=== PATIENT | male | born 1940 | race Caucasian/White ===

== ENCOUNTER 2017-01-11 05:33 | Inpatient (IN) | payer MEDICARE, MEDICAID ==
[2016-12-31 13:31] LABS: HEMATOCRIT 41.1 % (37.9-51.0); HEMOGLOBIN 13.7 g/dL (13.5-17.0); MEAN CORPUSCULAR HEMOGLOBIN 28.1 pg (27.0-33.4); MEAN CORPUSCULAR HGB CONC 33.2 g/dL (32.0-36.0); MEAN CORPUSCULAR VOLUME 85 fl (80-97); RED BLOOD COUNT 4.86 10^6/uL (4.35-5.55); RED CELL DISTRIBUTION WIDTH 15.5 % (11.5-14.0)
[2016-12-31 13:39] LABS: APPEARANCE,URINE SLIGHTLY-CLOUDY; BILIRUBIN,URINE NEGATIVE (NEGATIVE); GLUCOSE, URINE NEGATIVE (NEGATIVE); KETONES,URINE NEGATIVE (NEGATIVE); LEUKOCYTE ESTERASE,URINE MODERATE (NEGATIVE); NITRITE,URINE NEGATIVE (NEGATIVE); PROTEIN,URINE NEGATIVE (NEGATIVE); URINE SPECIFIC GRAVITY 1.016; UROBILINOGEN,URINE NEGATIVE mg/dL (<2.0)
[2016-12-31 13:49] LABS: ANION GAP 13 (5-19); BLOOD UREA NITROGEN 24 mg/dL (7-20); CALCIUM 8.2 mg/dL (8.4-10.2); CARBON DIOXIDE 30 mmol/L (22-30); CHLORIDE 102 mmol/L (98-107); CREATININE RESULT 1.12 mg/dL (0.52-1.25); GLUCOSE 73 mg/dL (75-110); POTASSIUM 4.1 mmol/L (3.6-5.0); SODIUM 144.5 mmol/L (137-145)
--- NOTE | 2016-12-31 15:44 | EKG REPORT ---
SEVERITY:- ABNORMAL ECG - SINUS BRADYCARDIA RIGHT BUNDLE BRANCH BLOCK PROBABLE INFERIOR INFARCT, AGE INDETERMINATE : Confirmed by: Breanna Landrum MD 31-Dec-2016 15:43:06
[~2017-01-11 05:33] MED LIST: IBUPROFEN 800 MG/NS 250 ML IV PRN; LANSOPRAZOLE 15 MG TAB.RAP.DR PO PRN; NORMAL SALINE 1000 ML (RENAL PATIENTS) IV PRN; OXYCODONE HCL SR 10 MG TABLET PO PRN; SCOPOLAMINE HYDROBROMIDE 1.5 MG PATCH.TD72 TOP PRN; VANCOMYCIN HCL 1,000 MG in DEXTROSE 5%-WATER 250 ML IV PRN
[2017-01-11] MEDS ORDERED: FENTANYL CITRATE INJ/PF 100 MCG/2 ML AMPUL ONE (06:43)
[2017-01-11] MEDS ORDERED: MIDAZOLAM 2 MG/2 ML INJ ONE (06:43)
[2017-01-11] MEDS ORDERED: PROPOFOL INJ 200 MG/20 ML VIAL IV ONE (06:44)
[2017-01-11] MEDS ORDERED: ONDANSETRON HCL INJ/PF 4 MG/2 ML SDV ONE (06:44)
[2017-01-11] MEDS ORDERED: THROMBIN (BOVINE) 5000 UNIT EPITAXIS KIT ONE (06:55)
[2017-01-11] MEDS ORDERED: THROMBIN (BOVINE) TOPICAL 20000 UNIT VIAL ONE (06:55)
[2017-01-11] MEDS ORDERED: BUPIVACAINE INJ/PF LIPOSOME/PF 266 MG/20 ML SDV ONE (06:55)
[2017-01-11] MEDS ORDERED: CEFAZOLIN INJ 1 GM VIAL ONE (07:09)
[2017-01-11 07:26] LABS: PROTHROMBIN TIME 12.9 SEC (11.4-15.4)
[2017-01-11 07:27] LABS: PARTIAL THROMBOPLASTIN TIME 28.5 SEC (23.5-35.8)
[2017-01-11] MEDS ORDERED: EPINEPHRINE INJ/PF 1 MG/1 ML AMPULE ONE (08:05)
[2017-01-11] MEDS ORDERED: EPHEDRINE SULFATE INJ 50 MG/1 ML AMPULE ONE (08:07)
[2017-01-11] MEDS ORDERED: FENTANYL CITRATE INJ/PF 100 MCG/2 ML AMPUL IV PRN ×2 (08:15)
[2017-01-11] MEDS ORDERED: MEPERIDINE HCL/PF INJ 25 MG/1 ML DISP.SYRIN IV PRN (08:15)
[2017-01-11] MEDS ORDERED: DIPHENHYDRAMINE HCL 50 MG/ML VIAL IV PRN ×2 (08:15→09:07)
[2017-01-11] MEDS ORDERED: PROMETHAZINE HCL INJ 25 MG/1 ML VIAL IV PRN (08:15)
[2017-01-11] MEDS ORDERED: LORAZEPAM 1 MG TABLET PO PRN (09:05)
[2017-01-11] MEDS ORDERED: ACETAMINOPHEN 325 MG TABLET PO PRN ×2 (09:05→09:07)
--- NOTE | 2017-01-11 09:05 | Operative Report ---
Operative Report DATE OF SURGERY: 01/11/17 PREOPERATIVE DIAGNOSIS: Left knee arthritis OPERATION: Left knee arthroplasty SURGEON: BAKARI DURAN ANESTHESIA: Spinal TISSUE REMOVED OR ALTERED: Bone to pathology ESTIMATED BLOOD LOSS: 100 PROCEDURE: Implants used: Femur: Layiker cierralon #6 CR femur Tibia:, 5 tibia Tibial liner:, 9 mm CS insert Patella: 35 mm oval patella Procedure with the patient supine on the operating table the, left the limb is prepped and draped in a sterile fashion. The limb was elevated for exsanguination and the tourniquet inflated to 280 torr. A standard midline median parapatellar approach the knee is taken. There had been both previous medial and lateral incisions for ligamentous reconstructions in the distant past. The medial incision was a hockey type incision that ended just inferior in the midline to the tibial tubercle. I would be unable to make an anterior incision and be 7 cm from either the 2 previous incisions. Therefore I made in the midline incision that distally ended up coinciding with the previous incision and leaving a T type situation between minute incision and the previous medial incision. The patient and family were both aware of this decision preoperatively and my concern for potential skin healing problems Access is gained to the femoral canal through the intercondylar notch. Intramedullary alignment instrumentation used to resect 10 mm of distal femur in 5 of valgus. Sizing guide indicated a size 6 femur. Appropriate cutting jig is then used to fashion anterior posterior and chamfer cuts. In the process of making the anterior and posterior chamfer cuts. An old staple was encountered and was removed. A trial reduction femurs performed and this is judged to be adequate. Attention was next turned to the tibia. Using an extra medullary alignment system 9 millimeters was resected off the lateral tibial plateau. This is sized to a size 5 tibia. A trial reduction was now performed with a 6 femur and a. 5 tibia using a 9 millimeters spacer. It is full extension and central patellofemoral tracking. The articular surface the patella was next resected using an oscillating saw. All trial implants were removed. Polymethylmethacrylate is mixed and used to cement the above implants in place. On adequate curing the cement excess cement was removed the tourniquet was deflated hemostasis obtained the wound is then closed in layers using interrupted Vicryl followed by ashley. A sterile compressive dressing was applied and the patient returned to recovery room in satisfactory condition.
[2017-01-11] MEDS ORDERED: MAG HYDROX/AL HYDROX/SIMETH SUSP 30 ML UDCUP PO PRN (09:07)
[2017-01-11] MEDS ORDERED: ONDANSETRON HCL INJ/PF 4 MG/2 ML SDV IV PRN (09:07)
[2017-01-11] MEDS ORDERED: MORPHINE SULFATE 10 MG/ML INJ IV PRN ×2 (09:07)
[2017-01-11] MEDS ORDERED: ONDANSETRON 4 MG TAB.RAPDIS PO PRN (09:07)
[2017-01-11] MEDS ORDERED: MORPHINE SULFATE 10 MG/ML INJ IM PRN (09:07)
[2017-01-11] MEDS ORDERED: ZOLPIDEM TARTRATE 5 MG TABLET PO PRN (09:07)
[2017-01-11] MEDS ORDERED: OXYCODONE HCL IR 5 MG TABLET PO PRN (09:07)
[2017-01-11] MEDS ORDERED: RINGERS SOLUTION,LACTATED 1,000 ML IV PRN (09:07)
[2017-01-11] MEDS ORDERED: POLYVINYL ALCOHOL 1.4% OPH SOLN 15 ML OP SCH (09:15)
[2017-01-11] MEDS ORDERED: (PENDING PHARMACY ID) (Psyllium Husk [Metamucil] 0.52 GM) PO SCH (10:00)
[2017-01-11] MEDS ORDERED: EYELID CLEANSER COMBINATION TP SCH (10:00)
[2017-01-11] MEDS ORDERED: GLYCOPYRROLATE INJ 0.4 MG/2 ML VIAL ONE (11:51)
[2017-01-11] MEDS ORDERED: PHENYLEPHRINE HCL INJ/PF 10 MG/1 ML SDV ONE (11:51)
[2017-01-11] MEDS ORDERED: NORMAL SALINE 1000 ML 1,000 ML IV PRN ×2 (14:00→14:30)
[2017-01-11] MEDS ORDERED: NORMAL SALINE 1000 ML 500 ML IV ONE (14:15)
[2017-01-11] MEDS ORDERED: DOPAMINE HCL 800 MG/D5W 250 ML IV PRN (15:30)
[2017-01-11] MEDS: PRENATAL VITAMIN W-O CA NO5/FE FUMARATE/FA CAPSULE PO SCH (15:58)
[2017-01-11] MEDS: MORPHINE SULFATE 10 MG/ML INJ IV PRN (16:56)
[2017-01-11] MEDS: SENNOSIDES/DOCUSATE 8.6-50 MG 1 EACH TABLET PO SCH (17:14)
[2017-01-11] MEDS: PSYLLIUM SEED-SF 5.85 GM PACKET PO SCH ×2 (17:14)
[2017-01-11] MEDS ORDERED: SACUBITRIL/VALSARTAN 24 MG/26 MG TABLET PO SCH (18:00)
[2017-01-11 19:21] LABS: HEMATOCRIT 37.9 % (37.9-51.0); HEMOGLOBIN 12.4 g/dL (13.5-17.0); HGB HCT DIFFERENCE -0.7; MEAN CORPUSCULAR HEMOGLOBIN 28.2 pg (27.0-33.4); MEAN CORPUSCULAR HGB CONC 32.8 g/dL (32.0-36.0); MEAN CORPUSCULAR VOLUME 86 fl (80-97); RED BLOOD COUNT 4.42 10^6/uL (4.35-5.55); RED CELL DISTRIBUTION WIDTH 15.8 % (11.5-14.0); WHITE BLOOD COUNT 9.7 10^3/uL (4.0-10.5)
[2017-01-11] MEDS: TAMSULOSIN HCL 0.4 MG CAP.SR.24H PO SCH (19:34)
[2017-01-11] MEDS: OXYCODONE HCL SR 10 MG TABLET PO SCH (19:34)
[2017-01-11 19:38] LABS: ALANINE AMINOTRANSFERASE 24 U/L (21-72); ALBUMIN 3.4 g/dL (3.5-5.0); ALKALINE PHOSPHATASE 74 U/L (38-126); ANION GAP 15 (5-19); ASPARTATE AMINO TRANSFERASE 25 U/L (17-59); BILIRUBIN,DIRECT 0.2 mg/dL (0.0-0.4); BILIRUBIN,TOTAL 1.1 mg/dL (0.2-1.3); BLOOD UREA NITROGEN 35 mg/dL (7-20); CALCIUM 8.2 mg/dL (8.4-10.2); CARBON DIOXIDE 23 mmol/L (22-30); CHLORIDE 103 mmol/L (98-107); CREATINE KINASE 163 U/L (55-170); CREATININE RESULT 2.55 mg/dL (0.52-1.25); GLUCOSE 144 mg/dL (75-110); POTASSIUM 5.1 mmol/L (3.6-5.0); SODIUM 140.7 mmol/L (137-145); TOTAL PROTEIN 5.8 g/dL (6.3-8.2)
[2017-01-11 19:49] LABS: CREATINE KINASE MB 2.83 ng/mL (<4.55); TROPONIN I 0.026 ng/mL
[2017-01-11] MEDS: DEXTROSE 5%-WATER 250 ML with NOREPINEPHRINE BITARTRATE 4 MG IV PRN ×2 (19:50)
[2017-01-11] MEDS: NORMAL SALINE 1000 ML 1,000 ML IV PRN ×2 (19:52→23:49)
[2017-01-11 19:56] LABS: BAND NEUTROPHILS % (MANUAL) 4 % (3-5); BASOPHILS % (MANUAL) 0 % (0-2); EOSINOPHILS % (MANUAL) 0 % (0-6); LYMPHOCYTES % (MANUAL) 9 % (13-45); TOTAL CELLS COUNTED 100
[2017-01-11 20:00] LABS: OVALOCYTES 1+; POIKILOCYTOSIS SLIGHT; TOXIC VACUOLATION PRESENT
[2017-01-11 20:01] LABS: ANISOCYTOSIS SLIGHT; BURR CELLS SLIGHT
--- NOTE | 2017-01-11 20:06 | PDOC CONSULTATION ---
Consultation Consult Date: 01/11/17 Attending physician:: BAKARI DURAN Consult reason:: Hypotension History of Present Illness Admission Date/PCP: 01/11/17 05:33 CRISTINE AGUAYO MD History of Present Illness: ERIKA GERMAIN is a 76 year old male, he is well-known to me, he has a well compensated chronic systolic heart failure, diabetes mellitus, CVA with no residual deficits, he was admitted electively for left knee arthroplasty. This was done today consultation was requested from medicine because of low blood pressure and the fact that he has multiple comorbid conditions. Based on the revised cardiac risk index, he has cardiomyopathy, coronary artery disease, CVA , no history of insulin requiring diabetes mellitus, no history of chronic kidney disease with serum creatinine of more than 2. On admission the serum creatinine was normal. The blood blood pressure is low it seems that he has sustained acute kidney injury probably due to ATN. Past Medical History Cardiac Medical History: Reports: Atrial Fibrillation - Paroxysmal, Coronary Artery Disease, DVT, Myocardial Infarction - x4 last 1993, Hyperlipidema, Hypertension, Other - Chronic systolic heart failure, ascending aortic aneurysm Pulmonary Medical History: Reports: Asthma, Bronchitis, Chronic Obstructive Pulmonary Disease (COPD), Intubation, Pneumonia, Respiratory Failure - Acute, Sleep Apnea Denies: Tuberculosis Neurological Medical History: Reports: Seizures - sept hit head and had seizure Endocrine Medical History: Reports: Diabetes Mellitus Type 2, Obesity Renal/ Medical History: Reports: Other - Atrophic left kidney Malignancy Medical History: Reports: Skin Cancer - Malignant melanoma GI Medical History: Reports: Gastroesophageal Reflux Disease Musculoskeltal Medical History: Reports: Arthritis, Gout Denies: Fibromyalgia Psychiatric Medical History: Reports: Depression Hematology: Reports: Anemia - Thrombocytopenia Past Surgical History Past Surgical History: Reports: Coronary Stent Social History Smoking Status: Never Smoker Frequency of Alcohol Use: None Hx Recreational Drug Use: No Hx Prescription Drug Abuse: No - Advance Directive Resuscitation Status: Full Code Family History Family History: Reviewed & Not Pertinent Parental Family History Reviewed: Yes Children Family History Reviewed: Yes Sibling(s) Family History Reviewed.: Yes Medication/Allergy Home Medications: Aspirin 81 mg PO QAM 04/15/15 Atorvastatin Calcium [Lipitor 80 mg Tablet] 80 mg PO QHS 04/15/15 Clopidogrel Bisulfate [Plavix 75 mg Tablet] 75 mg PO QAM 04/15/15 Cyanocobalamin (Vitamin B-12) [B-12] 500 mcg PO QAM 04/15/15 Dexlansoprazole [Dexilant 60 mg Capsule] 60 mg PO QAM 04/15/15 Febuxostat [Uloric 40 mg Tablet] 40 mg PO QAM 04/15/15 Isosorbide Mononitrate [Isosorbide Mononitrate ER] 30 mg PO QAM 04/15/15 Linagliptin [Tradjenta] 5 mg PO QAM 04/15/15 Oxycodone HCl/Acetaminophen [Oxycodone-Acetaminophen 10-325] 1 tab PO Q6HP PRN 04/15/15 Pregabalin [Lyrica 75 mg Capsule] 150 mg PO Q12 04/15/15 Tamsulosin HCl 0.4 mg PO QPM 04/15/15 Acetaminophen [Tylenol] 650 mg PO Q4 PRN 08/15/15 Lorazepam [Ativan 1 mg Tablet] 2 mg PO BID PRN 08/15/15 Furosemide [Lasix 40 mg Tablet] 40 mg PO QAM 07/31/16 Psyllium Husk [Metamucil] 0.52 gm PO BID 07/31/16 Citalopram Hydrobromide [Celexa 20 mg Tablet] 20 mg PO QAM 12/30/16 Eyelid Cleanser Combination #9 [Systane] 1 each TP BID 12/30/16 Lanolin/Min Oil/Petrolat,Wht [Akwa Tears Ointment] 3.5 gm OP QHS 12/30/16 Polyvinyl Alcohol [Liquitears] 15 ml OP ASDIR 12/30/16 Sacubitril/Valsartan [Entresto 24 mg-26 mg Tablet] 1 each PO BID 12/30/16 Allergies/Adverse Reactions: codeine [Codeine] Allergy (Verified 12/30/16 15:35) Hives tuberculin,PPD,multi-puncture Adverse Reaction (Verified 12/30/16 16:05) Review of Systems Constitutional: ABSENT: chills, fever(s), headache(s), weight gain, weight loss Eyes: ABSENT: visual disturbances Ears: ABSENT: hearing changes Cardiovascular: ABSENT: as per HPI, chest pain, dyspnea on exertion, edema, orthropnea, palpitations, other Respiratory: ABSENT: cough, hemoptysis Gastrointestinal: ABSENT: abdominal pain, constipation, diarrhea, hematemesis, hematochezia, nausea, vomiting Genitourinary: ABSENT: dysuria, hematuria Musculoskeletal: PRESENT: back pain Neurological: ABSENT: abnormal gait, abnormal speech, confusion, dizziness, focal weakness, syncope Psychiatric: ABSENT: anxiety, depression, homidical ideation, suicidal ideation Endocrine: ABSENT: cold intolerance, heat intolerance, menstrual abnormalities, polydipsia, polyuria Hematologic/Lymphatic: ABSENT: easy bleeding, easy bruising, lymphadenopathy Physical Exam Vital Signs: Temp Pulse Resp BP Pulse Ox 98.3 F 113 H 14 87/45 L 94 01/11/17 16:26 01/11/17 17:39 01/11/17 16:26 01/11/17 17:39 01/11/17 17:31 Intake & Output 01/10/17 01/11/17 01/12/17 06:59 06:59 06:59 Intake Total 0 3700 Output Total 2050 Balance 0 1650 Head exam: PRESENT: atraumatic, normocephalic Eye exam: PRESENT: conjunctiva pink, EOMI, PERRLA Ear exam: PRESENT: normal external ear exam Mouth exam: PRESENT: moist, tongue midline Neck exam: PRESENT: full ROM Respiratory exam: PRESENT: clear to auscultation abigail Cardiovascular exam: PRESENT: RRR, +S1, +S2 Pulses: PRESENT: normal dorsalis pedis pul, +2 pedal pulses bilateral Vascular exam: PRESENT: normal capillary refill GI/Abdominal exam: PRESENT: normal bowel sounds, soft Rectal exam: PRESENT: deferred Neurological exam: PRESENT: alert Psychiatric exam: PRESENT: appropriate affect Skin exam: PRESENT: dry, intact, warm Results Laboratory Results: 01/11/17 19:05 01/11/17 01/11/17 01/11/17 06:58 19:05 19:05 Seg Neutrophils % Not Reportable Lymphocytes % Not Reportable Monocytes % Not Reportable Eosinophils % Not Reportable Basophils % Not Reportable Absolute Neutrophils Not Reportable Absolute Lymphocytes Not Reportable Absolute Monocytes Not Reportable Absolute Eosinophils Not Reportable Absolute Basophils Not Reportable Sodium 140.7 Potassium 4.4 5.1 H Chloride 103 Carbon Dioxide 23 Anion Gap 15 BUN 35 H Creatinine 2.55 H Est GFR ( Amer) 30 L Est GFR (Non-Af Amer) 25 L Glucose 144 H Calcium 8.2 L Total Bilirubin 1.1 AST 25 ALT 24 Alkaline Phosphatase 74 Total Protein 5.8 L Albumin 3.4 L 01/11/17 01/11/17 19:05 19:05 Creatine Kinase 163 CK-MB (CK-2) 2.83 Troponin I 0.026 Impressions: Chest X-Ray 12/31/16 12:34 IMPRESSION: CHRONIC SCARRING. NO ACUTE RADIOGRAPHIC FINDING IN THE CHEST. Knee X-Ray 01/11/17 09:08 IMPRESSION: Expected postoperative appearance left knee. Assessment & Plan - Diagnosis (1) Hypotension Qualifiers: Hypotension type: unspecified hypotension type Qualified Code(s): I95.9 - Hypotension, unspecified Is this a current diagnosis for this admission?: YesPlan: He has hypertension this is probably due to multiple factors, including medications, dehydration. He takes entrance to wheeze a combination of neprilysin inhibitor and ARB there is strong association of hypotension in ACEI/ ARB usage postoperatively ,patient to be transferred to the ICU for hydration and to start intravenous norepinephrine (2) Acute kidney injury Is this a current diagnosis for this admission?: YesPlan: On admission serum creatinine was normal apparently he has sustained acute tubal necrosis with acute kidney injury due to low blood pressure
[2017-01-11] MEDS ORDERED: VANCOMYCIN HCL 1,000 MG in DEXTROSE 5%-WATER 250 ML IV ONE (21:00)
[2017-01-11] MEDS ORDERED: LANOLIN OP SCH (22:00)
[2017-01-11] MEDS ORDERED: WHITE PETROLATUM OP SCH (22:00)
[2017-01-11] MEDS ORDERED: MINERAL OIL OP SCH (22:00)
[2017-01-11] MEDS: PREGABALIN 75 MG CAPSULE PO SCH (22:03)
[2017-01-11] MEDS: ATORVASTATIN CALCIUM 80 MG TABLET PO SCH (22:03)
[2017-01-11] MEDS: RIVAROXABAN 10 MG TABLET PO SCH (22:03)
[2017-01-12 03:12] LABS: HEMATOCRIT 36.4 % (37.9-51.0); HEMOGLOBIN 11.7 g/dL (13.5-17.0); HGB HCT DIFFERENCE -1.3; MEAN CORPUSCULAR HEMOGLOBIN 27.7 pg (27.0-33.4); MEAN CORPUSCULAR HGB CONC 32.2 g/dL (32.0-36.0); MEAN CORPUSCULAR VOLUME 86 fl (80-97); RED BLOOD COUNT 4.24 10^6/uL (4.35-5.55); RED CELL DISTRIBUTION WIDTH 15.6 % (11.5-14.0); WHITE BLOOD COUNT 11.1 10^3/uL (4.0-10.5)
[2017-01-12 03:26] LABS: ALANINE AMINOTRANSFERASE 25 U/L (21-72); ALBUMIN 3.4 g/dL (3.5-5.0); ALKALINE PHOSPHATASE 72 U/L (38-126); ANION GAP 13 (5-19); ASPARTATE AMINO TRANSFERASE 26 U/L (17-59); BILIRUBIN,DIRECT 0.3 mg/dL (0.0-0.4); BILIRUBIN,TOTAL 1.2 mg/dL (0.2-1.3); BLOOD UREA NITROGEN 39 mg/dL (7-20); CARBON DIOXIDE 26 mmol/L (22-30); CHLORIDE 102 mmol/L (98-107); CREATINE KINASE 282 U/L (55-170); GLUCOSE 163 mg/dL (75-110); SODIUM 140.7 mmol/L (137-145)
[2017-01-12 03:43] LABS: CREATINE KINASE MB 6.12 ng/mL (<4.55); TROPONIN I 0.064 ng/mL
[2017-01-12] MEDS: DEXTROSE 5%-WATER 250 ML with NOREPINEPHRINE BITARTRATE 4 MG IV PRN ×2 (04:30)
[2017-01-12] MEDS: OXYCODONE HCL SR 10 MG TABLET PO SCH ×2 (05:36→18:10)
[2017-01-12] MEDS: LANSOPRAZOLE 30 MG TAB.RAP.DR PO SCH (05:37)
--- NOTE | 2017-01-12 06:54 | PDOC PROGRESS REPORT ---
Subjective Progress Note for:: 01/12/17 Subjective:: Patient complaining of stiffness. This morning Physical Exam Vital Signs: Temp Pulse Resp BP Pulse Ox 37.6 C 98 14 124/57 L 99 01/11/17 23:51 01/11/17 20:00 01/12/17 06:10 01/12/17 06:10 01/12/17 06:10 Intake & Output 01/10/17 01/11/17 01/12/17 06:59 06:59 06:59 Intake Total 0 4851 Output Total 2120 Balance 0 2731 Weight 120.5 kg General appearance: PRESENT: no acute distress Head exam: PRESENT: normocephalic Respiratory exam: PRESENT: unlabored Cardiovascular exam: PRESENT: RRR Pulses: PRESENT: +1 pedal pulses bilateral Vascular exam: PRESENT: normal capillary refill GI/Abdominal exam: PRESENT: soft Rectal exam: PRESENT: deferred Extremities exam: PRESENT: other - Lower extremity dressing clean dry and intact Neurological exam: PRESENT: alert, awake, oriented to person, oriented to place , oriented to time, oriented to situation. ABSENT: motor sensory deficit Psychiatric exam: PRESENT: appropriate affect, normal mood. ABSENT: homicidal ideation, suicidal ideation Skin exam: PRESENT: dry, intact, warm. ABSENT: cyanosis, rash Results Laboratory Results: 01/12/17 03:01 01/12/17 03:01 01/11/17 01/11/17 01/11/17 06:58 19:05 19:05 WBC 9.7 RBC 4.42 Hgb 12.4 L Hct 37.9 MCV 86 MCH 28.2 MCHC 32.8 RDW 15.8 H Plt Count 115 L Seg Neutrophils % Not Reportable Lymphocytes % Not Reportable Monocytes % Not Reportable Eosinophils % Not Reportable Basophils % Not Reportable Absolute Neutrophils Not Reportable Absolute Lymphocytes Not Reportable Absolute Monocytes Not Reportable Absolute Eosinophils Not Reportable Absolute Basophils Not Reportable Sodium 140.7 Potassium 4.4 5.1 H Chloride 103 Carbon Dioxide 23 Anion Gap 15 BUN 35 H Creatinine 2.55 H Est GFR ( Amer) 30 L Est GFR (Non-Af Amer) 25 L Glucose 144 H Calcium 8.2 L Total Bilirubin 1.1 AST 25 ALT 24 Alkaline Phosphatase 74 Total Protein 5.8 L Albumin 3.4 L 01/12/17 01/12/17 03:01 03:01 WBC 11.1 H RBC 4.24 L Hgb 11.7 L Hct 36.4 L MCV 86 MCH 27.7 MCHC 32.2 RDW 15.6 H Plt Count 110 L Seg Neutrophils % Lymphocytes % Monocytes % Eosinophils % Basophils % Absolute Neutrophils Absolute Lymphocytes Absolute Monocytes Absolute Eosinophils Absolute Basophils Sodium 140.7 Potassium 5.0 Chloride 102 Carbon Dioxide 26 Anion Gap 13 BUN 39 H Creatinine 2.90 H Est GFR ( Amer) 26 L Est GFR (Non-Af Amer) 21 L Glucose 163 H Calcium 8.0 L Total Bilirubin 1.2 AST 26 ALT 25 Alkaline Phosphatase 72 Total Protein 6.0 L Albumin 3.4 L 01/11/17 01/11/17 01/12/17 19:05 19:05 03:01 Creatine Kinase 163 CK-MB (CK-2) 2.83 6.12 H Troponin I 0.026 0.064 01/12/17 03:01 Creatine Kinase 282 H CK-MB (CK-2) Troponin I Impressions: Chest X-Ray 12/31/16 12:34 IMPRESSION: CHRONIC SCARRING. NO ACUTE RADIOGRAPHIC FINDING IN THE CHEST. Knee X-Ray 01/11/17 09:08 IMPRESSION: Expected postoperative appearance left knee. Status: Imported from PACS Assessment & Plan - Diagnosis (1) Arthritis of left knee Is this a current diagnosis for this admission?: YesPlan: 76-year-old white male postop day 1 from left knee arthroplasty. Postoperative course is been complicated by hypotension and acute tubular necrosis. Creatinine is increased 1.1-2.90. Hematocrit remains above 36%. Blood glucose is buried between 84 and 113. Patient currently on Levothroid and dopamine blood pressure support. Urine output has been scant - Time Time Spent with patient: 15-24 minutes Anticipated discharge: SNF Within: Other
[2017-01-12] MEDS: NORMAL SALINE 1000 ML 1,000 ML IV PRN ×3 (07:54→19:59)
[2017-01-12] MEDS ORDERED: (PENDING PHARMACY ID) (Linagliptin [Tradjenta] 5 MG) PO SCH (08:00)
[2017-01-12] MEDS: SENNOSIDES/DOCUSATE 8.6-50 MG 1 EACH TABLET PO SCH ×2 (09:13→18:11)
[2017-01-12] MEDS: PREGABALIN 75 MG CAPSULE PO SCH ×2 (09:13→21:19)
[2017-01-12] MEDS: PRENATAL VITAMIN W-O CA NO5/FE FUMARATE/FA CAPSULE PO SCH (09:13)
[2017-01-12] MEDS: CITALOPRAM HYDROBROMIDE 20 MG TABLET PO SCH (09:14)
[2017-01-12] MEDS: ISOSORBIDE MONONITRATE 30 MG TAB.ER.24H PO SCH (09:14)
[2017-01-12] MEDS: FEBUXOSTAT 40 MG TABLET PO SCH (09:14)
[2017-01-12] MEDS: SITAGLIPTIN PHOSPHATE 50 MG TABLET PO SCH (09:14)
[2017-01-12] MEDS: PSYLLIUM SEED-SF 5.85 GM PACKET PO SCH ×4 (09:23→18:11)
[2017-01-12] MEDS ORDERED: FUROSEMIDE 40 MG TABLET PO SCH (10:00)
[2017-01-12] MEDS: CYANOCOBALAMIN (VITAMIN B-12) 1,000 MCG TABLET PO SCH (11:26)
[2017-01-12] MEDS: MORPHINE SULFATE 10 MG/ML INJ IV PRN ×2 (12:01→19:58)
[2017-01-12 12:21] LABS: CREATINE KINASE MB 6.3 ng/mL (<4.55); TROPONIN I 0.077 ng/mL
[2017-01-12] MEDS: TAMSULOSIN HCL 0.4 MG CAP.SR.24H PO SCH (18:09)
--- NOTE | 2017-01-12 18:14 | XCELERA REPORT ---
[address] [address] Transthoracic Echocardiogram Report Name: ERIKA GERMAIN Age: 76 yrs Gender: Male : 1940 Patient Status: Inpatient Patient Location: ICU\S\611\S\A Study Date: 01/12/2017 08:16 AM Height: 68 in Weight: 252 lb BSA: 2.3 m2 Procedure: A complete two-dimensional transthoracic echocardiogram was performed (2D, M-mode, spectral and color flow Doppler). The study was technically difficult with many images being suboptimal in quality. Reason For Study: hypotension Ordering Physician: CRISTINE AGUAYO Performed By: Anna Banks Interpretation Summary Left ventricular systolic function is low normal. There is borderline concentric left ventricular hypertrophy. Doppler measurements suggest impaired left ventricular relaxation, which is associated with grade I/IV or mild diastolic dysfunction Wall motion cannot be accurately commented on, but no definite regional wall motion abnormalities noted. The left ventricle is grossly normal size. The right ventricle is mildly dilated. The left atrial size is normal. Borderline right atrial enlargement. There is no mitral valve stenosis. There is a trace amount of mitral regurgitation There is a mild amount of aortic regurgitation There is no aortic valve stenosis There is a trace or physiologic amount of tricuspid regurgitation Tricuspid regurgitation jet envelope not well defined to measure RV systolic pressure accurately. The aortic root is not well visualized. The inferior vena cava was not well visualized There is no pericardial effusion. MMode/2D Measurements \T\ Calculations RVDd: 3.6 cm LVIDd: 4.7 cm FS: 32.7 % Ao root diam: 3.5 cm IVSd: 0.88 cm LVIDs: 3.1 cm EDV(Teich): 100.7 ml LVPWd: 1.0 cm ESV(Teich): 39.2 ml Ao root area: 9.8 cm2 EF(Teich): 61.1 % LA dimension: 3.5 cm Doppler Measurements \T\ Calculations MV E max tiesha: MV P1/2t max tiesha: Ao V2 max: AI max tiesha: 78.4 cm/sec 79.6 cm/sec 162.9 cm/sec 396.7 cm/sec MV A max tiesha: MV P1/2t: 86.3 msec Ao max PG: AI max P.9 cm/sec 10.6 mmHg 62.9 mmHg MV E/A: 0.69 MVA(P1/2t): 2.6 cm2 AI dec slope: MV dec slope: 270.2 cm/sec2 254.6 cm/sec2 AI P1/2t: 456.4 msec LV V1 max PG: PA V2 max: 7.2 mmHg 140.5 cm/sec LV V1 max: PA max P.9 mmHg 134.2 cm/sec Left Ventricle The left ventricle is grossly normal size. There is borderline concentric left ventricular hypertrophy. Left ventricular systolic function is low normal. Doppler measurements suggest impaired left ventricular relaxation, which is associated with grade I/IV or mild diastolic dysfunction. Wall motion cannot be accurately commented on, but no definite regional wall motion abnormalities noted. Right Ventricle The right ventricle is mildly dilated. There is normal right ventricular wall thickness. The right ventricular systolic function is normal. Atria Borderline right atrial enlargement. The left atrial size is normal. Interarterial septum not well visualized and not well dopplered. Cannot comment on ASD/PFO presence. Mitral Valve The mitral valve is grossly normal. There is no mitral valve stenosis. There is a trace amount of mitral regurgitation. Aortic Valve The aortic valve is not well visualized secondary to technical limitations. There is no aortic valve stenosis. There is a mild amount of aortic regurgitation. Tricuspid Valve The tricuspid valve is not well visualized secondary to technical limitations. There is no tricuspid stenosis. There is a trace or physiologic amount of tricuspid regurgitation. Tricuspid regurgitation jet envelope not well defined to measure RV systolic pressure accurately. Pulmonic Valve The pulmonic valve is not well visualized. Great Vessels The aortic root is not well visualized. The inferior vena cava was not well visualized. Effusions There is no pericardial effusion. : CRISTINE AGUAYO > Ellis Chong
[2017-01-12] MEDS ORDERED: NALOXONE HCL INJ/PF 0.4 MG/1 ML SDV ONE (20:36)
[2017-01-12] MEDS ORDERED: OXYCODONE-ACETAMINOPHEN 5-325 MG TABLET PO PRN (20:49)
--- NOTE | 2017-01-12 21:01 | PDOC PROGRESS REPORT ---
Subjective Progress Note for:: 01/19/17 Subjective:: Patient has sustained acute kidney injury due to ATN associated with low blood pressure yesterday, the kidney of the kidney function is still declining but there is no immediate indication for renal replacement therapy, dialysis yet Physical Exam Vital Signs: Temp Pulse Resp BP Pulse Ox 100.2 F 88 17 110/78 94 01/12/17 20:00 01/12/17 20:00 01/12/17 18:00 01/12/17 18:00 01/12/17 18:00 Intake & Output 01/11/17 01/12/17 01/13/17 06:59 06:59 06:59 Intake Total 0 4851 1831 Output Total 2120 0 Balance 0 2731 1831 Weight 120.5 kg General appearance: PRESENT: no acute distress Eye exam: PRESENT: PERRLA Respiratory exam: PRESENT: clear to auscultation abigail Cardiovascular exam: PRESENT: +S1, +S2 GI/Abdominal exam: PRESENT: soft Results Laboratory Results: 01/12/17 03:01 01/12/17 03:01 01/12/17 01/12/17 03:01 03:01 WBC 11.1 H RBC 4.24 L Hgb 11.7 L Hct 36.4 L MCV 86 MCH 27.7 MCHC 32.2 RDW 15.6 H Plt Count 110 L Sodium 140.7 Potassium 5.0 Chloride 102 Carbon Dioxide 26 Anion Gap 13 BUN 39 H Creatinine 2.90 H Est GFR ( Amer) 26 L Est GFR (Non-Af Amer) 21 L Glucose 163 H Calcium 8.0 L Total Bilirubin 1.2 AST 26 ALT 25 Alkaline Phosphatase 72 Total Protein 6.0 L Albumin 3.4 L 01/11/17 01/11/17 01/12/17 19:05 19:05 03:01 Creatine Kinase 163 CK-MB (CK-2) 2.83 6.12 H Troponin I 0.026 0.064 01/12/17 01/12/17 01/12/17 03:01 11:15 11:15 Creatine Kinase 282 H 322 H CK-MB (CK-2) 6.30 H Troponin I 0.077 Impressions: Chest X-Ray 12/31/16 12:34 IMPRESSION: CHRONIC SCARRING. NO ACUTE RADIOGRAPHIC FINDING IN THE CHEST. Knee X-Ray 01/11/17 09:08 IMPRESSION: Expected postoperative appearance left knee. Assessment & Plan - Diagnosis (1) Hypotension Qualifiers: Hypotension type: unspecified hypotension type Qualified Code(s): I95.9 - Hypotension, unspecified Is this a current diagnosis for this admission?: Yes (2) Acute kidney injury Is this a current diagnosis for this admission?: YesPlan: Kidney function is declining still nonoliguric, he may need dialysis if kidney function continues to decline
[2017-01-12] MEDS: ATORVASTATIN CALCIUM 80 MG TABLET PO SCH (21:18)
[2017-01-12] MEDS: RIVAROXABAN 10 MG TABLET PO SCH (21:19)
[2017-01-13 00:03] LABS: ARTERIAL BLOOD O2 SATURATION 94.1 % (94-98)
[2017-01-13] MEDS ORDERED: SODIUM BICARBONATE 8.4% INJ 50 MEQ/50 ML DISP.SYRIN IV ONE (00:10)
[2017-01-13] MEDS ORDERED: SODIUM BICARBONATE 8.4% INJ 50 MEQ/50 ML DISP.SYRIN ONE (00:24)
[2017-01-13 00:29] LABS: ANION GAP 10 (5-19); BLOOD UREA NITROGEN 43 mg/dL (7-20); CALCIUM 7.7 mg/dL (8.4-10.2); CARBON DIOXIDE 24 mmol/L (22-30); CHLORIDE 104 mmol/L (98-107); GLUCOSE 107 mg/dL (75-110); MAGNESIUM 1.4 mg/dL (1.6-2.3); POTASSIUM 5.3 mmol/L (3.6-5.0); SODIUM 137.5 mmol/L (137-145)
[2017-01-13] MEDS ORDERED: MAGNESIUM SULFATE/D5W 1 GM/100 ML RTUPB IV ONE (01:00)
[2017-01-13 01:56] LABS: ARTERIAL BLOOD BASE EXCESS -1.8 mmol/L; ARTERIAL BLOOD O2 SATURATION 97.6 % (94-98)
[2017-01-13 04:03] LABS: HEMATOCRIT 28.7 % (37.9-51.0); HGB HCT DIFFERENCE -0.2; MEAN CORPUSCULAR HEMOGLOBIN 28.6 pg (27.0-33.4); MEAN CORPUSCULAR VOLUME 87 fl (80-97); RED BLOOD COUNT 3.31 10^6/uL (4.35-5.55); RED CELL DISTRIBUTION WIDTH 15.6 % (11.5-14.0); WHITE BLOOD COUNT 6.9 10^3/uL (4.0-10.5)
[2017-01-13 04:26] LABS: HEMOGLOBIN 9.5 g/dL (13.5-17.0)
[2017-01-13] MEDS: OXYCODONE HCL SR 10 MG TABLET PO SCH (05:19)
[2017-01-13] MEDS: LANSOPRAZOLE 30 MG TAB.RAP.DR PO SCH (05:19)
[2017-01-13 06:45] LABS: ALANINE AMINOTRANSFERASE 25 U/L (21-72); ALBUMIN 2.8 g/dL (3.5-5.0); ALKALINE PHOSPHATASE 56 U/L (38-126); ANION GAP 10 (5-19); ASPARTATE AMINO TRANSFERASE 33 U/L (17-59); BILIRUBIN,DIRECT 0.4 mg/dL (0.0-0.4); BILIRUBIN,TOTAL 1.5 mg/dL (0.2-1.3); BLOOD UREA NITROGEN 47 mg/dL (7-20); CALCIUM 7.7 mg/dL (8.4-10.2); CARBON DIOXIDE 26 mmol/L (22-30); CHLORIDE 103 mmol/L (98-107); CREATININE RESULT 3.33 mg/dL (0.52-1.25); GLUCOSE 101 mg/dL (75-110); POTASSIUM 5.4 mmol/L (3.6-5.0); TOTAL PROTEIN 5.2 g/dL (6.3-8.2)
--- NOTE | 2017-01-13 07:24 | PDOC PROGRESS REPORT ---
Subjective Progress Note for:: 01/13/17 Subjective:: Patient is now obtunded with myotonic twitching Physical Exam Vital Signs: Temp Pulse Resp BP Pulse Ox 37.5 C 88 24 H 164/139 H 98 01/13/17 04:34 01/12/17 20:00 01/13/17 05:03 01/13/17 02:56 01/13/17 05:03 Intake & Output 01/12/17 01/13/17 01/14/17 06:59 06:59 06:59 Intake Total 4851 2944 Output Total 2120 425 Balance 2731 2519 Weight 120.5 kg 123.3 kg General appearance: PRESENT: no acute distress Head exam: PRESENT: normocephalic Pulses: PRESENT: +1 pedal pulses bilateral - Left knee dressing clean dry and intact. Vascular exam: PRESENT: normal capillary refill GI/Abdominal exam: PRESENT: soft Rectal exam: PRESENT: deferred Results Laboratory Results: 01/13/17 03:42 01/13/17 06:03 01/12/17 01/12/17 01/12/17 23:55 23:58 23:58 WBC RBC Hgb Hct MCV MCH MCHC RDW Plt Count Carbonic Acid 2.11 H HCO3/H2CO3 Ratio 11:1 ABG pH 7.18 L* ABG pCO2 70.0 H* ABG pO2 89.0 ABG HCO3 25.2 ABG O2 Saturation 94.1 ABG Base Excess -4.0 FiO2 4 L Sodium Cancelled 137.5 Potassium Cancelled 5.3 H Chloride Cancelled 104 Carbon Dioxide Cancelled 24 Anion Gap Cancelled 10 BUN Cancelled 43 H Creatinine Cancelled 2.80 H Est GFR ( Amer) Cancelled 27 L Est GFR (Non-Af Amer) Cancelled 22 L Glucose Cancelled 107 Calcium Cancelled 7.7 L Magnesium 1.4 L Total Bilirubin AST ALT Alkaline Phosphatase Total Protein Albumin 01/13/17 01/13/17 01/13/17 01:50 03:42 06:03 WBC 6.9 RBC 3.31 L Hgb 9.5 L D Hct 28.7 L MCV 87 MCH 28.6 MCHC 33.0 RDW 15.6 H Plt Count 82 L Carbonic Acid 1.98 H HCO3/H2CO3 Ratio 13:1 ABG pH 7.22 L ABG pCO2 65.8 H ABG pO2 122.2 H ABG HCO3 26.6 H ABG O2 Saturation 97.6 ABG Base Excess -1.8 FiO2 40% Sodium 139.0 Potassium 5.4 H Chloride 103 Carbon Dioxide 26 Anion Gap 10 BUN 47 H Creatinine 3.33 H Est GFR ( Amer) 22 L Est GFR (Non-Af Amer) 18 L Glucose 101 Calcium 7.7 L Magnesium Total Bilirubin 1.5 H AST 33 ALT 25 Alkaline Phosphatase 56 Total Protein 5.2 L Albumin 2.8 L 01/11/17 01/11/17 01/12/17 19:05 19:05 03:01 Creatine Kinase 163 CK-MB (CK-2) 2.83 6.12 H Troponin I 0.026 0.064 01/12/17 01/12/17 01/12/17 03:01 11:15 11:15 Creatine Kinase 282 H 322 H CK-MB (CK-2) 6.30 H Troponin I 0.077 Impressions: Chest X-Ray 12/31/16 12:34 IMPRESSION: CHRONIC SCARRING. NO ACUTE RADIOGRAPHIC FINDING IN THE CHEST. Knee X-Ray 01/11/17 09:08 IMPRESSION: Expected postoperative appearance left knee. Status: Imported from PACS Assessment & Plan - Diagnosis (1) Arthritis of left knee Is this a current diagnosis for this admission?: YesPlan: 76-year-old white male now postop day 2 from left knee arthroplasty. This been a acute decline in the patient's mental status and a worsening of a metabolic acidosis. The patient is now off vasopressor therapy. He is largely amnuric. Nephrology has been consulted. - Time Time Spent with patient: 15-24 minutes Anticipated discharge: SNF Within: Other
[2017-01-13] MEDS ORDERED: NOREPINEPHRINE BITARTRATE INJ/PF 4 MG/4 ML SDV IV ONE (07:36)
[2017-01-13] MEDS ORDERED: KETAMINE HCL INJ 500 MG/10 ML VIAL ONE (08:25)
[2017-01-13] MEDS ORDERED: PROPOFOL 100 ML IV ONE (08:32)
[2017-01-13] MEDS ORDERED: PROPOFOL INJ 200 MG/20 ML VIAL IV ONE (08:55)
[2017-01-13 09:00] LABS: ARTERIAL BLOOD BASE EXCESS -3.2 mmol/L; ARTERIAL BLOOD O2 SATURATION 99.8 % (94-98)
[2017-01-13] MEDS ORDERED: NORMAL SALINE INJ/PF 0.9% 10 ML SDV IV PRN (10:17)
[2017-01-13 10:27] LABS: ARTERIAL BLOOD BASE EXCESS -0.9 mmol/L; ARTERIAL BLOOD O2 SATURATION 95.4 % (94-98)
[2017-01-13] MEDS: CITALOPRAM HYDROBROMIDE 20 MG TABLET PO SCH (10:35)
[2017-01-13] MEDS: CYANOCOBALAMIN (VITAMIN B-12) 1,000 MCG TABLET PO SCH (10:35)
[2017-01-13] MEDS: FEBUXOSTAT 40 MG TABLET PO SCH (10:35)
[2017-01-13] MEDS: SENNOSIDES/DOCUSATE 8.6-50 MG 1 EACH TABLET PO SCH ×2 (10:42→17:00)
[2017-01-13] MEDS: PSYLLIUM SEED-SF 5.85 GM PACKET PO SCH ×4 (10:42→17:00)
[2017-01-13] MEDS: ISOSORBIDE MONONITRATE 30 MG TAB.ER.24H PO SCH (10:42)
[2017-01-13] MEDS: SITAGLIPTIN PHOSPHATE 50 MG TABLET PO SCH (10:42)
[2017-01-13] MEDS: PRENATAL VITAMIN W-O CA NO5/FE FUMARATE/FA CAPSULE PO SCH (10:42)
[2017-01-13] MEDS: PREGABALIN 75 MG CAPSULE PO SCH ×2 (10:42→21:09)
[2017-01-13] MEDS: PROPOFOL 100 ML IV PRN ×5 (10:56→22:17)
[2017-01-13] MEDS ORDERED: SUCCINYLCHOLINE CHLORIDE INJ 200 MG/10 ML VIAL ONE (11:54)
--- NOTE | 2017-01-13 12:35 | Operative Report ---
Operative Report DATE OF SURGERY: 01/13/17 PREOPERATIVE DIAGNOSIS: Renal failure POSTOPERATIVE DIAGNOSIS: Renal failure OPERATION: #1 ultrasound evaluation of the right femoral vein. #2 real-time access in right femoral vein under ultrasound guidance. #3 insertion of temporary hemodialysis catheter via real-time access in the right femoral vein. SURGEON: JAS PLATA CAPTAIN OF GUARDS: none ANESTHESIA: Spinal TISSUE REMOVED OR ALTERED: Not applicable COMPLICATIONS: None ESTIMATED BLOOD LOSS: 2 mL. INTRAOPERATIVE FINDINGS: Satisfactory visualization of the right femoral vein. This was rather deeply placed in this gentleman with increased body mass index and edema. The sound was of great value and safe access. Good position and function easy egress of blood and ingress of heparinized solution through all 3 ports. PROCEDURE: After obtaining informed consent, the patient was positioned supine at bedside. The left groin and adjacent areas] were prepared with chlorhexidine and draped out with sterile linen. After the universal timeout the procedure commenced. A steriley sheathed ultrasound probe was used to evaluate the right femoral vein. Local anesthesia was infiltrated adjacent to the probe. Access into the right femoral was accomplished using a micropuncture needle followed, by micropuncture wire and then with a micropuncture catheter. This was followed by introduction of a 0.035 guidewire, the skin opening was enlarged slightly, serially larger dilators were now placed followed by introduction of a triaysis catheter. All of these transitions were smooth. Each lumen was aspirated of blood and irrigated with heparinized solution. The catheter was now sutured to the skin using 3-0 nylon. A Bio A patch was now applied, followed by sterile dressings. Caps were placed on the end of the each of the lumens. The procedure concluded. Copies dictated operative report to Dr. Jas Gilliam MD.
--- NOTE | 2017-01-13 13:27 | PDOC PROGRESS REPORT ---
Bedside Procedure - Central Line Right Internal jugular Time completed: 09:30 Consent obtained: Yes Central line pre-insertion: Sterile PPE donned, Betadine prep applied, Chloraprep applied Central line lumen type: Triple Anesthetic type: 1% Lidocaine Ultrasound guided: Yes Line secured with sutures: Yes Central line post-insertion: Blood return from lumens, Biopatch applied, Sutured , Sterile dressing applied, Position confirmed w/ CXR Complications: No
[2017-01-13 14:02] LABS: ARTERIAL BLOOD BASE EXCESS -0.9 mmol/L; ARTERIAL BLOOD O2 SATURATION 97.1 % (94-98)
[2017-01-13 14:15] LABS: ALANINE AMINOTRANSFERASE 32 U/L (21-72); ALBUMIN 2.3 g/dL (3.5-5.0); ALKALINE PHOSPHATASE 53 U/L (38-126); ANION GAP 10 (5-19); ASPARTATE AMINO TRANSFERASE 30 U/L (17-59); BILIRUBIN,DIRECT 0.2 mg/dL (0.0-0.4); BILIRUBIN,TOTAL 1.4 mg/dL (0.2-1.3); BLOOD UREA NITROGEN 46 mg/dL (7-20); CALCIUM 7.4 mg/dL (8.4-10.2); CARBON DIOXIDE 24 mmol/L (22-30); CHLORIDE 102 mmol/L (98-107); CREATININE RESULT 2.93 mg/dL (0.52-1.25); GLUCOSE 98 mg/dL (75-110); POTASSIUM 4.6 mmol/L (3.6-5.0); SODIUM 136.3 mmol/L (137-145); TOTAL PROTEIN 4.5 g/dL (6.3-8.2)
[2017-01-13 14:42] LABS: HEMATOCRIT 24.9 % (37.9-51.0); HEMOGLOBIN 8.3 g/dL (13.5-17.0); MEAN CORPUSCULAR HEMOGLOBIN 28.7 pg (27.0-33.4); MEAN CORPUSCULAR HGB CONC 33.5 g/dL (32.0-36.0); MEAN CORPUSCULAR VOLUME 86 fl (80-97); RED BLOOD COUNT 2.91 10^6/uL (4.35-5.55); RED CELL DISTRIBUTION WIDTH 15.1 % (11.5-14.0)
[2017-01-13 16:32] LABS: ARTERIAL BLOOD BASE EXCESS 1.9 mmol/L; ARTERIAL BLOOD O2 SATURATION 95.9 % (94-98)
[2017-01-13] MEDS: TAMSULOSIN HCL 0.4 MG CAP.SR.24H PO SCH (17:00)
--- NOTE | 2017-01-13 17:16 | PDOC PROGRESS REPORT ---
Subjective Progress Note for:: 01/13/17 Subjective:: Patient developed oliguric acute kidney injury today with volume overload requiring mechanical ventilation. He sustained ATN yesterday after episode of low blood pressure Physical Exam Vital Signs: Temp Pulse Resp BP Pulse Ox 99.5 F 76 22 H 132/60 H 98 01/13/17 04:34 01/13/17 10:00 01/13/17 13:46 01/13/17 13:45 01/13/17 13:44 Intake & Output 01/12/17 01/13/17 01/14/17 06:59 06:59 06:59 Intake Total 4851 2944 Output Total 2120 425 355 Balance 7981 9169 -355 Weight 120.5 kg 123.3 kg General appearance: PRESENT: other - Sedated on mechanical ventilation Respiratory exam: PRESENT: clear to auscultation abigail Cardiovascular exam: PRESENT: +S1, +S2 GI/Abdominal exam: PRESENT: soft Results Laboratory Results: 01/13/17 13:50 01/13/17 13:50 01/12/17 01/12/17 01/12/17 23:55 23:58 23:58 WBC RBC Hgb Hct MCV MCH MCHC RDW Plt Count Carbonic Acid 2.11 H HCO3/H2CO3 Ratio 11:1 ABG pH 7.18 L* ABG pCO2 70.0 H* ABG pO2 89.0 ABG HCO3 25.2 ABG O2 Saturation 94.1 ABG Base Excess -4.0 FiO2 4 L Sodium Cancelled 137.5 Potassium Cancelled 5.3 H Chloride Cancelled 104 Carbon Dioxide Cancelled 24 Anion Gap Cancelled 10 BUN Cancelled 43 H Creatinine Cancelled 2.80 H Est GFR ( Amer) Cancelled 27 L Est GFR (Non-Af Amer) Cancelled 22 L Glucose Cancelled 107 Calcium Cancelled 7.7 L Magnesium 1.4 L Total Bilirubin AST ALT Alkaline Phosphatase Total Protein Albumin Triglycerides 01/13/17 01/13/17 01/13/17 01:50 03:42 06:03 WBC 6.9 RBC 3.31 L Hgb 9.5 L D Hct 28.7 L MCV 87 MCH 28.6 MCHC 33.0 RDW 15.6 H Plt Count 82 L Carbonic Acid 1.98 H HCO3/H2CO3 Ratio 13:1 ABG pH 7.22 L ABG pCO2 65.8 H ABG pO2 122.2 H ABG HCO3 26.6 H ABG O2 Saturation 97.6 ABG Base Excess -1.8 FiO2 40% Sodium 139.0 Potassium 5.4 H Chloride 103 Carbon Dioxide 26 Anion Gap 10 BUN 47 H Creatinine 3.33 H Est GFR ( Amer) 22 L Est GFR (Non-Af Amer) 18 L Glucose 101 Calcium 7.7 L Magnesium Total Bilirubin 1.5 H AST 33 ALT 25 Alkaline Phosphatase 56 Total Protein 5.2 L Albumin 2.8 L Triglycerides 01/13/17 01/13/17 01/13/17 06:03 08:50 10:05 WBC RBC Hgb Hct MCV MCH MCHC RDW Plt Count Carbonic Acid 1.91 H 1.03 L HCO3/H2CO3 Ratio 13:1 22:1 ABG pH 7.22 L 7.44 ABG pCO2 63.6 H 34.2 L ABG pO2 481.6 H 73.2 L ABG HCO3 25.2 22.9 ABG O2 Saturation 99.8 H 95.4 ABG Base Excess -3.2 -0.9 FiO2 100% 40% Sodium Potassium Chloride Carbon Dioxide Anion Gap BUN Creatinine Est GFR ( Amer) Est GFR (Non-Af Amer) Glucose Calcium Magnesium Total Bilirubin AST ALT Alkaline Phosphatase Total Protein Albumin Triglycerides 62 01/13/17 01/13/17 01/13/17 13:50 13:50 13:50 WBC 4.0 RBC 2.91 L Hgb 8.3 L Hct 24.9 L MCV 86 MCH 28.7 MCHC 33.5 RDW 15.1 H Plt Count 70 L Carbonic Acid 0.87 L HCO3/H2CO3 Ratio 25:1 ABG pH 7.50 H ABG pCO2 28.9 L ABG pO2 83.6 ABG HCO3 21.8 ABG O2 Saturation 97.1 ABG Base Excess -0.9 FiO2 40% Sodium 136.3 L Potassium 4.6 Chloride 102 Carbon Dioxide 24 Anion Gap 10 BUN 46 H Creatinine 2.93 H Est GFR ( Amer) 25 L Est GFR (Non-Af Amer) 21 L Glucose 98 Calcium 7.4 L Magnesium Total Bilirubin 1.4 H AST 30 ALT 32 Alkaline Phosphatase 53 Total Protein 4.5 L Albumin 2.3 L Triglycerides 01/13/17 16:15 WBC RBC Hgb Hct MCV MCH MCHC RDW Plt Count Carbonic Acid 1.08 HCO3/H2CO3 Ratio 23:1 ABG pH 7.47 H ABG pCO2 35.9 ABG pO2 75.0 L ABG HCO3 25.5 ABG O2 Saturation 95.9 ABG Base Excess 1.9 FiO2 40% Sodium Potassium Chloride Carbon Dioxide Anion Gap BUN Creatinine Est GFR ( Amer) Est GFR (Non-Af Amer) Glucose Calcium Magnesium Total Bilirubin AST ALT Alkaline Phosphatase Total Protein Albumin Triglycerides 01/11/17 01/11/17 01/12/17 19:05 19:05 03:01 Creatine Kinase 163 CK-MB (CK-2) 2.83 6.12 H Troponin I 0.026 0.064 01/12/17 01/12/17 01/12/17 03:01 11:15 11:15 Creatine Kinase 282 H 322 H CK-MB (CK-2) 6.30 H Troponin I 0.077 Impressions: Knee X-Ray 01/11/17 09:08 IMPRESSION: Expected postoperative appearance left knee. Chest X-Ray 01/13/17 00:00 IMPRESSION: Endotracheal and nasogastric tubes in good positioning. Right jugular central line tip in the right atrium No acute infiltrates Assessment & Plan - Diagnosis (1) Hypotension Qualifiers: Hypotension type: unspecified hypotension type Qualified Code(s): I95.9 - Hypotension, unspecified Is this a current diagnosis for this admission?: Yes (2) Acute kidney injury Is this a current diagnosis for this admission?: YesPlan: Patient required hemodialysis today, consultation from nephrology obtained (3) Acute respiratory failure Qualifiers: Respiratory failure complication: unspecified whether with hypoxia or hypercapnia Qualified Code(s): J96.00 - Acute respiratory failure, unspecified whether with hypoxia or hypercapnia Is this a current diagnosis for this admission?: YesPlan: Patient is intubated on mechanical ventilation
[2017-01-13] MEDS ORDERED: CALCIUM GLUCONATE 1000 MG/10 ML INJ IV ONE ×2 (17:30→18:00)
[2017-01-13] MEDS ORDERED: FUROSEMIDE INJ/PF 40 MG/4 ML SDV ONE (18:00)
[2017-01-13] MEDS ORDERED: ATROPINE SULFATE INJ 1 MG/1 ML VIAL IV ONE (18:00)
[2017-01-13] MEDS ORDERED: ALBUMIN HUMAN 50 ML IV ONE (18:00)
--- NOTE | 2017-01-13 18:47 | PDOC CONSULTATION ---
Consultation Consult Date: 01/13/17 Attending physician:: CRISTINE AGUAYO Consult reason:: I was asked by Dr. Aguayo to see Mr. Pink because of acute renal failure with anuria. 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 This was done yesterday. Postoperatively the patient became hypotensive and patient was given IV fluid boluses. He was positive at least 5 L due to the thrombosis. Subsequently patient was transferred here in the ICU with persistent hypotension. He also was noted to have anuria for 24 hours prior to the nurse calling me this morning. After the Leavitt catheter was placed there were able to obtain 400 mL of urine yesterday but nothing since. When I came in this morning patient was already on 2 vasopressors with persistent hypotension requiring intubation and mechanical ventilation. In terms of the patient's kidney function remained he got admitted here to BUN of 35 creatinine of 2.55 with estimated GFR of 25. On December 31 he had a BUN of 24 creatinine of 1.12 estimated GFR greater than 60 which is normal. This morning he had a BUN of 47 creatinine of 3.33 with estimated GFR of 18. His potassium went up a little bit to 5.4. Given this I decided to stop try the patient on intermittent hemodialysis since CRRT is no longer available in our facility. Prior to starting hemodialysis this afternoon patient was able to be tapered off the Levoped. So about an hour ago we started hemodialysis in the newly placed trialysis catheter. However the patient started to be bradycardic with heart rate below 50s. Then he started throwing bigeminy his with long pauses. This arrhythmia became persistent. The blood pressure remains to be within acceptable limits though and Leavoped dose is being decreased. He tried giving the patient an amp of albumin, normal percussion gluconate, but he continues to have bigeminy. So I decided to stop dialysis after an hour. We were able to get ultrafiltration of around 400 mL approximately. I called Dr. Aguayo and he informed me that the patient has history of atrial fibrillation in the past. Dr. Aguayo suggested cardiology consult. We called Dr. Chong for cardiology consult. As soon as he stop dialysis the patient went back to normal sinus rhythm. He is now hemodynamically stable after start stopping dialysis. I then decided to give a trial of Lasix. Past Medical History Past Medical History: Obtained from records since the patient's currently intubated. Cardiac Medical History: Reports: Atrial Fibrillation - Paroxysmal, Coronary Artery Disease, DVT, Hyperlipidemia, Myocardial Infarction - x4 last 1993, Other - Chronic systolic heart failure, ascending aortic aneurysm Pulmonary Medical History: Reports: Asthma, Bronchitis, Chronic Obstructive Pulmonary Disease (COPD), Intubation, Pneumonia, Respiratory Failure - Acute, Sleep Apnea Neurological Medical History: Reports: Seizures - sept hit head and had seizure Endocrine Medical History: Reports: Diabetes Mellitus Type 2, Obesity Denies: Hyperthyroidism, Hypothyroidism Renal/ Medical History: Reports: Benign Prostatic Hyperplasia, Other - Atrophic left kidney Denies: End Stage Renal Disease Malignancy Medical History: Reports: Skin Cancer - Malignant melanoma GI Medical History: Reports: Gastroesophageal Reflux Disease, Hepatitis Musculoskeltal Medical History: Reports: Arthritis, Gout Past Surgical History Past Surgical History: Reports: Cholecystectomy, Coronary Stent Social History Smoking Status: Never Smoker Frequency of Alcohol Use: None Hx Recreational Drug Use: No Hx Prescription Drug Abuse: No - Advance Directive Resuscitation Status: Full Code Family History Family History: Unobtainable due to the patient being mechanically ventilated and sedated. Parental Family History Reviewed: No Children Family History Reviewed: No Sibling(s) Family History Reviewed.: No Medication/Allergy Home Medications: Aspirin 81 mg PO QAM 04/15/15 Atorvastatin Calcium [Lipitor 80 mg Tablet] 80 mg PO Q 04/15/15 Clopidogrel Bisulfate [Plavix 75 mg Tablet] 75 mg PO QAM 04/15/15 Cyanocobalamin (Vitamin B-12) [B-12] 500 mcg PO QAM 04/15/15 Dexlansoprazole [Dexilant 60 mg Capsule] 60 mg PO QAM 04/15/15 Febuxostat [Uloric 40 mg Tablet] 40 mg PO QAM 04/15/15 Isosorbide Mononitrate [Isosorbide Mononitrate ER] 30 mg PO QAM 04/15/15 Linagliptin [Tradjenta] 5 mg PO QAM 04/15/15 Oxycodone HCl/Acetaminophen [Oxycodone-Acetaminophen 10-325] 1 tab PO Q6HP PRN 04/15/15 Pregabalin [Lyrica 75 mg Capsule] 150 mg PO Q12 04/15/15 Tamsulosin HCl 0.4 mg PO QPM 04/15/15 Acetaminophen [Tylenol] 650 mg PO Q4 PRN 08/15/15 Lorazepam [Ativan 1 mg Tablet] 2 mg PO BID PRN 08/15/15 Furosemide [Lasix 40 mg Tablet] 40 mg PO QAM 07/31/16 Psyllium Husk [Metamucil] 0.52 gm PO BID 07/31/16 Citalopram Hydrobromide [Celexa 20 mg Tablet] 20 mg PO QAM 12/30/16 Eyelid Cleanser Combination #9 [Systane] 1 each TP BID 12/30/16 Lanolin/Min Oil/Petrolat,Wht [Akwa Tears Ointment] 3.5 gm OP QHS 12/30/16 Polyvinyl Alcohol [Liquitears] 15 ml OP ASDIR 12/30/16 Sacubitril/Valsartan [Entresto 24 mg-26 mg Tablet] 1 each PO BID 12/30/16 Allergies/Adverse Reactions: codeine [Codeine] Allergy (Verified 12/30/16 15:35) Hives tuberculin,PPD,multi-puncture Adverse Reaction (Verified 12/30/16 16:05) Review of Systems ROS unobtainable: Due to endotracheal tube Physical Exam Vital Signs: Temp Pulse Resp BP Pulse Ox 99.5 F 76 22 H 132/60 H 99 01/13/17 04:34 01/13/17 10:00 01/13/17 13:46 01/13/17 13:45 01/13/17 16:00 Intake & Output 01/12/17 01/13/17 01/14/17 06:59 06:59 06:59 Intake Total 6131 0053 774 Output Total 2375 212 557 Balance 4303 4340 -983 Weight 120.5 kg 123.3 kg Vital signs at the end of dialysis prior to stopping it include blood pressure of 177/64, initial blood pressure was 1 of over 56, pulse rate of 76, heart rate went down to as low as 49, oxygen saturation 98% with FiO2 of 40% on mechanical ventilation, respiratory rate of 16. Exam: General appearance: Patient is intubated and sedated Head exam: PRESENT: atraumatic, normocephalic Eye exam: PRESENT: Eyes closed Mouth exam: PRESENT: moist, neck supple, tongue midline Neck exam: PRESENT: full ROM. ABSENT: carotid bruit, JVD, lymphadenopathy, thyromegaly Respiratory exam: PRESENT: Diminished to auscultation bilaterally. ABSENT: rales, rhonchi, stridor, wheezes Cardiovascular exam: PRESENT: Irregular, +S1, +S2. ABSENT: systolic murmur Pulses: PRESENT: normal radial pulses, normal dorsalis pedis pulses GI/Abdominal exam: PRESENT: normal bowel sounds, soft. ABSENT: guarding, mass, tenderness Rectal exam: deferred Extremities exam: ABSENT: pedal edema Musculoskeletal: ABSENT: deformity Neurological exam: PRESENT: Sedated. Psychiatric exam: PRESENT: Sedated Skin exam: PRESENT: intact, dry, warm. ABSENT: rash Results Laboratory Results: 01/13/17 13:50 01/13/17 13:50 01/12/17 01/12/17 01/12/17 23:55 23:58 23:58 WBC RBC Hgb Hct MCV MCH MCHC RDW Plt Count Carbonic Acid 2.11 H HCO3/H2CO3 Ratio 11:1 ABG pH 7.18 L* ABG pCO2 70.0 H* ABG pO2 89.0 ABG HCO3 25.2 ABG O2 Saturation 94.1 ABG Base Excess -4.0 FiO2 4 L Sodium Cancelled 137.5 Potassium Cancelled 5.3 H Chloride Cancelled 104 Carbon Dioxide Cancelled 24 Anion Gap Cancelled 10 BUN Cancelled 43 H Creatinine Cancelled 2.80 H Est GFR ( Amer) Cancelled 27 L Est GFR (Non-Af Amer) Cancelled 22 L Glucose Cancelled 107 Calcium Cancelled 7.7 L Magnesium 1.4 L Total Bilirubin AST ALT Alkaline Phosphatase Total Protein Albumin Triglycerides 01/13/17 01/13/17 01/13/17 01:50 03:42 06:03 WBC 6.9 RBC 3.31 L Hgb 9.5 L D Hct 28.7 L MCV 87 MCH 28.6 MCHC 33.0 RDW 15.6 H Plt Count 82 L Carbonic Acid 1.98 H HCO3/H2CO3 Ratio 13:1 ABG pH 7.22 L ABG pCO2 65.8 H ABG pO2 122.2 H ABG HCO3 26.6 H ABG O2 Saturation 97.6 ABG Base Excess -1.8 FiO2 40% Sodium 139.0 Potassium 5.4 H Chloride 103 Carbon Dioxide 26 Anion Gap 10 BUN 47 H Creatinine 3.33 H Est GFR ( Amer) 22 L Est GFR (Non-Af Amer) 18 L Glucose 101 Calcium 7.7 L Magnesium Total Bilirubin 1.5 H AST 33 ALT 25 Alkaline Phosphatase 56 Total Protein 5.2 L Albumin 2.8 L Triglycerides 01/13/17 01/13/17 01/13/17 06:03 08:50 10:05 WBC RBC Hgb Hct MCV MCH MCHC RDW Plt Count Carbonic Acid 1.91 H 1.03 L HCO3/H2CO3 Ratio 13:1 22:1 ABG pH 7.22 L 7.44 ABG pCO2 63.6 H 34.2 L ABG pO2 481.6 H 73.2 L ABG HCO3 25.2 22.9 ABG O2 Saturation 99.8 H 95.4 ABG Base Excess -3.2 -0.9 FiO2 100% 40% Sodium Potassium Chloride Carbon Dioxide Anion Gap BUN Creatinine Est GFR ( Amer) Est GFR (Non-Af Amer) Glucose Calcium Magnesium Total Bilirubin AST ALT Alkaline Phosphatase Total Protein Albumin Triglycerides 62 01/13/17 01/13/17 01/13/17 13:50 13:50 13:50 WBC 4.0 RBC 2.91 L Hgb 8.3 L Hct 24.9 L MCV 86 MCH 28.7 MCHC 33.5 RDW 15.1 H Plt Count 70 L Carbonic Acid 0.87 L HCO3/H2CO3 Ratio 25:1 ABG pH 7.50 H ABG pCO2 28.9 L ABG pO2 83.6 ABG HCO3 21.8 ABG O2 Saturation 97.1 ABG Base Excess -0.9 FiO2 40% Sodium 136.3 L Potassium 4.6 Chloride 102 Carbon Dioxide 24 Anion Gap 10 BUN 46 H Creatinine 2.93 H Est GFR ( Amer) 25 L Est GFR (Non-Af Amer) 21 L Glucose 98 Calcium 7.4 L Magnesium Total Bilirubin 1.4 H AST 30 ALT 32 Alkaline Phosphatase 53 Total Protein 4.5 L Albumin 2.3 L Triglycerides 01/13/17 16:15 WBC RBC Hgb Hct MCV MCH MCHC RDW Plt Count Carbonic Acid 1.08 HCO3/H2CO3 Ratio 23:1 ABG pH 7.47 H ABG pCO2 35.9 ABG pO2 75.0 L ABG HCO3 25.5 ABG O2 Saturation 95.9 ABG Base Excess 1.9 FiO2 40% Sodium Potassium Chloride Carbon Dioxide Anion Gap BUN Creatinine Est GFR ( Amer) Est GFR (Non-Af Amer) Glucose Calcium Magnesium Total Bilirubin AST ALT Alkaline Phosphatase Total Protein Albumin Triglycerides 01/11/17 01/11/17 01/12/17 19:05 19:05 03:01 Creatine Kinase 163 CK-MB (CK-2) 2.83 6.12 H Troponin I 0.026 0.064 01/12/17 01/12/17 01/12/17 03:01 11:15 11:15 Creatine Kinase 282 H 322 H CK-MB (CK-2) 6.30 H Troponin I 0.077 Impressions: Knee X-Ray 01/11/17 09:08 IMPRESSION: Expected postoperative appearance left knee. Chest X-Ray 01/13/17 00:00 IMPRESSION: Endotracheal and nasogastric tubes in good positioning. Right jugular central line tip in the right atrium No acute infiltrates Assessment & Plan - Diagnosis (1) Acute kidney injury Is this a current diagnosis for this admission?: YesPlan: This is secondary to ATN due to hypotension since yesterday. Patient was initially anuricfor the past 24 hours. We did dialysis for an hour using a placed trialysis catheter placed by Dr. Gilliam. We Used 2 potassium bath, blood flow is low is 200 minimal per minute and dialysate flow 500 mL per minute and was able to get ultrafiltration of at least 400 mL during dialysis. As is stated above we aborted and stop dialysis and the patient started having bigeminy with long pauses. I called Dr. Aguayo again after we stop dialysis and recommended that we might need to transfer the patient to another facility who can possibly do CRRT since we don't do that here in the hospital anymore. Meanwhile I'm going to give the patient Lasix 80 mg IV 1 dose and see if we can stimulate urine production and hopefully help the patient. I will continue to monitor the patient's kidney function and electrolytes while here in the hospital and repeat a dose of diuretics if necessary. Avoid other nephrotoxic agents. (2) Acute tubular necrosis Is this a current diagnosis for this admission?: Yes (3) Arrhythmia Is this a current diagnosis for this admission?: YesPlan: Patient had bigeminy and bradycardia during dialysis which resolved after we stop dialysis. Cardiology consult was called by with Dr. Chong. I discussed the case with Dr. Chong. (4) Hypotension Qualifiers: Hypotension type: unspecified hypotension type Qualified Code(s): I95.9 - Hypotension, unspecified Is this a current diagnosis for this admission?: YesPlan: Etiology uncertain. Patient does not appear to be septic. It could be a combination of anesthesia, medications, and a poor cardiac status. (5) Acute respiratory failure with hypercapnia Is this a current diagnosis for this admission?: YesPlan: Pulmonary managing. - Notes Notes: Discussed case with Dr. Aguayo and Dr. Chong. Also discussed the case with the nurses taking care of the patient. Thank you very much for this consultation I'll follow the patient with you. Possible need for transfer. - Time Time Spent: Greater than 70 Minutes
--- NOTE | 2017-01-13 20:36 | PDOC CONSULTATION ---
Consultation Consult Date: 01/13/17 Attending physician:: CRISTINE AGUAYO Consult reason:: Hypotension, bradycardia and increased ventricular ectopy History of Present Illness Admission Date/PCP: 01/11/17 05:33 CRISTINE AGUAYO MD Patient complains of: Patient is intubated and sedated. Patient was noted to have hypotension, bradycardia and increased ventricular ectopy. History of Present Illness: ERIKA GERMAIN is a 76 year old male, with history of compensated chronic systolic heart failure, diabetes mellitus, CVA with no residual deficits, he was admitted electively for left knee arthroplasty. This was done yesterday. Postoperatively the patient became hypotensive and patient was given IV fluid boluses. Subsequently patient was transferred here in the ICU with persistent hypotension. He also was noted to have anuria and after the Leavitt catheter was placed they were able to obtain 400 mL of urine yesterday but nothing since. Since this morning patient was already on 2 vasopressors with persistent hypotension and was on intubation and mechanical ventilation. So about an hour ago patient was started hemodialysis in the newly placed trialysis catheter. However the patient started to be bradycardic with heart rate below 50s. Then he started throwing bigeminy his with long pauses. This arrhythmia became persistent. The blood pressure remains to be within acceptable limits though and Leavoped dose is being decreased. Patient was ordered to have an amp of albumin, normal percussion gluconate by the ship captain however patient continued with cardiac dysrhythmia and therefore the dialysis was stopped. Patient did get ultrafiltration of around 400 mL approximately. It seems as soon as the dialysis was stopped, Patient cardiac dysrhythmia improved. I was asked to evaluate patient because of above heart rhythm problem, hypo-tension, chronic systolic heart failure. Past Medical History Cardiac Medical History: Reports: Atrial Fibrillation - Paroxysmal, Congestive Heart Failure, Coronary Artery Disease, DVT, Myocardial Infarction - x4 last 1993, Hyperlipidema, Hypertension, Other - Chronic systolic heart failure, ascending aortic aneurysm Denies: Peripheral Vascular Disease, Pulmonary Embolism, Heart Murmur Pulmonary Medical History: Reports: Asthma, Bronchitis, Chronic Obstructive Pulmonary Disease (COPD), Intubation, Pneumonia, Respiratory Failure - Acute, Sleep Apnea Denies: Tuberculosis Neurological Medical History: Reports: Seizures - sept hit head and had seizure Endocrine Medical History: Reports: Diabetes Mellitus Type 2, Obesity Denies: Hyperthyroidism, Hypothyroidism Renal/ Medical History: Reports: Other - Atrophic left kidney Denies: End Stage Renal Disease Malignancy Medical History: Reports: Skin Cancer - Malignant melanoma Denies: Leukemia, Lung Cancer GI Medical History: Reports: Gastroesophageal Reflux Disease, Hepatitis Denies: Crohn's Disease, Hiatal Hernia Musculoskeltal Medical History: Reports: Arthritis, Gout Denies: Fibromyalgia Psychiatric Medical History: Reports: Depression Denies: Bipolar Disorder, Dementia, Post Traumatic Stress Disorder Hematology: Reports: Anemia - Thrombocytopenia Denies: Hemophilia, Sickle Cell Disease Past Surgical History Past Surgical History: Reports: Cholecystectomy, Coronary Stent Denies: Appendectomy, Colostomy, Coronary Artery Bypass Graft, Gastric Bypass Surgery, Herniorrhaphy, Pacemaker, Tonsillectomy Social History Information Source: [facility] Records Smoking Status: Never Smoker Frequency of Alcohol Use: None Hx Recreational Drug Use: No Hx Prescription Drug Abuse: No - Advance Directive Resuscitation Status: Full Code Family History Family History: Reviewed & Not Pertinent Parental Family History Reviewed: Yes Children Family History Reviewed: Yes Sibling(s) Family History Reviewed.: Yes Medication/Allergy Home Medications: Aspirin 81 mg PO QAM 04/15/15 Atorvastatin Calcium [Lipitor 80 mg Tablet] 80 mg PO QHS 04/15/15 Clopidogrel Bisulfate [Plavix 75 mg Tablet] 75 mg PO QAM 04/15/15 Cyanocobalamin (Vitamin B-12) [B-12] 500 mcg PO QAM 04/15/15 Dexlansoprazole [Dexilant 60 mg Capsule] 60 mg PO QAM 04/15/15 Febuxostat [Uloric 40 mg Tablet] 40 mg PO QAM 04/15/15 Isosorbide Mononitrate [Isosorbide Mononitrate ER] 30 mg PO QAM 04/15/15 Linagliptin [Tradjenta] 5 mg PO QAM 04/15/15 Oxycodone HCl/Acetaminophen [Oxycodone-Acetaminophen 10-325] 1 tab PO Q6HP PRN 04/15/15 Pregabalin [Lyrica 75 mg Capsule] 150 mg PO Q12 04/15/15 Tamsulosin HCl 0.4 mg PO QPM 04/15/15 Acetaminophen [Tylenol] 650 mg PO Q4 PRN 08/15/15 Lorazepam [Ativan 1 mg Tablet] 2 mg PO BID PRN 08/15/15 Furosemide [Lasix 40 mg Tablet] 40 mg PO QAM 07/31/16 Psyllium Husk [Metamucil] 0.52 gm PO BID 07/31/16 Citalopram Hydrobromide [Celexa 20 mg Tablet] 20 mg PO QAM 12/30/16 Eyelid Cleanser Combination #9 [Systane] 1 each TP BID 12/30/16 Lanolin/Min Oil/Petrolat,Wht [Akwa Tears Ointment] 3.5 gm OP QHS 12/30/16 Polyvinyl Alcohol [Liquitears] 15 ml OP ASDIR 12/30/16 Sacubitril/Valsartan [Entresto 24 mg-26 mg Tablet] 1 each PO BID 12/30/16 Allergies/Adverse Reactions: codeine [Codeine] Allergy (Verified 12/30/16 15:35) Hives tuberculin,PPD,multi-puncture Adverse Reaction (Verified 12/30/16 16:05) Review of Systems ROS unobtainable: Due to endotracheal tube Physical Exam Vital Signs: Temp Pulse Resp BP Pulse Ox 98.6 F 74 16 114/54 L 98 01/13/17 19:38 01/13/17 19:38 01/13/17 19:38 01/13/17 19:38 01/13/17 18:31 Intake & Output 01/12/17 01/13/17 01/14/17 06:59 06:59 06:59 Intake Total 4851 2944 328 Output Total 2120 425 1655 Balance 2731 2519 -1327 Weight 120.5 kg 123.3 kg Exam: GENERAL: well-nourished and in no acute distress. Patient is intubated and sedated. Orientation cannot be checked HEAD: Atraumatic, normocephalic. EYES: Pupils equal round and reactive to light, extraocular movements could not be checked, sclera anicteric, conjunctiva are normal. ENT: TMs normal, nares patent, oropharynx clear without exudates. Moist mucous membranes. No oral ulcerations or bleeding gums noted NECK: supple without lymphadenopathy or JVD. Trachea is central. No cervical or axillary lymphadenopathy noted. Carotids are 2+ LUNGS: Breath sounds mostly clear to auscultation patient is noted to have bibasal crackles at the extreme bases CHEST: Palpation of the chest wall shows no significant chest wall tenderness or abnormalities. HEART: [place] [employer], No PSH, 2/6 TRACI aortic area, 1/6 robin systolic murmur mitral area , no rubs or gallops. ABDOMEN: Soft, no significant tenderness appreciated, normoactive bowel sounds. No guarding, no rebound. No rigidity noted . No masses appreciated. EXTREMITIES: Pedal pulses are 1-2+, no calf tenderness noted, 1+ pedal edema noted. No clubbing or cyanosis. NEUROLOGICAL: The patient cannot participate in the neurological exam but no facial asymmetry noted. Extremities slightly hypotonic PSYCH: This cannot be evaluated. Patient cannot participate. SKIN: No significant ecchymosis, rash, or signs of pruritus noted. MUSCULOSKELETAL EXAM: No significant joint swelling noted. Patient cannot participate in musculoskeletal exam Results Laboratory Results: 01/13/17 13:50 01/13/17 13:50 01/12/17 01/12/17 01/12/17 23:55 23:58 23:58 WBC RBC Hgb Hct MCV MCH MCHC RDW Plt Count Carbonic Acid 2.11 H HCO3/H2CO3 Ratio 11:1 ABG pH 7.18 L* ABG pCO2 70.0 H* ABG pO2 89.0 ABG HCO3 25.2 ABG O2 Saturation 94.1 ABG Base Excess -4.0 FiO2 4 L Sodium Cancelled 137.5 Potassium Cancelled 5.3 H Chloride Cancelled 104 Carbon Dioxide Cancelled 24 Anion Gap Cancelled 10 BUN Cancelled 43 H Creatinine Cancelled 2.80 H Est GFR ( Amer) Cancelled 27 L Est GFR (Non-Af Amer) Cancelled 22 L Glucose Cancelled 107 Calcium Cancelled 7.7 L Magnesium 1.4 L Total Bilirubin AST ALT Alkaline Phosphatase Total Protein Albumin Triglycerides 01/13/17 01/13/17 01/13/17 01:50 03:42 06:03 WBC 6.9 RBC 3.31 L Hgb 9.5 L D Hct 28.7 L MCV 87 MCH 28.6 MCHC 33.0 RDW 15.6 H Plt Count 82 L Carbonic Acid 1.98 H HCO3/H2CO3 Ratio 13:1 ABG pH 7.22 L ABG pCO2 65.8 H ABG pO2 122.2 H ABG HCO3 26.6 H ABG O2 Saturation 97.6 ABG Base Excess -1.8 FiO2 40% Sodium 139.0 Potassium 5.4 H Chloride 103 Carbon Dioxide 26 Anion Gap 10 BUN 47 H Creatinine 3.33 H Est GFR ( Amer) 22 L Est GFR (Non-Af Amer) 18 L Glucose 101 Calcium 7.7 L Magnesium Total Bilirubin 1.5 H AST 33 ALT 25 Alkaline Phosphatase 56 Total Protein 5.2 L Albumin 2.8 L Triglycerides 01/13/17 01/13/17 01/13/17 06:03 08:50 10:05 WBC RBC Hgb Hct MCV MCH MCHC RDW Plt Count Carbonic Acid 1.91 H 1.03 L HCO3/H2CO3 Ratio 13:1 22:1 ABG pH 7.22 L 7.44 ABG pCO2 63.6 H 34.2 L ABG pO2 481.6 H 73.2 L ABG HCO3 25.2 22.9 ABG O2 Saturation 99.8 H 95.4 ABG Base Excess -3.2 -0.9 FiO2 100% 40% Sodium Potassium Chloride Carbon Dioxide Anion Gap BUN Creatinine Est GFR ( Amer) Est GFR (Non-Af Amer) Glucose Calcium Magnesium Total Bilirubin AST ALT Alkaline Phosphatase Total Protein Albumin Triglycerides 62 01/13/17 01/13/17 01/13/17 13:50 13:50 13:50 WBC 4.0 RBC 2.91 L Hgb 8.3 L Hct 24.9 L MCV 86 MCH 28.7 MCHC 33.5 RDW 15.1 H Plt Count 70 L Carbonic Acid 0.87 L HCO3/H2CO3 Ratio 25:1 ABG pH 7.50 H ABG pCO2 28.9 L ABG pO2 83.6 ABG HCO3 21.8 ABG O2 Saturation 97.1 ABG Base Excess -0.9 FiO2 40% Sodium 136.3 L Potassium 4.6 Chloride 102 Carbon Dioxide 24 Anion Gap 10 BUN 46 H Creatinine 2.93 H Est GFR ( Amer) 25 L Est GFR (Non-Af Amer) 21 L Glucose 98 Calcium 7.4 L Magnesium Total Bilirubin 1.4 H AST 30 ALT 32 Alkaline Phosphatase 53 Total Protein 4.5 L Albumin 2.3 L Triglycerides 01/13/17 01/13/17 13:50 16:15 WBC RBC Hgb Hct MCV MCH MCHC RDW Plt Count Carbonic Acid 1.08 HCO3/H2CO3 Ratio 23:1 ABG pH 7.47 H ABG pCO2 35.9 ABG pO2 75.0 L ABG HCO3 25.5 ABG O2 Saturation 95.9 ABG Base Excess 1.9 FiO2 40% Sodium Potassium Chloride Carbon Dioxide Anion Gap BUN Creatinine Est GFR ( Amer) Est GFR (Non-Af Amer) Glucose Calcium Magnesium 1.6 Total Bilirubin AST ALT Alkaline Phosphatase Total Protein Albumin Triglycerides 01/11/17 01/11/17 01/12/17 19:05 19:05 03:01 Creatine Kinase 163 CK-MB (CK-2) 2.83 6.12 H Troponin I 0.026 0.064 01/12/17 01/12/17 01/12/17 03:01 11:15 11:15 Creatine Kinase 282 H 322 H CK-MB (CK-2) 6.30 H Troponin I 0.077 Impressions: Knee X-Ray 01/11/17 09:08 IMPRESSION: Expected postoperative appearance left knee. Chest X-Ray 01/13/17 00:00 IMPRESSION: Endotracheal and nasogastric tubes in good positioning. Right jugular central line tip in the right atrium No acute infiltrates Assessment & Plan - Diagnosis (1) Acute respiratory failure Qualifiers: Qualified Code(s): J96.00 - Acute respiratory failure, unspecified whether with hypoxia or hypercapnia Is this a current diagnosis for this admission?: Yes (2) Acute tubular necrosis Is this a current diagnosis for this admission?: Yes (3) Arrhythmia Is this a current diagnosis for this admission?: Yes (4) Hypotension Qualifiers: Qualified Code(s): I95.9 - Hypotension, unspecified Is this a current diagnosis for this admission?: Yes (5) Acute combined systolic and diastolic CHF, NYHA class 2 Is this a current diagnosis for this admission?: Yes (6) Bradycardia Is this a current diagnosis for this admission?: Yes (7) Type 2 diabetes mellitus Is this a current diagnosis for this admission?: Yes - Notes Notes: Cardiac dysrhythmia: Patient noted to have frequent ventricular ectopy and also bradycardia. Possibly ischemia related. Ischemia could have been brought on by dialysis. At this point observed very closely. Recommend cycling cardiac enzymes, repeating EKGs. Hypotension: Patient currently on Levophed. Recommend reducing dose as needed to maintain blood pressure above 90-100 mmHg. CHF: This is combined systolic and diastolic. Currently intubated and seems fairly well compensated. There may be some volume overload. Bradycardia: Elevation currently maintaining good blood pressure. Avoid any AV branden or a synovial modifying agent for the time being. Type II diabetes mellitus: Currently stable and being expertly managed by storekeeper steward. If patient cannot tolerate dialysis, consider tertiary care transfer. Discussed with Dr. Peralta - Time Time Spent: 50 to 70 Minutes Medications reviewed and adjusted accordingly: Yes
--- NOTE | 2017-01-13 20:46 | PDOC TRANSFER SUMMARY ---
General Admission Date/PCP: 01/11/17 05:33 CRISTINE AGUAYO MD Transfer Date: 01/13/17 Accepting Facility: [facility] Resuscitation Status: Full Code - Transfer Diagnosis (1) Hypotension Is this a current diagnosis for this admission?: Yes (2) Acute kidney injury Is this a current diagnosis for this admission?: Yes (3) Acute respiratory failure Is this a current diagnosis for this admission?: Yes - Transfer Medications Home Medications: Aspirin 81 mg PO QAM 04/15/15 Atorvastatin Calcium [Lipitor 80 mg Tablet] 80 mg PO QHS 04/15/15 Clopidogrel Bisulfate [Plavix 75 mg Tablet] 75 mg PO QAM 04/15/15 Cyanocobalamin (Vitamin B-12) [B-12] 500 mcg PO QAM 04/15/15 Dexlansoprazole [Dexilant 60 mg Capsule] 60 mg PO QAM 04/15/15 Febuxostat [Uloric 40 mg Tablet] 40 mg PO QAM 04/15/15 Isosorbide Mononitrate [Isosorbide Mononitrate ER] 30 mg PO QAM 04/15/15 Linagliptin [Tradjenta] 5 mg PO QAM 04/15/15 Oxycodone HCl/Acetaminophen [Oxycodone-Acetaminophen 10-325] 1 tab PO Q6HP PRN 04/15/15 Pregabalin [Lyrica 75 mg Capsule] 150 mg PO Q12 04/15/15 Tamsulosin HCl 0.4 mg PO QPM 04/15/15 Acetaminophen [Tylenol] 650 mg PO Q4 PRN 08/15/15 Lorazepam [Ativan 1 mg Tablet] 2 mg PO BID PRN 08/15/15 Furosemide [Lasix 40 mg Tablet] 40 mg PO QAM 07/31/16 Psyllium Husk [Metamucil] 0.52 gm PO BID 07/31/16 Citalopram Hydrobromide [Celexa 20 mg Tablet] 20 mg PO QAM 12/30/16 Eyelid Cleanser Combination #9 [Systane] 1 each TP BID 12/30/16 Lanolin/Min Oil/Petrolat,Wht [Akwa Tears Ointment] 3.5 gm OP QHS 12/30/16 Polyvinyl Alcohol [Liquitears] 15 ml OP ASDIR 12/30/16 Sacubitril/Valsartan [Entresto 24 mg-26 mg Tablet] 1 each PO BID 12/30/16 Transfer Medications: Current Medications Acetaminophen (Tylenol 325 Mg Tablet) 650 mg PO Q4HP PRN PRN Reason: Temp greater than 101F Stop: 02/10/17 09:06 Al Hydrox/Mg Hydrox/Simethicone (Maalox Plus Susp 30 Udcup) 30 ml PO Q6HP PRN PRN Reason: constipation Stop: 02/10/17 09:06 Artificial Tears (Liquitears 1.4% Ophth Soln 15 Ml) drop OP ASDIR [facility] Stop: 02/10/17 09:14 Atorvastatin Calcium (Lipitor 80 Mg Tablet) 80 mg PO QHS [facility] Stop: 02/10/17 21:59 Last Admin: 01/12/17 21:18 Dose: 80 mg Citalopram Hydrobromide (Celexa 20 Mg Tablet) 20 mg PO DAILY [facility] Stop: 02/11/17 09:59 Last Admin: 01/13/17 10:35 Dose: Not Given Cyanocobalamin (Vitamin B-12 1000 Mcg Tablet) 500 mcg PO DAILY [facility] Stop: 02/11/17 09:59 Last Admin: 01/13/17 10:35 Dose: Not Given Diphenhydramine HCl (Benadryl Inj 50 Mg/1 Ml Vial) 25 mg IV Q6HP PRN PRN Reason: FOR ITCHING Stop: 02/10/17 09:06 Febuxostat (Uloric 40 Mg Tablet) 40 mg PO DAILY [facility] Stop: 02/11/17 09:59 Last Admin: 01/13/17 10:35 Dose: Not Given Heparin Sodium (Porcine) (Heparin Flush 10 Unit/Ml 5 Ml Disp.Syrg) 30 unit IV .AFTER EACH USE PRN PRN Reason: AFTER EACH INTERMITTENT USE Stop: 02/12/17 10:16 Heparin Sodium (Porcine) (Heparin Flush 10 Unit/Ml 5 Ml Disp.Syrg) 30 unit IV Q8 [facility] Stop: 02/12/17 13:59 Last Admin: 01/13/17 14:11 Dose: Not Given Norepinephrine Bitartrate 4 mg (/ Dextrose) 254 mls @ 0 mls/hr IV CONTINUOUS PRN; Protocol; Titrate PRN Reason: THIS MED IS NOT "PRN" Stop: 02/10/17 18:03 Last Admin: 01/12/17 04:30 Dose: 4 mg Sodium Chloride (Nacl 0.9% 1000 Ml Iv Soln) 1,000 mls @ 120 mls/hr IV CONTINUOUS PRN PRN Reason: THIS MED IS NOT "PRN" Stop: 02/10/17 14:29 Last Admin: 01/12/17 19:59 Dose: 1,000 ml Propofol (Diprivan Rtu 1000 Mg/100 Ml Inf.Bottle) 100 mls @ 0 mls/hr IV CONTINUOUS PRN; Protocol; Titrate PRN Reason: THIS MED IS NOT "PRN" Stop: 02/12/17 09:26 Last Admin: 01/13/17 19:58 Dose: 100 ml Isosorbide Mononitrate (Imdur 30 Mg Tablet.Er) 30 mg PO DAILY [facility] Stop: 02/11/17 09:59 Last Admin: 01/13/17 10:42 Dose: Not Given Lansoprazole (Prevacid 30 Mg Odt Tablet) 30 mg PO Q6AM [facility] Stop: 02/11/17 05:59 Last Admin: 01/13/17 05:19 Dose: Not Given Lorazepam (Ativan 1 Mg Tablet) 2 mg PO BIDP PRN PRN Reason: ANXIETY Stop: 01/18/17 09:04 Morphine Sulfate (Morphine 10 Mg/Ml Inj) 2 mg IV Q1HP PRN PRN Reason: FOR PAIN SCALE OF 2-3 Stop: 01/18/17 09:06 Last Admin: 01/12/17 19:58 Dose: 2 mg Morphine Sulfate (Morphine 10 Mg/Ml Inj) 4 mg IM Q1HP PRN PRN Reason: FOR PAIN SCALE OF 4-5 Stop: 01/18/17 09:06 Multivi/Iron Carb/Fe Sulf/FA/Prenat (-U Multiple Vitamin Capsule) 1 cap PO DAILY [facility] Stop: 02/10/17 09:59 Last Admin: 01/13/17 10:42 Dose: Not Given Ondansetron HCl (Zofran Odt 4 Mg Tablet) 4 mg PO Q6HP PRN PRN Reason: Nausea Stop: 02/10/17 09:06 Ondansetron HCl (Zofran Inj/Pf 4 Mg/2 Ml Sdv) 4 mg IV Q6HP PRN PRN Reason: nausea Stop: 02/10/17 09:06 Oxycodone HCl (Oxy-Ir 5 Mg Tablet) 5 mg PO Q6HP PRN PRN Reason: FOR PAIN SCALE OF 1 Stop: 01/18/17 09:06 Last Admin: 01/12/17 09:21 Dose: 5 mg Oxycodone/Acetaminophen (Percocet 5-325 Mg Tablet) 1 tab PO Q4HP PRN PRN Reason: PAIN Stop: 01/19/17 20:48 Patient Own Medication (Eyelid Cleanser Combination #9 [Systane]) 1 each TP BID [facility] Stop: 02/10/17 09:59 Patient Own Medication (Lanolin/Min Oil/Petrolat,Wht [Akwa Tears Ointment]) 3.5 gm OP QHS [facility] Stop: 02/10/17 21:59 Pregabalin (Lyrica 75 Mg Capsule) 150 mg PO Q12 [facility] Stop: 02/10/17 21:59 Last Admin: 01/13/17 10:42 Dose: Not Given Psyllium Hydrophilic Mucilloid (Metamucil-Sf Powder 5.85 Gm Packet) 1 packet PO BID [facility] Stop: 02/10/17 17:59 Last Admin: 01/13/17 17:00 Dose: Not Given Rivaroxaban (Xarelto 10 Mg Tablet) 10 mg PO QHS [facility] Stop: 02/10/17 21:59 Last Admin: 01/12/17 21:19 Dose: 10 mg Sacubitril/Valsartan (Entresto 24 Mg/26 Mg Tablet) 1 tab PO BID [facility] Stop: 02/10/17 17:59 Last Admin: 01/11/17 17:14 Dose: Not Given Senna/Docusate Sodium (Senna Plus Tablet) 1 each PO BID [facility] Stop: 02/10/17 17:59 Last Admin: 01/13/17 17:00 Dose: Not Given Sitagliptin Phosphate (Januvia 50 Mg Tablet) 100 mg PO DAILY [facility] Stop: 02/11/17 09:59 Last Admin: 01/13/17 10:42 Dose: Not Given Sodium Chloride (Saline Flush 2.5 Ml Monoject Prefil Syrin) 2.5 ml IV Q8 [facility] Stop: 02/10/17 13:59 Last Admin: 01/13/17 14:11 Dose: Not Given Sodium Chloride (Nacl 0.9% Inj/Pf 10 Ml Sdv) 10 ml IV .AFTER EACH USE PRN PRN Reason: AFTER EACH INTERMITTENT USE Stop: 02/12/17 10:16 Tamsulosin HCl (Flomax 0.4 Mg Cap.Sr) 0.4 mg PO QPM [facility] Stop: 02/10/17 17:59 Last Admin: 01/13/17 17:00 Dose: Not Given Zolpidem Tartrate (Ambien 5 Mg Tablet) 5 mg PO HSP PRN PRN Reason: sleep Stop: 02/10/17 09:06 - Allergies Allergies/Adverse Reactions: codeine [Codeine] Allergy (Verified 12/30/16 15:35) Hives tuberculin,PPD,multi-puncture Adverse Reaction (Verified 12/30/16 16:05) Hospital Course Hospital Course: Patient was admitted for elective left knee arthroplasty, this was complicated with hypotension and subsequently acute kidney injury most likely due to ATN. He has multiple medical problems, initially when he had hypotension he was fluid resuscitated on blood pressure improved initially with fluids and then subsequently became more hypotensive and last night he was started on Levophed. This morning it became oliguric/anuric on consultation was requested from nephrology for dialysis. Because of the fluctuation in blood pressure and the fact that he developed arrhythmias on hemodialysis the beauty parlor cleaner is overdue. That patient may benefit from CVVHD/CRRT unfortunately this procedure is not presently available in this hospital. The beauty parlor cleaner is suggesting a transferred to tertiary care. I called [facility] and they were kind enough to accept in transfer to [facility]. The etiology of the hypotension is thought to be due to medication, anesthesia and probably blood loss. A 2D echo was done this admission it showed low normal ejection fraction of the left ventricle. Patient was intubated today because of acute hypoxemia due to volume overload from combination of acute kidney injury, anuria Physical Exam Vital Signs: Temp Pulse Resp BP Pulse Ox 98.6 F 74 16 114/54 L 98 01/13/17 19:38 01/13/17 19:38 01/13/17 19:38 01/13/17 19:38 01/13/17 18:31 Intake & Output 01/12/17 01/13/17 01/14/17 06:59 06:59 06:59 Intake Total 6001 2944 328 Output Total 2120 425 1655 Balance 2731 2519 -1327 Weight 120.5 kg 123.3 kg General appearance: PRESENT: other Eye exam: PRESENT: PERRLA Respiratory exam: PRESENT: clear to auscultation abigail Cardiovascular exam: PRESENT: +S1, +S2 Neurological exam: PRESENT: other - sedated Results Laboratory Results: 01/13/17 13:50 01/13/17 13:50 01/12/17 01/12/17 01/12/17 23:55 23:58 23:58 WBC RBC Hgb Hct MCV MCH MCHC RDW Plt Count Carbonic Acid 2.11 H HCO3/H2CO3 Ratio 11:1 ABG pH 7.18 L* ABG pCO2 70.0 H* ABG pO2 89.0 ABG HCO3 25.2 ABG O2 Saturation 94.1 ABG Base Excess -4.0 FiO2 4 L Sodium Cancelled 137.5 Potassium Cancelled 5.3 H Chloride Cancelled 104 Carbon Dioxide Cancelled 24 Anion Gap Cancelled 10 BUN Cancelled 43 H Creatinine Cancelled 2.80 H Est GFR ( Amer) Cancelled 27 L Est GFR (Non-Af Amer) Cancelled 22 L Glucose Cancelled 107 Calcium Cancelled 7.7 L Magnesium 1.4 L Total Bilirubin AST ALT Alkaline Phosphatase Total Protein Albumin Triglycerides 01/13/17 01/13/17 01/13/17 01:50 03:42 06:03 WBC 6.9 RBC 3.31 L Hgb 9.5 L D Hct 28.7 L MCV 87 MCH 28.6 MCHC 33.0 RDW 15.6 H Plt Count 82 L Carbonic Acid 1.98 H HCO3/H2CO3 Ratio 13:1 ABG pH 7.22 L ABG pCO2 65.8 H ABG pO2 122.2 H ABG HCO3 26.6 H ABG O2 Saturation 97.6 ABG Base Excess -1.8 FiO2 40% Sodium 139.0 Potassium 5.4 H Chloride 103 Carbon Dioxide 26 Anion Gap 10 BUN 47 H Creatinine 3.33 H Est GFR ( Amer) 22 L Est GFR (Non-Af Amer) 18 L Glucose 101 Calcium 7.7 L Magnesium Total Bilirubin 1.5 H AST 33 ALT 25 Alkaline Phosphatase 56 Total Protein 5.2 L Albumin 2.8 L Triglycerides 01/13/17 01/13/17 01/13/17 06:03 08:50 10:05 WBC RBC Hgb Hct MCV MCH MCHC RDW Plt Count Carbonic Acid 1.91 H 1.03 L HCO3/H2CO3 Ratio 13:1 22:1 ABG pH 7.22 L 7.44 ABG pCO2 63.6 H 34.2 L ABG pO2 481.6 H 73.2 L ABG HCO3 25.2 22.9 ABG O2 Saturation 99.8 H 95.4 ABG Base Excess -3.2 -0.9 FiO2 100% 40% Sodium Potassium Chloride Carbon Dioxide Anion Gap BUN Creatinine Est GFR ( Amer) Est GFR (Non-Af Amer) Glucose Calcium Magnesium Total Bilirubin AST ALT Alkaline Phosphatase Total Protein Albumin Triglycerides 62 01/13/17 01/13/17 01/13/17 13:50 13:50 13:50 WBC 4.0 RBC 2.91 L Hgb 8.3 L Hct 24.9 L MCV 86 MCH 28.7 MCHC 33.5 RDW 15.1 H Plt Count 70 L Carbonic Acid 0.87 L HCO3/H2CO3 Ratio 25:1 ABG pH 7.50 H ABG pCO2 28.9 L ABG pO2 83.6 ABG HCO3 21.8 ABG O2 Saturation 97.1 ABG Base Excess -0.9 FiO2 40% Sodium 136.3 L Potassium 4.6 Chloride 102 Carbon Dioxide 24 Anion Gap 10 BUN 46 H Creatinine 2.93 H Est GFR ( Amer) 25 L Est GFR (Non-Af Amer) 21 L Glucose 98 Calcium 7.4 L Magnesium Total Bilirubin 1.4 H AST 30 ALT 32 Alkaline Phosphatase 53 Total Protein 4.5 L Albumin 2.3 L Triglycerides 01/13/17 01/13/17 13:50 16:15 WBC RBC Hgb Hct MCV MCH MCHC RDW Plt Count Carbonic Acid 1.08 HCO3/H2CO3 Ratio 23:1 ABG pH 7.47 H ABG pCO2 35.9 ABG pO2 75.0 L ABG HCO3 25.5 ABG O2 Saturation 95.9 ABG Base Excess 1.9 FiO2 40% Sodium Potassium Chloride Carbon Dioxide Anion Gap BUN Creatinine Est GFR ( Amer) Est GFR (Non-Af Amer) Glucose Calcium Magnesium 1.6 Total Bilirubin AST ALT Alkaline Phosphatase Total Protein Albumin Triglycerides 01/11/17 01/11/17 01/12/17 19:05 19:05 03:01 Creatine Kinase 163 CK-MB (CK-2) 2.83 6.12 H Troponin I 0.026 0.064 01/12/17 01/12/17 01/12/17 03:01 11:15 11:15 Creatine Kinase 282 H 322 H CK-MB (CK-2) 6.30 H Troponin I 0.077 Impressions: Knee X-Ray 01/11/17 09:08 IMPRESSION: Expected postoperative appearance left knee. Chest X-Ray 01/13/17 00:00 IMPRESSION: Endotracheal and nasogastric tubes in good positioning. Right jugular central line tip in the right atrium No acute infiltrates
[2017-01-13] MEDS: ATORVASTATIN CALCIUM 80 MG TABLET PO SCH (21:09)
[2017-01-13] MEDS: RIVAROXABAN 10 MG TABLET PO SCH (21:09)
[2017-01-13 22:40] VITALS: BP 150/110
--- NOTE | 2017-01-14 11:12 | PDOC CONSULTATION ---
Consultation Consult Date: 01/13/17 Attending physician:: BAKARI DURAN Consult reason:: resp fail History of Present Illness Admission Date/PCP: 01/11/17 05:33 CRISTINE AGUAYO MD History of Present Illness: information from chart as patient intubated;ERIKA GERMAIN is a 76 year old male, with history of compensated chronic systolic heart failure, diabetes mellitus, CVA with no residual deficits, he was admitted electively for left knee arthroplasty. This was done yesterday. Postoperatively the patient became hypotensive and patient was given IV fluid boluses. Subsequently patient was transferred here in the ICU with persistent hypotension. He also was noted to have anuria and after the Leavitt catheter was placed they were able to obtain 400 mL of urine yesterday but nothing since. Since this morning patient was already on 2 vasopressors with persistent hypotension and was on intubation and mechanical ventilation. So about an hour ago patient was started hemodialysis in the newly placed trialysis catheter. However the patient started to be bradycardic with heart rate below 50s. Then he started throwing bigeminy his with long pauses. This arrhythmia became persistent. The blood pressure remains to be within acceptable limits though and Leavoped dose is being decreased. Patient was ordered to have an amp of albumin, normal percussion gluconate by the supervisor shearing however patient continued with cardiac dysrhythmia and therefore the dialysis was stopped. Patient did get ultrafiltration of around 400 mL approximately. It seems as soon as the dialysis was stopped, Patient cardiac dysrhythmia improved. I was asked to evaluate patient because of above heart rhythm problem, hypo-tension, chronic systolic heart failure. Past Medical History Cardiac Medical History: Reports: Atrial Fibrillation - Paroxysmal, Congestive Heart Failure, Coronary Artery Disease, DVT, Myocardial Infarction - x4 last 1993, Hyperlipidema, Hypertension Denies: Peripheral Vascular Disease, Pulmonary Embolism, Heart Murmur Pulmonary Medical History: Reports: Asthma, Bronchitis, Chronic Obstructive Pulmonary Disease (COPD), Intubation, Pneumonia, Respiratory Failure - Acute, Sleep Apnea Denies: Tuberculosis Neurological Medical History: Reports: Seizures - sept hit head and had seizure Endocrine Medical History: Reports: Diabetes Mellitus Type 2 Denies: Hyperthyroidism, Hypothyroidism Renal/ Medical History: Denies: End Stage Renal Disease Malignancy Medical History: Denies: Leukemia, Lung Cancer GI Medical History: Reports: Gastroesophageal Reflux Disease, Hepatitis Denies: Crohn's Disease, Hiatal Hernia Musculoskeltal Medical History: Reports: Arthritis, Gout Denies: Fibromyalgia Psychiatric Medical History: Reports: Depression Denies: Bipolar Disorder, Dementia, Post Traumatic Stress Disorder Hematology: Reports: Anemia - Thrombocytopenia Denies: Hemophilia, Sickle Cell Disease Past Surgical History Past Surgical History: Reports: Cholecystectomy, Coronary Stent Denies: Appendectomy, Colostomy, Coronary Artery Bypass Graft, Gastric Bypass Surgery, Herniorrhaphy, Pacemaker, Tonsillectomy Social History Information Source: [facility] Records Smoking Status: Never Smoker Frequency of Alcohol Use: None Hx Recreational Drug Use: No Hx Prescription Drug Abuse: No - Advance Directive Resuscitation Status: Full Code Family History Family History: Reviewed & Not Pertinent Parental Family History Reviewed: No Children Family History Reviewed: No Sibling(s) Family History Reviewed.: No Medication/Allergy Home Medications: Aspirin 81 mg PO QAM 04/15/15 Atorvastatin Calcium [Lipitor 80 mg Tablet] 80 mg PO QHS 04/15/15 Clopidogrel Bisulfate [Plavix 75 mg Tablet] 75 mg PO QAM 04/15/15 Cyanocobalamin (Vitamin B-12) [B-12] 500 mcg PO QAM 04/15/15 Dexlansoprazole [Dexilant 60 mg Capsule] 60 mg PO QAM 04/15/15 Febuxostat [Uloric 40 mg Tablet] 40 mg PO QAM 04/15/15 Isosorbide Mononitrate [Isosorbide Mononitrate ER] 30 mg PO QAM 04/15/15 Linagliptin [Tradjenta] 5 mg PO QAM 04/15/15 Oxycodone HCl/Acetaminophen [Oxycodone-Acetaminophen 10-325] 1 tab PO Q6HP PRN 04/15/15 Pregabalin [Lyrica 75 mg Capsule] 150 mg PO Q12 04/15/15 Tamsulosin HCl 0.4 mg PO QPM 04/15/15 Acetaminophen [Tylenol] 650 mg PO Q4 PRN 08/15/15 Lorazepam [Ativan 1 mg Tablet] 2 mg PO BID PRN 08/15/15 Furosemide [Lasix 40 mg Tablet] 40 mg PO QAM 07/31/16 Psyllium Husk [Metamucil] 0.52 gm PO BID 07/31/16 Citalopram Hydrobromide [Celexa 20 mg Tablet] 20 mg PO QAM 12/30/16 Eyelid Cleanser Combination #9 [Systane] 1 each TP BID 12/30/16 Lanolin/Min Oil/Petrolat,Wht [Akwa Tears Ointment] 3.5 gm OP QHS 12/30/16 Polyvinyl Alcohol [Liquitears] 15 ml OP ASDIR 12/30/16 Sacubitril/Valsartan [Entresto 24 mg-26 mg Tablet] 1 each PO BID 12/30/16 Allergies/Adverse Reactions: codeine [Codeine] Allergy (Verified 12/30/16 15:35) Hives tuberculin,PPD,multi-puncture Adverse Reaction (Verified 12/30/16 16:05) Review of Systems ROS unobtainable: Due to endotracheal tube Physical Exam Vital Signs: Temp Pulse Resp BP Pulse Ox 99.5 F 88 24 H 164/139 H 98 01/13/17 04:34 01/12/17 20:00 01/13/17 05:03 01/13/17 02:56 01/13/17 10:54 Intake & Output 01/12/17 01/13/17 01/14/17 06:59 06:59 06:59 Intake Total 4851 2944 Output Total 2120 425 Balance 2731 2519 Weight 120.5 kg 123.3 kg General appearance: PRESENT: no acute distress, disheveled, well-developed, well -nourished Head exam: PRESENT: atraumatic, normocephalic Eye exam: PRESENT: conjunctiva pale Mouth exam: PRESENT: dry mucosa, neck supple, other - ET tube Respiratory exam: PRESENT: decreased breath sounds, prolonged expiratory phas Cardiovascular exam: PRESENT: RRR, +S1, +S2 Pulses: PRESENT: normal radial pulses GI/Abdominal exam: PRESENT: ascites Rectal exam: PRESENT: deferred Gentrourinary exam: PRESENT: indwelling catheter Skin exam: PRESENT: dry, warm Results Laboratory Results: 01/13/17 03:42 01/13/17 06:03 01/12/17 01/12/17 01/12/17 23:55 23:58 23:58 WBC RBC Hgb Hct MCV MCH MCHC RDW Plt Count Carbonic Acid 2.11 H HCO3/H2CO3 Ratio 11:1 ABG pH 7.18 L* ABG pCO2 70.0 H* ABG pO2 89.0 ABG HCO3 25.2 ABG O2 Saturation 94.1 ABG Base Excess -4.0 FiO2 4 L Sodium Cancelled 137.5 Potassium Cancelled 5.3 H Chloride Cancelled 104 Carbon Dioxide Cancelled 24 Anion Gap Cancelled 10 BUN Cancelled 43 H Creatinine Cancelled 2.80 H Est GFR ( Amer) Cancelled 27 L Est GFR (Non-Af Amer) Cancelled 22 L Glucose Cancelled 107 Calcium Cancelled 7.7 L Magnesium 1.4 L Total Bilirubin AST ALT Alkaline Phosphatase Total Protein Albumin Triglycerides 01/13/17 01/13/17 01/13/17 01:50 03:42 06:03 WBC 6.9 RBC 3.31 L Hgb 9.5 L D Hct 28.7 L MCV 87 MCH 28.6 MCHC 33.0 RDW 15.6 H Plt Count 82 L Carbonic Acid 1.98 H HCO3/H2CO3 Ratio 13:1 ABG pH 7.22 L ABG pCO2 65.8 H ABG pO2 122.2 H ABG HCO3 26.6 H ABG O2 Saturation 97.6 ABG Base Excess -1.8 FiO2 40% Sodium 139.0 Potassium 5.4 H Chloride 103 Carbon Dioxide 26 Anion Gap 10 BUN 47 H Creatinine 3.33 H Est GFR ( Amer) 22 L Est GFR (Non-Af Amer) 18 L Glucose 101 Calcium 7.7 L Magnesium Total Bilirubin 1.5 H AST 33 ALT 25 Alkaline Phosphatase 56 Total Protein 5.2 L Albumin 2.8 L Triglycerides 01/13/17 01/13/17 01/13/17 06:03 08:50 10:05 WBC RBC Hgb Hct MCV MCH MCHC RDW Plt Count Carbonic Acid 1.91 H 1.03 L HCO3/H2CO3 Ratio 13:1 22:1 ABG pH 7.22 L 7.44 ABG pCO2 63.6 H 34.2 L ABG pO2 481.6 H 73.2 L ABG HCO3 25.2 22.9 ABG O2 Saturation 99.8 H 95.4 ABG Base Excess -3.2 -0.9 FiO2 100% 40% Sodium Potassium Chloride Carbon Dioxide Anion Gap BUN Creatinine Est GFR ( Amer) Est GFR (Non-Af Amer) Glucose Calcium Magnesium Total Bilirubin AST ALT Alkaline Phosphatase Total Protein Albumin Triglycerides 62 01/11/17 01/11/1701/12/17 19:05 19:05 03:01 Creatine Kinase 163 CK-MB (CK-2) 2.83 6.12 H Troponin I 0.026 0.064 01/12/17 01/12/17 01/12/17 03:01 11:15 11:15 Creatine Kinase 282 H 322 H CK-MB (CK-2) 6.30 H Troponin I 0.077 Impressions: Knee X-Ray 01/11/17 09:08 IMPRESSION: Expected postoperative appearance left knee. Chest X-Ray 01/13/17 00:00 IMPRESSION: Endotracheal and nasogastric tubes in good positioning. Right jugular central line tip in the right atrium No acute infiltrates Assessment & Plan - Diagnosis (1) Acute combined systolic and diastolic CHF, NYHA class 2 Is this a current diagnosis for this admission?: Yes (3) Acute tubular necrosis Is this a current diagnosis for this admission?: Yes (4) Altered mental status Qualifiers: Altered mental status type: unspecified Qualified Code(s): R41.82 - Altered mental status, unspecified (6) Congestive heart failure (CHF) Qualifiers: Congestive heart failure type: systolic Congestive heart failure chronicity: acute Qualified Code(s): I50.21 - Acute systolic (congestive) heart failure (7) Hypotension Qualifiers: Hypotension type: unspecified hypotension type Qualified Code(s): I95.9 - Hypotension, unspecified Is this a current diagnosis for this admission?: Yes - Time Critical Time spent with patient: 35 or more minutes - 120 min
== END 2017-01-13 22:30 | disposition short-term general hospital (02) | DRG 469 ==
LOC: INOR 05:33 → 4S 11:06 → 3W 16:35 → ICU 18:57
PROVIDERS: ADMIT Orthopaedic Surgery; ATTEND Orthopaedic Surgery
PROC: 0SRD0J9 Replacement of Left Knee Joint with Synthetic Substitute, Cemented, Open Approach (ICD-10-PCS; principal; 2017-01-11 07:30)
PROC: 5A09357 Assistance with Respiratory Ventilation, Less than 24 Consecutive Hours, Continuous Positive Airway Pressure (ICD-10-PCS; 2017-01-13)
PROC: 5A1935Z Respiratory Ventilation, Less than 24 Consecutive Hours (ICD-10-PCS; 2017-01-13)
PROC: 0BH17EZ Insertion of Endotracheal Airway into Trachea, Via Natural or Artificial Opening (ICD-10-PCS; 2017-01-13)
PROC: 06HM33Z Insertion of Infusion Device into Right Femoral Vein, Percutaneous Approach (ICD-10-PCS; 2017-01-13)
PROC: B51BZZA Fluoroscopy of Right Lower Extremity Veins, Guidance (ICD-10-PCS; 2017-01-13)
PROC: 5A1D00Z (ICD-10-PCS; 2017-01-13)
PROC: B54BZZA Ultrasonography of Right Lower Extremity Veins, Guidance (ICD-10-PCS; 2017-01-13)
DX: M17.12 Unilateral primary osteoarthritis, left knee (principal); J95.821 Acute postprocedural respiratory failure; N17.0 Acute kidney failure with tubular necrosis; I50.43 Acute on chronic combined systolic (congestive) and diastolic (congestive) heart failure; Z68.41 Body mass index [BMI] 40.0-44.9, adult; I97.89 Other postprocedural complications and disorders of the circulatory system, not elsewhere classified; Y83.4 Other reconstructive surgery as the cause of abnormal reaction of the patient, or of later complication, without mention of misadventure at the time of the procedure; T41.45XA Adverse effect of unspecified anesthetic, initial encounter; I48.0 Paroxysmal atrial fibrillation; I11.0 Hypertensive heart disease with heart failure; I25.10 Atherosclerotic heart disease of native coronary artery without angina pectoris; I25.2 Old myocardial infarction; E78.5 Hyperlipidemia, unspecified; J44.9 Chronic obstructive pulmonary disease, unspecified; G47.30 Sleep apnea, unspecified; E11.9 Type 2 diabetes mellitus without complications; K21.9 Gastro-esophageal reflux disease without esophagitis; M10.9 Gout, unspecified; F32.9 Major depressive disorder, single episode, unspecified; D69.6 Thrombocytopenia, unspecified; I95.81 Postprocedural hypotension; E66.9 Obesity, unspecified; N40.0 Benign prostatic hyperplasia without lower urinary tract symptoms; F41.9 Anxiety disorder, unspecified; Z88.6 Allergy status to analgesic agent; Z88.7 Allergy status to serum and vaccine; Z79.899 Other long term (current) drug therapy; Z86.718 Personal history of other venous thrombosis and embolism; Z90.49 Acquired absence of other specified parts of digestive tract; Z95.5 Presence of coronary angioplasty implant and graft; Z86.73 Personal history of transient ischemic attack (TIA), and cerebral infarction without residual deficits; Z85.828 Personal history of other malignant neoplasm of skin
CPT/HCPCS: 01402; 31500; 36415; 36556; 71010; 71020; 76937; 80048; 80053; 81001; 82310; 82550; 82553; 82803; 82962; 83735; 84132; 84478; 84484; 85025; 85027; 85610; 85730; 88305; 88311; 93005; 93010; 93306; 94002; 94660; 94799; C1751; C2625; C9290; G8978-GP; G8979-GP; J0171; J0330; J0610; J0690; J1265; J1741; J1940; J2250; J2270; J2310; J2370; J2405; J2704; J3010; J3370; J3475; J3490; J7030; J7050; J7060

== ENCOUNTER 2017-02-23 10:59 | Emergency (ER) | payer MEDICARE, MEDICAID ==
--- NOTE | 2017-02-23 11:36 | ER Document Report ---
ED Blood Pressure Problem - General Chief Complaint: Blood Pressure Problem Stated Complaint: BLOOD PRESSURE PROBLEMS Time Seen by Provider: 02/23/17 11:14 Mode of Arrival: Medic Information source: Patient Notes: Patient states that he was getting up to do his physical therapy today and had dizziness. Patient states that he became diaphoretic and he checked his blood pressure and it was 82/48. Patient was given an IV fluid bolus per EMS and now his blood pressure has improved. Patient denies any chest pain, shortness of breath, abdominal pain, or back pain TRAVEL OUTSIDE OF THE [place] IN LAST 30 DAYS: Yes - HPI Patient complains to provider of: Low blood pressure Onset: Just prior to arrival Onset/Duration: Sudden Quality of pain: No pain Pain Level: Denies Associated symptoms: Dizziness. denies: Chest pain, Vomiting, Weakness Similar symptoms previously: Yes Recently seen / treated by doctor: No - Related Data Allergies/Adverse Reactions: codeine [Codeine] Allergy (Verified 02/23/17 11:29) Hives tuberculin,PPD,multi-puncture Adverse Reaction (Verified 02/23/17 11:29) Past Medical History - General Information source: Patient - Social History Smoking Status: Unknown if Ever Smoked Frequency of alcohol use: None Drug Abuse: None Lives with: [facility] Family History: Reviewed & Not Pertinent - Past Medical History Cardiac Medical History: Reports: Hx Atrial Fibrillation - Paroxysmal, Hx Congestive Heart Failure, Hx Coronary Artery Disease, Hx DVT, Hx Heart Attack - x4 last 1993, Hx Hypercholesterolemia, Hx Hypertension Denies: Hx Peripheral Vascular Disease, Hx Pulmonary Embolism, Hx Heart Murmur Pulmonary Medical History: Reports: Hx Asthma, Hx Bronchitis, Hx COPD, Hx Pneumonia, Hx Intubation, Hx Respiratory Failure - Acute, Hx Sleep Apnea Denies: Hx Tuberculosis Neurological Medical History: Reports: Hx Cerebrovascular Accident - x2 may 2013 , Hx Seizures - may hit head and had seizure Endocrine Medical History: Reports: Hx Diabetes Mellitus Type 2. Denies: Hx Graves' Disease, Hx Hyperthyroidism, Hx Hypothyroidism Renal/ Medical History: Reports: Hx Benign Prostatic Hyperplasia. Denies: Hx End Stage Renal Disease, Hx Kidney Stones, Hx Peritoneal Dialysis Malignancy Medical History: Denies Hx Leukemia, Denies Hx Lung Cancer, Reports Hx Skin Cancer - Malignant melanoma GI Medical History: Reports: Hx Gastroesophageal Reflux Disease, Hx Hepatitis, Hx Ulcer. Denies: Hx Crohn's Disease, Hx Hiatal Hernia, Hx Irritable Bowel, Hx Liver Failure Musculoskeltal Medical History: Reports Hx Arthritis, Denies Hx Fibromyalgia, Reports Hx Gout, Denies Hx Multiple Sclerosis, Denies Hx Muscular Dystrophy Psychiatric Medical History: Reports: Hx Anxiety, Hx Depression Denies: Hx Bipolar Disorder, Hx Dementia, Hx Post Traumatic Stress Disorder, Hx Schizophrenia Traumatic Medical History: Denies: Hx Fractures Infectious Medical History: Reports: Hx Hepatitis Past Surgical History: Reports: Hx Cholecystectomy, Hx Coronary Stent, Hx Open Heart Surgery - angioplasy. Denies: Hx Appendectomy, Hx Bowel Surgery, Hx Colostomy, Hx Coronary Artery Bypass Graft, Hx Gastric Bypass Surgery, Hx Herniorrhaphy, Hx Pacemaker, Hx Tonsillectomy - Immunizations Immunizations up to date: Yes Hx Diphtheria, Pertussis, Tetanus Vaccination: No Hx Pneumococcal Vaccination: 09/27/10 Review of Systems - Review of Systems Constitutional: Diaphoresis. denies: Fever, Recent illness EENT: No symptoms reported Cardiovascular: Dizziness. denies: Chest pain Respiratory: No symptoms reported. denies: Cough, Short of breath Gastrointestinal: No symptoms reported. denies: Abdominal pain, Diarrhea, Nausea, Vomiting Genitourinary: No symptoms reported. denies: Dysuria Male Genitourinary: No symptoms reported Musculoskeletal: No symptoms reported. denies: Back pain Skin: No symptoms reported Hematologic/Lymphatic: No symptoms reported Neurological/Psychological: No symptoms reported. denies: Confusion, Lost consciousness, Headaches Physical Exam - Vital signs Vitals: Resp Pulse Ox 16 95 02/23/17 11:26 02/23/17 11:26 - General General appearance: Appears well, Alert In distress: None - HEENT Head: Normocephalic, Atraumatic Eyes: Normal Nasal: Normal Mouth/Lips: Normal Mucous membranes: Normal Neck: Normal, Supple - Respiratory Respiratory status: No respiratory distress Chest status: Nontender Breath sounds: Normal. No: Rales, Rhonchi, Stridor, Wheezing Chest palpation: Normal - Cardiovascular Rhythm: Regular, Bradycardia Heart sounds: S1 appreciated, S2 appreciated Murmur: No - Abdominal Inspection: Obese Distension: No distension Bowel sounds: Normal Tenderness: Nontender Organomegaly: No organomegaly - Back Back: Normal, Nontender. No: CVA tenderness - Extremities General upper extremity: Normal inspection, Normal ROM. No: Edema General lower extremity: Normal inspection, Normal ROM. No: Edema - Neurological Neuro grossly intact: Yes Cognition: Normal Roxie Coma Scale Eye Opening: Spontaneous Roxie Coma Scale Verbal: Oriented Roxie Coma Scale Motor: Obeys Commands Roxie Coma Scale Total: 15 - Psychological Associated symptoms: Normal affect, Normal mood - Skin Skin Temperature: Warm Skin Moisture: Dry Skin Color: Pale Course - Re-evaluation Re-evalutation: 02/23/17 13:00 pt denies any complaints at present, no cp, no sob, no abdominal or back pain. Pt BP 123/58, pt continues bradycardic. Consulted with dr Waddell who advises road testing pt and re-evaluating VS. Does not recommend any repeat or additional lab studies at this time. 02/23/17 14:47 pt sleeping, easily aroused to voice. Pt sat down to 88 when sleeping, pt states that he does occasionally wear oxygen when sleeping. After pt woke up, sat increased to mid 90's. 02/23/17 16:32 pt denies complaints, VSS. Consulted with dr Waddell who agrees with plan for discharge. - Vital Signs Vital signs: Temp Pulse Resp BP Pulse Ox 45 L 11 L 158/58 H 100 02/23/17 16:22 02/23/17 17:01 02/23/17 17:01 02/23/17 17:01 - Laboratory Result Diagrams: 02/23/17 11:45 02/23/17 11:45 Laboratory results interpreted by me: 02/23/17 02/23/17 02/23/17 11:45 11:45 15:25 RBC 4.28 L Hgb 12.1 L Hct 37.5 L RDW 16.1 H Plt Count 102 L Monocytes % 14.5 H BUN 27 H Creatinine 1.55 H Est GFR ( Amer) 53 L Est GFR (Non-Af Amer) 43 L Calcium 8.1 L Creatine Kinase 25 L Total Protein 5.8 L Albumin 3.0 L Urine Blood LARGE H Urine Nitrite POSITIVE H Ur Leukocyte Esterase MODERATE H Labs- Entire Visit 02/23/17 02/23/17 02/23/17 11:45 11:45 11:45 WBC 4.0 RBC 4.28 L Hgb 12.1 L Hct 37.5 L MCV 88 MCH 28.4 MCHC 32.3 RDW 16.1 H Plt Count 102 L Seg Neutrophils % 64.5 Lymphocytes % 19.7 Monocytes % 14.5 H Eosinophils % 0.6 Basophils % 0.7 Absolute Neutrophils 2.6 Absolute Lymphocytes 0.8 Absolute Monocytes 0.6 Absolute Eosinophils 0.0 Absolute Basophils 0.0 Sodium 142.5 Potassium 4.3 Chloride 105 Carbon Dioxide 28 Anion Gap 10 BUN 27 H Creatinine 1.55 H Est GFR ( Amer) 53 L Est GFR (Non-Af Amer) 43 L Glucose 104 Calcium 8.1 L Magnesium 1.6 Total Bilirubin 1.0 Direct Bilirubin 0.3 Indirect Bilirubin Not Reportable Neonat Total Bilirubin Not Reportable AST 20 ALT 30 Alkaline Phosphatase 67 Creatine Kinase 25 L CK-MB (CK-2) 0.34 Troponin I 0.015 Total Protein 5.8 L Albumin 3.0 L Urine Color Urine Appearance Urine pH Ur Specific [place] Urine Protein Urine Glucose (UA) Urine Ketones Urine Blood Urine Nitrite Urine Bilirubin Urine Urobilinogen Ur Leukocyte Esterase Urine WBC (Auto) Urine RBC (Auto) Urine Bacteria (Auto) Squamous Epi Cells Auto Urine Mucus (Auto) Urine Ascorbic Acid 02/23/17 15:25 WBC RBC Hgb Hct MCV MCH MCHC RDW Plt Count Seg Neutrophils % Lymphocytes % Monocytes % Eosinophils % Basophils % Absolute Neutrophils Absolute Lymphocytes Absolute Monocytes Absolute Eosinophils Absolute Basophils Sodium Potassium Chloride Carbon Dioxide Anion Gap BUN Creatinine Est GFR ( Amer) Est GFR (Non-Af Amer) Glucose Calcium Magnesium Total Bilirubin Direct Bilirubin Indirect Bilirubin Neonat Total Bilirubin AST ALT Alkaline Phosphatase Creatine Kinase CK-MB (CK-2) Troponin I Total Protein Albumin Urine Color YELLOW Urine Appearance SLIGHTLY-CLOUDY Urine pH 5.0 Ur Specific [place] 1.008 Urine Protein NEGATIVE Urine Glucose (UA) NEGATIVE Urine Ketones NEGATIVE Urine Blood LARGE H Urine Nitrite POSITIVE H Urine Bilirubin NEGATIVE Urine Urobilinogen NEGATIVE Ur Leukocyte Esterase MODERATE H Urine WBC (Auto) 88 Urine RBC (Auto) 9 Urine Bacteria (Auto) TRACE Squamous Epi Cells Auto <1 Urine Mucus (Auto) RARE Urine Ascorbic Acid NEGATIVE 02/23/17 19:01 - Diagnostic Test Radiology reviewed: Reports reviewed Discharge - Discharge Clinical Impression: Bradycardia, Hypotensive episode Urinary tract infection Qualifiers: Urinary tract infection type: site unspecified Hematuria presence: with hematuria Qualified Code(s): N39.0 - Urinary tract infection, site not specified Condition: Stable Disposition: SNF Instructions: Urinary Tract Infection ([facility]), Ciprofloxacin ([facility]), Rocephin ([facility] ), Hypotension ([facility]) Additional Instructions: return immediately for any new or worsening symptoms follow up with your primary care provider for a recheck, call tomorrow for an appointment check your blood pressure prior to taking your medications urine culture is pending, we will call if you need any different treatment Prescriptions: Ciprofloxacin HCl [Cipro 250 mg Tablet] 1 tab PO BID #14 tab Referrals: CRISTINE AGUAYO MD [Primary Care Provider] - Follow up tomorrow
[2017-02-23 12:06] LABS: ABSOLUTE LYMPHOCYTES (AUTO) 0.8 10^3/uL (0.5-4.7); ABSOLUTE MONOCYTES (AUTO) 0.6 10^3/uL (0.1-1.4); ABSOLUTE NEUT (AUTO) 2.6 10^3/uL (1.7-8.2); BASOPHILS % (AUTO) 0.7 % (0-2); EOSINOPHILS % (AUTO) 0.6 % (0-6); HEMATOCRIT 37.5 % (37.9-51.0); HEMOGLOBIN 12.1 g/dL (13.5-17.0); HGB HCT DIFFERENCE -1.2; LYMPHOCYTES % (AUTO) 19.7 % (13-45); MEAN CORPUSCULAR HEMOGLOBIN 28.4 pg (27.0-33.4); MEAN CORPUSCULAR HGB CONC 32.3 g/dL (32.0-36.0); MEAN CORPUSCULAR VOLUME 88 fl (80-97); MONOCYTES % (AUTO) 14.5 % (3-13); RED BLOOD COUNT 4.28 10^6/uL (4.35-5.55); RED CELL DISTRIBUTION WIDTH 16.1 % (11.5-14.0); SEGMENTED NEUTROPHILS % (AUTO) 64.5 % (42-78)
[2017-02-23 12:26] LABS: ALANINE AMINOTRANSFERASE 30 U/L (21-72); ALKALINE PHOSPHATASE 67 U/L (38-126); ANION GAP 10 (5-19); ASPARTATE AMINO TRANSFERASE 20 U/L (17-59); BILIRUBIN,DIRECT 0.3 mg/dL (0.0-0.4); BLOOD UREA NITROGEN 27 mg/dL (7-20); CALCIUM 8.1 mg/dL (8.4-10.2); CARBON DIOXIDE 28 mmol/L (22-30); CHLORIDE 105 mmol/L (98-107); CREATINE KINASE 25 U/L (55-170); CREATININE RESULT 1.55 mg/dL (0.52-1.25); GLUCOSE 104 mg/dL (75-110); MAGNESIUM 1.6 mg/dL (1.6-2.3); POTASSIUM 4.3 mmol/L (3.6-5.0); SODIUM 142.5 mmol/L (137-145); TOTAL PROTEIN 5.8 g/dL (6.3-8.2)
--- NOTE | 2017-02-23 12:30 | RADIOLOGY REPORT (SQ) ---
EXAM DESCRIPTION: CHEST SINGLE VIEW COMPLETED DATE/TIME: 02/23/2017 12:10 pm REASON FOR STUDY: hypotension COMPARISON: 01/13/2017 EXAM PARAMETERS: NUMBER OF VIEWS: One view. TECHNIQUE: Single frontal radiographic view of the chest acquired. RADIATION DOSE: NA LIMITATIONS: None. FINDINGS: LUNGS AND PLEURA: No opacities, masses or pneumothorax. No pleural effusion. MEDIASTINUM AND HILAR STRUCTURES: No masses. Contour normal. HEART AND VASCULAR STRUCTURES: Heart normal in size. Normal vasculature. BONES: No acute findings. HARDWARE: Endotracheal tube, NG tube, and internal jugular catheter present on the earlier study are no longer present. OTHER: No other significant finding. IMPRESSION: NO ACUTE RADIOGRAPHIC FINDING IN THE CHEST. TECHNICAL DOCUMENTATION: JOB ID: [id number]
[2017-02-23 12:38] LABS: CREATINE KINASE MB 0.34 ng/mL (<4.55); TROPONIN I 0.015 ng/mL
[2017-02-23 15:43] LABS: APPEARANCE,URINE SLIGHTLY-CLOUDY; BILIRUBIN,URINE NEGATIVE (NEGATIVE); GLUCOSE, URINE NEGATIVE (NEGATIVE); KETONES,URINE NEGATIVE (NEGATIVE); LEUKOCYTE ESTERASE,URINE MODERATE (NEGATIVE); NITRITE,URINE POSITIVE (NEGATIVE); PROTEIN,URINE NEGATIVE (NEGATIVE); URINE SPECIFIC GRAVITY 1.008; UROBILINOGEN,URINE NEGATIVE mg/dL (<2.0)
[2017-02-23] MEDS ORDERED: CEFTRIAXONE RTU 1 GM/D5W 50 ML IV ONE (16:34)
[2017-02-23] MEDS ORDERED: CIPROFLOXACIN HCL 500 MG TABLET PO ONE (16:35)
[2017-02-23] MEDS ORDERED: CARVEDILOL 3.125 MG TABLET PO ONE (19:47)
--- NOTE | 2017-02-24 00:29 | EKG REPORT ---
SEVERITY:- ABNORMAL ECG - SINUS BRADYCARDIA FIRST DEGREE AV BLOCK RIGHT BUNDLE BRANCH BLOCK : Confirmed by: Ellis Chong 24-Feb-2017 00:28:48
[2017-02-24 06:52] VITALS: BP 156/69
== END 2017-02-23 22:25 ==
LOC: ER 10:59
DX: R00.1 Bradycardia, unspecified (principal); I95.9 Hypotension, unspecified; N39.0 Urinary tract infection, site not specified; R42 Dizziness and giddiness; R61 Generalized hyperhidrosis; I48.91 Unspecified atrial fibrillation; I50.9 Heart failure, unspecified; I25.10 Atherosclerotic heart disease of native coronary artery without angina pectoris; E78.00 Pure hypercholesterolemia, unspecified; I11.0 Hypertensive heart disease with heart failure; J45.909 Unspecified asthma, uncomplicated; J44.9 Chronic obstructive pulmonary disease, unspecified; E11.9 Type 2 diabetes mellitus without complications; K21.9 Gastro-esophageal reflux disease without esophagitis; Z86.718 Personal history of other venous thrombosis and embolism; Z88.6 Allergy status to analgesic agent; Z86.73 Personal history of transient ischemic attack (TIA), and cerebral infarction without residual deficits; Z90.49 Acquired absence of other specified parts of digestive tract; I25.2 Old myocardial infarction
CPT/HCPCS: 93005; 99285; 96365; 36415; 87086; 82553; 82550; 83735; 85025; 87088; 80053; 81001; 84484; 87186; 71010; 93010; A9270 ×2; J0696

== ENCOUNTER → 2017-03-28 | Outpatient (CLI) | payer MEDICARE, MEDICAID ==
--- NOTE | 2017-03-31 10:58 | RADIOLOGY REPORT (SQ) ---
EXAM DESCRIPTION: PET CT WHOLE BODY COMPLETED DATE/TIME: 03/31/2017 7:39 am REASON FOR STUDY: MAL MARIALUISA OF SKIN, UNSPECIFIED C43.9 MALIGNANT MELANOMA OF SKIN, UNSPECIFIED COMPARISON: CT chest 05/12/2013, 07/31/2015 PET-CT 12/24/2013, 12/09/2014 RADIONUCLIDE AND DOSE: 11.2 mCi F18 FDG The route of agent administration: Intravenous FASTING BLOOD SUGAR: 90 mg/dl CONTRAST TYPE AND DOSE: No CT contrast given. TECHNIQUE: Blood glucose level was verified. Above dose of FDG was injected intravenously. 2-D seg mented attenuation correction images were obtained through the entire body. Noncontrast CT images we re obtained for attenuation correction and fusion with emission images. CT images were performed wit hout oral or intravenous contrast and are not sensitive for parenchymal lesions. A series of overlap ping emission PET images were obtained. Images reviewed and manipulated at independent work station by the radiologist. Images stored on PACS. LIMITATIONS: None. FINDINGS: HEAD AND NECK: There is a stable 4.8 x 3 cm right lower pole hypermetabolic thyroid mass, 15 SUV. This is similar compared to PET-CT 12/09/2014. CHEST: No areas of abnormal metabolic activity in the chest. Minimal bandlike scarring in the lingul a and right lower lobe above the hemidiaphragms. No adenopathy. ABDOMEN AND PELVIS: No areas of abnormal metabolic activity in the abdomen or pelvis. Expected physi ologic activity is present in the genitourinary system and bowel. LOWER EXTREMITIES: No areas of abnormal metabolic activity in the soft tissues of the lower extremiti es. BONES: No abnormal metabolic activity in the visualized skeleton. LOWER EXTREMITIES: There is mild diffuse increased uptake over the left knee periarticular soft tiss ues surrounding a total knee replacement which was placed 01/11/2017. This activity is nonspecific ADDITIONAL CT FINDINGS: 2 cm non metabolic right upper pole cyst, small hiatal hernia, coronary arter y calcifications, right axillary surgical clips, clips right upper quadrant post cholecystectomy, lef t pelvic kidney. OTHER: Blood pool SUV 2.4, liver SUV 2.8 IMPRESSION: Unchanged right lower pole hypermetabolic thyroid lesion. No hypermetabolic nodules on PET-CT findings worrisome for metastatic melanoma. TECHNICAL DOCUMENTATION: JOB ID: [id number] All Rights Reserved
== END ==
LOC: RAD 17:50
PROVIDERS: ATTEND Internal Medicine
DX: C43.9 Malignant melanoma of skin, unspecified (principal); E07.9 Disorder of thyroid, unspecified; K76.89 Other specified diseases of liver; K44.9 Diaphragmatic hernia without obstruction or gangrene; I25.10 Atherosclerotic heart disease of native coronary artery without angina pectoris
CPT/HCPCS: 78816; A9552

== ENCOUNTER 2017-06-08 21:57 | Inpatient (IN) | payer MEDICARE, MEDICAID ==
--- NOTE | 2017-06-08 22:30 | RADIOLOGY REPORT (SQ) ---
EXAM DESCRIPTION: CHEST SINGLE VIEW COMPLETED DATE/TIME: 06/08/2017 10:21 pm REASON FOR STUDY: fever COMPARISON: 02/23/2017 EXAM PARAMETERS: NUMBER OF VIEWS: One view. TECHNIQUE: Single frontal radiographic view of the chest acquired. RADIATION DOSE: NA LIMITATIONS: None. FINDINGS: LUNGS AND PLEURA: The left lateral basilar markings and right medial basilar markings are stable. This most likely represents confluence of shadows. There is no focal consolidation or effus ions. MEDIASTINUM AND HILAR STRUCTURES: No masses. Contour normal. HEART AND VASCULAR STRUCTURES: Stable in appearance. BONES: No acute findings. HARDWARE: Battery pack and leads have been placed since prior study. These overlie the expected loca tions. OTHER: No other significant finding. IMPRESSION: No acute findings in the chest. Battery pack and leads have been placed since prior margarito dy. TECHNICAL DOCUMENTATION: JOB ID: [id number]
--- NOTE | 2017-06-08 22:39 | EKG REPORT ---
SEVERITY:- ABNORMAL ECG - SINUS RHYTHM LVH WITH SECONDARY REPOLARIZATION ABNORMALITY LAD CONSIDER INF [facility] OLD : Confirmed by: Ellis Chong 08-Jun-2017 22:38:32
[2017-06-08 22:44] LABS: ABSOLUTE EOSINOPHILS # (AUTO) 0.1 10^3/uL (0.0-0.6); ABSOLUTE LYMPHOCYTES (AUTO) 0.5 10^3/uL (0.5-4.7); ABSOLUTE MONOCYTES (AUTO) 0.7 10^3/uL (0.1-1.4); ABSOLUTE NEUT (AUTO) 4.1 10^3/uL (1.7-8.2); BASOPHILS % (AUTO) 0.4 % (0-2); EOSINOPHILS % (AUTO) 0.9 % (0-6); HEMATOCRIT 39.5 % (37.9-51.0); HGB HCT DIFFERENCE -0.5; LYMPHOCYTES % (AUTO) 9.2 % (13-45); MEAN CORPUSCULAR HEMOGLOBIN 27.5 pg (27.0-33.4); MEAN CORPUSCULAR HGB CONC 32.9 g/dL (32.0-36.0); MEAN CORPUSCULAR VOLUME 84 fl (80-97); MONOCYTES % (AUTO) 13.7 % (3-13); RED BLOOD COUNT 4.72 10^6/uL (4.35-5.55); RED CELL DISTRIBUTION WIDTH 17.2 % (11.5-14.0); SEGMENTED NEUTROPHILS % (AUTO) 75.8 % (42-78); VENOUS BLOOD BASE EXCESS 7.5 mmol/L; VENOUS BLOOD HCO3 35.3 mmol/L (20-32); VENOUS BLOOD PH 7.35 (7.30-7.42); WHITE BLOOD COUNT 5.5 10^3/uL (4.0-10.5)
[2017-06-08 22:48] LABS: VENOUS BLOOD PCO2 65.3 mmHg (35-63)
[2017-06-08 22:54] LABS: PROTHROMBIN TIME 13.1 SEC (11.4-15.4)
[2017-06-08 23:00] LABS: ALANINE AMINOTRANSFERASE 16 U/L (21-72); ALBUMIN 3.2 g/dL (3.5-5.0); ALKALINE PHOSPHATASE 66 U/L (38-126); ANION GAP 9 (5-19); ASPARTATE AMINO TRANSFERASE 15 U/L (17-59); BILIRUBIN,DIRECT 0.3 mg/dL (0.0-0.4); BILIRUBIN,TOTAL 1.4 mg/dL (0.2-1.3); BLOOD UREA NITROGEN 33 mg/dL (7-20); CALCIUM 8.5 mg/dL (8.4-10.2); CARBON DIOXIDE 31 mmol/L (22-30); CHLORIDE 101 mmol/L (98-107); CREATININE RESULT 1.43 mg/dL (0.52-1.25); GLUCOSE 155 mg/dL (75-110); POTASSIUM 4.2 mmol/L (3.6-5.0); SODIUM 140.7 mmol/L (137-145); TOTAL PROTEIN 5.8 g/dL (6.3-8.2)
[2017-06-08] MEDS ORDERED: NORMAL SALINE 500 ML IV ONE (23:21)
[2017-06-08] MEDS ORDERED: VANCOMYCIN HCL INJ 1000 MG VIAL IV ONE (23:24)
[2017-06-08] MEDS ORDERED: PIPERACILLIN/TAZOBACTAM 3.375 GM VIAL IV ONE (23:24)
--- NOTE | 2017-06-08 23:25 | ER Document Report ---
ED General - General Chief Complaint: Fever Stated Complaint: FEVER Time Seen by Provider: 06/08/17 22:04 Notes: Patient is a 77-year-old male presents with complaint of fever. He is a [employer]. He said fever for last 24 hours. He says he has felt very weak and unwell. No runny nose cough or congestion. He denies any pain. Does have a previous history of pneumonia according to his medical records. He denies any recent sores or skin breakdown on his bottom. He has no other complaints at this time. He does have history of CHF as well as MA. He does have a pacemaker defibrillator. TRAVEL OUTSIDE OF THE [place] IN LAST 30 DAYS: Yes - Related Data Allergies/Adverse Reactions: codeine [Codeine] Allergy (Verified 02/23/17 11:29) Hives tuberculin,PPD,multi-puncture Adverse Reaction (Verified 02/23/17 11:29) Past Medical History - Social History Smoking Status: Unknown if Ever Smoked Chew tobacco use (# tins/day): No Frequency of alcohol use: None Drug Abuse: None Family History: Reviewed & Not Pertinent - Past Medical History Cardiac Medical History: Reports: Hx Atrial Fibrillation - Paroxysmal, Hx Congestive Heart Failure, Hx Coronary Artery Disease, Hx DVT, Hx Heart Attack - x4 last 1993, Hx Hypercholesterolemia, Hx Hypertension Denies: Hx Peripheral Vascular Disease, Hx Pulmonary Embolism, Hx Heart Murmur Pulmonary Medical History: Reports: Hx Asthma, Hx Bronchitis, Hx COPD, Hx Pneumonia, Hx Intubation, Hx Respiratory Failure - Acute, Hx Sleep Apnea Denies: Hx Tuberculosis Neurological Medical History: Reports: Hx Cerebrovascular Accident - x2 may 2013 , Hx Seizures - may hit head and had seizure Endocrine Medical History: Reports: Hx Diabetes Mellitus Type 2. Denies: Hx Graves' Disease, Hx Hyperthyroidism, Hx Hypothyroidism Renal/ Medical History: Reports: Hx Benign Prostatic Hyperplasia. Denies: Hx End Stage Renal Disease, Hx Kidney Stones, Hx Peritoneal Dialysis Malignancy Medical History: Denies Hx Leukemia, Denies Hx Lung Cancer, Reports Hx Skin Cancer - Malignant melanoma GI Medical History: Reports: Hx Gastroesophageal Reflux Disease, Hx Hepatitis, Hx Ulcer. Denies: Hx Crohn's Disease, Hx Hiatal Hernia, Hx Irritable Bowel, Hx Liver Failure Musculoskeltal Medical History: Reports Hx Arthritis, Denies Hx Fibromyalgia, Reports Hx Gout, Denies Hx Multiple Sclerosis, Denies Hx Muscular Dystrophy Psychiatric Medical History: Reports: Hx Anxiety, Hx Depression Denies: Hx Bipolar Disorder, Hx Dementia, Hx Post Traumatic Stress Disorder, Hx Schizophrenia Traumatic Medical History: Denies: Hx Fractures Infectious Medical History: Reports: Hx Hepatitis Past Surgical History: Reports: Hx Cholecystectomy, Hx Coronary Stent, Hx Open Heart Surgery - angioplasy. Denies: Hx Appendectomy, Hx Bowel Surgery, Hx Colostomy, Hx Coronary Artery Bypass Graft, Hx Gastric Bypass Surgery, Hx Herniorrhaphy, Hx Pacemaker, Hx Tonsillectomy - Immunizations Immunizations up to date: Yes Hx Diphtheria, Pertussis, Tetanus Vaccination: No Hx Pneumococcal Vaccination: 09/27/10 Review of Systems - Review of Systems Notes: My Normal Review Basic REVIEW OF SYSTEMS: CONSTITUTIONAL : Fever EENT: Denies eye, ear, throat, or mouth pain or symptoms. Denies nasal or sinus congestion. CARDIOVASCULAR: Denies chest pain. RESPIRATORY: Denies cough, cold, or chest congestion. Denies shortness of breath, difficulty breathing, or wheezing. GASTROINTESTINAL: Denies abdominal pain. Denies nausea, vomiting, or diarrhea. Denies constipation. Last BM: GENITOURINARY: Denies difficulty urinating, painful urination, burning, frequency, or blood in urine. MUSCULOSKELETAL: Denies neck or back pain or joint pain or swelling. SKIN: Denies rash or skin lesions. NEUROLOGICAL: Denies altered mental status or loss of consciousness. Denies headache. Denies weakness or paralysis or loss of use of either side. Denies problems with gait or speech. Denies sensory or motor loss. ALL OTHER SYSTEMS REVIEWED AND NEGATIVE. Physical Exam - Vital signs Vitals: Resp 22 H 06/08/17 22:08 - Notes Notes: General Appearance: Well nourished, alert, cooperative, no acute distress, no obvious discomfort. Vitals: reviewed, See vital signs table. Head: no swelling or tenderness to the head Eyes: PERRL, EOMI, Conjuctiva clear Mouth: No decreasd moisture Throat: No tonsillar inflammation, No airway obstruction, No lymphadenopathy Neck: Supple, no neck tenderness, No thyromegaly Lungs: No wheezing, No rales, No rhonci, No accessory muscle use, good air exchange bilaterally. Heart: Normal rate, Regular rythm, No murmur, no rub Abdomen: Normal BS, soft, No rigidity, No abdominal tenderness, No guarding, no rebound, no abdominal masses, no organomegaly Extremities: strength 5/5 in all extremities, good pulses in all extremities, no swelling or tenderness in the extremities, 1+ bilateral lower extremity edema. Skin: warm, dry, appropriate color, no rash Neuro: speech clear, oriented x 3, normal affect, responds appropriately to questions. Cranial nerves II through XII are intact. Patient moves all extremities without difficulty. Course - Re-evaluation Re-evalutation: 06/08/17 23:23 Patient's blood pressure started to drop. I will give him normal saline bolus. We will do 500ml boluses for now being that he has a history of significant CHF. I will also start him on broad-spectrum antibiotics until we find the source. 06/08/17 23:24 06/09/17 00:49 Patient's urinalysis shows evidence of infection. This was a cath specimen. He has what appears to be urosepsis. He has had almost entire 500 mL bag was ordered before. He still has blood pressures from the mid 80s to low 90s systolically. I will give him another 500 mL bolus. He continues to be hypotensive despite boluses we may have to place central line and start pressors. Currently patient is sleeping. He is in no current significant distress. 06/09/17 01:52 Patient's pressure is now 104/72. Is responding well to fluid bolus now. Patient's will be admitted for urosepsis. I have spoken with Dr. Aguayo and he agrees to admit the patient. He has only small amount of blood in his urine. He only had 13 red blood cells. He does have white blood cell clumps with positive nitrites and large leukocyte esterase. I do not suspect kidney stone in that the patient says that he has absolutely no pain whatsoever. 06/09/17 01:53 Dictation of this chart was performed using voice recognition software; therefore, there may be some unintended grammatical errors. - Vital Signs Vital signs: Temp Pulse Resp BP Pulse Ox 99.3 F 67 18 88/51 L 97 06/08/17 22:15 06/08/17 23:01 06/09/17 01:01 06/09/17 01:01 06/09/17 01:01 - Laboratory Result Diagrams: 06/08/17 22:25 06/08/17 22:25 Laboratory results interpreted by me: 06/08/17 06/08/17 06/08/17 22:25 22:25 22:25 Hgb 13.0 L RDW 17.2 H Plt Count 101 L Lymphocytes % 9.2 L Monocytes % 13.7 H VBG pCO2 65.3 H* VBG HCO3 35.3 H Carbon Dioxide 31 H BUN 33 H Creatinine 1.43 H Est GFR ( Amer) 58 L Est GFR (Non-Af Amer) 48 L Glucose 155 H Total Bilirubin 1.4 H AST 15 L ALT 16 L Total Protein 5.8 L Albumin 3.2 L Urine Protein Urine Blood Urine Nitrite Ur Leukocyte Esterase 06/08/17 23:40 Hgb RDW Plt Count Lymphocytes % Monocytes % VBG pCO2 VBG HCO3 Carbon Dioxide BUN Creatinine Est GFR ( Amer) Est GFR (Non-Af Amer) Glucose Total Bilirubin AST ALT Total Protein Albumin Urine Protein 100 H Urine Blood MODERATE H Urine Nitrite POSITIVE H Ur Leukocyte Esterase LARGE H - EKG Interpretation by Me Additional EKG results interpreted by me: 06/08/17 23:25 EKG is reviewed and interpreted by me. EKG shows sinus rhythm with rate of [address] segment changes. Mild T-wave inversions in the lateral anterior precordial leads. NM interval, QRS duration, QTc intervals are within normal range. Old EKG for comparison is from February 23, 2017. Critical Care Note - Critical Care Note Total time excluding time spent on procedures (mins): 45 Comments: Total critical care time spent is patient not including time spent on procedures approximately 45 minutes due to frequent re-evaluations and treatment of hypotension relation to urosepsis. Discharge - Discharge Clinical Impression: UTI (urinary tract infection) Qualifiers: Urinary tract infection type: site unspecified Hematuria presence: with hematuria Qualified Code(s): N39.0 - Urinary tract infection, site not specified ; R31.9 - Hematuria, unspecified Sepsis Qualifiers: Sepsis type: sepsis due to unspecified organism Qualified Code(s): A41.9 - Sepsis, unspecified organism Condition: Stable Disposition: ADMITTED INPATIENT Admitting Provider: [facility] Admitted: [facility] Referrals: CRISTINE AGUAYO MD [Primary Care Provider] - Follow up as needed
[2017-06-09 00:13] LABS: AMORPHOUS SEDIMENT,URINE 1+ /HPF; APPEARANCE,URINE TURBID; BILIRUBIN,URINE NEGATIVE (NEGATIVE); GLUCOSE, URINE NEGATIVE (NEGATIVE); KETONES,URINE NEGATIVE (NEGATIVE); LEUKOCYTE ESTERASE,URINE LARGE (NEGATIVE); NITRITE,URINE POSITIVE (NEGATIVE); PROTEIN,URINE 100 mg/dL (NEGATIVE); URINE SPECIFIC GRAVITY 1.009; UROBILINOGEN,URINE NEGATIVE mg/dL (<2.0)
[2017-06-09] MEDS ORDERED: NORMAL SALINE 500 ML IV ONE ×2 (00:48→01:11)
[2017-06-09 06:35] LABS: HEMATOCRIT 42.2 % (37.9-51.0); HEMOGLOBIN 13.5 g/dL (13.5-17.0); HGB HCT DIFFERENCE -1.7; MEAN CORPUSCULAR HEMOGLOBIN 27.2 pg (27.0-33.4); MEAN CORPUSCULAR VOLUME 85 fl (80-97); RED BLOOD COUNT 4.97 10^6/uL (4.35-5.55); RED CELL DISTRIBUTION WIDTH 17.3 % (11.5-14.0); WHITE BLOOD COUNT 7.2 10^3/uL (4.0-10.5)
[2017-06-09 06:50] LABS: ANION GAP 13 (5-19); BLOOD UREA NITROGEN 34 mg/dL (7-20); CALCIUM 8.3 mg/dL (8.4-10.2); CARBON DIOXIDE 30 mmol/L (22-30); CHLORIDE 100 mmol/L (98-107); CREATININE RESULT 1.67 mg/dL (0.52-1.25); GLUCOSE 120 mg/dL (75-110); POTASSIUM 4.2 mmol/L (3.6-5.0); SODIUM 143.4 mmol/L (137-145)
[2017-06-09 08:02] LABS: LIPASE 94.1 U/L (23-300)
[2017-06-09 08:04] LABS: AMYLASE < 30 U/L (30-110)
[2017-06-09 08:34] LABS: THYROID STIMULATING HORMONE 1.57 uIU/mL (0.47-4.68)
[2017-06-09] MEDS: ENOXAPARIN SODIUM INJ 30 MG/0.3 ML DISP.SYRIN SUBCUT SCH (09:48)
[2017-06-09] MEDS: CEFTRIAXONE 1 GM/D5W RTU 1 GM/50 ML RTUPB IV SCH (09:48)
[2017-06-09] MEDS ORDERED: (PENDING PHARMACY ID) (Linagliptin [Tradjenta] 5 MG) PO SCH (14:15)
[2017-06-09] MEDS ORDERED: (PENDING PHARMACY ID) (Cyanocobalamin (Vitamin B-12) [Vitamin B-12] 500 MCG) PO SCH (14:15)
[2017-06-09] MEDS ORDERED: (PENDING PHARMACY ID) (Oxycodone Hcl/Acetaminophen [Percocet 10-325 Mg Tablet] 1 EACH) PO PRN (14:15)
[2017-06-09] MEDS ORDERED: LORAZEPAM 1 MG TABLET PO PRN (14:15)
[2017-06-09] MEDS ORDERED: LIDOCAINE TP PRN (14:15)
[2017-06-09] MEDS ORDERED: CLOPIDOGREL BISULFATE 75 MG TABLET PO SCH (14:15)
[2017-06-09] MEDS ORDERED: ACETAMINOPHEN 325 MG TABLET PO PRN (14:15)
--- NOTE | 2017-06-09 15:37 | PDOC H&P ---
History of Present Illness Admission Date/PCP: 06/09/17 03:44 CRISTINE AGUAYO MD History of Present Illness: ERIKA GERMAIN is a 77 year old male, he has a history of chronic systolic heart failure, he was transferred from the detention because of fever with a temperature of 103 associated with altered mental status. He was evaluated in the emergency room, he was found to have urinary tract infection, the hemogram was normal. The chest x-ray did not show any abnormality to suggest pneumonia Past Medical History Cardiac Medical History: Reports: Atrial Fibrillation - Paroxysmal, Congestive Heart Failure, Coronary Artery Disease, DVT, Myocardial Infarction - x4 last 1993, Hyperlipidema, Hypertension Pulmonary Medical History: Reports: Asthma, Bronchitis, Chronic Obstructive Pulmonary Disease (COPD), Intubation, Pneumonia, Respiratory Failure - Acute, Sleep Apnea Neurological Medical History: Reports: Seizures - sept hit head and had seizure Endocrine Medical History: Reports: Diabetes Mellitus Type 2, Hypothyroidism Renal/ Medical History: Reports: Chronic Kidney Disease, Other - Chronic kidney disease stage III Malignancy Medical History: Reports: Skin Cancer - Malignant melanoma GI Medical History: Reports: Gastroesophageal Reflux Disease, Hepatitis Musculoskeltal Medical History: Reports: Arthritis, Gout Psychiatric Medical History: Reports: Depression Hematology: Reports: Anemia - Thrombocytopenia Past Surgical History Past Surgical History: Reports: Cholecystectomy, Coronary Stent Social History Smoking Status: Never Smoker Frequency of Alcohol Use: None Hx Recreational Drug Use: No Hx Prescription Drug Abuse: No - Advance Directive Resuscitation Status: Full Code Family History Family History: Reviewed & Not Pertinent Parental Family History Reviewed: Yes Children Family History Reviewed: Yes Sibling(s) Family History Reviewed.: Yes Medication/Allergy Home Medications: Acetaminophen [Tylenol] 650 mg PO Q6HP PRN 06/09/17 Aspirin [Aspirin 81 mg Chewable Tablet] 81 mg PO DAILY 06/09/17 Atorvastatin Calcium [Lipitor 80 mg Tablet] 80 mg PO QHS 06/09/17 Cetirizine HCl [Zyrtec 10 mg Tablet] 1 tab PO DAILY 06/09/17 Citalopram Hydrobromide [Celexa 20 mg Tablet] 20 mg PO DAILY 06/09/17 Clopidogrel Bisulfate [Plavix 75 mg Tablet] 75 mg PO DAILY 06/09/17 Cyanocobalamin (Vitamin B-12) [Vitamin B-12] 500 mcg PO DAILY 06/09/17 Dexlansoprazole [Dexilant 60 mg Capsule] 60 mg PO DAILY 06/09/17 Febuxostat [Uloric 40 mg Tablet] 40 mg PO DAILY 06/09/17 Furosemide [Lasix 40 mg Tablet] 40 mg PO QAM 06/09/17 Isosorbide Mononitrate [Isosorbide Mononitrate ER] 15 mg PO DAILY 06/09/17 Lanolin/Min Oil/Petrolat,Wht [Akwa Tears Ointment] 3.5 gm OP QHS 06/09/17 Lidocaine [Aspercreme] 1 each TP DAILYP PRN 06/09/17 Linagliptin [Tradjenta] 5 mg PO DAILY 06/09/17 Lorazepam [Ativan 1 mg Tablet] 1 mg PO Q12HP PRN 06/09/17 Oxycodone HCl/Acetaminophen [Percocet 10-325 Mg Tablet] 1 each PO Q12HP PRN Polyvinyl Alcohol [Liquitears] 1 drop OU Q6H 06/09/17 Pregabalin [Lyrica 75 mg Capsule] 150 mg PO Q12 06/09/17 Psyllium Husk/Aspartame [Metamucil Fiber Singles Packet] 3.4 gm PO BID 06/09/17 Sacubitril/Valsartan [Entresto 24 mg-26 mg Tablet] 1 tab PO BID 06/09/17 Tamsulosin HCl [Flomax 0.4 mg Cap.sr] 0.4 mg PO DAILY 06/09/17 Allergies/Adverse Reactions: codeine [Codeine] Allergy (Verified 02/23/17 11:29) Hives tuberculin,PPD,multi-puncture Adverse Reaction (Verified 02/23/17 11:29) Review of Systems Constitutional: PRESENT: fever(s) Eyes: ABSENT: visual disturbances Ears: ABSENT: hearing changes Cardiovascular: ABSENT: chest pain, dyspnea on exertion, edema, orthropnea, palpitations Respiratory: ABSENT: cough, hemoptysis Gastrointestinal: ABSENT: abdominal pain, constipation, diarrhea, hematemesis, hematochezia, nausea, vomiting Genitourinary: ABSENT: dysuria, hematuria Musculoskeletal: ABSENT: joint swelling Integumentary: ABSENT: rash, wounds Neurological: PRESENT: other - Altered mental status Psychiatric: ABSENT: anxiety, depression, homidical ideation, suicidal ideation Endocrine: ABSENT: cold intolerance, heat intolerance, menstrual abnormalities, polydipsia, polyuria Hematologic/Lymphatic: ABSENT: easy bleeding, easy bruising, lymphadenopathy Physical Exam Vital Signs: Temp Pulse Resp BP Pulse Ox 99.9 F 78 17 116/78 100 06/09/17 11:33 06/09/17 11:33 06/09/17 14:00 06/09/17 13:35 06/09/17 14:00 Intake & Output 06/08/17 06/09/17 06/10/17 06:59 06:59 06:59 Intake Total 20 239 Balance 20 239 Weight 113.8 kg General appearance: PRESENT: no acute distress, well-developed, well-nourished Head exam: PRESENT: atraumatic, normocephalic Eye exam: PRESENT: conjunctiva pink, EOMI, PERRLA Ear exam: PRESENT: normal external ear exam Mouth exam: PRESENT: moist, tongue midline Neck exam: PRESENT: full ROM Cardiovascular exam: PRESENT: RRR, +S1, +S2 Vascular exam: PRESENT: normal capillary refill GI/Abdominal exam: PRESENT: normal bowel sounds, soft Rectal exam: PRESENT: deferred Neurological exam: PRESENT: alert Skin exam: PRESENT: dry, intact, warm Results Laboratory Results: 06/09/17 06:30 06/09/17 06:30 06/09/17 06/09/17 06/09/17 06:30 06:30 06:30 WBC 7.2 RBC 4.97 Hgb 13.5 Hct 42.2 MCV 85 MCH 27.2 MCHC 32.0 RDW 17.3 H Plt Count 133 L Sodium 143.4 Potassium 4.2 Chloride 100 Carbon Dioxide 30 Anion Gap 13 BUN 34 H Creatinine 1.67 H Est GFR ( Amer) 48 L Est GFR (Non-Af Amer) 40 L Glucose 120 H Calcium 8.3 L Amylase Lipase TSH 1.57 Free T4 1.00 06/09/17 06:30 WBC RBC Hgb Hct MCV MCH MCHC RDW Plt Count Sodium Potassium Chloride Carbon Dioxide Anion Gap BUN Creatinine Est GFR ( Amer) Est GFR (Non-Af Amer) Glucose Calcium Amylase < 30 L Lipase 94.1 TSH Free T4 Impressions: Chest X-Ray 06/08/17 21:59 IMPRESSION: No acute findings in the chest. Battery pack and leads have been placed since prior study. Assessment & Plan - Diagnosis (1) Urinary tract infection Qualifiers: Urinary tract infection type: site unspecified Hematuria presence: without hematuria Qualified Code(s): N39.0 - Urinary tract infection, site not specified Is this a current diagnosis for this admission?: Yes Plan: Patient is admitted for observation, he be treated with IV antibiotic empirically (2) Metabolic encephalopathy Is this a current diagnosis for this admission?: Yes
[2017-06-09] MEDS ORDERED: OXYCODONE-ACETAMINOPHEN 5-325 MG TABLET PO PRN (15:58)
[2017-06-09] MEDS ORDERED: OXYCODONE HCL IR 5 MG TABLET PO PRN (15:59)
[2017-06-09] MEDS: ISOSORBIDE MONONITRATE 30 MG TAB.ER.24H PO SCH (17:38)
[2017-06-09] MEDS: POLYVINYL ALCOHOL 1.4% OPH SOLN 15 ML OU SCH ×2 (17:38→21:37)
[2017-06-09] MEDS: TAMSULOSIN HCL 0.4 MG CAP.SR.24H PO SCH (17:38)
[2017-06-09] MEDS: ASPIRIN 81 MG TABLET, CHEWABLE PO SCH (17:38)
[2017-06-09] MEDS: PSYLLIUM SEED-SF 5.85 GM PACKET PO SCH ×2 (17:38)
[2017-06-09] MEDS: SACUBITRIL/VALSARTAN 24 MG/26 MG TABLET PO SCH (17:39)
[2017-06-09] MEDS ORDERED: ASPARTAME PO SCH (18:00)
[2017-06-09] MEDS ORDERED: PSYLLIUM HUSK PO SCH (18:00)
[2017-06-09] MEDS: FEBUXOSTAT 40 MG TABLET PO SCH (18:07)
[2017-06-09] MEDS: PREGABALIN 75 MG CAPSULE PO SCH (21:34)
[2017-06-09] MEDS: ATORVASTATIN CALCIUM 80 MG TABLET PO SCH (21:34)
[2017-06-09] MEDS: CETIRIZINE 10 MG TABLET PO SCH (21:35)
[2017-06-09] MEDS ORDERED: LANOLIN OP SCH (22:00)
[2017-06-09] MEDS ORDERED: MINERAL OIL OP SCH (22:00)
[2017-06-09] MEDS ORDERED: WHITE PETROLATUM OP SCH (22:00)
[2017-06-10 05:28] LABS: ALANINE AMINOTRANSFERASE 12 U/L (21-72); ALKALINE PHOSPHATASE 62 U/L (38-126); ANION GAP 11 (5-19); ASPARTATE AMINO TRANSFERASE 32 U/L (17-59); BILIRUBIN,DIRECT 0.6 mg/dL (0.0-0.4); BILIRUBIN,TOTAL 2.2 mg/dL (0.2-1.3); BLOOD UREA NITROGEN 37 mg/dL (7-20); CALCIUM 8.2 mg/dL (8.4-10.2); CARBON DIOXIDE 29 mmol/L (22-30); CHLORIDE 105 mmol/L (98-107); CHOLESTEROL 84.04 mg/dL (0-200); CREATININE RESULT 1.43 mg/dL (0.52-1.25); Direct HDL 28 mg/dL (>40); GLUCOSE 101 mg/dL (75-110); POTASSIUM 4.1 mmol/L (3.6-5.0); SODIUM 145.4 mmol/L (137-145); TOTAL PROTEIN 5.7 g/dL (6.3-8.2); TRIGLYCERIDES 57 mg/dL (<150)
[2017-06-10 05:33] LABS: ABSOLUTE MONOCYTES (AUTO) 0.9 10^3/uL (0.1-1.4); ABSOLUTE NEUT (AUTO) 4.8 10^3/uL (1.7-8.2); BASOPHILS % (AUTO) 0.5 % (0-2); EOSINOPHILS % (AUTO) 0.5 % (0-6); HEMATOCRIT 38.7 % (37.9-51.0); HGB HCT DIFFERENCE 0.3; LYMPHOCYTES % (AUTO) 14.8 % (13-45); MEAN CORPUSCULAR HEMOGLOBIN 27.4 pg (27.0-33.4); MEAN CORPUSCULAR HGB CONC 33.5 g/dL (32.0-36.0); MEAN CORPUSCULAR VOLUME 82 fl (80-97); MONOCYTES % (AUTO) 13.8 % (3-13); RED BLOOD COUNT 4.73 10^6/uL (4.35-5.55); RED CELL DISTRIBUTION WIDTH 16.7 % (11.5-14.0); SEGMENTED NEUTROPHILS % (AUTO) 70.4 % (42-78); WHITE BLOOD COUNT 6.8 10^3/uL (4.0-10.5)
[2017-06-10 05:39] LABS: DIRECT LDL 31 mg/dL (<100)
[2017-06-10] MEDS: FUROSEMIDE 40 MG TABLET PO SCH (07:34)
[2017-06-10] MEDS: LANSOPRAZOLE 30 MG TAB.RAP.DR PO SCH (07:34)
[2017-06-10] MEDS: ENOXAPARIN SODIUM INJ 30 MG/0.3 ML DISP.SYRIN SUBCUT SCH (09:48)
[2017-06-10] MEDS: PSYLLIUM SEED-SF 5.85 GM PACKET PO SCH ×4 (09:53→17:13)
[2017-06-10] MEDS: CEFTRIAXONE 1 GM/D5W RTU 1 GM/50 ML RTUPB IV SCH (09:53)
[2017-06-10] MEDS: POLYVINYL ALCOHOL 1.4% OPH SOLN 15 ML OU SCH ×4 (09:54→22:09)
[2017-06-10] MEDS: SITAGLIPTIN PHOSPHATE 50 MG TABLET PO SCH (09:55)
[2017-06-10] MEDS: CLOPIDOGREL BISULFATE 75 MG TABLET PO SCH (09:55)
[2017-06-10] MEDS: SACUBITRIL/VALSARTAN 24 MG/26 MG TABLET PO SCH ×2 (09:55→17:14)
[2017-06-10] MEDS: CITALOPRAM HYDROBROMIDE 20 MG TABLET PO SCH (09:55)
[2017-06-10] MEDS: PREGABALIN 75 MG CAPSULE PO SCH ×2 (09:56→22:07)
[2017-06-10] MEDS: CYANOCOBALAMIN (VITAMIN B-12) 1,000 MCG TABLET PO SCH (09:56)
[2017-06-10] MEDS: ASPIRIN 81 MG TABLET, CHEWABLE PO SCH (17:14)
[2017-06-10] MEDS: ISOSORBIDE MONONITRATE 30 MG TAB.ER.24H PO SCH (17:14)
[2017-06-10] MEDS: FEBUXOSTAT 40 MG TABLET PO SCH (17:14)
[2017-06-10] MEDS: TAMSULOSIN HCL 0.4 MG CAP.SR.24H PO SCH (17:14)
--- NOTE | 2017-06-10 20:23 | PDOC PROGRESS REPORT ---
Subjective Progress Note for:: 06/10/17 Subjective:: Patient is very somnolent, very sleepy but easily arousable the pH is normal on the ABG Physical Exam Vital Signs: Temp Pulse Resp BP Pulse Ox 98.7 F 70 21 H 125/85 99 06/10/17 15:09 06/10/17 15:09 06/10/17 15:09 06/10/17 15:09 06/10/17 15:09 Intake & Output 06/09/17 06/10/17 06/11/17 06:59 06:59 06:59 Intake Total 20 749 359 Output Total 400 800 Balance 20 349 -441 Weight 113.8 kg 112.8 kg 112.8 kg General appearance: PRESENT: no acute distress, well-developed, well-nourished Head exam: PRESENT: atraumatic, normocephalic Eye exam: PRESENT: conjunctiva pink, EOMI, PERRLA Neck exam: PRESENT: full ROM Respiratory exam: PRESENT: clear to auscultation abigail Cardiovascular exam: PRESENT: RRR, +S1, +S2 Vascular exam: PRESENT: normal capillary refill GI/Abdominal exam: PRESENT: normal bowel sounds, soft Rectal exam: PRESENT: deferred Neurological exam: PRESENT: alert, awake, oriented to person, oriented to place , oriented to time, oriented to situation, CN II-XII grossly intact Psychiatric exam: PRESENT: appropriate affect, normal mood Skin exam: PRESENT: dry, intact, warm Results Laboratory Results: 06/10/17 04:45 06/10/17 04:45 06/10/17 06/10/17 04:45 04:45 WBC 6.8 RBC 4.73 Hgb 13.0 L Hct 38.7 MCV 82 MCH 27.4 MCHC 33.5 RDW 16.7 H Plt Count 89 L Seg Neutrophils % 70.4 Lymphocytes % 14.8 Monocytes % 13.8 H Eosinophils % 0.5 Basophils % 0.5 Absolute Neutrophils 4.8 Absolute Lymphocytes 1.0 Absolute Monocytes 0.9 Absolute Eosinophils 0.0 Absolute Basophils 0.0 Sodium 145.4 H Potassium 4.1 Chloride 105 Carbon Dioxide 29 Anion Gap 11 BUN 37 H Creatinine 1.43 H Est GFR ( Amer) 58 L Est GFR (Non-Af Amer) 48 L Glucose 101 Calcium 8.2 L Total Bilirubin 2.2 H AST 32 ALT 12 L Alkaline Phosphatase 62 Total Protein 5.7 L Albumin 3.0 L Triglycerides 57 Cholesterol 84.04 LDL Cholesterol Direct 31 VLDL Cholesterol 11.0 HDL Cholesterol 28 L Impressions: Chest X-Ray 06/08/17 21:59 IMPRESSION: No acute findings in the chest. Battery pack and leads have been placed since prior study. Assessment & Plan - Diagnosis (1) Urinary tract infection Qualifiers: Urinary tract infection type: site unspecified Hematuria presence: without hematuria Qualified Code(s): N39.0 - Urinary tract infection, site not specified Is this a current diagnosis for this admission?: Yes (2) Metabolic encephalopathy Is this a current diagnosis for this admission?: Yes - Plan Summary Plan Summary: Continue treatment
[2017-06-10] MEDS: CETIRIZINE 10 MG TABLET PO SCH (22:07)
[2017-06-10] MEDS: ATORVASTATIN CALCIUM 80 MG TABLET PO SCH (22:07)
[2017-06-10 23:36] LABS: ARTERIAL BLOOD BASE EXCESS 3.9 mmol/L; ARTERIAL BLOOD O2 SATURATION 96.7 % (94-98)
[2017-06-11 05:38] LABS: ABSOLUTE EOSINOPHILS # (AUTO) 0.1 10^3/uL (0.0-0.6); ABSOLUTE LYMPHOCYTES (AUTO) 0.7 10^3/uL (0.5-4.7); ABSOLUTE MONOCYTES (AUTO) 0.6 10^3/uL (0.1-1.4); ABSOLUTE NEUT (AUTO) 3.1 10^3/uL (1.7-8.2); BASOPHILS % (AUTO) 0.7 % (0-2); HEMATOCRIT 34.4 % (37.9-51.0); HEMOGLOBIN 11.4 g/dL (13.5-17.0); HGB HCT DIFFERENCE -0.2; LYMPHOCYTES % (AUTO) 14.8 % (13-45); MEAN CORPUSCULAR HEMOGLOBIN 27.1 pg (27.0-33.4); MEAN CORPUSCULAR HGB CONC 33.2 g/dL (32.0-36.0); MEAN CORPUSCULAR VOLUME 82 fl (80-97); MONOCYTES % (AUTO) 14.2 % (3-13); RED BLOOD COUNT 4.23 10^6/uL (4.35-5.55); RED CELL DISTRIBUTION WIDTH 17.4 % (11.5-14.0); SEGMENTED NEUTROPHILS % (AUTO) 68.3 % (42-78); WHITE BLOOD COUNT 4.5 10^3/uL (4.0-10.5)
[2017-06-11] MEDS: FUROSEMIDE 40 MG TABLET PO SCH (08:02)
[2017-06-11] MEDS: LANSOPRAZOLE 30 MG TAB.RAP.DR PO SCH (08:03)
[2017-06-11] MEDS: CYANOCOBALAMIN (VITAMIN B-12) 1,000 MCG TABLET PO SCH (10:02)
[2017-06-11] MEDS: SITAGLIPTIN PHOSPHATE 50 MG TABLET PO SCH (10:06)
[2017-06-11] MEDS: PREGABALIN 75 MG CAPSULE PO SCH ×2 (10:07→21:12)
[2017-06-11] MEDS: CITALOPRAM HYDROBROMIDE 20 MG TABLET PO SCH (10:08)
[2017-06-11] MEDS: CEFTRIAXONE 1 GM/D5W RTU 1 GM/50 ML RTUPB IV SCH (10:09)
[2017-06-11] MEDS: POLYVINYL ALCOHOL 1.4% OPH SOLN 15 ML OU SCH ×4 (10:09→21:12)
[2017-06-11] MEDS: SACUBITRIL/VALSARTAN 24 MG/26 MG TABLET PO SCH ×2 (10:10→17:16)
[2017-06-11] MEDS: PSYLLIUM SEED-SF 5.85 GM PACKET PO SCH ×4 (10:11→17:18)
[2017-06-11] MEDS: CLOPIDOGREL BISULFATE 75 MG TABLET PO SCH (10:28)
[2017-06-11] MEDS: ASPIRIN 81 MG TABLET, CHEWABLE PO SCH (17:14)
[2017-06-11] MEDS: ISOSORBIDE MONONITRATE 30 MG TAB.ER.24H PO SCH (17:14)
[2017-06-11] MEDS: TAMSULOSIN HCL 0.4 MG CAP.SR.24H PO SCH (17:15)
[2017-06-11] MEDS: FEBUXOSTAT 40 MG TABLET PO SCH (17:17)
[2017-06-11] MEDS: ATORVASTATIN CALCIUM 80 MG TABLET PO SCH (21:11)
[2017-06-11] MEDS: CETIRIZINE 10 MG TABLET PO SCH (21:12)
[2017-06-12 05:17] LABS: ABSOLUTE EOSINOPHILS # (AUTO) 0.1 10^3/uL (0.0-0.6); ABSOLUTE LYMPHOCYTES (AUTO) 0.7 10^3/uL (0.5-4.7); ABSOLUTE MONOCYTES (AUTO) 0.6 10^3/uL (0.1-1.4); ABSOLUTE NEUT (AUTO) 2.1 10^3/uL (1.7-8.2); BASOPHILS % (AUTO) 0.4 % (0-2); EOSINOPHILS % (AUTO) 3.2 % (0-6); HEMATOCRIT 34.8 % (37.9-51.0); HEMOGLOBIN 11.6 g/dL (13.5-17.0); LYMPHOCYTES % (AUTO) 20.2 % (13-45); MEAN CORPUSCULAR HEMOGLOBIN 27.2 pg (27.0-33.4); MEAN CORPUSCULAR HGB CONC 33.4 g/dL (32.0-36.0); MEAN CORPUSCULAR VOLUME 82 fl (80-97); MONOCYTES % (AUTO) 16.6 % (3-13); RED BLOOD COUNT 4.28 10^6/uL (4.35-5.55); RED CELL DISTRIBUTION WIDTH 16.5 % (11.5-14.0); SEGMENTED NEUTROPHILS % (AUTO) 59.6 % (42-78); WHITE BLOOD COUNT 3.6 10^3/uL (4.0-10.5)
[2017-06-12] MEDS: FUROSEMIDE 40 MG TABLET PO SCH (08:53)
[2017-06-12] MEDS: LANSOPRAZOLE 30 MG TAB.RAP.DR PO SCH (08:54)
[2017-06-12] MEDS: PREGABALIN 75 MG CAPSULE PO SCH ×2 (09:36→21:29)
[2017-06-12] MEDS: SACUBITRIL/VALSARTAN 24 MG/26 MG TABLET PO SCH ×2 (09:36→17:13)
[2017-06-12] MEDS: CYANOCOBALAMIN (VITAMIN B-12) 1,000 MCG TABLET PO SCH (09:36)
[2017-06-12] MEDS: CITALOPRAM HYDROBROMIDE 20 MG TABLET PO SCH (09:36)
[2017-06-12] MEDS: SITAGLIPTIN PHOSPHATE 50 MG TABLET PO SCH (09:36)
[2017-06-12] MEDS: PSYLLIUM SEED-SF 5.85 GM PACKET PO SCH ×4 (09:37→17:14)
[2017-06-12] MEDS: CEFTRIAXONE 1 GM/D5W RTU 1 GM/50 ML RTUPB IV SCH (09:37)
[2017-06-12] MEDS: POLYVINYL ALCOHOL 1.4% OPH SOLN 15 ML OU SCH ×4 (09:37→21:29)
--- NOTE | 2017-06-12 12:58 | PDOC PROGRESS REPORT ---
Subjective Progress Note for:: 06/12/17 Subjective:: Patient is more lucid and appropriate in responses. Aware of surrounding and oriented to place and person. Denied chest pain, SOB, or palpitation. No reported fever or chills. Tolerating oral feeding. Physical Exam Vital Signs: Temp Pulse Resp BP Pulse Ox 99.0 F 65 20 154/59 H 98 06/12/17 11:10 06/12/17 11:10 06/12/17 11:10 06/12/17 11:10 06/12/17 11:10 Intake & Output 06/11/17 06/12/17 06/13/17 06:59 06:59 06:59 Intake Total 605 915 591 Output Total 800 1175 400 Balance -195 -260 191 Weight 114.6 kg 114.6 kg General appearance: PRESENT: no acute distress, morbidly obese Head exam: PRESENT: atraumatic, normocephalic Eye exam: PRESENT: conjunctiva pink. ABSENT: conjunctiva pale, scleral icterus Mouth exam: PRESENT: moist Respiratory exam: PRESENT: clear to auscultation abigail Cardiovascular exam: PRESENT: RRR. ABSENT: diastolic murmur, rubs, systolic murmur GI/Abdominal exam: PRESENT: normal bowel sounds, soft. ABSENT: distended, guarding, mass, organolmegaly, rebound, tenderness Extremities exam: ABSENT: pedal edema Musculoskeletal exam: PRESENT: deformity - related to arthritis joint involvement Neurological exam: PRESENT: alert, awake, oriented to person, oriented to place , CN II-XII grossly intact, motor sensory deficit Psychiatric exam: PRESENT: appropriate affect, normal mood. ABSENT: homicidal ideation, suicidal ideation Skin exam: PRESENT: dry, intact, warm. ABSENT: cyanosis, rash Results Laboratory Results: 06/12/17 04:50 06/10/17 04:45 06/12/17 04:50 WBC 3.6 L RBC 4.28 L Hgb 11.6 L Hct 34.8 L MCV 82 MCH 27.2 MCHC 33.4 RDW 16.5 H Plt Count 95 L Seg Neutrophils % 59.6 Lymphocytes % 20.2 Monocytes % 16.6 H Eosinophils % 3.2 Basophils % 0.4 Absolute Neutrophils 2.1 Absolute Lymphocytes 0.7 Absolute Monocytes 0.6 Absolute Eosinophils 0.1 Absolute Basophils 0.0 Impressions: Chest X-Ray 06/08/17 21:59 IMPRESSION: No acute findings in the chest. Battery pack and leads have been placed since prior study. Assessment & Plan - Diagnosis (1) Toxic metabolic encephalopathy Is this a current diagnosis for this admission?: Yes Plan: Improving status on current medication and supportive management. (2) UTI (urinary tract infection) Qualifiers: Urinary tract infection type: acute cystitis Hematuria presence: with hematuria Qualified Code(s): N30.01 - Acute cystitis with hematuria Is this a current diagnosis for this admission?: Yes Plan: Continue IV Rocephin coverage. Follow up on his CBC indices. (3) Diabetes mellitus type 2 in obese Is this a current diagnosis for this admission?: Yes Plan: Continue current medication management. - Time Time Spent with patient: 25-34 minutes Medications reviewed and adjusted accordingly: Yes Anticipated discharge: SNF Within: Other - Inpatient Certification Based on my medical assessment, after consideration of the patient's comorbidities, presenting symptoms, or acuity I expect that the services needed warrant INPATIENT care.: Yes I certify that my determination is in accordance with my understanding of Medicare's requirements for reasonable and necessary INPATIENT services [42 CFR 412.3e].: Yes Medical Necessity: Need Close Monitoring Due to Risk of Patient Decompensation, Need For IV Fluids, Need For Continuous Telemetry Monitoring, Need for IV Antibiotics, Risk of Complication if Not Cared For in Hospital Post Hospital Care: D/C or Transfer Summary - Plan Summary Plan Summary: See covering attending physician orders.
[2017-06-12] MEDS: ASPIRIN 81 MG TABLET, CHEWABLE PO SCH (17:13)
[2017-06-12] MEDS: TAMSULOSIN HCL 0.4 MG CAP.SR.24H PO SCH (17:13)
[2017-06-12] MEDS: ISOSORBIDE MONONITRATE 30 MG TAB.ER.24H PO SCH (17:13)
[2017-06-12] MEDS: FEBUXOSTAT 40 MG TABLET PO SCH (17:13)
[2017-06-12] MEDS: ATORVASTATIN CALCIUM 80 MG TABLET PO SCH (21:28)
[2017-06-12] MEDS: CETIRIZINE 10 MG TABLET PO SCH (21:29)
[2017-06-13] MEDS: FUROSEMIDE 40 MG TABLET PO SCH (11:11)
[2017-06-13] MEDS: LANSOPRAZOLE 30 MG TAB.RAP.DR PO SCH (11:11)
[2017-06-13] MEDS: CYANOCOBALAMIN (VITAMIN B-12) 1,000 MCG TABLET PO SCH (11:12)
[2017-06-13] MEDS: CITALOPRAM HYDROBROMIDE 20 MG TABLET PO SCH (11:12)
[2017-06-13] MEDS: SITAGLIPTIN PHOSPHATE 50 MG TABLET PO SCH (11:12)
[2017-06-13] MEDS: PREGABALIN 75 MG CAPSULE PO SCH ×2 (11:13→21:18)
[2017-06-13] MEDS: SACUBITRIL/VALSARTAN 24 MG/26 MG TABLET PO SCH ×2 (11:13→17:18)
[2017-06-13] MEDS: POLYVINYL ALCOHOL 1.4% OPH SOLN 15 ML OU SCH ×4 (11:13→21:19)
[2017-06-13] MEDS: PSYLLIUM SEED-SF 5.85 GM PACKET PO SCH ×4 (11:14→17:22)
[2017-06-13] MEDS: CEFTRIAXONE 1 GM/D5W RTU 1 GM/50 ML RTUPB IV SCH (11:14)
--- NOTE | 2017-06-13 11:43 | PDOC PROGRESS REPORT ---
Subjective Progress Note for:: 06/13/17 Subjective:: No chest pain or difficulty with breathing. No reported fever or chills. Tolerating oral feeding. There is persistent bilateral conjunctiva erythema with clear discharge. He denied any pain or worsening visual function. Physical Exam Vital Signs: Temp Pulse Resp BP Pulse Ox 98.4 F 68 20 164/63 H 100 06/13/17 11:22 06/13/17 11:22 06/13/17 11:22 06/13/17 11:22 06/13/17 11:22 Intake & Output 06/12/17 06/13/17 06/14/17 06:59 06:59 06:59 Intake Total 915 1151 Output Total 1175 1505 Balance -260 -354 Weight 114.6 kg 113.7 kg Physical Exam: General appearance: PRESENT: no acute distress, morbidly obese Head exam: PRESENT: atraumatic, normocephalic Eye exam: PRESENT: conjunctiva pink. conjunctiva injection ABSENT: conjunctiva pale, scleral icterus Mouth exam: PRESENT: moist Respiratory exam: PRESENT: clear to auscultation abigail Cardiovascular exam: PRESENT: RRR. ABSENT: diastolic murmur, rubs, systolic murmur GI/Abdominal exam: PRESENT: normal bowel sounds, soft. ABSENT: distended, guarding, mass, organomegaly, rebound, tenderness Extremities exam: ABSENT: pedal edema Musculoskeletal exam: PRESENT: deformity - related to arthritis joint involvement Neurological exam: PRESENT: alert, awake, oriented to person, oriented to place , CN II-XII grossly intact, motor sensory deficit Psychiatric exam: PRESENT: appropriate affect, normal mood. ABSENT: homicidal ideation, suicidal ideation Skin exam: PRESENT: dry, intact, warm. ABSENT: cyanosis, rash Results Laboratory Results: 06/12/17 04:50 06/10/17 04:45 Impressions: Chest X-Ray 06/08/17 21:59 IMPRESSION: No acute findings in the chest. Battery pack and leads have been placed since prior study. Assessment & Plan - Diagnosis (1) Toxic metabolic encephalopathy Is this a current diagnosis for this admission?: Yes (2) UTI (urinary tract infection) Qualifiers: Urinary tract infection type: acute cystitis Hematuria presence: with hematuria Qualified Code(s): N30.01 - Acute cystitis with hematuria Is this a current diagnosis for this admission?: Yes (3) Diabetes mellitus type 2 in obese Is this a current diagnosis for this admission?: Yes (4) Bacterial conjunctivitis of both eyes Is this a current diagnosis for this admission?: No Plan: Start on Garamycin 0.3% solution 2gtt in each eye q4hrs. I discuss eye toileting issue with patient during this bedside consultation. - Time Time Spent with patient: 25-34 minutes Medications reviewed and adjusted accordingly: Yes Anticipated discharge: SNF Within: Other - Inpatient Certification Based on my medical assessment, after consideration of the patient's comorbidities, presenting symptoms, or acuity I expect that the services needed warrant INPATIENT care.: Yes I certify that my determination is in accordance with my understanding of Medicare's requirements for reasonable and necessary INPATIENT services [42 CFR 412.3e].: Yes Medical Necessity: Need Close Monitoring Due to Risk of Patient Decompensation, Need For IV Fluids, Need for IV Antibiotics, Risk of Complication if Not Cared For in Hospital Post Hospital Care: D/C or Transfer Summary - Plan Summary Plan Summary: See covering attending physician orders.
[2017-06-13] MEDS: GENTAMICIN SULFATE 0.3% OPH SOLN 5 ML OS SCH ×3 (14:02→21:19)
[2017-06-13] MEDS: ASPIRIN 81 MG TABLET, CHEWABLE PO SCH (17:18)
[2017-06-13] MEDS: ISOSORBIDE MONONITRATE 30 MG TAB.ER.24H PO SCH (17:18)
[2017-06-13] MEDS: FEBUXOSTAT 40 MG TABLET PO SCH (17:18)
[2017-06-13] MEDS: TAMSULOSIN HCL 0.4 MG CAP.SR.24H PO SCH (17:21)
[2017-06-13] MEDS: ATORVASTATIN CALCIUM 80 MG TABLET PO SCH (21:17)
[2017-06-13] MEDS: CETIRIZINE 10 MG TABLET PO SCH (21:18)
[2017-06-14] MEDS: GENTAMICIN SULFATE 0.3% OPH SOLN 5 ML OS SCH ×6 (02:03→22:35)
[2017-06-14] MEDS: CITALOPRAM HYDROBROMIDE 20 MG TABLET PO SCH (11:35)
[2017-06-14] MEDS: PREGABALIN 75 MG CAPSULE PO SCH ×2 (11:35→22:34)
[2017-06-14] MEDS: SACUBITRIL/VALSARTAN 24 MG/26 MG TABLET PO SCH ×2 (11:36→17:30)
[2017-06-14] MEDS: CYANOCOBALAMIN (VITAMIN B-12) 1,000 MCG TABLET PO SCH (11:36)
[2017-06-14] MEDS: SITAGLIPTIN PHOSPHATE 50 MG TABLET PO SCH (11:36)
[2017-06-14] MEDS: POLYVINYL ALCOHOL 1.4% OPH SOLN 15 ML OU SCH ×4 (11:37→22:35)
[2017-06-14] MEDS: LANSOPRAZOLE 30 MG TAB.RAP.DR PO SCH (11:40)
[2017-06-14] MEDS: CEFTRIAXONE 1 GM/D5W RTU 1 GM/50 ML RTUPB IV SCH (11:41)
[2017-06-14] MEDS: FUROSEMIDE 40 MG TABLET PO SCH (11:41)
[2017-06-14] MEDS: CLOPIDOGREL BISULFATE 75 MG TABLET PO SCH (11:56)
[2017-06-14] MEDS: PSYLLIUM SEED-SF 5.85 GM PACKET PO SCH ×4 (11:56→17:38)
[2017-06-14] MEDS: ISOSORBIDE MONONITRATE 30 MG TAB.ER.24H PO SCH (17:29)
[2017-06-14] MEDS: TAMSULOSIN HCL 0.4 MG CAP.SR.24H PO SCH (17:30)
[2017-06-14] MEDS: FEBUXOSTAT 40 MG TABLET PO SCH (17:30)
[2017-06-14] MEDS: ASPIRIN 81 MG TABLET, CHEWABLE PO SCH (17:30)
--- NOTE | 2017-06-14 21:18 | PDOC TRANSFER SUMMARY ---
General - Admit/Disc Date/PCP Admission Date/Primary Care Provider: 06/09/17 03:44 CRISTINE AGUAYO MD Discharge Date: 06/14/17 - Discharge Diagnosis (1) Urinary tract infection Is this a current diagnosis for this admission?: Yes (2) Metabolic encephalopathy Is this a current diagnosis for this admission?: Yes (3) Escherichia coli urinary tract infection Is this a current diagnosis for this admission?: Yes (4) Chronic systolic heart failure Is this a current diagnosis for this admission?: Yes (5) Diabetes mellitus type 2 in obese Is this a current diagnosis for this admission?: Yes (6) Ascending aortic aneurysm Is this a current diagnosis for this admission?: Yes (7) Type 2 diabetes mellitus Is this a current diagnosis for this admission?: Yes - Additional Information Resuscitation Status: Full Code Home Medications: Acetaminophen [Tylenol] 650 mg PO Q6HP PRN 06/09/17 Aspirin [Aspirin 81 mg Chewable Tablet] 81 mg PO DAILY 06/09/17 Atorvastatin Calcium [Lipitor 80 mg Tablet] 80 mg PO QHS 06/09/17 Cetirizine HCl [Zyrtec 10 mg Tablet] 1 tab PO DAILY 06/09/17 Citalopram Hydrobromide [Celexa 20 mg Tablet] 20 mg PO DAILY 06/09/17 Clopidogrel Bisulfate [Plavix 75 mg Tablet] 75 mg PO DAILY 06/09/17 Cyanocobalamin (Vitamin B-12) [Vitamin B-12] 500 mcg PO DAILY 06/09/17 Dexlansoprazole [Dexilant 60 mg Capsule] 60 mg PO DAILY 06/09/17 Febuxostat [Uloric 40 mg Tablet] 40 mg PO DAILY 06/09/17 Furosemide [Lasix 40 mg Tablet] 40 mg PO QAM 06/09/17 Isosorbide Mononitrate [Isosorbide Mononitrate ER] 15 mg PO DAILY 06/09/17 Lanolin/Min Oil/Petrolat,Wht [Akwa Tears Ointment] 3.5 gm OP QHS 06/09/17 Lidocaine [Aspercreme] 1 each TP DAILYP PRN 06/09/17 Linagliptin [Tradjenta] 5 mg PO DAILY 06/09/17 Lorazepam [Ativan 1 mg Tablet] 1 mg PO Q12HP PRN 06/09/17 Oxycodone HCl/Acetaminophen [Percocet 10-325 mg Tablet] 1 each PO Q12HP PRN Polyvinyl Alcohol [Liquitears] 1 drop OU Q6H 06/09/17 Pregabalin [Lyrica 75 mg Capsule] 150 mg PO Q12 06/09/17 Psyllium Husk/Aspartame [Metamucil Fiber Singles Packet] 3.4 gm PO BID 06/09/17 Sacubitril/Valsartan [Entresto 24 mg-26 mg Tablet] 1 tab PO BID 06/09/17 Tamsulosin HCl [Flomax 0.4 mg Cap.sr] 0.4 mg PO DAILY 06/09/17 Ciprofloxacin HCl [Cipro 500 mg Tablet] 500 mg PO BID #14 tablet 06/14/17 History of Present Illness Admission Date/PCP: 06/09/17 03:44 CRISTINE AGUAYO MD History of Present Illness: ERIKA GERMAIN is a 77 year old male, he has a history of chronic systolic heart failure, [facility] was [facility] because of fever with a temperature of 103 associated with altered mental status. He was evaluated in the emergency room, he was found to have urinary tract infection, the hemogram was normal. The chest x-ray did not show any abnormality to suggest pneumonia Hospital Course Hospital Course: Patient was admitted for evaluation of high fever associated with altered mental status, it was presumed on admission that the source of the fever was the urine, he was empirically started on intravenous ceftriaxone. Urine culture grew E. coli sensitive to ceftriaxone, it is pansensitive to all antibiotic. He has a history of chronic systolic heart failure, type 2 diabetes mellitus. Physical Exam Vital Signs: Temp Pulse Resp BP Pulse Ox 99.4 F 62 19 133/64 H 97 06/14/17 19:22 06/14/17 19:22 06/14/17 19:22 06/14/17 19:22 06/14/17 19:22 Intake & Output 06/13/17 06/14/17 06/15/17 06:59 06:59 06:59 Intake Total 1151 916 922 Output Total 1502 5 Balance -354 -1109 922 Weight 113.7 kg 114 kg General appearance: PRESENT: no acute distress, well-developed, well-nourished Head exam: PRESENT: atraumatic, normocephalic Eye exam: PRESENT: conjunctiva pink, EOMI, PERRLA Ear exam: PRESENT: normal external ear exam Mouth exam: PRESENT: moist, tongue midline Respiratory exam: PRESENT: clear to auscultation abigail Cardiovascular exam: PRESENT: RRR, +S1, +S2 Pulses: PRESENT: normal dorsalis pedis pul Vascular exam: PRESENT: normal capillary refill GI/Abdominal exam: PRESENT: normal bowel sounds, soft Rectal exam: PRESENT: deferred Extremities exam: PRESENT: full ROM Neurological exam: PRESENT: alert, awake, oriented to person, oriented to place , oriented to time, oriented to situation, CN II-XII grossly intact Psychiatric exam: PRESENT: appropriate affect, normal mood Skin exam: PRESENT: dry, intact, warm Results Laboratory Results: 06/12/17 04:50 06/10/17 04:45 Impressions: Chest X-Ray 06/08/17 21:59 IMPRESSION: No acute findings in the chest. Battery pack and leads have been placed since prior study.
[2017-06-14] MEDS ORDERED: MINERAL OIL/PETROLATUM,WHITE OPH OINT 3.5 GM OU SCH (22:00)
[2017-06-14] MEDS: CETIRIZINE 10 MG TABLET PO SCH (22:34)
[2017-06-14] MEDS: ATORVASTATIN CALCIUM 80 MG TABLET PO SCH (22:34)
[2017-06-15] MEDS: GENTAMICIN SULFATE 0.3% OPH SOLN 5 ML OS SCH ×3 (02:13→10:09)
[2017-06-15] MEDS: LANSOPRAZOLE 30 MG TAB.RAP.DR PO SCH (08:26)
[2017-06-15] MEDS: FUROSEMIDE 40 MG TABLET PO SCH (08:26)
[2017-06-15] MEDS ORDERED: CIPROFLOXACIN HCL 500 MG TABLET PO ONE (09:15)
[2017-06-15] MEDS: CYANOCOBALAMIN (VITAMIN B-12) 1,000 MCG TABLET PO SCH (10:06)
[2017-06-15] MEDS: CITALOPRAM HYDROBROMIDE 20 MG TABLET PO SCH (10:06)
[2017-06-15] MEDS: CLOPIDOGREL BISULFATE 75 MG TABLET PO SCH (10:06)
[2017-06-15] MEDS: POLYVINYL ALCOHOL 1.4% OPH SOLN 15 ML OU SCH (10:10)
[2017-06-15] MEDS: SACUBITRIL/VALSARTAN 24 MG/26 MG TABLET PO SCH (10:10)
[2017-06-15] MEDS: PREGABALIN 75 MG CAPSULE PO SCH (10:11)
[2017-06-15] MEDS: SITAGLIPTIN PHOSPHATE 50 MG TABLET PO SCH (10:11)
[2017-06-15] MEDS: PSYLLIUM SEED-SF 5.85 GM PACKET PO SCH ×2 (10:15)
[2017-06-15 12:48] VITALS: BP 135/55
== END 2017-06-15 13:14 | DRG 689 ==
LOC: ER 21:57 → UNDOADMIN 06-09 02:09 → EH 06-09 02:09 → ICU 06-09 04:13 → EH 06-09 04:13 → 3S 06-09 16:56
PROVIDERS: ADMIT Internal Medicine; ATTEND Internal Medicine
DX: N30.01 Acute cystitis with hematuria (principal); G93.41 Metabolic encephalopathy; I50.22 Chronic systolic (congestive) heart failure; B96.20 Unspecified Escherichia coli [E. coli] as the cause of diseases classified elsewhere; I48.0 Paroxysmal atrial fibrillation; J44.9 Chronic obstructive pulmonary disease, unspecified; H10.89 Other conjunctivitis; I71.2 Thoracic aortic aneurysm, without rupture; E11.9 Type 2 diabetes mellitus without complications; E03.9 Hypothyroidism, unspecified; K21.9 Gastro-esophageal reflux disease without esophagitis; M19.90 Unspecified osteoarthritis, unspecified site; M10.9 Gout, unspecified; Z79.82 Long term (current) use of aspirin; Z79.899 Other long term (current) drug therapy; Z79.02 Long term (current) use of antithrombotics/antiplatelets; Z85.820 Personal history of malignant melanoma of skin; Z90.49 Acquired absence of other specified parts of digestive tract; Z95.5 Presence of coronary angioplasty implant and graft; Z88.5 Allergy status to narcotic agent
CPT/HCPCS: 36415; 36600; 71010; 80048; 80053; 80061; 81001; 82150; 82803; 82962; 83036; 83605; 83690; 84439; 84443; 85025; 85027; 85610; 87040; 87077; 87086; 87088; 87186; 93005; 93010; 96365; 96366; 99285; G0378; J0696; J1650; J2543; J3370; J3490

== ENCOUNTER 2017-09-20 12:57 | Observation (INO) | payer MEDICARE, MEDICAID ==
[2017-09-20 13:18] LABS: ABSOLUTE EOSINOPHILS # (AUTO) 0.2 10^3/uL (0.0-0.6); ABSOLUTE LYMPHOCYTES (AUTO) 1.4 10^3/uL (0.5-4.7); ABSOLUTE MONOCYTES (AUTO) 0.7 10^3/uL (0.1-1.4); ABSOLUTE NEUT (AUTO) 2.7 10^3/uL (1.7-8.2); BASOPHILS % (AUTO) 0.8 % (0-2); EOSINOPHILS % (AUTO) 3.9 % (0-6); HEMATOCRIT 38.5 % (37.9-51.0); HEMOGLOBIN 12.7 g/dL (13.5-17.0); LYMPHOCYTES % (AUTO) 27.3 % (13-45); MEAN CORPUSCULAR HEMOGLOBIN 27.9 pg (27.0-33.4); MEAN CORPUSCULAR VOLUME 85 fl (80-97); MONOCYTES % (AUTO) 14.5 % (3-13); PLATELET COUNT 123 10^3/uL (150-450); RED BLOOD COUNT 4.56 10^6/uL (4.35-5.55); RED CELL DISTRIBUTION WIDTH 16.2 % (11.5-14.0); SEGMENTED NEUTROPHILS % (AUTO) 53.5 % (42-78); TOTAL CELLS COUNTED % (AUTO) 100 %
[2017-09-20 13:32] LABS: ALANINE AMINOTRANSFERASE 25 U/L (21-72); ALBUMIN 3.2 g/dL (3.5-5.0); ALKALINE PHOSPHATASE 70 U/L (38-126); ANION GAP 9 (5-19); ASPARTATE AMINO TRANSFERASE 17 U/L (17-59); BILIRUBIN,DIRECT 0.1 mg/dL (0.0-0.4); BILIRUBIN,TOTAL 0.7 mg/dL (0.2-1.3); BLOOD UREA NITROGEN 30 mg/dL (7-20); CALCIUM 7.9 mg/dL (8.4-10.2); CARBON DIOXIDE 32 mmol/L (22-30); CHLORIDE 103 mmol/L (98-107); CREATINE KINASE 104 U/L (55-170); GLUCOSE 97 mg/dL (75-110); POTASSIUM 4.1 mmol/L (3.6-5.0); SODIUM 144.4 mmol/L (137-145); TOTAL PROTEIN 5.6 g/dL (6.3-8.2)
--- NOTE | 2017-09-20 13:36 | ER Document Report ---
ED Syncope and Near Syncope - General Chief Complaint: Syncope Stated Complaint: POSSIBLE SYNCOPE Time Seen by Provider: 09/20/17 13:36 Mode of Arrival: Medic Information source: Patient, Friend - Nicholas Saavedra [phone] Notes: 77 yo male (walker or WC) resident of [facility] was taken home to friends home yesterday and was OK until this morning. Ate breakfast, tooks his meds, then a little later he started to "go out" like he was going to pass out, while sitting at kitchen table heading to the floor, was taken to bedroom. EMS called and he was brought here. Nicholas said that he thinks he is on too many medication and could not remember nicholas name which is very unusual. Pacemaker placed 1 month ago. PCP: Dr. Maynard. PMH: DM, htn, renal insufficiency, pacemaker, hyperlipedemia, a fib, NC, CHF, right knee replacement , takes plavix 75mg, Not sleepy like this yesterday. TRAVEL OUTSIDE OF THE [place] IN LAST 30 DAYS: No - Related Data Allergies/Adverse Reactions: codeine [Codeine] Allergy (Verified 02/23/17 11:29) Hives tuberculin,PPD,multi-puncture Adverse Reaction (Verified 02/23/17 11:29) Past Medical History - General Information source: Patient, Friend - Nicholas - Social History Smoking Status: Former Smoker - chewing tobacco since yesterday Frequency of alcohol use: Rare Drug Abuse: None Lives with: [facility] Family History: Reviewed & Not Pertinent - Past Medical History Cardiac Medical History: Reports: Hx Atrial Fibrillation, Hx Congestive Heart Failure, Hx Coronary Artery Disease, Hx DVT, 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 Denies: Hx Graves' Disease, Hx Hyperthyroidism Renal/ Medical History: Reports: Hx Benign Prostatic Hyperplasia. Denies: Hx End Stage Renal Disease, Hx Kidney Stones, Hx Peritoneal Dialysis Malignancy Medical History: Denies Hx Leukemia, Denies Hx Lung Cancer, Reports Hx Skin Cancer - Malignant melanoma GI Medical History: Reports: Hx Gastroesophageal Reflux Disease, Hx Hepatitis, Hx Ulcer. Denies: Hx Crohn's Disease, Hx Hiatal Hernia, Hx Irritable Bowel, Hx Liver Failure, Hx Pancreatitis Musculoskeltal Medical History: Reports Hx Arthritis, Denies Hx Fibromyalgia, Reports Hx Gout, Denies Hx Multiple Sclerosis, Denies Hx Muscular Dystrophy Psychiatric Medical History: Reports: Hx Anxiety, Hx Depression Denies: Hx Bipolar Disorder, Hx Dementia, Hx Post Traumatic Stress Disorder, Hx Schizophrenia Traumatic Medical History: Denies: Hx Fractures Infectious Medical History: Reports: Hx Hepatitis. Denies: Hx HIV Past Surgical History: Reports: Hx Cholecystectomy, Hx Coronary Stent, Hx Open Heart Surgery - angioplasy. Denies: Hx Appendectomy, Hx Bowel Surgery, Hx Colostomy, Hx Coronary Artery Bypass Graft, Hx Gastric Bypass Surgery, Hx Herniorrhaphy, Hx Pacemaker, Hx Tonsillectomy - Immunizations Immunizations up to date: Yes Hx Diphtheria, Pertussis, Tetanus Vaccination: No Hx Pneumococcal Vaccination: 09/27/10 Physical Exam - Vital signs Vitals: Resp BP Pulse Ox 10 L 106/51 L 97 09/20/17 13:10 09/20/17 13:10 09/20/17 13:10 Interpretation: Normal Notes: somnolent, wakes up to voice, disoriented at first but then realizes who is in room with him, date etc. keeps falling asleep. - General General appearance: Lethargic, Other - chronically ill Notes: obese - HEENT Head: Normocephalic, Atraumatic Eyes: Normal Pupils: PERRL Mucous membranes: Dry Pharynx: Normal Neck: Supple. No: Lymphadenopathy - Respiratory Respiratory status: No respiratory distress Chest status: Nontender Breath sounds: Normal Chest palpation: Normal - Cardiovascular Rhythm: Regular Heart sounds: Normal auscultation Murmur: No - Abdominal Inspection: Normal Distension: Tympanitic, Other - protruberant Bowel sounds: Normal Tenderness: Nontender. No: Tender Organomegaly: No organomegaly - Back Back: Normal, Nontender. No: CVA tenderness - Extremities General upper extremity: Normal inspection, Nontender, Normal color, Normal ROM , Normal temperature General lower extremity: Normal inspection, Nontender, Normal color, Normal ROM , Normal temperature, Normal weight bearing. No: Naga's sign Notes: abigail PT with doppler - Neurological Neuro grossly intact: Yes Cognition: Confused - intermittently Orientation: AAOx4 [place] Coma Scale Eye Opening: To Voice [place] Coma Scale Verbal: Oriented [place] Coma Scale Motor: Obeys Commands Roxie Coma Scale Total: 14 Speech: Normal Motor strength normal: LUE, RUE, LLE, RLE Sensory: Normal - Psychological Associated symptoms: Confused - intermittent, Excessive sleeping - Skin Skin Temperature: Warm Skin Moisture: Dry Skin Color: Normal Skin irregularity: negative: Rash Course - Re-evaluation Re-evalutation: 09/20/17 14:51 Chest x-ray cardiomegaly without failure, CBC is normal, creatinine is 1.6 in the BUN is 30. 09/20/17 15:[address] Cheney, ct head chronic changes, bp lower than usual, torponin negative. 09/20/17 15:12 Dr. Maynard will admit to [facility]. - Vital Signs Vital signs: Temp Pulse Resp BP Pulse Ox 97.5 F 9 L 112/63 100 09/20/17 13:58 09/20/17 14:56 09/20/17 14:56 09/20/17 14:56 - Laboratory Result Diagrams: 09/20/17 13:06 09/20/17 13:06 Laboratory results interpreted by me: 09/20/17 09/20/17 13:06 13:06 Hgb 12.7 L RDW 16.2 H Plt Count 123 L Monocytes % 14.5 H Carbon Dioxide 32 H BUN 30 H Creatinine 1.86 H Est GFR ( Amer) 43 L Est GFR (Non-Af Amer) 35 L Calcium 7.9 L Total Protein 5.6 L Albumin 3.2 L - EKG Interpretation by Me Additional EKG results interpreted by me: 09/20/17 15:12 pace rhythm only Discharge - Discharge Clinical Impression: Somnolence Syncope Qualifiers: Syncope type: unspecified Qualified Code(s): R55 - Syncope and collapse Hypotension Qualifiers: Hypotension type: unspecified hypotension type Qualified Code(s): I95.9 - Hypotension, unspecified Altered mental status Qualifiers: Altered mental status type: somnolence Qualified Code(s): R40.0 - Somnolence Condition: Fair Disposition: ADMITTED INPATIENT Admitting Provider: Caesar Unit Admitted: [facility]
[2017-09-20] MEDS ORDERED: NORMAL SALINE 1000 ML 500 ML IV ONE (13:38)
[2017-09-20 13:44] LABS: CREATINE KINASE MB 1.23 ng/mL (<4.55); TROPONIN I 0.018 ng/mL
[2017-09-20] MEDS ORDERED: IPRATROPIUM/ALBUTEROL 0.5-2.5 MG/3 ML AMPUL NEB ONE ×2 (14:02→21:45)
--- NOTE | 2017-09-20 14:13 | RADIOLOGY REPORT (SQ) ---
EXAM DESCRIPTION: CHEST SINGLE VIEW COMPLETED DATE/TIME: 09/20/2017 1:59 pm REASON FOR STUDY: sycope COMPARISON: None. NUMBER OF VIEWS: One view. TECHNIQUE: Single frontal radiographic view of the chest acquired. LIMITATIONS: None. FINDINGS: LUNGS AND PLEURA: No opacities, masses or pneumothorax. No pleural effusion. MEDIASTINUM AND HILAR STRUCTURES: No masses. Contour normal. HEART AND VASCULAR STRUCTURES: Heart enlarged without failure. Normal vasculature. BONES: No acute findings. HARDWARE: Pacemaker. Surgical clips in the soft tissues. OTHER: No other significant finding. IMPRESSION: HEART ENLARGED WITHOUT FAILURE. NO OTHER SIGNIFICANT RADIOGRAPHIC FINDING IN THE CHEST. TECHNICAL DOCUMENTATION: JOB ID: [id number] [employer]- All Rights Reserved
--- NOTE | 2017-09-20 14:55 | RADIOLOGY REPORT (SQ) ---
EXAM DESCRIPTION: CT HEAD WITHOUT COMPLETED DATE/TIME: 09/20/2017 2:42 pm REASON FOR STUDY: memory loss today COMPARISON: 08/15/2015. TECHNIQUE: Axial images acquired through the brain without intravenous contrast. Images reviewed wi th bone, brain and subdural windows. Images stored on PACS. All CT scanners at this facility use dose modulation, iterative reconstruction, and/or weight based d osing when appropriate to reduce radiation dose to as low as reasonably achievable (ALARA). [facility]: Dose Right [facility]: CareDose [facility]: Dose Right [facility]: Teradose 4D [facility]: [place]ado RADIATION DOSE: CT Rad equipment meets quality standard of care and radiation dose reduction techniq ues were employed. CTDIvol: 64.6 - 67.0 mGy. DLP: 2479 mGy-cm. mGy. LIMITATIONS: None. FINDINGS: VENTRICLES: Prominent. CEREBRUM: No masses. No hemorrhage. No midline shift. Areas of low density in the white matter mos t likely due to chronic micro-vascular ischemic change. No evidence for acute infarction. CEREBELLUM: No masses. No hemorrhage. No alteration of density. No evidence for acute infarction. EXTRAAXIAL SPACES: Mild age-related involutional change. No fluid collections. No masses. ORBITS AND GLOBE: No intra- or extraconal masses. Normal contour of globe without masses. CALVARIUM: No fracture. PARANASAL SINUSES: No fluid or mucosal thickening. SOFT TISSUES: No mass or hematoma. OTHER: No other significant finding. IMPRESSION: MILD CHRONIC CHANGES OF ATROPHY AND MICROVASCULAR ISCHEMIA. NO ACUTE PROCESS. EVIDENCE OF ACUTE STROKE: NO. TECHNICAL DOCUMENTATION: JOB ID: [id number] Quality ID # [id number]: Final reports with documentation of one or more dose reduction techniques (e.g., Au tomated exposure control, adjustment of the mA and/or kV according to patient size, use of iterative reconstruction technique) 2010 [employer]- All Rights Reserved
[2017-09-20] MEDS ORDERED: NORMAL SALINE 1000 ML 1,000 ML IV ONE (14:56)
[2017-09-20 15:04] LABS: INTERNATIONAL RATION (INR) 0.99; PROTHROMBIN TIME 13.8 SEC (11.4-15.4)
[2017-09-20 15:05] LABS: PARTIAL THROMBOPLASTIN TIME 32.5 SEC (23.5-35.8)
[2017-09-20 15:37] LABS: APPEARANCE,URINE CLEAR; BILIRUBIN,URINE NEGATIVE (NEGATIVE); COLOR,URINE YELLOW; GLUCOSE, URINE NEGATIVE (NEGATIVE); KETONES,URINE NEGATIVE (NEGATIVE); LEUKOCYTE ESTERASE,URINE TRACE (NEGATIVE); NITRITE,URINE NEGATIVE (NEGATIVE); PROTEIN,URINE NEGATIVE (NEGATIVE); URINE SPECIFIC GRAVITY 1.011; UROBILINOGEN,URINE NEGATIVE mg/dL (<2.0)
[2017-09-20 15:49] LABS: URINE AMPHETAMINES SCREEN NEGATIVE; URINE BARBITURATES SCREEN NEGATIVE; URINE BENZODIAZEPINES SCREEN NEGATIVE; URINE COCAINE SCREEN NEGATIVE; URINE MARIJUANA (THC) SCREEN NEGATIVE; URINE METHADONE SCREEN NEGATIVE; URINE PHENCYCLIDINE SCREEN NEGATIVE
--- NOTE | 2017-09-20 15:56 | EKG REPORT ---
SEVERITY:- ABNORMAL ECG - A-V DUAL-PACED RHYTHM WITH SOME INHIBITION LEFT BUNDLE BRANCH BLOCK : Confirmed by: Ellis Chong 20-Sep-2017 15:55:54
[2017-09-20] MEDS ORDERED: LORAZEPAM 1 MG TABLET PO PRN (17:04)
[2017-09-20] MEDS ORDERED: OXYCODONE-ACETAMINOPHEN 5-325 MG TABLET PO PRN (17:04)
[2017-09-20] MEDS ORDERED: ACETAMINOPHEN 325 MG TABLET PO PRN (17:04)
[2017-09-20] MEDS ORDERED: DEXTROSE 50%-WATER 25 GM/50 ML DISP.SYRIN IV PRN ×2 (17:06)
[2017-09-20] MEDS ORDERED: INSULIN REG, HUMAN 100 UNIT/ML 3 ML VIAL (PYX) SUBCUT PRN (17:06)
[2017-09-20] MEDS ORDERED: GLUCAGON,HUMAN RECOMB 1 MG INJ IM PRN (17:06)
[2017-09-20] MEDS ORDERED: DEXTROSE 40% GEL 15 GM TUBE PO PRN ×2 (17:06)
[2017-09-20] MEDS ORDERED: CETIRIZINE 10 MG TABLET PO SCH (17:15)
[2017-09-20] MEDS ORDERED: CYANOCOBALAMIN (VITAMIN B-12) 1,000 MCG TABLET PO ONE ×2 (18:00→21:45)
[2017-09-20] MEDS ORDERED: SITAGLIPTIN PHOSPHATE 50 MG TABLET PO ONE ×2 (18:00→21:45)
[2017-09-20] MEDS ORDERED: CLOPIDOGREL BISULFATE 75 MG TABLET PO ONE ×2 (18:00→21:45)
[2017-09-20] MEDS ORDERED: WHITE PETROLATUM OU SCH (18:00)
[2017-09-20] MEDS ORDERED: LANSOPRAZOLE 30 MG TAB.RAP.DR PO ONE ×2 (18:00→21:45)
[2017-09-20] MEDS ORDERED: MINERAL OIL OU SCH (18:00)
[2017-09-20] MEDS ORDERED: ISOSORBIDE MONONITRATE 30 MG TAB.ER.24H PO ONE ×2 (18:00→21:45)
[2017-09-20] MEDS ORDERED: LANOLIN OU SCH (18:00)
[2017-09-20] MEDS ORDERED: SACUBITRIL/VALSARTAN 24 MG/26 MG TABLET PO SCH (18:00)
[2017-09-20] MEDS ORDERED: CITALOPRAM HYDROBROMIDE 20 MG TABLET PO ONE ×2 (18:00→22:00)
[2017-09-20] MEDS ORDERED: TAMSULOSIN HCL 0.4 MG CAP.SR.24H PO ONE ×2 (18:00→22:00)
[2017-09-20] MEDS ORDERED: ASPIRIN 81 MG TABLET, CHEWABLE PO ONE ×2 (18:00→21:45)
[2017-09-20] MEDS ORDERED: FEBUXOSTAT 40 MG TABLET PO ONE ×2 (18:00→21:45)
[2017-09-20 18:19] LABS: CREATINE KINASE MB 1.38 ng/mL (<4.55); TROPONIN I 0.016 ng/mL
[2017-09-20] MEDS ORDERED: INFLUENZA ADLT QUAD (36MOS+) 2017-18 VAC 0.5 ML SYR IM PRN (20:16)
[2017-09-20] MEDS ORDERED: OXYCODONE HCL IR 5 MG TABLET PO PRN (20:47)
[2017-09-20] MEDS ORDERED: METOPROLOL TARTRATE 25 MG TABLET PO SCH (22:00)
[2017-09-20] MEDS ORDERED: (PENDING PHARMACY ID) (Psyllium Husk (With Sugar) [Metamucil Packet] 3.4 GM) PO SCH (22:00)
[2017-09-20] MEDS ORDERED: ATORVASTATIN CALCIUM 80 MG TABLET PO SCH (22:00)
[2017-09-20] MEDS ORDERED: ASPIRIN 81 MG TABLET, CHEWABLE ONE (22:22)
[2017-09-20] MEDS: PREGABALIN 75 MG CAPSULE PO SCH (22:48)
[2017-09-21] MEDS: CIPROFLOXACIN HCL 0.3% OPH SOLN 2.5 ML OU SCH ×3 (00:50→14:24)
[2017-09-21] MEDS: POLYVINYL ALCOHOL 1.4% OPH SOLN 15 ML OU SCH ×3 (00:50→14:24)
[2017-09-21 02:03] LABS: CREATINE KINASE MB 1.4 ng/mL (<4.55); TROPONIN I 0.015 ng/mL
[2017-09-21] MEDS ORDERED: SITAGLIPTIN PHOSPHATE 50 MG TABLET PO SCH (08:00)
[2017-09-21] MEDS ORDERED: FEBUXOSTAT 40 MG TABLET PO SCH (08:00)
[2017-09-21] MEDS ORDERED: LANSOPRAZOLE 30 MG TAB.RAP.DR PO SCH (08:00)
[2017-09-21] MEDS ORDERED: CYANOCOBALAMIN (VITAMIN B-12) 1,000 MCG TABLET PO SCH (10:00)
[2017-09-21] MEDS ORDERED: SACUBITRIL/VALSARTAN 24 MG/26 MG TABLET PO SCH (10:00)
[2017-09-21] MEDS ORDERED: CITALOPRAM HYDROBROMIDE 20 MG TABLET PO SCH (10:00)
[2017-09-21] MEDS ORDERED: ISOSORBIDE MONONITRATE 30 MG TAB.ER.24H PO SCH (10:00)
[2017-09-21] MEDS ORDERED: TAMSULOSIN HCL 0.4 MG CAP.SR.24H PO SCH (10:00)
[2017-09-21] MEDS ORDERED: CLOPIDOGREL BISULFATE 75 MG TABLET PO SCH (10:00)
[2017-09-21] MEDS ORDERED: ASPIRIN 81 MG TABLET, CHEWABLE PO SCH (10:00)
[2017-09-21 10:57] LABS: CREATINE KINASE MB 1.29 ng/mL (<4.55); TROPONIN I 0.016 ng/mL
[2017-09-21] MEDS: PREGABALIN 75 MG CAPSULE PO SCH (11:18)
[2017-09-21 13:49] LABS: ALANINE AMINOTRANSFERASE 14 U/L (21-72); ALKALINE PHOSPHATASE 72 U/L (38-126); ANION GAP 10 (5-19); ASPARTATE AMINO TRANSFERASE 17 U/L (17-59); BILIRUBIN,DIRECT 0.3 mg/dL (0.0-0.4); BILIRUBIN,TOTAL 0.7 mg/dL (0.2-1.3); BLOOD UREA NITROGEN 32 mg/dL (7-20); CALCIUM 7.9 mg/dL (8.4-10.2); CARBON DIOXIDE 29 mmol/L (22-30); CHLORIDE 104 mmol/L (98-107); GLUCOSE 112 mg/dL (75-110); SODIUM 142.6 mmol/L (137-145); TOTAL PROTEIN 5.8 g/dL (6.3-8.2)
--- NOTE | 2017-09-21 15:06 | PDOC H&P ---
History of Present Illness Admission Date/PCP: 09/20/17 15:21 History of Present Illness: ERIKA GERMAIN is a 77 year old male, resident of the alf at [facility] he went home with friends the day before he came to the emergency room the history was that it was okay until the morning he came to the emergency room, he had his breakfast, took his medication and some few minutes afterwards he started to go out like he was going to pass out while he sat at the kitchen table he did not lose consciousness he was taken to the emergency room, he was evaluated, CT head was done it was negative he was admitted for observation. He has multiple comorbid conditions including chronic systolic heart failure, multiple strokes there is no antecedent chest pain, no shortness of breath. When I saw patient he has no specific symptom he said he does feel malaise Past Medical History Cardiac Medical History: Reports: Atrial Fibrillation, Congestive Heart Failure , Coronary Artery Disease, DVT, Myocardial Infarction - x4 last 1993, Hyperlipidema, Hypertension Pulmonary Medical History: Reports: Asthma, Bronchitis, Chronic Obstructive Pulmonary Disease (COPD), Intubation, Pneumonia, Respiratory Failure - Acute, Sleep Apnea Neurological Medical History: Reports: Seizures - sept hit head and had seizure Endocrine Medical History: Reports: Diabetes Mellitus Type 2, Hypothyroidism Renal/ Medical History: Reports: Chronic Kidney Disease, Other - Chronic kidney disease stage 3 Malignancy Medical History: Reports: Skin Cancer - Malignant melanoma GI Medical History: Reports: Gastroesophageal Reflux Disease, Hepatitis Musculoskeltal Medical History: Reports: Arthritis, Gout Psychiatric Medical History: Reports: Depression Hematology: Reports: Anemia - Thrombocytopenia Past Surgical History Past Surgical History: Reports: Cholecystectomy, Coronary Stent Social History Lives with: [facility] Smoking Status: Former Smoker Frequency of Alcohol Use: None Hx Recreational Drug Use: No Hx Prescription Drug Abuse: No - Advance Directive Resuscitation Status: Full Code Family History Family History: Reviewed & Not Pertinent Parental Family History Reviewed: Yes Children Family History Reviewed: Yes Sibling(s) Family History Reviewed.: Yes Medication/Allergy Home Medications: Acetaminophen [Tylenol 325 mg Tablet] 650 mg PO Q6HP PRN 09/20/17 Aspirin [Aspirin 81 mg Chewable Tablet] 81 mg PO DAILY 09/20/17 Cetirizine HCl [Zyrtec 10 mg Tablet] 10 mg PO DAILY 09/20/17 Ciprofloxacin HCl [Ciloxan 0.3% Oph Soln 2.5 ml] 1 drop OU QID 09/20/17 Citalopram Hydrobromide [Celexa 20 mg Tablet] 20 mg PO DAILY 09/20/17 Clopidogrel Bisulfate [Plavix 75 mg Tablet] 75 mg PO DAILY 09/20/17 Cyanocobalamin (Vitamin B-12) [Vitamin B-12] 500 mcg PO DAILY 09/20/17 Dexlansoprazole [Kapidex 60 mg Capsule] 60 mg PO QAM 09/20/17 Febuxostat [Uloric 40 mg Tablet] 40 mg PO QAM 09/20/17 Isosorbide Mononitrate [Imdur 30 mg Tablet.er] 15 mg PO DAILY 09/20/17 Lanolin/Min Oil/Petrolat,Wht [Akwa Tears Ointment] 1 applic OU QPM 09/20/17 Linagliptin [Tradjenta] 5 mg PO QAM 09/20/17 Lorazepam [Ativan 1 mg Tablet] 1 mg PO Q12HP PRN 09/20/17 Metoprolol Tartrate [Lopressor 25 mg Tablet] 12.5 mg PO QHS 09/20/17 Oxycodone HCl/Acetaminophen [Percocet 10-325 mg Tablet] 1 tab PO Q6HP PRN Polyvinyl Alcohol [Liquid Tears] 1 drop OU QID 09/20/17 Pregabalin [Lyrica] 150 mg PO BID 09/20/17 Psyllium Husk (with Sugar) [Metamucil Packet] 3.4 gm PO QHS 09/20/17 Tamsulosin HCl [Flomax 0.4 mg Cap.sr] 0.4 mg PO DAILY 09/20/17 Atorvastatin Calcium [Lipitor 80 mg Tablet] 40 mg PO QPM #0 09/21/17 Furosemide [Lasix 40 mg Tablet] 20 mg PO DAILY #0 09/21/17 Sacubitril/Valsartan [Entresto 97 mg-103 mg Tablet] 1 each PO BID #360 tablet Allergies/Adverse Reactions: codeine [Codeine] Allergy (Verified 02/23/17 11:29) Hives tuberculin,PPD,multi-puncture Adverse Reaction (Verified 02/23/17 11:29) Review of Systems Constitutional: PRESENT: weakness Eyes: ABSENT: visual disturbances Ears: ABSENT: hearing changes Cardiovascular: ABSENT: chest pain, dyspnea on exertion, edema, orthropnea, palpitations Respiratory: ABSENT: cough, hemoptysis Gastrointestinal: ABSENT: abdominal pain, constipation, diarrhea, hematemesis, hematochezia, nausea, vomiting Genitourinary: ABSENT: dysuria, hematuria Musculoskeletal: ABSENT: joint swelling Integumentary: ABSENT: rash, wounds Neurological: ABSENT: abnormal gait, abnormal speech, confusion, dizziness, focal weakness, syncope Psychiatric: ABSENT: anxiety, depression, homidical ideation, suicidal ideation Endocrine: ABSENT: cold intolerance, heat intolerance, menstrual abnormalities, polydipsia, polyuria Hematologic/Lymphatic: ABSENT: easy bleeding, easy bruising, lymphadenopathy Physical Exam Vital Signs: Temp Pulse Resp BP Pulse Ox 97.5 F 59 L 18 137/62 H 92 09/21/17 08:19 09/21/17 08:19 09/21/17 08:19 09/21/17 08:19 09/21/17 08:19 Intake & Output 09/20/17 09/21/17 09/22/17 06:59 06:59 06:59 Intake Total 100 Output Total 1 Balance 99 Weight 118.6 kg 114.1 kg General appearance: PRESENT: no acute distress, well-developed, well-nourished Head exam: PRESENT: atraumatic, normocephalic Eye exam: PRESENT: conjunctiva pink, EOMI, PERRLA Ear exam: PRESENT: normal external ear exam Mouth exam: PRESENT: moist, tongue midline Neck exam: PRESENT: full ROM Respiratory exam: PRESENT: clear to auscultation abigail Cardiovascular exam: PRESENT: RRR, +S1, +S2 Pulses: PRESENT: normal dorsalis pedis pul, +2 pedal pulses bilateral Vascular exam: PRESENT: normal capillary refill GI/Abdominal exam: PRESENT: normal bowel sounds, soft Rectal exam: PRESENT: deferred Neurological exam: PRESENT: alert, awake, oriented to person, oriented to place , oriented to time, oriented to situation, CN II-XII grossly intact Psychiatric exam: PRESENT: appropriate affect, normal mood Skin exam: PRESENT: dry, intact, warm Results Laboratory Results: 09/21/17 09:50 09/21/17 09:50 Sodium 142.6 Potassium 4.0 Chloride 104 Carbon Dioxide 29 Anion Gap 10 BUN 32 H Creatinine 2.02 H Est GFR ( Amer) 39 L Est GFR (Non-Af Amer) 32 L Glucose 112 H Calcium 7.9 L Total Bilirubin 0.7 AST 17 ALT 14 L Alkaline Phosphatase 72 Total Protein 5.8 L Albumin 3.0 L 09/20/17 09/20/17 09/21/17 17:30 17:30 01:25 Creatine Kinase 117 104 CK-MB (CK-2) 1.38 Troponin I 0.016 09/21/17 09/21/17 09/21/17 01:25 09:50 09:50 Creatine Kinase 98 CK-MB (CK-2) 1.40 1.29 Troponin I 0.015 0.016 Impressions: Chest X-Ray 09/20/17 13:37 IMPRESSION: HEART ENLARGED WITHOUT FAILURE. NO OTHER SIGNIFICANT RADIOGRAPHIC FINDING IN THE CHEST. Head CT 09/20/17 13:44 IMPRESSION: MILD CHRONIC CHANGES OF ATROPHY AND MICROVASCULAR ISCHEMIA. NO ACUTE PROCESS. EVIDENCE OF ACUTE STROKE: NO. Assessment & Plan - Diagnosis (1) Pre-syncope Is this a current diagnosis for this admission?: Yes (2) Ascending aortic aneurysm Is this a current diagnosis for this admission?: Yes (3) Type 2 diabetes mellitus Qualifiers: Diabetes mellitus complication status: with unspecified complications Diabetes mellitus termite inspector insulin use: without termite inspector use Qualified Code( s): E11.8 - Type 2 diabetes mellitus with unspecified complications Is this a current diagnosis for this admission?: Yes (4) Chronic systolic heart failure Is this a current diagnosis for this admission?: Yes
[2017-09-21 16:45] VITALS: BP 156/86
[2017-09-21] MEDS ORDERED: MINERAL OIL/PETROLATUM,WHITE OPH OINT 3.5 GM OU SCH (18:00)
[2017-09-21] MEDS ORDERED: PSYLLIUM SEED-SF 5.85 GM PACKET PO SCH (22:00)
== END 2017-09-21 17:53 ==
LOC: ER 12:57 → EH 15:21 → INTOOBSV 15:21 → 3S 16:35
PROVIDERS: ADMIT Internal Medicine; ATTEND Internal Medicine
DX: R55 Syncope and collapse (principal); I11.0 Hypertensive heart disease with heart failure; I50.22 Chronic systolic (congestive) heart failure; I71.2 Thoracic aortic aneurysm, without rupture; E11.8 Type 2 diabetes mellitus with unspecified complications; I48.91 Unspecified atrial fibrillation; R40.0 Somnolence; R41.0 Disorientation, unspecified; R53.83 Other fatigue; I95.9 Hypotension, unspecified; N40.0 Benign prostatic hyperplasia without lower urinary tract symptoms; Z72.0 Tobacco use; E78.5 Hyperlipidemia, unspecified; I25.2 Old myocardial infarction; Z79.899 Other long term (current) drug therapy; Z86.73 Personal history of transient ischemic attack (TIA), and cerebral infarction without residual deficits; Z86.718 Personal history of other venous thrombosis and embolism; Z95.5 Presence of coronary angioplasty implant and graft; Z90.49 Acquired absence of other specified parts of digestive tract; Z79.82 Long term (current) use of aspirin; Z79.02 Long term (current) use of antithrombotics/antiplatelets; Z79.84 Long term (current) use of oral hypoglycemic drugs; Z95.0 Presence of cardiac pacemaker
CPT/HCPCS: 93005; 94640; 99285; 96360; 36415 ×2; 87086; 82553 ×2; 82962 ×2; 82550 ×2; 85025; 85610; 85730; 80053 ×2; 81001; 84484 ×2; 80307; 71010; 70450; 93010; J3490 ×3; A9270 ×19; J7030

== ENCOUNTER 2017-10-11 10:11 | Inpatient (IN) | payer MEDICARE, MEDICAID ==
[2017-10-05 12:47] LABS: ABSOLUTE EOSINOPHILS # (AUTO) 0.2 10^3/uL (0.0-0.6); ABSOLUTE LYMPHOCYTES (AUTO) 1.5 10^3/uL (0.5-4.7); ABSOLUTE MONOCYTES (AUTO) 0.7 10^3/uL (0.1-1.4); ABSOLUTE NEUT (AUTO) 3.9 10^3/uL (1.7-8.2); BASOPHILS % (AUTO) 0.6 % (0-2); EOSINOPHILS % (AUTO) 3.4 % (0-6); HEMATOCRIT 43.2 % (37.9-51.0); HEMOGLOBIN 14.3 g/dL (13.5-17.0); MEAN CORPUSCULAR HEMOGLOBIN 27.5 pg (27.0-33.4); MEAN CORPUSCULAR VOLUME 83 fl (80-97); MONOCYTES % (AUTO) 10.6 % (3-13); PLATELET COUNT 147 10^3/uL (150-450); RED BLOOD COUNT 5.18 10^6/uL (4.35-5.55); RED CELL DISTRIBUTION WIDTH 15.6 % (11.5-14.0); SEGMENTED NEUTROPHILS % (AUTO) 61.4 % (42-78); TOTAL CELLS COUNTED % (AUTO) 100 %; WHITE BLOOD COUNT 6.4 10^3/uL (4.0-10.5)
[2017-10-05 13:00] LABS: APPEARANCE,URINE CLEAR; BILIRUBIN,URINE NEGATIVE (NEGATIVE); COLOR,URINE STRAW; GLUCOSE, URINE NEGATIVE (NEGATIVE); KETONES,URINE NEGATIVE (NEGATIVE); LEUKOCYTE ESTERASE,URINE SMALL (NEGATIVE); NITRITE,URINE NEGATIVE (NEGATIVE); PROTEIN,URINE NEGATIVE (NEGATIVE); URINE SPECIFIC GRAVITY 1.006; UROBILINOGEN,URINE NEGATIVE mg/dL (<2.0)
[2017-10-05 13:04] LABS: ANION GAP 10 (5-19); BLOOD UREA NITROGEN 21 mg/dL (7-20); CALCIUM 8.6 mg/dL (8.4-10.2); CARBON DIOXIDE 35 mmol/L (22-30); CHLORIDE 102 mmol/L (98-107); GLUCOSE 83 mg/dL (75-110); POTASSIUM 4.2 mmol/L (3.6-5.0); SODIUM 146.9 mmol/L (137-145)
--- NOTE | 2017-10-05 13:09 | RADIOLOGY REPORT (SQ) ---
EXAM DESCRIPTION: CHEST PA/LATERAL COMPLETED DATE/TIME: 10/05/2017 12:49 pm REASON FOR STUDY: PRE OP COMPARISON: Chest films 09/20/2017, 06/08/2017 PET-CT 03/28/2017 EXAM PARAMETERS: NUMBER OF VIEWS: two views TECHNIQUE: Digital Frontal and Lateral radiographic views of the chest acquired. RADIATION DOSE: NA LIMITATIONS: Large patient, motion artifact on the lateral view related to long exposure time FINDINGS: LUNGS AND PLEURA: Chronic elevation right hemidiaphragm unchanged. No focal infiltrates. No pleural effusion. No pneumothorax. MEDIASTINUM AND HILAR STRUCTURES: No masses or contour abnormalities. HEART AND VASCULAR STRUCTURES: Moderate cardiomegaly, stable BONES: No acute findings. HARDWARE: Left-sided dual lead pacemaker. Surgical clips right axilla OTHER: No other significant finding. IMPRESSION: No acute findings TECHNICAL DOCUMENTATION: JOB ID: [id number] [employer]- All Rights Reserved
--- NOTE | 2017-10-05 13:13 | EKG REPORT ---
SEVERITY:- ABNORMAL ECG - ATRIAL-VENTRICULAR DUAL-PACED COMPLEXES : Confirmed by: Cornelius Montano MD 05-Oct-2017 13:12:27
[~2017-10-11 10:11] MED LIST changes: +BUPIVACAINE INJ/PF LIPOSOME/PF 266 MG/20 ML SDV IJ PRN; +BUPIVACAINE INJ/PF LIPOSOME/PF 266 MG/20 ML SDV ONE; +CEFAZOLIN INJ 1 GM VIAL IV PRN; +LACTATED RINGERS 1000 ML IV PRN; +LIDOCAINE 0.5% INJ-PF (5 MG/ML) 50 ML SDV SUBCUT PRN; -NORMAL SALINE 1000 ML (RENAL PATIENTS) IV PRN; +RINGERS SOLUTION,LACTATED 500 ML IV PRN; -SCOPOLAMINE HYDROBROMIDE 1.5 MG PATCH.TD72 TOP PRN; +THROMBIN (BOVINE) 5000 UNIT EPITAXIS KIT ONE; +THROMBIN (BOVINE) TOPICAL 20000 UNIT VIAL ONE
[2017-10-11] MEDS ORDERED: ONDANSETRON HCL INJ/PF 4 MG/2 ML SDV ONE (10:34)
[2017-10-11] MEDS ORDERED: LIDOCAINE 2% INJ-PF (20 MG/ML) 2 ML AMPUL ONE (10:34)
[2017-10-11] MEDS ORDERED: PHENYLEPHRINE HCL INJ/PF 10 MG/1 ML SDV ONE (10:34)
[2017-10-11] MEDS ORDERED: THROMBIN (BOVINE) TOPICAL 20000 UNIT VIAL ONE (10:48)
[2017-10-11] MEDS ORDERED: MIDAZOLAM 2 MG/2 ML INJ ONE (12:24)
[2017-10-11] MEDS ORDERED: FENTANYL CITRATE INJ/PF 100 MCG/2 ML AMPUL ONE (12:24)
[2017-10-11] MEDS ORDERED: PROPOFOL INJ 200 MG/20 ML VIAL IV ONE (12:24)
[2017-10-11] MEDS ORDERED: ACETAMINOPHEN 100 ML IV ONE ×2 (12:25→20:00)
[2017-10-11] MEDS ORDERED: TRANEXAMIC ACID INJ/PF 1,000 MG/10 ML SDV IV ONE (12:25)
[2017-10-11 12:27] LABS: INTERNATIONAL RATION (INR) 0.94; PARTIAL THROMBOPLASTIN TIME 28.3 SEC (23.5-35.8); PROTHROMBIN TIME 13.2 SEC (11.4-15.4)
[2017-10-11] MEDS ORDERED: KETAMINE HCL INJ 500 MG/10 ML VIAL ONE (12:27)
[2017-10-11 12:45] LABS: POTASSIUM 4.5 mmol/L (3.6-5.0)
[2017-10-11] MEDS ORDERED: MORPHINE SULFATE 10 MG/ML INJ IV PRN ×4 (13:33→14:10)
[2017-10-11] MEDS ORDERED: MEPERIDINE HCL/PF INJ 25 MG/1 ML DISP.SYRIN IV PRN (13:33)
[2017-10-11] MEDS ORDERED: PROMETHAZINE HCL INJ 25 MG/1 ML VIAL IV PRN (13:33)
[2017-10-11] MEDS ORDERED: FENTANYL CITRATE INJ/PF 100 MCG/2 ML AMPUL IV PRN ×2 (13:33)
[2017-10-11] MEDS ORDERED: DIPHENHYDRAMINE HCL 50 MG/ML VIAL IV PRN ×2 (13:33→14:10)
--- NOTE | 2017-10-11 13:58 | Operative Report ---
Operative Report DATE OF SURGERY: 10/11/17 PREOPERATIVE DIAGNOSIS: Right knee arthritis OPERATION: Right knee arthroplasty SURGEON: BAKARI DURAN 1ST CADDYMASTER: ALBERTA BROOKS ANESTHESIA: Spinal TISSUE REMOVED OR ALTERED: Bone to pathology ESTIMATED BLOOD LOSS: 100 PROCEDURE: Implants used: Femur: [place] triathlon size 6 CR femur Tibia: 5 tibia Tibial liner: 9 mm CS insert Patella: 35 mm oval patella Procedure with the patient supine on the operating table the right the limb is prepped and draped in a sterile fashion. The limb was elevated for exsanguination and the tourniquet inflated to 280 torr. A standard midline median parapatellar approach the knee is taken. Access is gained to the femoral canal through the intercondylar notch. Intramedullary alignment instrumentation used to resect 10 mm of distal femur in 5 of valgus. Sizing guide indicated a size 6 femur. Appropriate cutting jig is then used to fashion anterior posterior and chamfer cuts. A trial reduction femurs performed and this is judged to be adequate. Attention was next turned to the tibia. Using an extra medullary alignment system 9 millimeters was resected off the lateral tibial plateau. This is sized to a size 5 tibia. A trial reduction was now performed with a 6 femur and a 5 tibia using a 9 millimeters spacer. It is full extension and central patellofemoral tracking. The articular surface the patella was next resected using an oscillating saw. All trial implants were removed. Polymethylmethacrylate is mixed and used to cement the above implants in place. On adequate curing the cement excess cement was removed the tourniquet was deflated hemostasis obtained the wound is then closed in layers using interrupted Vicryl followed by ashley. A sterile compressive dressing was applied and the patient returned to recovery room in satisfactory condition.
[2017-10-11] MEDS ORDERED: MAG HYDROX/AL HYDROX/SIMETH SUSP 30 ML UDCUP PO PRN (14:10)
[2017-10-11] MEDS ORDERED: OXYCODONE HCL IR 5 MG TABLET PO PRN (14:10)
[2017-10-11] MEDS ORDERED: MORPHINE SULFATE 10 MG/ML INJ IM PRN (14:10)
[2017-10-11] MEDS ORDERED: ONDANSETRON 4 MG TAB.RAPDIS PO PRN (14:10)
[2017-10-11] MEDS ORDERED: ONDANSETRON HCL INJ/PF 4 MG/2 ML SDV IV PRN (14:10)
[2017-10-11] MEDS ORDERED: ZOLPIDEM TARTRATE 5 MG TABLET PO PRN (14:10)
[2017-10-11] MEDS ORDERED: EPHEDRINE SULFATE INJ 50 MG/1 ML AMPULE ONE (14:44)
--- NOTE | 2017-10-11 15:27 | RADIOLOGY REPORT (SQ) ---
EXAM DESCRIPTION: KNEE RIGHT 2 VIEWS COMPLETED DATE/TIME: 10/11/2017 3:18 pm REASON FOR STUDY: Post OP -Long Cassette in PACU M17.11 UNILATERAL PRIMARY OSTEOARTHRITIS, RIGHT KN EE COMPARISON: 11/24/2009 NUMBER OF VIEWS: Two view(s). TECHNIQUE: Digital radiographic images of the right knee post-procedure. LIMITATIONS: None. FINDINGS: BONES: Question lucent lesions within the distal femur versus overlying the subcutaneous g as from surgery. DEVICE: Total knee arthroplasty SOFT TISSUES: No worrisome findings. Expected postoperative soft tissue changes. IMPRESSION: SATISFACTORY POSTOPERATIVE RIGHT KNEE. QUESTION LUCENT LESIONS WITHIN THE DISTAL FEMUR VERSUS OVERLYING SUBCUTANEOUS GAS FROM SURGERY. RECOMMEND FOLLOWUP RADIOGRAPHS IN 1 TO 2 WEEKS TO RE -EVALUATE GIVEN HISTORY OF MELANOMA. TECHNICAL DOCUMENTATION: JOB ID: [id number] [employer]- All Rights Reserved
[2017-10-11] MEDS ORDERED: TRANEXAMIC ACID INJ/PF 1,000 MG/10 ML SDV IV PRN (16:00)
[2017-10-11] MEDS ORDERED: PREGABALIN 75 MG CAPSULE PO SCH (18:00)
[2017-10-11] MEDS ORDERED: INFLUENZA ADLT QUAD (36MOS+) 2017-18 VAC 0.5 ML SYR IM PRN (19:31)
[2017-10-11] MEDS: IBUPROFEN 800 MG in NORMAL SALINE 250 ML IV SCH (21:18)
[2017-10-11] MEDS: OXYCODONE HCL SR 10 MG TABLET PO SCH (21:18)
[2017-10-11] MEDS ORDERED: IBUPROFEN INJ 800 MG/8 ML VIAL IV SCH (22:00)
[2017-10-12] MEDS ORDERED: ACETAMINOPHEN 325 MG TABLET PO PRN
[2017-10-12] MEDS ORDERED: VANCOMYCIN HCL 1,000 MG in DEXTROSE 5%-WATER 250 ML IV ONE (02:00)
[2017-10-12] MEDS: IBUPROFEN 800 MG in NORMAL SALINE 250 ML IV SCH (05:13)
[2017-10-12] MEDS ORDERED: LANSOPRAZOLE 30 MG TAB.RAP.DR PO SCH (06:00)
[2017-10-12 06:33] LABS: HEMATOCRIT 36.1 % (37.9-51.0); HEMOGLOBIN 11.8 g/dL (13.5-17.0); MEAN CORPUSCULAR HEMOGLOBIN 27.3 pg (27.0-33.4); MEAN CORPUSCULAR HGB CONC 32.6 g/dL (32.0-36.0); MEAN CORPUSCULAR VOLUME 84 fl (80-97); PLATELET COUNT 118 10^3/uL (150-450); RED BLOOD COUNT 4.31 10^6/uL (4.35-5.55); RED CELL DISTRIBUTION WIDTH 15.7 % (11.5-14.0); WHITE BLOOD COUNT 5.2 10^3/uL (4.0-10.5)
[2017-10-12 06:56] LABS: ANION GAP 9 (5-19); BLOOD UREA NITROGEN 33 mg/dL (7-20); CALCIUM 7.9 mg/dL (8.4-10.2); CARBON DIOXIDE 32 mmol/L (22-30); CHLORIDE 101 mmol/L (98-107); GLUCOSE 85 mg/dL (75-110); POTASSIUM 4.2 mmol/L (3.6-5.0)
--- NOTE | 2017-10-12 06:58 | PDOC PROGRESS REPORT ---
Subjective Progress Note for:: 10/12/17 Reason For Visit: M17.11 UNILATERAL PRIMARY OSTEOARTHRITIS, RIGHT KN 77-year-old white male postop day 1 from right knee arthroplasty. Postoperative course was notable for oliguria. Physical Exam Vital Signs: Temp Pulse Resp BP Pulse Ox 36.6 C 60 15 113/49 L 97 10/12/17 04:30 10/12/17 04:30 10/12/17 04:30 10/12/17 04:30 10/12/17 04:30 Intake & Output 10/10/17 10/11/17 10/12/17 06:59 06:59 06:59 Intake Total 4877 Output Total 2200 Balance 2677 General appearance: PRESENT: no acute distress Head exam: PRESENT: normocephalic Respiratory exam: PRESENT: unlabored Pulses: PRESENT: +1 pedal pulses bilateral Vascular exam: PRESENT: normal capillary refill GI/Abdominal exam: PRESENT: soft Rectal exam: PRESENT: deferred Extremities exam: PRESENT: other - Right lower extremity dressing clean dry and intact. Distal neurovascular examination is intact. Neurological exam: PRESENT: alert, awake, oriented to person, oriented to place , oriented to time, oriented to situation. ABSENT: motor sensory deficit Psychiatric exam: PRESENT: appropriate affect, normal mood. ABSENT: homicidal ideation, suicidal ideation Skin exam: PRESENT: dry, intact, warm. ABSENT: cyanosis, rash Results Laboratory Results: 10/12/17 06:05 10/11/17 10/11/17 10/12/17 11:30 12:07 06:05 WBC 5.2 RBC 4.31 L Hgb 11.8 L Hct 36.1 L MCV 84 MCH 27.3 MCHC 32.6 RDW 15.7 H Plt Count 118 L Potassium Cancelled 4.5 Glucose Cancelled 88 Impressions: Chest X-Ray 10/05/17 12:25 IMPRESSION: No acute findings Knee X-Ray 10/11/17 14:12 IMPRESSION: SATISFACTORY POSTOPERATIVE RIGHT KNEE. QUESTION LUCENT LESIONS WITHIN THE DISTAL FEMUR VERSUS OVERLYING SUBCUTANEOUS GAS FROM SURGERY. RECOMMEND FOLLOWUP RADIOGRAPHS IN 1 TO 2 WEEKS TO RE-EVALUATE GIVEN HISTORY OF MELANOMA. Status: Imported from PACS Assessment & Plan - Diagnosis (1) Arthritis of right knee Is this a current diagnosis for this admission?: Yes Plan: 69-year-old white male status post right knee arthroplasty with an uneventful postoperative course. Low urine output is noted. Patient is drinking freely. Ibuprofen 2 be discontinued. Continued observation urine output will be monitored. Labs do this morning and Lasix later this morning. - Time Time Spent with patient: 15-24 minutes Anticipated discharge: SNF Within: within 48 hours
[2017-10-12] MEDS ORDERED: (PENDING PHARMACY ID) (Oxycodone Hcl/Acetaminophen [Percocet 10-325 Mg Tablet] 1 EACH) PO PRN (08:03)
[2017-10-12] MEDS ORDERED: LORAZEPAM 1 MG TABLET PO PRN (08:03)
[2017-10-12] MEDS ORDERED: SUCCINYLCHOLINE CHLORIDE INJ 200 MG/10 ML VIAL ONE (08:16)
[2017-10-12] MEDS ORDERED: OXYCODONE-ACETAMINOPHEN 5-325 MG TABLET PO PRN (08:27)
[2017-10-12] MEDS ORDERED: OXYCODONE HCL IR 5 MG TABLET PO PRN (08:30)
[2017-10-12] MEDS ORDERED: PSYLLIUM HUSK PO SCH (10:00)
[2017-10-12] MEDS ORDERED: PREGABALIN 75 MG CAPSULE PO SCH (10:00)
[2017-10-12] MEDS ORDERED: (PENDING PHARMACY ID) (Linagliptin [Tradjenta] 5 MG) PO SCH (10:00)
[2017-10-12] MEDS ORDERED: [UNRECOGNIZED DRUG - OTHER] PO SCH (10:00)
[2017-10-12] MEDS ORDERED: CETIRIZINE 10 MG TABLET PO SCH (10:00)
[2017-10-12] MEDS ORDERED: CITALOPRAM HYDROBROMIDE 20 MG TABLET PO SCH (10:00)
[2017-10-12] MEDS ORDERED: ASPIRIN 81 MG TABLET, ENT COATED PO SCH (10:00)
[2017-10-12] MEDS ORDERED: FEBUXOSTAT 40 MG TABLET PO SCH (10:00)
[2017-10-12] MEDS ORDERED: DEXLANSOPRAZOLE 60 MG PO SCH (10:00)
[2017-10-12] MEDS ORDERED: CLOPIDOGREL BISULFATE 75 MG TABLET PO SCH (10:00)
[2017-10-12] MEDS ORDERED: (PENDING PHARMACY ID) (Cyanocobalamin (Vitamin B-12) [Vitamin B-12 500 Mcg Tablet] 500 MCG PO SCH (10:00)
[2017-10-12] MEDS: ISOSORBIDE MONONITRATE 30 MG TAB.ER.24H PO SCH (10:05)
[2017-10-12] MEDS: CYANOCOBALAMIN (VITAMIN B-12) 1,000 MCG TABLET PO SCH (10:07)
[2017-10-12] MEDS: OXYCODONE HCL SR 10 MG TABLET PO SCH (10:08)
[2017-10-12] MEDS: TAMSULOSIN HCL 0.4 MG CAP.SR.24H PO SCH (10:09)
[2017-10-12] MEDS: PSYLLIUM SEED-SF 5.85 GM PACKET PO SCH ×2 (10:10→17:31)
[2017-10-12] MEDS: SACUBITRIL/VALSARTAN 97 MG/103 MG TABLET PO SCH ×2 (10:11→22:42)
[2017-10-12] MEDS: POLYVINYL ALCOHOL 1.4% OPH SOLN 15 ML OU SCH ×4 (10:12→22:41)
[2017-10-12 14:58] LABS: ARTERIAL BLOOD BASE EXCESS -1.8 mmol/L; ARTERIAL BLOOD FIO2 2L; ARTERIAL BLOOD HCO3 28.3 mmol/L (20-26); ARTERIAL BLOOD O2 SATURATION 94.3 % (94-98); ARTERIAL BLOOD PO2 89.3 mmHg (80-100); ARTERIAL BLOOD TOTAL CO2 30.6 mmol/L (23-27)
[2017-10-12 15:02] LABS: ARTERIAL BLOOD PCO2 76.4 mmHg (35-45); ARTERIAL BLOOD PH 7.19 (7.35-7.45)
[2017-10-12] MEDS ORDERED: NALOXONE HCL INJ/PF 0.4 MG/1 ML SDV IV ONE (15:15)
--- NOTE | 2017-10-12 15:33 | Physician Advisory Note ---
Physician Advisor ProgressNote .: Pursuant to the plan for Celsa Worley, I have reviewed the medical record for this patient. Physician Advisor Statement: Please consider documenting, if you agree: 1. "Acute blood loss anemia, due to " 2. "Obesity with BMI 43.8" 3. "Acute Kidney Injury" 4. Medical necessity: see below. - Please avoid statements such as "uneventful post-op course" and "NAD" in pts who are not outpatient &/or ready for d/c, as reviewers consider such terminology to indicate the patient is not needing continued hospitalization. Better to say "no acute worsening of joint issues", or "no acute cardiopulmonary compromise has developed", for example. Status: Pts for TKA are now expected to be made OUTPT OBS status unless H&P makes it very clear the clinical reasons/concerns the attending expects pt to require more than 1 midnight of hospital care from the very beginning. - When brought in as Outpt Obs, the next day the patient should be d/c'd home or else documentation should clearly indicate why the patient is not safe for d/ c yet. In this case, since surgery, pt has developed RENE and may have acute blood loss anemia, either/both of which may need additional close monitoring / eval / tx in hospital through a 2nd MN. Therefore, THIS pt in THIS case is appropriate for Inpatient status with documentation of new dx.s & concerns, medical necessity. Thanks! CK
[2017-10-12 18:22] LABS: ARTERIAL BLOOD BASE EXCESS -3.9 mmol/L; ARTERIAL BLOOD H2CO3 1.99 mmol/L (1.05-1.35); ARTERIAL BLOOD HCO3 25.3 mmol/L (20-26); ARTERIAL BLOOD O2 SATURATION 87.8 % (94-98); ARTERIAL BLOOD PCO2 66.2 mmHg (35-45); ARTERIAL BLOOD PO2 65.9 mmHg (80-100); ARTERIAL BLOOD TOTAL CO2 27.3 mmol/L (23-27)
[2017-10-12 18:24] LABS: ARTERIAL BLOOD FIO2 30%
[2017-10-12 19:11] LABS: ABSOLUTE LYMPHOCYTES (AUTO) 0.6 10^3/uL (0.5-4.7); ABSOLUTE MONOCYTES (AUTO) 0.9 10^3/uL (0.1-1.4); ABSOLUTE NEUT (AUTO) 6.4 10^3/uL (1.7-8.2); BASOPHILS % (AUTO) 0.3 % (0-2); EOSINOPHILS % (AUTO) 0.2 % (0-6); HEMATOCRIT 38.4 % (37.9-51.0); HEMOGLOBIN 12.4 g/dL (13.5-17.0); MEAN CORPUSCULAR HEMOGLOBIN 27.4 pg (27.0-33.4); MEAN CORPUSCULAR HGB CONC 32.4 g/dL (32.0-36.0); MEAN CORPUSCULAR VOLUME 85 fl (80-97); MONOCYTES % (AUTO) 11.7 % (3-13); PLATELET COUNT 134 10^3/uL (150-450); RED BLOOD COUNT 4.55 10^6/uL (4.35-5.55); RED CELL DISTRIBUTION WIDTH 15.8 % (11.5-14.0); SEGMENTED NEUTROPHILS % (AUTO) 80.8 % (42-78); TOTAL CELLS COUNTED % (AUTO) 100 %; WHITE BLOOD COUNT 7.9 10^3/uL (4.0-10.5)
--- NOTE | 2017-10-12 19:19 | RADIOLOGY REPORT (SQ) ---
EXAM DESCRIPTION: CHEST SINGLE VIEW COMPLETED DATE/TIME: 10/12/2017 7:10 pm REASON FOR STUDY: hypoventilation COMPARISON: 10/05/2017 NUMBER OF VIEWS: One view. TECHNIQUE: Single frontal radiographic image of the chest acquired. LIMITATIONS: None. FINDINGS: LUNGS AND PLEURA: No evidence of pulmonary edema or pneumonia. MEDIASTINUM AND HEART: Stable heart size and mediastinal structures. SUPPORT DEVICES: Appropriate location without change. BONY STRUCTURES: No acute findings. HARDWARE: Right axillary clips. OTHER: No other significant finding. IMPRESSION: No acute findings in the chest.
[2017-10-12 19:38] LABS: CREATINE KINASE MB 8.56 ng/mL (<4.55); TROPONIN I 0.017 ng/mL
[2017-10-12] MEDS ORDERED: PHARMACY COMMUNICATION ORDER MC NR (19:45)
[2017-10-12 19:47] LABS: ABSOLUTE LYMPHOCYTES (AUTO) 0.7 10^3/uL (0.5-4.7); ABSOLUTE NEUT (AUTO) 7.3 10^3/uL (1.7-8.2); BASOPHILS % (AUTO) 0.5 % (0-2); EOSINOPHILS % (AUTO) 0.2 % (0-6); HEMATOCRIT 38.2 % (37.9-51.0); HEMOGLOBIN 12.3 g/dL (13.5-17.0); LYMPHOCYTES % (AUTO) 7.7 % (13-45); MEAN CORPUSCULAR HEMOGLOBIN 27.3 pg (27.0-33.4); MEAN CORPUSCULAR HGB CONC 32.1 g/dL (32.0-36.0); MEAN CORPUSCULAR VOLUME 85 fl (80-97); MONOCYTES % (AUTO) 11.2 % (3-13); PLATELET COUNT 135 10^3/uL (150-450); RED BLOOD COUNT 4.48 10^6/uL (4.35-5.55); SEGMENTED NEUTROPHILS % (AUTO) 80.4 % (42-78); TOTAL CELLS COUNTED % (AUTO) 100 %; WHITE BLOOD COUNT 9.1 10^3/uL (4.0-10.5)
[2017-10-12] MEDS ORDERED: PROPOFOL 100 ML IV ONE (19:47)
[2017-10-12] MEDS ORDERED: PROPOFOL INJ 200 MG/20 ML VIAL IV ONE (19:56)
[2017-10-12] MEDS ORDERED: ONDANSETRON 4 MG TAB.RAPDIS NG PRN (20:00)
[2017-10-12] MEDS ORDERED: ZOLPIDEM TARTRATE 5 MG TABLET NG PRN (20:00)
[2017-10-12] MEDS ORDERED: LORAZEPAM 1 MG TABLET NG PRN (20:00)
[2017-10-12] MEDS ORDERED: MAG HYDROX/AL HYDROX/SIMETH SUSP 30 ML UDCUP NG PRN (20:00)
[2017-10-12] MEDS ORDERED: NORMAL SALINE 1000 ML 1,000 ML IV PRN (20:05)
[2017-10-12 20:16] LABS: ALANINE AMINOTRANSFERASE 10 U/L (21-72); ALBUMIN 3.3 g/dL (3.5-5.0); ALKALINE PHOSPHATASE 71 U/L (38-126); ANION GAP 12 (5-19); ASPARTATE AMINO TRANSFERASE 20 U/L (17-59); BILIRUBIN,DIRECT 0.2 mg/dL (0.0-0.4); BLOOD UREA NITROGEN 41 mg/dL (7-20); CALCIUM 7.9 mg/dL (8.4-10.2); CARBON DIOXIDE 29 mmol/L (22-30); CHLORIDE 97 mmol/L (98-107); GLUCOSE 127 mg/dL (75-110); SODIUM 138.3 mmol/L (137-145); TOTAL PROTEIN 5.8 g/dL (6.3-8.2)
[2017-10-12] MEDS: PROPOFOL 100 ML IV PRN ×2 (20:16→23:33)
[2017-10-12] MEDS ORDERED: NOREPINEPHRINE BITARTRATE INJ/PF 4 MG/4 ML SDV IV ONE (20:29)
[2017-10-12] MEDS: DEXTROSE 5%-WATER 250 ML with NOREPINEPHRINE BITARTRATE 4 MG IV PRN ×2 (20:34)
--- NOTE | 2017-10-12 20:41 | PDOC CONSULTATION ---
History of Present Illness Admission Date/PCP: 10/11/17 10:11 CRISTINE AGUAYO MD History of Present Illness: Patient 77-year-old male with multiple comorbid conditions including chronic systolic and diastolic heart failure, type 2 diabetes mellitus, chronic kidney disease stage III, he was admitted electively for right knee arthroplasty , this was done yesterday. Medical consultation was requested because of patient was extremely stuporous not able to hold on any conversation, he slumped to unresponsiveness after minimal tactile response. Patient is well- known to me from outpatient, I requested for a stat ABG, ABG on FiO2 2 L showed pH 7.19, PCO2 76.4, PO2 89.3, this is consistent with acute respiratory acidosis , he was initially supported with a noninvasive positive pressure ventilation, BiPAP subsequent ABG did not show much improvement patient was subsequently transferred to ICU to be supported with mechanical ventilation. It was felt that the etiology of the acute respiratory acidosis is probably due to medication for pain, he was given narcan without much improvement.When I saw patient on the floor he was minimally responsive. Past Medical History Cardiac Medical History: Reports: Atrial Fibrillation, Congestive Heart Failure , Coronary Artery Disease, DVT, Myocardial Infarction - x4 last 1993, Hyperlipidema, Hypertension Pulmonary Medical History: Reports: Asthma, Bronchitis, Chronic Obstructive Pulmonary Disease (COPD), Intubation, Pneumonia, Respiratory Failure - Acute, Sleep Apnea Denies: Tuberculosis Neurological Medical History: Reports: Seizures - sept hit head and had seizure Endocrine Medical History: Reports: Diabetes Mellitus Type 2, Hypothyroidism Renal/ Medical History: Reports: Chronic Kidney Disease Malignancy Medical History: Reports: Skin Cancer - Malignant melanoma GI Medical History: Reports: Gastroesophageal Reflux Disease, Hepatitis Musculoskeltal Medical History: Reports: Arthritis, Gout Denies: Fibromyalgia Psychiatric Medical History: Reports: Depression Denies: Bipolar Disorder, Dementia, Post Traumatic Stress Disorder Hematology: Reports: Anemia - Thrombocytopenia Denies: Hemophilia, Sickle Cell Disease Infectious Medical History: Denies: HIV Past Surgical History Past Surgical History: Reports: Cholecystectomy, Coronary Stent Social History Smoking Status: Current Some Day Smoker Frequency of Alcohol Use: None Hx Recreational Drug Use: No Hx Prescription Drug Abuse: No - Advance Directive Resuscitation Status: Full Code Family History Family History: Reviewed & Not Pertinent Parental Family History Reviewed: Yes Children Family History Reviewed: Yes Sibling(s) Family History Reviewed.: Yes Medication/Allergy Home Medications: Acetaminophen [Tylenol 325 mg Tablet] 650 mg PO Q6HP PRN 10/11/17 Aspirin [Aspirin 81 mg Chewable Tablet] 81 mg PO DAILY 10/11/17 Atorvastatin Calcium [Lipitor 40 mg Tablet] 40 mg PO QHS 10/11/17 Cetirizine HCl [Zyrtec 10 mg Tablet] 10 mg PO DAILY 10/11/17 Citalopram Hydrobromide [Celexa 20 mg Tablet] 20 mg PO DAILY 10/11/17 Clopidogrel Bisulfate [Plavix 75 mg Tablet] 75 mg PO DAILY 10/11/17 Cyanocobalamin (Vitamin B-12) [Vitamin B-12 500 mcg Tablet] 500 mcg PO DAILY Dexlansoprazole [Kapidex 60 mg Capsule] 60 mg PO DAILY 10/11/17 Febuxostat [Uloric 40 mg Tablet] 40 mg PO DAILY 10/11/17 Furosemide [Lasix 20 mg Tablet] 20 mg PO QAM 10/11/17 Isosorbide Mononitrate [Imdur 30 mg Tablet.er] 15 mg PO DAILY 10/11/17 Lanolin/Min Oil/Petrolat,Wht [Akwa Tears Ointment] 1 applic OU QHS 10/11/17 Linagliptin [Tradjenta] 5 mg PO DAILY 10/11/17 Lorazepam [Ativan 1 mg Tablet] 1 mg PO Q12HP PRN 10/11/17 Metoprolol Succinate [Toprol Xl 25 mg Tab.sr] 12.5 mg PO QHS 10/11/17 Oxycodone HCl/Acetaminophen [Percocet 10-325 Mg Tablet] 1 each PO Q6HP PRN 10/11 Polyvinyl Alcohol [Liquitears 1.4% Ophth Soln 15 ml] 1 drop OU QID 10/11/17 Pregabalin [Lyrica] 150 mg PO Q12 10/11/17 Psyllium Husk (with Sugar) [Metamucil Packet] 1 packet PO QHS 10/11/17 Sacubitril/Valsartan [Entresto 97 mg-103 mg Tablet] 1 each PO Q12 10/11/17 Tamsulosin HCl [Flomax 0.4 mg Cap.sr] 0.4 mg PO DAILY 10/11/17 Allergies/Adverse Reactions: codeine [Codeine] Allergy (Verified 02/23/17 11:29) Hives tuberculin,PPD,multi-puncture Adverse Reaction (Verified 02/23/17 11:29) Review of Systems ROS unobtainable: Due to mental status Physical Exam Vital Signs: Temp Pulse Resp BP Pulse Ox 97.4 F 56 L 21 H 164/95 H 99 10/12/17 12:17 10/12/17 12:17 10/12/17 20:00 10/12/17 19:57 10/12/17 19:56 Intake & Output 10/11/17 10/12/17 10/13/17 06:59 06:59 06:59 Intake Total 4877 125 Output Total 2200 0 Balance 2677 125 Head exam: PRESENT: atraumatic, normocephalic Eye exam: PRESENT: PERRLA Neck exam: PRESENT: full ROM Respiratory exam: PRESENT: clear to auscultation abigail Cardiovascular exam: PRESENT: RRR, +S1, +S2 Vascular exam: PRESENT: normal capillary refill GI/Abdominal exam: PRESENT: normal bowel sounds, soft Rectal exam: PRESENT: deferred Neurological exam: PRESENT: altered. ABSENT: motor sensory deficit Skin exam: PRESENT: dry, intact, warm. ABSENT: cyanosis, rash Results Laboratory Results: 10/12/17 19:30 10/12/17 19:30 10/12/17 10/12/17 10/12/17 06:05 06:05 14:45 WBC 5.2 RBC 4.31 L Hgb 11.8 L Hct 36.1 L MCV 84 MCH 27.3 MCHC 32.6 RDW 15.7 H Plt Count 118 L Seg Neutrophils % Lymphocytes % Monocytes % Eosinophils % Basophils % Absolute Neutrophils Absolute Lymphocytes Absolute Monocytes Absolute Eosinophils Absolute Basophils Carbonic Acid 2.30 H HCO3/H2CO3 Ratio 12:1 ABG pH 7.19 L* ABG pCO2 76.4 H* ABG pO2 89.3 ABG HCO3 28.3 H ABG O2 Saturation 94.3 ABG Base Excess -1.8 FiO2 2L Sodium 142.0 Potassium 4.2 Chloride 101 Carbon Dioxide 32 H Anion Gap 9 BUN 33 H Creatinine 2.60 H Est GFR ( Amer) 29 L Est GFR (Non-Af Amer) 24 L Glucose 85 Calcium 7.9 L Total Bilirubin AST ALT Alkaline Phosphatase Total Protein Albumin 10/12/17 10/12/17 10/12/17 18:10 18:55 19:30 WBC 7.9 RBC 4.55 Hgb 12.4 L Hct 38.4 MCV 85 MCH 27.4 MCHC 32.4 RDW 15.8 H Plt Count 134 L Seg Neutrophils % 80.8 H Lymphocytes % 7.0 L Monocytes % 11.7 Eosinophils % 0.2 Basophils % 0.3 Absolute Neutrophils 6.4 Absolute Lymphocytes 0.6 Absolute Monocytes 0.9 Absolute Eosinophils 0.0 Absolute Basophils 0.0 Carbonic Acid 1.99 H HCO3/H2CO3 Ratio 12:1 ABG pH 7.20 L* ABG pCO2 66.2 H ABG pO2 65.9 L ABG HCO3 25.3 ABG O2 Saturation 87.8 L ABG Base Excess -3.9 FiO2 30% Sodium 138.3 Potassium 5.0 Chloride 97 L Carbon Dioxide 29 Anion Gap 12 BUN 41 H Creatinine 3.71 H Est GFR ( Amer) 19 L Est GFR (Non-Af Amer) 16 L Glucose 127 H Calcium 7.9 L Total Bilirubin 1.0 AST 20 ALT 10 L Alkaline Phosphatase 71 Total Protein 5.8 L Albumin 3.3 L 10/12/17 19:30 WBC 9.1 RBC 4.48 Hgb 12.3 L Hct 38.2 MCV 85 MCH 27.3 MCHC 32.1 RDW 16.0 H Plt Count 135 L Seg Neutrophils % 80.4 H Lymphocytes % 7.7 L Monocytes % 11.2 Eosinophils % 0.2 Basophils % 0.5 Absolute Neutrophils 7.3 Absolute Lymphocytes 0.7 Absolute Monocytes 1.0 Absolute Eosinophils 0.0 Absolute Basophils 0.0 Carbonic Acid HCO3/H2CO3 Ratio ABG pH ABG pCO2 ABG pO2 ABG HCO3 ABG O2 Saturation ABG Base Excess FiO2 Sodium Potassium Chloride Carbon Dioxide Anion Gap BUN Creatinine Est GFR ( Amer) Est GFR (Non-Af Amer) Glucose Calcium Total Bilirubin AST ALT Alkaline Phosphatase Total Protein Albumin 10/12/17 10/12/17 18:55 18:55 Creatine Kinase 356 H CK-MB (CK-2) 8.56 H Troponin I 0.017 Impressions: Knee X-Ray 10/11/17 14:12 IMPRESSION: SATISFACTORY POSTOPERATIVE RIGHT KNEE. QUESTION LUCENT LESIONS WITHIN THE DISTAL FEMUR VERSUS OVERLYING SUBCUTANEOUS GAS FROM SURGERY. RECOMMEND FOLLOWUP RADIOGRAPHS IN 1 TO 2 WEEKS TO RE-EVALUATE GIVEN HISTORY OF MELANOMA. Assessment & Plan - Diagnosis (1) Acute respiratory failure with hypoxia and hypercapnia Is this a current diagnosis for this admission?: Yes Plan: Patient on mechanical ventilation initial vent setting is ordered, the etiology most likely from SHANKER OUT depression from medication (2) Acute kidney injury Is this a current diagnosis for this admission?: Yes (3) Chronic combined systolic and diastolic CHF (congestive heart failure) Is this a current diagnosis for this admission?: Yes
--- NOTE | 2017-10-12 20:54 | RADIOLOGY REPORT (SQ) ---
EXAM DESCRIPTION: CHEST SINGLE VIEW COMPLETED DATE/TIME: 10/12/2017 8:08 pm REASON FOR STUDY: post intubation COMPARISON: Earlier the same day. NUMBER OF VIEWS: One view. TECHNIQUE: Single frontal radiographic image of the chest acquired. LIMITATIONS: None. FINDINGS: LUNGS AND PLEURA: No pneumothorax. MEDIASTINUM AND HEART: Stable heart size and mediastinal structures. SUPPORT DEVICES: Endotracheal tube tip between thoracic inlet and shannan. Nasogastric tube extends i n the left upper quadrant. Unchanged position of pacemaker. BONY STRUCTURES: No acute findings. HARDWARE: None. OTHER: No other significant finding. IMPRESSION: Satisfactory position of support apparatus. No pneumothorax.
--- NOTE | 2017-10-12 20:56 | RADIOLOGY REPORT (SQ) ---
EXAM DESCRIPTION: KUB/ABDOMEN (SINGLE VIEW) COMPLETED DATE/TIME: 10/12/2017 8:08 pm REASON FOR STUDY: Check Placement of NG Tube COMPARISON: None. NUMBER OF VIEWS: One view. TECHNIQUE: Supine radiographic image of the abdomen acquired. LIMITATIONS: None. FINDINGS: Nasogastric tube in the stomach. Bowel gas pattern is normal. IMPRESSION: Nasogastric tube in the stomach.
[2017-10-12] MEDS ORDERED: ACETAMINOPHEN 325 MG TABLET NG PRN (21:00)
[2017-10-12 21:11] LABS: ARTERIAL BLOOD BASE EXCESS -3.6 mmol/L; ARTERIAL BLOOD H2CO3 1.39 mmol/L (1.05-1.35); ARTERIAL BLOOD HCO3 22.8 mmol/L (20-26); ARTERIAL BLOOD O2 SATURATION 92.7 % (94-98); ARTERIAL BLOOD PCO2 46.3 mmHg (35-45); ARTERIAL BLOOD PH 7.31 (7.35-7.45); ARTERIAL BLOOD PO2 70.6 mmHg (80-100); ARTERIAL BLOOD TOTAL CO2 24.2 mmol/L (23-27)
[2017-10-12 21:12] LABS: ARTERIAL BLOOD FIO2 40%
[2017-10-12] MEDS ORDERED: ATORVASTATIN CALCIUM 40 MG TABLET PO SCH (22:00)
[2017-10-12] MEDS ORDERED: ATORVASTATIN CALCIUM 40 MG TABLET NG SCH (22:00)
[2017-10-12] MEDS ORDERED: LANOLIN OU SCH (22:00)
[2017-10-12] MEDS ORDERED: WHITE PETROLATUM OU SCH (22:00)
[2017-10-12] MEDS ORDERED: MINERAL OIL OU SCH (22:00)
[2017-10-12] MEDS ORDERED: ERTAPENEM SODIUM 1 GM in NORMAL SALINE 50 ML IV SCH (22:00)
[2017-10-12] MEDS: ERTAPENEM SODIUM 0.5 GM in NORMAL SALINE 50 ML IV SCH (22:39)
[2017-10-12] MEDS: MINERAL OIL/PETROLATUM,WHITE OPH OINT 3.5 GM OU SCH (22:40)
[2017-10-12] MEDS: PREGABALIN 75 MG CAPSULE NG SCH (22:45)
[2017-10-12] MEDS: METOPROLOL SUCCINATE 25 MG TAB.SR.24H PO SCH (22:46)
[2017-10-13] MEDS: PROPOFOL 100 ML IV PRN ×5 (03:35→22:24)
[2017-10-13 04:02] LABS: ABSOLUTE LYMPHOCYTES (AUTO) 1.2 10^3/uL (0.5-4.7); ABSOLUTE MONOCYTES (AUTO) 1.2 10^3/uL (0.1-1.4); ABSOLUTE NEUT (AUTO) 5.6 10^3/uL (1.7-8.2); BASOPHILS % (AUTO) 0.6 % (0-2); EOSINOPHILS % (AUTO) 0.4 % (0-6); HEMATOCRIT 36.4 % (37.9-51.0); HEMOGLOBIN 12.2 g/dL (13.5-17.0); LYMPHOCYTES % (AUTO) 14.8 % (13-45); MEAN CORPUSCULAR HEMOGLOBIN 27.4 pg (27.0-33.4); MEAN CORPUSCULAR HGB CONC 33.4 g/dL (32.0-36.0); MEAN CORPUSCULAR VOLUME 82 fl (80-97); MONOCYTES % (AUTO) 14.5 % (3-13); PLATELET COUNT 107 10^3/uL (150-450); RED BLOOD COUNT 4.43 10^6/uL (4.35-5.55); RED CELL DISTRIBUTION WIDTH 15.6 % (11.5-14.0); SEGMENTED NEUTROPHILS % (AUTO) 69.7 % (42-78); TOTAL CELLS COUNTED % (AUTO) 100 %
[2017-10-13 04:18] LABS: ALANINE AMINOTRANSFERASE 20 U/L (21-72); ALBUMIN 2.7 g/dL (3.5-5.0); ALKALINE PHOSPHATASE 64 U/L (38-126); ANION GAP 13 (5-19); ASPARTATE AMINO TRANSFERASE 22 U/L (17-59); BILIRUBIN,DIRECT 0.2 mg/dL (0.0-0.4); BLOOD UREA NITROGEN 44 mg/dL (7-20); CALCIUM 7.8 mg/dL (8.4-10.2); CARBON DIOXIDE 24 mmol/L (22-30); CHLORIDE 100 mmol/L (98-107); GLUCOSE 124 mg/dL (75-110); MAGNESIUM 1.3 mg/dL (1.6-2.3); POTASSIUM 4.1 mmol/L (3.6-5.0); SODIUM 136.5 mmol/L (137-145); TOTAL PROTEIN 5.2 g/dL (6.3-8.2); TRIGLYCERIDES 112 mg/dL (<150)
[2017-10-13] MEDS ORDERED: LANSOPRAZOLE 30 MG TAB.RAP.DR PO SCH (06:00)
[2017-10-13] MEDS: LANSOPRAZOLE 30 MG TAB.RAP.DR NG SCH (06:21)
[2017-10-13 06:30] LABS: ARTERIAL BLOOD BASE EXCESS 3.3 mmol/L; ARTERIAL BLOOD FIO2 40%; ARTERIAL BLOOD H2CO3 0.79 mmol/L (1.05-1.35); ARTERIAL BLOOD HCO3 24.2 mmol/L (20-26); ARTERIAL BLOOD O2 SATURATION 97.8 % (94-98); ARTERIAL BLOOD PCO2 26.3 mmHg (35-45); ARTERIAL BLOOD PH 7.58 (7.35-7.45); ARTERIAL BLOOD PO2 86.7 mmHg (80-100)
--- NOTE | 2017-10-13 07:54 | RADIOLOGY REPORT (SQ) ---
EXAM DESCRIPTION: CHEST SINGLE VIEW COMPLETED DATE/TIME: 10/13/2017 6:56 am REASON FOR STUDY: acute resp failure COMPARISON: CT chest 07/31/2015 PET-CT 03/28/2017 Chest films 06/08/2017, 10/12/2017 EXAM PARAMETERS: NUMBER OF VIEWS: One view. TECHNIQUE: Single frontal radiographic view of the chest acquired. RADIATION DOSE: NA LIMITATIONS: None. FINDINGS: LUNGS AND PLEURA: Right lung clear. Minimal lingular atelectasis. No pleural effusions o r pneumothorax. MEDIASTINUM AND HILAR STRUCTURES: No masses. Contour normal. HEART AND VASCULAR STRUCTURES: Heart normal in size. Normal vasculature. BONES: No acute findings. HARDWARE: Endotracheal tube tip 5 cm above the shannan. Nasogastric tube tip and side port in the sto mach. Left-sided dual lead pacemaker unchanged. Old surgical clips right axilla. Tiny shrapnel fra gment over the anterior left chest OTHER: No other significant finding. IMPRESSION: Tubes and lines in good positioning. Lingular scarring or atelectasis. Lungs otherwise grossly clear TECHNICAL DOCUMENTATION: JOB ID: [id number]- All Rights Reserved
[2017-10-13] MEDS ORDERED: SITAGLIPTIN PHOSPHATE 25 MG TABLET PO SCH (08:00)
[2017-10-13] MEDS ORDERED: FUROSEMIDE 20 MG TABLET NG SCH (08:00)
[2017-10-13] MEDS ORDERED: FUROSEMIDE 20 MG TABLET PO SCH (08:00)
--- NOTE | 2017-10-13 09:28 | PDOC CONSULTATION ---
Consultation Consult Date: 10/12/17 Attending physician:: CRISTINE AGUAYO Consult reason:: acute resp failure History of Present Illness Admission Date/PCP: 10/11/17 10:11 CRISTINE AGUAYO MD History of Present Illness: ERIKA GERMAIN is a 77 year old male[place] [facility] [place]Admitted for ortho proceedure found to be somulent with hypercania and acidosis to ICU intubated Past Medical History Cardiac Medical History: Reports: Atrial Fibrillation, Congestive Heart Failure , Coronary Artery Disease, DVT, Myocardial Infarction - x4 last 1993, Hyperlipidema, Hypertension Denies: Peripheral Vascular Disease, Pulmonary Embolism, Heart Murmur Pulmonary Medical History: Reports: Asthma, Bronchitis, Chronic Obstructive Pulmonary Disease (COPD), Intubation, Pneumonia, Respiratory Failure - Acute, Sleep Apnea Denies: Tuberculosis Neurological Medical History: Reports: Seizures - sept hit head and had seizure Endocrine Medical History: Reports: Diabetes Mellitus Type 2, Hypothyroidism Denies: Hyperthyroidism Renal/ Medical History: Denies: End Stage Renal Disease Malignancy Medical History: Reports: Skin Cancer - Malignant melanoma Denies: Leukemia, Lung Cancer GI Medical History: Reports: Gastroesophageal Reflux Disease, Hepatitis Denies: Crohn's Disease, Hiatal Hernia Musculoskeltal Medical History: Reports: Arthritis, Gout Denies: Fibromyalgia Psychiatric Medical History: Reports: Depression Denies: Bipolar Disorder, Dementia, Post Traumatic Stress Disorder Traumatic Medical History: Denies: Traumatic Brain Injury Hematology: Reports: Anemia - Thrombocytopenia Denies: Hemophilia, Sickle Cell Disease Infectious Medical History: Denies: HIV Past Surgical History Past Surgical History: Reports: Cholecystectomy, Coronary Stent Denies: Appendectomy, Colostomy, Coronary Artery Bypass Graft, Gastric Bypass Surgery, Herniorrhaphy, Pacemaker, Tonsillectomy Social History Information Source: [facility] Records Smoking Status: Current Some Day Smoker Frequency of Alcohol Use: None Hx Recreational Drug Use: No Hx Prescription Drug Abuse: No Have you been exposed to any sick contacts recently?: No Have you had any recent respiratory illnesses?: No Have you travelled outside of [place] in the past 12 months?: Yes - Advance Directive Resuscitation Status: Full Code Family History Family History: Reviewed & Not Pertinent Medication/Allergy Home Medications: Acetaminophen [Tylenol 325 mg Tablet] 650 mg PO Q6HP PRN 10/11/17 Aspirin [Aspirin 81 mg Chewable Tablet] 81 mg PO DAILY 10/11/17 Atorvastatin Calcium [Lipitor 40 mg Tablet] 40 mg PO QHS 10/11/17 Cetirizine HCl [Zyrtec 10 mg Tablet] 10 mg PO DAILY 10/11/17 Citalopram Hydrobromide [Celexa 20 mg Tablet] 20 mg PO DAILY 10/11/17 Clopidogrel Bisulfate [Plavix 75 mg Tablet] 75 mg PO DAILY 10/11/17 Cyanocobalamin (Vitamin B-12) [Vitamin B-12 500 mcg Tablet] 500 mcg PO DAILY Dexlansoprazole [Kapidex 60 mg Capsule] 60 mg PO DAILY 10/11/17 Febuxostat [Uloric 40 mg Tablet] 40 mg PO DAILY 10/11/17 Furosemide [Lasix 20 mg Tablet] 20 mg PO QAM 10/11/17 Isosorbide Mononitrate [Imdur 30 mg Tablet.er] 15 mg PO DAILY 10/11/17 Lanolin/Min Oil/Petrolat,Wht [Akwa Tears Ointment] 1 applic OU QHS 10/11/17 Linagliptin [Tradjenta] 5 mg PO DAILY 10/11/17 Lorazepam [Ativan 1 mg Tablet] 1 mg PO Q12HP PRN 10/11/17 Metoprolol Succinate [Toprol Xl 25 mg Tab.sr] 12.5 mg PO QHS 10/11/17 Oxycodone HCl/Acetaminophen [Percocet 10-325 Mg Tablet] 1 each PO Q6HP PRN 10/11 Polyvinyl Alcohol [Liquitears 1.4% Ophth Soln 15 ml] 1 drop OU QID 10/11/17 Pregabalin [Lyrica] 150 mg PO Q12 10/11/17 Psyllium Husk (with Sugar) [Metamucil Packet] 1 packet PO QHS 10/11/17 Sacubitril/Valsartan [Entresto 97 mg-103 mg Tablet] 1 each PO Q12 10/11/17 Tamsulosin HCl [Flomax 0.4 mg Cap.sr] 0.4 mg PO DAILY 10/11/17 Allergies/Adverse Reactions: codeine [Codeine] Allergy (Verified 02/23/17 11:29) Hives tuberculin,PPD,multi-puncture Adverse Reaction (Verified 02/23/17 11:29) Review of Systems ROS unobtainable: Due to endotracheal tube Physical Exam Vital Signs: Temp Pulse Resp BP Pulse Ox 97.4 F 56 L 10 L 82/47 L 83 L 10/12/17 12:17 10/12/17 12:17 10/12/17 15:40 10/12/17 18:47 10/12/17 12:17 Intake & Output 10/11/17 10/12/17 10/13/17 06:59 06:59 06:59 Intake Total 4877 125 Output Total 2200 0 Balance 2677 125 General appearance: PRESENT: no acute distress, disheveled, obese. ABSENT: cooperative, mild distress, morbidly obese, severe distress Head exam: PRESENT: atraumatic, normocephalic Eye exam: PRESENT: conjunctiva pale, periorbital swelling. ABSENT: conjunctival injection, conjunctiva pink, EOMI, nystagmus, scleral icterus Mouth exam: PRESENT: dry mucosa, neck supple, tongue midline, other - ET tube. ABSENT: laceration, moist Neck exam: ABSENT: carotid bruit, JVD, lymphadenopathy, thyromegaly, tracheal deviation, tracheostomy Respiratory exam: PRESENT: decreased breath sounds, prolonged expiratory phas, rales, rhonchi, symmetrical, unlabored, wheezes. ABSENT: accessory muscle use, chest wall tenderness, clear to auscultation abigail, crackles, retraction, stridor , tachypnea Cardiovascular exam: PRESENT: RRR, +S1, +S2 Pulses: PRESENT: normal radial pulses GI/Abdominal exam: PRESENT: diminished bowel sounds, soft Gentrourinary exam: PRESENT: indwelling catheter Extremities exam: ABSENT: clubbing, joint swelling Musculoskeletal exam: ABSENT: deformity, dislocation Neurological exam: ABSENT: alert, awake Skin exam: PRESENT: dry, warm Results Laboratory Results: 10/12/17 18:55 10/12/17 06:05 10/12/17 10/12/17 10/12/17 06:05 06:05 14:45 WBC 5.2 RBC 4.31 L Hgb 11.8 L Hct 36.1 L MCV 84 MCH 27.3 MCHC 32.6 RDW 15.7 H Plt Count 118 L Seg Neutrophils % Lymphocytes % Monocytes % Eosinophils % Basophils % Absolute Neutrophils Absolute Lymphocytes Absolute Monocytes Absolute Eosinophils Absolute Basophils Carbonic Acid 2.30 H HCO3/H2CO3 Ratio 12:1 ABG pH 7.19 L* ABG pCO2 76.4 H* ABG pO2 89.3 ABG HCO3 28.3 H ABG O2 Saturation 94.3 ABG Base Excess -1.8 FiO2 2L Sodium 142.0 Potassium 4.2 Chloride 101 Carbon Dioxide 32 H Anion Gap 9 BUN 33 H Creatinine 2.60 H Est GFR ( Amer) 29 L Est GFR (Non-Af Amer) 24 L Glucose 85 Calcium 7.9 L 10/12/17 10/12/17 18:10 18:55 WBC 7.9 RBC 4.55 Hgb 12.4 L Hct 38.4 MCV 85 MCH 27.4 MCHC 32.4 RDW 15.8 H Plt Count 134 L Seg Neutrophils % 80.8 H Lymphocytes % 7.0 L Monocytes % 11.7 Eosinophils % 0.2 Basophils % 0.3 Absolute Neutrophils 6.4 Absolute Lymphocytes 0.6 Absolute Monocytes 0.9 Absolute Eosinophils 0.0 Absolute Basophils 0.0 Carbonic Acid 1.99 H HCO3/H2CO3 Ratio 12:1 ABG pH 7.20 L* ABG pCO2 66.2 H ABG pO2 65.9 L ABG HCO3 25.3 ABG O2 Saturation 87.8 L ABG Base Excess -3.9 FiO2 30% Sodium Potassium Chloride Carbon Dioxide Anion Gap BUN Creatinine Est GFR ( Amer) Est GFR (Non-Af Amer) Glucose Calcium 10/12/17 18:55 Creatine Kinase 356 H Impressions: Knee X-Ray 10/11/17 14:12 IMPRESSION: SATISFACTORY POSTOPERATIVE RIGHT KNEE. QUESTION LUCENT LESIONS WITHIN THE DISTAL FEMUR VERSUS OVERLYING SUBCUTANEOUS GAS FROM SURGERY. RECOMMEND FOLLOWUP RADIOGRAPHS IN 1 TO 2 WEEKS TO RE-EVALUATE GIVEN HISTORY OF MELANOMA. Chest X-Ray 10/12/17 00:00 IMPRESSION: No acute findings in the chest. Assessment & Plan - Diagnosis (1) Acute respiratory failure with hypoxia and hypercapnia Is this a current diagnosis for this admission?: Yes Plan: ventilate/oxygenate as needed (2) Chronic combined systolic and diastolic CHF (congestive heart failure) Is this a current diagnosis for this admission?: Yes Plan: diuresis as necessary (3) Acute tubular necrosis Is this a current diagnosis for this admission?: Yes Plan: Labs- All tests 24 hr 10/05/17 10/12/17 10/12/17 12:10 06:05 19:30 BUN 21 H 33 H 41 H Creatinine 1.37 H 2.60 H 3.71 H 10/13/17 03:47 BUN 44 H Creatinine 3.13 H (4) Altered mental status Qualifiers: Altered mental status type: somnolence Qualified Code(s): R40.0 - Somnolence Is this a current diagnosis for this admission?: Yes (5) Morbid obesity Is this a current diagnosis for this admission?: Yes - Time Total Critical Time (Minutes): 55
[2017-10-13] MEDS ORDERED: CETIRIZINE 10 MG TABLET NG SCH (10:00)
[2017-10-13] MEDS ORDERED: FEBUXOSTAT 40 MG TABLET NG SCH (10:00)
[2017-10-13] MEDS: POLYVINYL ALCOHOL 1.4% OPH SOLN 15 ML OU SCH ×4 (10:26→21:58)
[2017-10-13] MEDS: ASPIRIN 81 MG TABLET, CHEWABLE NG SCH (10:27)
[2017-10-13] MEDS: MAGNESIUM SULFATE/D5W 1 GM/100 ML RTUPB IV SCH ×2 (10:27→13:23)
[2017-10-13] MEDS: CITALOPRAM HYDROBROMIDE 20 MG TABLET NG SCH (10:27)
[2017-10-13] MEDS: TAMSULOSIN HCL 0.4 MG CAP.SR.24H PO SCH (10:27)
[2017-10-13] MEDS: PSYLLIUM SEED-SF 5.85 GM PACKET PO SCH ×2 (10:27→18:06)
[2017-10-13] MEDS: PREGABALIN 75 MG CAPSULE NG SCH ×2 (10:28→21:58)
[2017-10-13] MEDS: CLOPIDOGREL BISULFATE 75 MG TABLET NG SCH (10:28)
[2017-10-13] MEDS: DEXTROSE 5%-WATER 250 ML with NOREPINEPHRINE BITARTRATE 4 MG IV PRN ×6 (10:28→22:24)
[2017-10-13] MEDS: SITAGLIPTIN PHOSPHATE 25 MG TABLET NG SCH (10:29)
[2017-10-13] MEDS: CYANOCOBALAMIN (VITAMIN B-12) 1,000 MCG TABLET PO SCH (10:29)
[2017-10-13] MEDS: ISOSORBIDE MONONITRATE 30 MG TAB.ER.24H PO SCH (10:29)
[2017-10-13 12:36] LABS: AMORPHOUS SEDIMENT,URINE TRACE /HPF; APPEARANCE,URINE CLOUDY; BILIRUBIN,URINE NEGATIVE (NEGATIVE); COLOR,URINE YELLOW; GLUCOSE, URINE NEGATIVE (NEGATIVE); KETONES,URINE NEGATIVE (NEGATIVE); LEUKOCYTE ESTERASE,URINE NEGATIVE (NEGATIVE); NITRITE,URINE NEGATIVE (NEGATIVE); PROTEIN,URINE 30 mg/dL (NEGATIVE); URINE SPECIFIC GRAVITY 1.024; UROBILINOGEN,URINE NEGATIVE mg/dL (<2.0)
--- NOTE | 2017-10-13 13:03 | PDOC CONSULTATION ---
Consultation Consult Date: 10/13/17 Consult reason:: Acute on chronic kidney disease History of Present Illness Admission Date/PCP: 10/11/17 10:11 CRISTINE AGUAYO MD History of Present Illness: ERIKA GERMAIN is a 77 year old male asked been asked to be seen for eval of oliguric RENE. He has a history of multiple co morbidities including Diabetes Mellitus, Hypertension, COPD, CAD, Chronic CHF, A.fibrillation was admitted for an elective right Knee arthroplasty on the . Pre Admission labs revealed his creatinine was 1.3 and it showed progressive rise from the 16 . He has had tenous BP post operatively. He has had his Ibuprofen stopped after seeing the rising renal nos. Yesterday he went into respiratory failure and transferred to ICU where he remains intubated and sedated. History was gleaned from chart review and discussing with the treating RN. Urine out put has improved after having a baez introduced. He has been begun on hydrating fluids besides the pressor agents. His BP is generally better now. Past Medical History Cardiac Medical History: Reports: Atrial Fibrillation, CHF-Systolic, Coronary Artery Disease, DVT, Hyperlipidemia, Hypertension-primary, Myocardial Infarction - x4 last 1993 Denies: Heart Murmur, Peripheral Vascular Disease, Pulmonary Embolism Pulmonary Medical History: Reports: Asthma, Bronchitis, Chronic Obstructive Pulmonary Disease (COPD), Intubation, Pneumonia, Respiratory Failure - Acute, Sleep Apnea Denies: Tuberculosis Neurological Medical History: Reports: Seizures - sept hit head and had seizure Endocrine Medical History: Reports: Diabetes Mellitus Type 2, Hypothyroidism Denies: Hyperthyroidism Renal/ Medical History: Reports: Benign Prostatic Hyperplasia Denies: End Stage Renal Disease Malignancy Medical History: Reports: Skin Cancer - Malignant melanoma Denies: Leukemia, Lung Cancer GI Medical History: Reports: Gastroesophageal Reflux Disease, Hepatitis Denies: Crohn's Disease, Hiatal Hernia Musculoskeltal Medical History: Reports: Arthritis, Gout Denies: Fibromyalgia, Rheumatoid Arthritis, Systemic Lupus Erythematosus Psychiatric Medical History: Reports: Depression Denies: Bipolar Disorder, Dementia, Post Traumatic Stress Disorder Traumatic Medical History: Denies: Traumatic Brain Injury Infectious Medical History: Denies: HIV Past Surgical History Past Surgical History: Reports: Cholecystectomy, Coronary Stent Denies: Appendectomy, Colostomy, Coronary Artery Bypass Graft, Gastric Bypass Surgery, Herniorrhaphy, Pacemaker, Tonsillectomy Social History Smoking Status: Current Some Day Smoker Frequency of Alcohol Use: None Hx Recreational Drug Use: No Hx Prescription Drug Abuse: No - Advance Directive Resuscitation Status: Full Code Family History Parental Family History Reviewed: No - patient intubated Children Family History Reviewed: No Sibling(s) Family History Reviewed.: No Medication/Allergy Home Medications: Acetaminophen [Tylenol 325 mg Tablet] 650 mg PO Q6HP PRN 10/11/17 Aspirin [Aspirin 81 mg Chewable Tablet] 81 mg PO DAILY 10/11/17 Atorvastatin Calcium [Lipitor 40 mg Tablet] 40 mg PO QHS 10/11/17 Cetirizine HCl [Zyrtec 10 mg Tablet] 10 mg PO DAILY 10/11/17 Citalopram Hydrobromide [Celexa 20 mg Tablet] 20 mg PO DAILY 10/11/17 Clopidogrel Bisulfate [Plavix 75 mg Tablet] 75 mg PO DAILY 10/11/17 Cyanocobalamin (Vitamin B-12) [Vitamin B-12 500 mcg Tablet] 500 mcg PO DAILY Dexlansoprazole [Kapidex 60 mg Capsule] 60 mg PO DAILY 10/11/17 Febuxostat [Uloric 40 mg Tablet] 40 mg PO DAILY 10/11/17 Furosemide [Lasix 20 mg Tablet] 20 mg PO QAM 10/11/17 Isosorbide Mononitrate [Imdur 30 mg Tablet.er] 15 mg PO DAILY 10/11/17 Lanolin/Min Oil/Petrolat,Wht [Akwa Tears Ointment] 1 applic OU QHS 10/11/17 Linagliptin [Tradjenta] 5 mg PO DAILY 10/11/17 Lorazepam [Ativan 1 mg Tablet] 1 mg PO Q12HP PRN 10/11/17 Metoprolol Succinate [Toprol Xl 25 mg Tab.sr] 12.5 mg PO QHS 10/11/17 Oxycodone HCl/Acetaminophen [Percocet 10-325 Mg Tablet] 1 each PO Q6HP PRN 10/11 Polyvinyl Alcohol [Liquitears 1.4% Ophth Soln 15 ml] 1 drop OU QID 10/11/17 Pregabalin [Lyrica] 150 mg PO Q12 10/11/17 Psyllium Husk (with Sugar) [Metamucil Packet] 1 packet PO QHS 10/11/17 Sacubitril/Valsartan [Entresto 97 mg-103 mg Tablet] 1 each PO Q12 10/11/17 Tamsulosin HCl [Flomax 0.4 mg Cap.sr] 0.4 mg PO DAILY 10/11/17 Allergies/Adverse Reactions: codeine [Codeine] Allergy (Verified 02/23/17 11:29) Hives tuberculin,PPD,multi-puncture Adverse Reaction (Verified 02/23/17 11:29) Review of Systems ROS unobtainable: Due to endotracheal tube - chart review done and discussed with treating UGO Fuller. Physical Exam Vital Signs: Temp Pulse Resp BP Pulse Ox 100.2 F 83 20 124/54 L 98 10/13/17 08:00 10/13/17 10:00 10/13/17 10:00 10/13/17 10:00 10/13/17 12:05 Intake & Output 10/12/17 10/13/17 10/14/17 06:59 06:59 06:59 Intake Total 4877 1333 Output Total 2200 905 185 Balance 2677 428 -185 Weight 114.8 kg Exam: Intubated and sedated. Eye exam: PRESENT: EOMI, PERRLA Ear exam: PRESENT: normal external ear exam Neck exam: ABSENT: meningismus, tenderness, thyromegaly, tracheal deviation Respiratory exam: PRESENT: clear to auscultation abgiail, crackles - few and scattered.. ABSENT: rhonchi Cardiovascular exam: PRESENT: +S1, +S2, systolic murmur GI/Abdominal exam: PRESENT: normal bowel sounds, soft. ABSENT: organomegaly, tenderness Extremities exam: ABSENT: pedal edema Skin exam: ABSENT: erythema, mottled Results Laboratory Results: 10/13/17 03:47 10/13/17 03:47 10/12/17 10/12/17 10/12/17 14:45 18:10 18:55 WBC 7.9 RBC 4.55 Hgb 12.4 L Hct 38.4 MCV 85 MCH 27.4 MCHC 32.4 RDW 15.8 H Plt Count 134 L Seg Neutrophils % 80.8 H Lymphocytes % 7.0 L Monocytes % 11.7 Eosinophils % 0.2 Basophils % 0.3 Absolute Neutrophils 6.4 Absolute Lymphocytes 0.6 Absolute Monocytes 0.9 Absolute Eosinophils 0.0 Absolute Basophils 0.0 Carbonic Acid 2.30 H 1.99 H HCO3/H2CO3 Ratio 12:1 12:1 ABG pH 7.19 L* 7.20 L* ABG pCO2 76.4 H* 66.2 H ABG pO2 89.3 65.9 L ABG HCO3 28.3 H 25.3 ABG O2 Saturation 94.3 87.8 L ABG Base Excess -1.8 -3.9 FiO2 2L 30% Sodium Potassium Chloride Carbon Dioxide Anion Gap BUN Creatinine Est GFR ( Amer) Est GFR (Non-Af Amer) Glucose Lactic Acid Calcium Magnesium Total Bilirubin AST ALT Alkaline Phosphatase Total Protein Albumin Triglycerides 10/12/17 10/12/17 10/12/17 19:30 19:30 20:25 WBC 9.1 RBC 4.48 Hgb 12.3 L Hct 38.2 MCV 85 MCH 27.3 MCHC 32.1 RDW 16.0 H Plt Count 135 L Seg Neutrophils % 80.4 H Lymphocytes % 7.7 L Monocytes % 11.2 Eosinophils % 0.2 Basophils % 0.5 Absolute Neutrophils 7.3 Absolute Lymphocytes 0.7 Absolute Monocytes 1.0 Absolute Eosinophils 0.0 Absolute Basophils 0.0 Carbonic Acid HCO3/H2CO3 Ratio ABG pH ABG pCO2 ABG pO2 ABG HCO3 ABG O2 Saturation ABG Base Excess FiO2 Sodium 138.3 Potassium 5.0 Chloride 97 L Carbon Dioxide 29 Anion Gap 12 BUN 41 H Creatinine 3.71 H Est GFR ( Amer) 19 L Est GFR (Non-Af Amer) 16 L Glucose 127 H Lactic Acid 3.4 H Calcium 7.9 L Magnesium Total Bilirubin 1.0 AST 20 ALT 10 L Alkaline Phosphatase 71 Total Protein 5.8 L Albumin 3.3 L Triglycerides 10/12/17 10/13/17 10/13/17 20:50 03:47 03:47 WBC 8.0 RBC 4.43 Hgb 12.2 L Hct 36.4 L MCV 82 MCH 27.4 MCHC 33.4 RDW 15.6 H Plt Count 107 L Seg Neutrophils % 69.7 Lymphocytes % 14.8 Monocytes % 14.5 H Eosinophils % 0.4 Basophils % 0.6 Absolute Neutrophils 5.6 Absolute Lymphocytes 1.2 Absolute Monocytes 1.2 Absolute Eosinophils 0.0 Absolute Basophils 0.0 Carbonic Acid 1.39 H HCO3/H2CO3 Ratio 16:1 ABG pH 7.31 L ABG pCO2 46.3 H ABG pO2 70.6 L ABG HCO3 22.8 ABG O2 Saturation 92.7 L ABG Base Excess -3.6 FiO2 40% Sodium 136.5 L Potassium 4.1 Chloride 100 Carbon Dioxide 24 Anion Gap 13 BUN 44 H Creatinine 3.13 H Est GFR ( Amer) 23 L Est GFR (Non-Af Amer) 19 L Glucose 124 H Lactic Acid Calcium 7.8 L Magnesium 1.3 L Total Bilirubin 1.0 AST 22 ALT 20 L Alkaline Phosphatase 64 Total Protein 5.2 L Albumin 2.7 L Triglycerides 112 10/13/17 10/13/17 06:15 10:30 WBC RBC Hgb Hct MCV MCH MCHC RDW Plt Count Seg Neutrophils % Lymphocytes % Monocytes % Eosinophils % Basophils % Absolute Neutrophils Absolute Lymphocytes Absolute Monocytes Absolute Eosinophils Absolute Basophils Carbonic Acid 0.79 L HCO3/H2CO3 Ratio 30:1 ABG pH 7.58 H ABG pCO2 26.3 L ABG pO2 86.7 ABG HCO3 24.2 ABG O2 Saturation 97.8 ABG Base Excess 3.3 FiO2 40% Sodium Potassium Chloride Carbon Dioxide Anion Gap BUN Creatinine Est GFR ( Amer) Est GFR (Non-Af Amer) Glucose Lactic Acid 3.4 H Calcium Magnesium Total Bilirubin AST ALT Alkaline Phosphatase Total Protein Albumin Triglycerides 10/12/17 10/12/17 18:55 18:55 Creatine Kinase 356 H CK-MB (CK-2) 8.56 H Troponin I 0.017 Impressions: Knee X-Ray 10/11/17 14:12 IMPRESSION: SATISFACTORY POSTOPERATIVE RIGHT KNEE. QUESTION LUCENT LESIONS WITHIN THE DISTAL FEMUR VERSUS OVERLYING SUBCUTANEOUS GAS FROM SURGERY. RECOMMEND FOLLOWUP RADIOGRAPHS IN 1 TO 2 WEEKS TO RE-EVALUATE GIVEN HISTORY OF MELANOMA. KUB X-Ray 10/12/17 19:45 IMPRESSION: Nasogastric tube in the stomach. Chest X-Ray 10/13/17 06:00 IMPRESSION: Tubes and lines in good positioning. Lingular scarring or atelectasis. Lungs otherwise grossly clear Assessment & Plan - Diagnosis (1) Acute kidney injury Is this a current diagnosis for this admission?: Yes Plan: Has acute on chronic Kidney injury.Was oligo - anuric and now non oliguric. He is hypotensive and has been begun on pressor agents which is helping . The baez cath helped indicating possible obstructive element which seems to have been taken care off. Hold off on the Entresto for now, adjust fluids and pressors and monitor. No indications for INSTRUMENTATION TECHNICIAN presently. Dose meds for a gfr of approx 25 cc/min.Likely causes include Sepsis and ATN,Obstructive element, Acute rhabdo, Drug effects. (2) Acute respiratory failure with hypoxia and hypercapnia Is this a current diagnosis for this admission?: Yes Plan: Intubated and sedated. (3) Chronic combined systolic and diastolic CHF (congestive heart failure) Is this a current diagnosis for this admission?: Yes Plan: Currently compensated.Monitor. (4) Hypotension Qualifiers: Hypotension type: unspecified hypotension type Qualified Code(s): I95.9 - Hypotension, unspecified Plan: Differentials include sepsis, volume related , Drug effects. Less likely Cardiac. Currently on pressors and fluids and seems to be holding. Kay cultures pending and on Ertapenem . (5) Morbid obesity Is this a current diagnosis for this admission?: Yes Plan: . (6) Type 2 diabetes mellitus Qualifiers: Diabetes mellitus complication status: with unspecified complications Diabetes mellitus intermodal dispatcher insulin use: without nursing home use Qualified Code( s): E11.8 - Type 2 diabetes mellitus with unspecified complications
[2017-10-13 13:39] LABS: ARTERIAL BLOOD BASE EXCESS -0.2 mmol/L; ARTERIAL BLOOD H2CO3 1.01 mmol/L (1.05-1.35); ARTERIAL BLOOD HCO3 23.1 mmol/L (20-26); ARTERIAL BLOOD PCO2 33.4 mmHg (35-45); ARTERIAL BLOOD PH 7.46 (7.35-7.45); ARTERIAL BLOOD PO2 101.8 mmHg (80-100); ARTERIAL BLOOD TOTAL CO2 24.1 mmol/L (23-27)
[2017-10-13 13:40] LABS: ARTERIAL BLOOD FIO2 40%
[2017-10-13] MEDS: LEVALBUTEROL HCL NEB 1.25 MG/3 ML AMPUL NEB SCH ×2 (13:48→20:42)
--- NOTE | 2017-10-13 17:04 | PDOC PROGRESS REPORT ---
Subjective Progress Note for:: 10/13/17 Subjective:: Patient on mechanical ventilation sedated Reason For Visit: M17.11 UNILATERAL PRIMARY OSTEOARTHRITIS, RIGHT KN Physical Exam Vital Signs: Temp Pulse Resp BP Pulse Ox 100.3 F 76 16 111/41 L 97 10/13/17 16:00 10/13/17 16:00 10/13/17 16:00 10/13/17 16:00 10/13/17 16:00 Intake & Output 10/12/17 10/13/17 10/14/17 06:59 06:59 06:59 Intake Total 4877 1333 Output Total 2200 905 670 Balance 5443 428 -670 Weight 114.8 kg General appearance: PRESENT: no acute distress Eye exam: PRESENT: PERRLA Respiratory exam: PRESENT: clear to auscultation abigail Cardiovascular exam: PRESENT: +S1, +S2 GI/Abdominal exam: PRESENT: soft Neurological exam: PRESENT: other - Sedated Results Laboratory Results: 10/13/17 03:47 10/13/17 03:47 10/12/17 10/12/17 10/12/17 18:10 18:55 19:30 WBC 7.9 RBC 4.55 Hgb 12.4 L Hct 38.4 MCV 85 MCH 27.4 MCHC 32.4 RDW 15.8 H Plt Count 134 L Seg Neutrophils % 80.8 H Lymphocytes % 7.0 L Monocytes % 11.7 Eosinophils % 0.2 Basophils % 0.3 Absolute Neutrophils 6.4 Absolute Lymphocytes 0.6 Absolute Monocytes 0.9 Absolute Eosinophils 0.0 Absolute Basophils 0.0 Carbonic Acid 1.99 H HCO3/H2CO3 Ratio 12:1 ABG pH 7.20 L* ABG pCO2 66.2 H ABG pO2 65.9 L ABG HCO3 25.3 ABG O2 Saturation 87.8 L ABG Base Excess -3.9 FiO2 30% Sodium 138.3 Potassium 5.0 Chloride 97 L Carbon Dioxide 29 Anion Gap 12 BUN 41 H Creatinine 3.71 H Est GFR ( Amer) 19 L Est GFR (Non-Af Amer) 16 L Glucose 127 H Lactic Acid Calcium 7.9 L Magnesium Total Bilirubin 1.0 AST 20 ALT 10 L Alkaline Phosphatase 71 Total Protein 5.8 L Albumin 3.3 L Triglycerides Urine Color Urine Appearance Urine pH Ur Specific [place] Urine Protein Urine Glucose (UA) Urine Ketones Urine Blood Urine Nitrite Ur Leukocyte Esterase Urine WBC (Auto) Urine RBC (Auto) 10/12/17 10/12/17 10/12/17 19:30 20:25 20:50 WBC 9.1 RBC 4.48 Hgb 12.3 L Hct 38.2 MCV 85 MCH 27.3 MCHC 32.1 RDW 16.0 H Plt Count 135 L Seg Neutrophils % 80.4 H Lymphocytes % 7.7 L Monocytes % 11.2 Eosinophils % 0.2 Basophils % 0.5 Absolute Neutrophils 7.3 Absolute Lymphocytes 0.7 Absolute Monocytes 1.0 Absolute Eosinophils 0.0 Absolute Basophils 0.0 Carbonic Acid 1.39 H HCO3/H2CO3 Ratio 16:1 ABG pH 7.31 L ABG pCO2 46.3 H ABG pO2 70.6 L ABG HCO3 22.8 ABG O2 Saturation 92.7 L ABG Base Excess -3.6 FiO2 40% Sodium Potassium Chloride Carbon Dioxide Anion Gap BUN Creatinine Est GFR ( Amer) Est GFR (Non-Af Amer) Glucose Lactic Acid 3.4 H Calcium Magnesium Total Bilirubin AST ALT Alkaline Phosphatase Total Protein Albumin Triglycerides Urine Color Urine Appearance Urine pH Ur Specific [place] Urine Protein Urine Glucose (UA) Urine Ketones Urine Blood Urine Nitrite Ur Leukocyte Esterase Urine WBC (Auto) Urine RBC (Auto) 10/12/17 10/13/17 10/13/17 22:55 03:47 03:47 WBC 8.0 RBC 4.43 Hgb 12.2 L Hct 36.4 L MCV 82 MCH 27.4 MCHC 33.4 RDW 15.6 H Plt Count 107 L Seg Neutrophils % 69.7 Lymphocytes % 14.8 Monocytes % 14.5 H Eosinophils % 0.4 Basophils % 0.6 Absolute Neutrophils 5.6 Absolute Lymphocytes 1.2 Absolute Monocytes 1.2 Absolute Eosinophils 0.0 Absolute Basophils 0.0 Carbonic Acid HCO3/H2CO3 Ratio ABG pH ABG pCO2 ABG pO2 ABG HCO3 ABG O2 Saturation ABG Base Excess FiO2 Sodium 136.5 L Potassium 4.1 Chloride 100 Carbon Dioxide 24 Anion Gap 13 BUN 44 H Creatinine 3.13 H Est GFR ( Amer) 23 L Est GFR (Non-Af Amer) 19 L Glucose 124 H Lactic Acid Calcium 7.8 L Magnesium 1.3 L Total Bilirubin 1.0 AST 22 ALT 20 L Alkaline Phosphatase 64 Total Protein 5.2 L Albumin 2.7 L Triglycerides 112 Urine Color YELLOW Urine Appearance CLOUDY Urine pH 5.0 Ur Specific [place] 1.024 Urine Protein 30 H Urine Glucose (UA) NEGATIVE Urine Ketones NEGATIVE Urine Blood LARGE H Urine Nitrite NEGATIVE Ur Leukocyte Esterase NEGATIVE Urine WBC (Auto) 8 Urine RBC (Auto) 29 10/13/17 10/13/17 10/13/17 06:15 10:30 13:20 WBC RBC Hgb Hct MCV MCH MCHC RDW Plt Count Seg Neutrophils % Lymphocytes % Monocytes % Eosinophils % Basophils % Absolute Neutrophils Absolute Lymphocytes Absolute Monocytes Absolute Eosinophils Absolute Basophils Carbonic Acid 0.79 L 1.01 L HCO3/H2CO3 Ratio 30:1 22:1 ABG pH 7.58 H 7.46 H ABG pCO2 26.3 L 33.4 L ABG pO2 86.7 101.8 H ABG HCO3 24.2 23.1 ABG O2 Saturation 97.8 98.0 ABG Base Excess 3.3 -0.2 FiO2 40% 40% Sodium Potassium Chloride Carbon Dioxide Anion Gap BUN Creatinine Est GFR ( Amer) Est GFR (Non-Af Amer) Glucose Lactic Acid 3.4 H Calcium Magnesium Total Bilirubin AST ALT Alkaline Phosphatase Total Protein Albumin Triglycerides Urine Color Urine Appearance Urine pH Ur Specific [place] Urine Protein Urine Glucose (UA) Urine Ketones Urine Blood Urine Nitrite Ur Leukocyte Esterase Urine WBC (Auto) Urine RBC (Auto) 10/13/17 14:50 WBC RBC Hgb Hct MCV MCH MCHC RDW Plt Count Seg Neutrophils % Lymphocytes % Monocytes % Eosinophils % Basophils % Absolute Neutrophils Absolute Lymphocytes Absolute Monocytes Absolute Eosinophils Absolute Basophils Carbonic Acid HCO3/H2CO3 Ratio ABG pH ABG pCO2 ABG pO2 ABG HCO3 ABG O2 Saturation ABG Base Excess FiO2 Sodium Potassium Chloride Carbon Dioxide Anion Gap BUN Creatinine Est GFR ( Amer) Est GFR (Non-Af Amer) Glucose Lactic Acid 1.7 Calcium Magnesium Total Bilirubin AST ALT Alkaline Phosphatase Total Protein Albumin Triglycerides Urine Color Urine Appearance Urine pH Ur Specific [place] Urine Protein Urine Glucose (UA) Urine Ketones Urine Blood Urine Nitrite Ur Leukocyte Esterase Urine WBC (Auto) Urine RBC (Auto) 10/12/17 10/12/17 18:55 18:55 Creatine Kinase 356 H CK-MB (CK-2) 8.56 H Troponin I 0.017 Impressions: Knee X-Ray 10/11/17 14:12 IMPRESSION: SATISFACTORY POSTOPERATIVE RIGHT KNEE. QUESTION LUCENT LESIONS WITHIN THE DISTAL FEMUR VERSUS OVERLYING SUBCUTANEOUS GAS FROM SURGERY. RECOMMEND FOLLOWUP RADIOGRAPHS IN 1 TO 2 WEEKS TO RE-EVALUATE GIVEN HISTORY OF MELANOMA. KUB X-Ray 10/12/17 19:45 IMPRESSION: Nasogastric tube in the stomach. Chest X-Ray 10/13/17 06:00 IMPRESSION: Tubes and lines in good positioning. Lingular scarring or atelectasis. Lungs otherwise grossly clear Assessment & Plan - Diagnosis (1) Acute respiratory failure with hypoxia and hypercapnia Is this a current diagnosis for this admission?: Yes (2) Acute kidney injury Is this a current diagnosis for this admission?: Yes (3) Chronic combined systolic and diastolic CHF (congestive heart failure) Is this a current diagnosis for this admission?: Yes (4) Type 2 diabetes mellitus Qualifiers: Diabetes mellitus complication status: with neurologic complications Diabetes mellitus complication detail: with polyneuropathy Diabetes mellitus retirement insulin use: without retirement use Qualified Code(s): E11.42 - Type 2 diabetes mellitus with diabetic polyneuropathy Is this a current diagnosis for this admission?: Yes
[2017-10-13] MEDS: NORMAL SALINE 1000 ML 1,000 ML IV PRN ×2 (18:14→22:25)
[2017-10-13] MEDS: ERTAPENEM SODIUM 0.5 GM in NORMAL SALINE 50 ML IV SCH (21:57)
[2017-10-13] MEDS: MINERAL OIL/PETROLATUM,WHITE OPH OINT 3.5 GM OU SCH (21:59)
[2017-10-13] MEDS: METOPROLOL SUCCINATE 25 MG TAB.SR.24H PO SCH (22:00)
[2017-10-14] MEDS: LEVALBUTEROL HCL NEB 1.25 MG/3 ML AMPUL NEB SCH ×4 (02:13→19:54)
[2017-10-14] MEDS: PROPOFOL 100 ML IV PRN ×3 (03:38→21:10)
[2017-10-14 04:41] LABS: ALANINE AMINOTRANSFERASE 24 U/L (21-72); ALBUMIN 2.5 g/dL (3.5-5.0); ALKALINE PHOSPHATASE 70 U/L (38-126); ANION GAP 9 (5-19); ASPARTATE AMINO TRANSFERASE 22 U/L (17-59); BILIRUBIN,DIRECT 0.3 mg/dL (0.0-0.4); BILIRUBIN,TOTAL 0.9 mg/dL (0.2-1.3); BLOOD UREA NITROGEN 35 mg/dL (7-20); CALCIUM 7.6 mg/dL (8.4-10.2); CARBON DIOXIDE 25 mmol/L (22-30); CHLORIDE 105 mmol/L (98-107); CREATINE KINASE 243 U/L (55-170); GLUCOSE 144 mg/dL (75-110); MAGNESIUM 1.8 mg/dL (1.6-2.3); PHOSPHORUS 2.5 mg/dL (2.5-4.5); POTASSIUM 3.5 mmol/L (3.6-5.0); SODIUM 138.8 mmol/L (137-145); TOTAL PROTEIN 5.1 g/dL (6.3-8.2)
[2017-10-14 05:08] LABS: HEMATOCRIT 36.2 % (37.9-51.0); HEMOGLOBIN 12.1 g/dL (13.5-17.0); MEAN CORPUSCULAR HEMOGLOBIN 27.3 pg (27.0-33.4); MEAN CORPUSCULAR HGB CONC 33.3 g/dL (32.0-36.0); MEAN CORPUSCULAR VOLUME 82 fl (80-97); PLATELET COUNT 100 10^3/uL (150-450); RED BLOOD COUNT 4.42 10^6/uL (4.35-5.55); WHITE BLOOD COUNT 10.2 10^3/uL (4.0-10.5)
[2017-10-14 06:15] LABS: ARTERIAL BLOOD H2CO3 1.04 mmol/L (1.05-1.35); ARTERIAL BLOOD HCO3 21.9 mmol/L (20-26); ARTERIAL BLOOD O2 SATURATION 97.3 % (94-98); ARTERIAL BLOOD PCO2 34.6 mmHg (35-45); ARTERIAL BLOOD PH 7.42 (7.35-7.45); ARTERIAL BLOOD PO2 93.4 mmHg (80-100)
[2017-10-14 06:16] LABS: ARTERIAL BLOOD FIO2 40%
[2017-10-14] MEDS: LANSOPRAZOLE 30 MG TAB.RAP.DR NG SCH (06:22)
--- NOTE | 2017-10-14 07:07 | RADIOLOGY REPORT (SQ) ---
EXAM DESCRIPTION: CHEST SINGLE VIEW CLINICAL HISTORY: 77 years, Male, acute/chronic resp failure COMPARISON: 10/13/17. NUMBER OF VIEWS: 1 LIMITATIONS: None. FINDINGS: Small patchiness of the left lower lobe, small effusion-obscuration of the right costophrenic angle, moderate lung volume, mild enlargement of the cardiac silhouette, adequate appearing endotracheal tube, likely adequate enteric tube obscured distally, left cardiac stimulation device with two leads, right axillary clips, no pneumothorax, and intact bony thorax. IMPRESSION: No significant change. 2011 [employer]- All Rights Reserved
[2017-10-14] MEDS: NORMAL SALINE 1000 ML 1,000 ML IV PRN ×3 (08:18→19:38)
--- NOTE | 2017-10-14 09:05 | PDOC PROGRESS REPORT ---
Subjective Progress Note for:: 10/14/17 Reason For Visit: M17.11 UNILATERAL PRIMARY OSTEOARTHRITIS, RIGHT KN 77-year-old white male postop day 3 from right knee arthroplasty with postoperative renal and pulmonary compromise requiring intubation Physical Exam Vital Signs: Temp Pulse Resp BP Pulse Ox 37.5 C 75 16 119/51 L 98 10/14/17 08:00 10/14/17 02:15 10/14/17 07:00 10/14/17 06:53 10/14/17 07:00 Intake & Output 10/13/17 10/14/17 10/15/17 06:59 06:59 06:59 Intake Total 1333 4142 Output Total 905 2520 275 Balance 428 1622 -275 Weight 114.8 kg 116.1 kg General appearance: PRESENT: other - Sedated Head exam: PRESENT: normocephalic Respiratory exam: PRESENT: other - Intubated Cardiovascular exam: PRESENT: RRR - On levo fed Pulses: PRESENT: +1 pedal pulses bilateral Vascular exam: PRESENT: normal capillary refill GI/Abdominal exam: PRESENT: soft Results Laboratory Results: 10/14/17 04:02 10/14/17 04:02 10/12/17 10/13/17 10/13/17 22:55 10:30 13:20 WBC RBC Hgb Hct MCV MCH MCHC RDW Plt Count Carbonic Acid 1.01 L HCO3/H2CO3 Ratio 22:1 ABG pH 7.46 H ABG pCO2 33.4 L ABG pO2 101.8 H ABG HCO3 23.1 ABG O2 Saturation 98.0 ABG Base Excess -0.2 FiO2 40% Sodium Potassium Chloride Carbon Dioxide Anion Gap BUN Creatinine Est GFR ( Amer) Est GFR (Non-Af Amer) Glucose Lactic Acid 3.4 H Calcium Phosphorus Magnesium Total Bilirubin AST ALT Alkaline Phosphatase Total Protein Albumin Urine Color YELLOW Urine Appearance CLOUDY Urine pH 5.0 Ur Specific [place] 1.024 Urine Protein 30 H Urine Glucose (UA) NEGATIVE Urine Ketones NEGATIVE Urine Blood LARGE H Urine Nitrite NEGATIVE Ur Leukocyte Esterase NEGATIVE Urine WBC (Auto) 8 Urine RBC (Auto) 29 10/13/17 10/14/17 10/14/17 14:50 04:02 04:02 WBC 10.2 RBC 4.42 Hgb 12.1 L Hct 36.2 L MCV 82 MCH 27.3 MCHC 33.3 RDW 16.0 H Plt Count 100 L Carbonic Acid HCO3/H2CO3 Ratio ABG pH ABG pCO2 ABG pO2 ABG HCO3 ABG O2 Saturation ABG Base Excess FiO2 Sodium 138.8 Potassium 3.5 L Chloride 105 Carbon Dioxide 25 Anion Gap 9 BUN 35 H Creatinine 2.29 H Est GFR ( Amer) 34 L Est GFR (Non-Af Amer) 28 L Glucose 144 H Lactic Acid 1.7 Calcium 7.6 L Phosphorus 2.5 Magnesium 1.8 Total Bilirubin 0.9 AST 22 ALT 24 Alkaline Phosphatase 70 Total Protein 5.1 L Albumin 2.5 L Urine Color Urine Appearance Urine pH Ur Specific [place] Urine Protein Urine Glucose (UA) Urine Ketones Urine Blood Urine Nitrite Ur Leukocyte Esterase Urine WBC (Auto) Urine RBC (Auto) 10/14/17 10/14/17 04:02 06:05 WBC RBC Hgb Hct MCV MCH MCHC RDW Plt Count Carbonic Acid 1.04 L HCO3/H2CO3 Ratio 21:1 ABG pH 7.42 ABG pCO2 34.6 L ABG pO2 93.4 ABG HCO3 21.9 ABG O2 Saturation 97.3 ABG Base Excess -2.0 FiO2 40% Sodium Potassium Chloride Carbon Dioxide Anion Gap BUN Creatinine Est GFR ( Amer) Est GFR (Non-Af Amer) Glucose Lactic Acid 1.8 Calcium Phosphorus Magnesium Total Bilirubin AST ALT Alkaline Phosphatase Total Protein Albumin Urine Color Urine Appearance Urine pH Ur Specific [place] Urine Protein Urine Glucose (UA) Urine Ketones Urine Blood Urine Nitrite Ur Leukocyte Esterase Urine WBC (Auto) Urine RBC (Auto) 10/12/17 10/12/17 10/14/17 18:55 18:55 04:02 Creatine Kinase 356 H 243 H CK-MB (CK-2) 8.56 H Troponin I 0.017 Impressions: Knee X-Ray 10/11/17 14:12 IMPRESSION: SATISFACTORY POSTOPERATIVE RIGHT KNEE. QUESTION LUCENT LESIONS WITHIN THE DISTAL FEMUR VERSUS OVERLYING SUBCUTANEOUS GAS FROM SURGERY. RECOMMEND FOLLOWUP RADIOGRAPHS IN 1 TO 2 WEEKS TO RE-EVALUATE GIVEN HISTORY OF MELANOMA. KUB X-Ray 10/12/17 19:45 IMPRESSION: Nasogastric tube in the stomach. Chest X-Ray 10/14/17 06:00 IMPRESSION: No significant change. 2010 [employer]- All Rights Reserved Assessment & Plan - Diagnosis (1) Arthritis of right knee Is this a current diagnosis for this admission?: Yes Plan: Right knee dressing was changed last night. Is currently clean dry and intact. (2) Acute kidney injury Is this a current diagnosis for this admission?: Yes Plan: Creatinine improving (3) Acute respiratory failure with hypoxia and hypercapnia Is this a current diagnosis for this admission?: Yes Plan: Little progress from yesterday
[2017-10-14] MEDS: CITALOPRAM HYDROBROMIDE 20 MG TABLET NG SCH (09:34)
[2017-10-14] MEDS: CYANOCOBALAMIN (VITAMIN B-12) 1,000 MCG TABLET PO SCH (09:34)
[2017-10-14] MEDS: PREGABALIN 75 MG CAPSULE NG SCH ×2 (09:34→21:10)
[2017-10-14] MEDS: CLOPIDOGREL BISULFATE 75 MG TABLET NG SCH (09:35)
[2017-10-14] MEDS: SITAGLIPTIN PHOSPHATE 25 MG TABLET NG SCH (09:35)
[2017-10-14] MEDS: ASPIRIN 81 MG TABLET, CHEWABLE NG SCH (09:35)
[2017-10-14] MEDS: POLYVINYL ALCOHOL 1.4% OPH SOLN 15 ML OU SCH ×4 (09:36→21:11)
[2017-10-14] MEDS: ISOSORBIDE MONONITRATE 30 MG TAB.ER.24H PO SCH (09:40)
[2017-10-14] MEDS: TAMSULOSIN HCL 0.4 MG CAP.SR.24H PO SCH (09:40)
[2017-10-14] MEDS: PSYLLIUM SEED-SF 5.85 GM PACKET PO SCH ×2 (09:40→17:46)
[2017-10-14] MEDS: DEXTROSE 5%-WATER 250 ML with NOREPINEPHRINE BITARTRATE 4 MG IV PRN ×4 (10:59→19:37)
--- NOTE | 2017-10-14 16:51 | PDOC PROGRESS REPORT ---
Subjective Progress Note for:: 10/14/17 Subjective:: intubated Reason For Visit: M17.11 UNILATERAL PRIMARY OSTEOARTHRITIS, RIGHT KN Physical Exam Vital Signs: Temp Pulse Resp BP Pulse Ox 99.5 F 84 14 119/51 L 95 10/14/17 08:00 10/14/17 08:18 10/14/17 08:18 10/14/17 06:53 10/14/17 09:26 Intake & Output 10/13/17 10/14/17 10/15/17 06:59 06:59 06:59 Intake Total 1333 4142 Output Total 905 2520 275 Balance 428 1622 -275 Weight 114.8 kg 116.1 kg General appearance: PRESENT: no acute distress, disheveled, thin. ABSENT: cooperative, mild distress, morbidly obese, obese, severe distress Head exam: PRESENT: atraumatic, normocephalic Eye exam: PRESENT: conjunctiva pale. ABSENT: conjunctival injection, conjunctiva pink, nystagmus, periorbital swelling, scleral icterus Mouth exam: PRESENT: dry mucosa, neck supple, tongue midline, other - ET tube. ABSENT: laceration, moist Neck exam: ABSENT: carotid bruit, JVD, lymphadenopathy, thyromegaly, tracheal deviation, tracheostomy Respiratory exam: PRESENT: crackles, decreased breath sounds, prolonged expiratory phas, rhonchi, symmetrical, unlabored. ABSENT: accessory muscle use , chest wall tenderness, clear to auscultation abigail, rales, retraction, stridor, tachypnea, wheezes Cardiovascular exam: PRESENT: irregular rhythm GI/Abdominal exam: PRESENT: diminished bowel sounds, soft Extremities exam: ABSENT: clubbing Musculoskeletal exam: ABSENT: deformity, dislocation Neurological exam: ABSENT: alert, awake Skin exam: PRESENT: dry, warm Results Laboratory Results: 10/14/17 04:02 10/14/17 04:02 10/12/17 10/13/17 10/13/17 22:55 10:30 13:20 WBC RBC Hgb Hct MCV MCH MCHC RDW Plt Count Carbonic Acid 1.01 L HCO3/H2CO3 Ratio 22:1 ABG pH 7.46 H ABG pCO2 33.4 L ABG pO2 101.8 H ABG HCO3 23.1 ABG O2 Saturation 98.0 ABG Base Excess -0.2 FiO2 40% Sodium Potassium Chloride Carbon Dioxide Anion Gap BUN Creatinine Est GFR ( Amer) Est GFR (Non-Af Amer) Glucose Lactic Acid 3.4 H Calcium Phosphorus Magnesium Total Bilirubin AST ALT Alkaline Phosphatase Total Protein Albumin Urine Color YELLOW Urine Appearance CLOUDY Urine pH 5.0 Ur Specific [place] 1.024 Urine Protein 30 H Urine Glucose (UA) NEGATIVE Urine Ketones NEGATIVE Urine Blood LARGE H Urine Nitrite NEGATIVE Ur Leukocyte Esterase NEGATIVE Urine WBC (Auto) 8 Urine RBC (Auto) 29 10/13/17 10/14/17 10/14/17 14:50 04:02 04:02 WBC 10.2 RBC 4.42 Hgb 12.1 L Hct 36.2 L MCV 82 MCH 27.3 MCHC 33.3 RDW 16.0 H Plt Count 100 L Carbonic Acid HCO3/H2CO3 Ratio ABG pH ABG pCO2 ABG pO2 ABG HCO3 ABG O2 Saturation ABG Base Excess FiO2 Sodium 138.8 Potassium 3.5 L Chloride 105 Carbon Dioxide 25 Anion Gap 9 BUN 35 H Creatinine 2.29 H Est GFR ( Amer) 34 L Est GFR (Non-Af Amer) 28 L Glucose 144 H Lactic Acid 1.7 Calcium 7.6 L Phosphorus 2.5 Magnesium 1.8 Total Bilirubin 0.9 AST 22 ALT 24 Alkaline Phosphatase 70 Total Protein 5.1 L Albumin 2.5 L Urine Color Urine Appearance Urine pH Ur Specific [place] Urine Protein Urine Glucose (UA) Urine Ketones Urine Blood Urine Nitrite Ur Leukocyte Esterase Urine WBC (Auto) Urine RBC (Auto) 10/14/17 10/14/17 04:02 06:05 WBC RBC Hgb Hct MCV MCH MCHC RDW Plt Count Carbonic Acid 1.04 L HCO3/H2CO3 Ratio 21:1 ABG pH 7.42 ABG pCO2 34.6 L ABG pO2 93.4 ABG HCO3 21.9 ABG O2 Saturation 97.3 ABG Base Excess -2.0 FiO2 40% Sodium Potassium Chloride Carbon Dioxide Anion Gap BUN Creatinine Est GFR ( Amer) Est GFR (Non-Af Amer) Glucose Lactic Acid 1.8 Calcium Phosphorus Magnesium Total Bilirubin AST ALT Alkaline Phosphatase Total Protein Albumin Urine Color Urine Appearance Urine pH Ur Specific [place] Urine Protein Urine Glucose (UA) Urine Ketones Urine Blood Urine Nitrite Ur Leukocyte Esterase Urine WBC (Auto) Urine RBC (Auto) 10/12/17 10/12/17 10/14/17 18:55 18:55 04:02 Creatine Kinase 356 H 243 H CK-MB (CK-2) 8.56 H Troponin I 0.017 Impressions: Knee X-Ray 10/11/17 14:12 IMPRESSION: SATISFACTORY POSTOPERATIVE RIGHT KNEE. QUESTION LUCENT LESIONS WITHIN THE DISTAL FEMUR VERSUS OVERLYING SUBCUTANEOUS GAS FROM SURGERY. RECOMMEND FOLLOWUP RADIOGRAPHS IN 1 TO 2 WEEKS TO RE-EVALUATE GIVEN HISTORY OF MELANOMA. KUB X-Ray 10/12/17 19:45 IMPRESSION: Nasogastric tube in the stomach. Chest X-Ray 10/14/17 06:00 IMPRESSION: No significant change. 2010 [employer]- All Rights Reserved Assessment & Plan - Diagnosis (1) Acute respiratory failure with hypoxia and hypercapnia Is this a current diagnosis for this admission?: Yes Plan: weaning decreasing FIO2 (2) Chronic combined systolic and diastolic CHF (congestive heart failure) Is this a current diagnosis for this admission?: Yes Plan: diuresis as necessary (3) Acute tubular necrosis Is this a current diagnosis for this admission?: Yes Plan: Labs- All tests 24 hr 10/05/17 10/12/17 10/12/17 12:10 06:05 19:30 BUN 21 H 33 H 41 H Creatinine 1.37 H 2.60 H 3.71 H 10/13/17 10/14/17 03:47 04:02 BUN 44 H 35 H Creatinine 3.13 H 2.29 H (4) Altered mental status Qualifiers: Altered mental status type: somnolence Qualified Code(s): R40.0 - Somnolence Is this a current diagnosis for this admission?: Yes (5) Morbid obesity Is this a current diagnosis for this admission?: Yes - Time Total Critical Time (Minutes): 40
--- NOTE | 2017-10-14 16:55 | PDOC PROGRESS REPORT ---
Subjective Progress Note for:: 10/13/17 Subjective:: intubated Reason For Visit: M17.11 UNILATERAL PRIMARY OSTEOARTHRITIS, RIGHT KN Physical Exam Vital Signs: Temp Pulse Resp BP Pulse Ox 100.2 F 77 20 104/54 L 95 10/13/17 08:00 10/13/17 08:00 10/13/17 08:00 10/13/17 08:00 10/13/17 08:46 Intake & Output 10/12/17 10/13/17 10/14/17 06:59 06:59 06:59 Intake Total 4877 1333 Output Total 2200 905 60 Balance 2677 428 -60 Weight 114.8 kg General appearance: PRESENT: no acute distress, disheveled. ABSENT: cooperative , mild distress, morbidly obese, severe distress Head exam: PRESENT: atraumatic, normocephalic Eye exam: PRESENT: conjunctiva pale. ABSENT: conjunctival injection, conjunctiva pink, nystagmus, periorbital swelling, scleral icterus Mouth exam: PRESENT: dry mucosa, neck supple, tongue midline, other - ET tube. ABSENT: laceration, moist Neck exam: ABSENT: carotid bruit, JVD, lymphadenopathy, thyromegaly, tracheal deviation, tracheostomy Respiratory exam: PRESENT: crackles, decreased breath sounds, prolonged expiratory phas, rhonchi, symmetrical, unlabored. ABSENT: accessory muscle use , chest wall tenderness, clear to auscultation abigail, rales, retraction, stridor, tachypnea Cardiovascular exam: PRESENT: irregular rhythm Pulses: PRESENT: normal radial pulses GI/Abdominal exam: PRESENT: diminished bowel sounds, soft Gentrourinary exam: PRESENT: indwelling catheter Extremities exam: ABSENT: clubbing Musculoskeletal exam: ABSENT: deformity, dislocation Neurological exam: ABSENT: alert, awake Skin exam: PRESENT: dry, warm Results Laboratory Results: 10/13/17 03:47 10/13/17 03:47 10/12/17 10/12/17 10/12/17 14:45 18:10 18:55 WBC 7.9 RBC 4.55 Hgb 12.4 L Hct 38.4 MCV 85 MCH 27.4 MCHC 32.4 RDW 15.8 H Plt Count 134 L Seg Neutrophils % 80.8 H Lymphocytes % 7.0 L Monocytes % 11.7 Eosinophils % 0.2 Basophils % 0.3 Absolute Neutrophils 6.4 Absolute Lymphocytes 0.6 Absolute Monocytes 0.9 Absolute Eosinophils 0.0 Absolute Basophils 0.0 Carbonic Acid 2.30 H 1.99 H HCO3/H2CO3 Ratio 12:1 12:1 ABG pH 7.19 L* 7.20 L* ABG pCO2 76.4 H* 66.2 H ABG pO2 89.3 65.9 L ABG HCO3 28.3 H 25.3 ABG O2 Saturation 94.3 87.8 L ABG Base Excess -1.8 -3.9 FiO2 2L 30% Sodium Potassium Chloride Carbon Dioxide Anion Gap BUN Creatinine Est GFR ( Amer) Est GFR (Non-Af Amer) Glucose Lactic Acid Calcium Magnesium Total Bilirubin AST ALT Alkaline Phosphatase Total Protein Albumin Triglycerides 10/12/17 10/12/17 10/12/17 19:30 19:30 20:25 WBC 9.1 RBC 4.48 Hgb 12.3 L Hct 38.2 MCV 85 MCH 27.3 MCHC 32.1 RDW 16.0 H Plt Count 135 L Seg Neutrophils % 80.4 H Lymphocytes % 7.7 L Monocytes % 11.2 Eosinophils % 0.2 Basophils % 0.5 Absolute Neutrophils 7.3 Absolute Lymphocytes 0.7 Absolute Monocytes 1.0 Absolute Eosinophils 0.0 Absolute Basophils 0.0 Carbonic Acid HCO3/H2CO3 Ratio ABG pH ABG pCO2 ABG pO2 ABG HCO3 ABG O2 Saturation ABG Base Excess FiO2 Sodium 138.3 Potassium 5.0 Chloride 97 L Carbon Dioxide 29 Anion Gap 12 BUN 41 H Creatinine 3.71 H Est GFR ( Amer) 19 L Est GFR (Non-Af Amer) 16 L Glucose 127 H Lactic Acid 3.4 H Calcium 7.9 L Magnesium Total Bilirubin 1.0 AST 20 ALT 10 L Alkaline Phosphatase 71 Total Protein 5.8 L Albumin 3.3 L Triglycerides 10/12/17 10/13/17 10/13/17 20:50 03:47 03:47 WBC 8.0 RBC 4.43 Hgb 12.2 L Hct 36.4 L MCV 82 MCH 27.4 MCHC 33.4 RDW 15.6 H Plt Count 107 L Seg Neutrophils % 69.7 Lymphocytes % 14.8 Monocytes % 14.5 H Eosinophils % 0.4 Basophils % 0.6 Absolute Neutrophils 5.6 Absolute Lymphocytes 1.2 Absolute Monocytes 1.2 Absolute Eosinophils 0.0 Absolute Basophils 0.0 Carbonic Acid 1.39 H HCO3/H2CO3 Ratio 16:1 ABG pH 7.31 L ABG pCO2 46.3 H ABG pO2 70.6 L ABG HCO3 22.8 ABG O2 Saturation 92.7 L ABG Base Excess -3.6 FiO2 40% Sodium 136.5 L Potassium 4.1 Chloride 100 Carbon Dioxide 24 Anion Gap 13 BUN 44 H Creatinine 3.13 H Est GFR ( Amer) 23 L Est GFR (Non-Af Amer) 19 L Glucose 124 H Lactic Acid Calcium 7.8 L Magnesium 1.3 L Total Bilirubin 1.0 AST 22 ALT 20 L Alkaline Phosphatase 64 Total Protein 5.2 L Albumin 2.7 L Triglycerides 112 10/13/17 06:15 WBC RBC Hgb Hct MCV MCH MCHC RDW Plt Count Seg Neutrophils % Lymphocytes % Monocytes % Eosinophils % Basophils % Absolute Neutrophils Absolute Lymphocytes Absolute Monocytes Absolute Eosinophils Absolute Basophils Carbonic Acid 0.79 L HCO3/H2CO3 Ratio 30:1 ABG pH 7.58 H ABG pCO2 26.3 L ABG pO2 86.7 ABG HCO3 24.2 ABG O2 Saturation 97.8 ABG Base Excess 3.3 FiO2 40% Sodium Potassium Chloride Carbon Dioxide Anion Gap BUN Creatinine Est GFR ( Amer) Est GFR (Non-Af Amer) Glucose Lactic Acid Calcium Magnesium Total Bilirubin AST ALT Alkaline Phosphatase Total Protein Albumin Triglycerides 10/12/17 10/12/17 18:55 18:55 Creatine Kinase 356 H CK-MB (CK-2) 8.56 H Troponin I 0.017 Impressions: Knee X-Ray 10/11/17 14:12 IMPRESSION: SATISFACTORY POSTOPERATIVE RIGHT KNEE. QUESTION LUCENT LESIONS WITHIN THE DISTAL FEMUR VERSUS OVERLYING SUBCUTANEOUS GAS FROM SURGERY. RECOMMEND FOLLOWUP RADIOGRAPHS IN 1 TO 2 WEEKS TO RE-EVALUATE GIVEN HISTORY OF MELANOMA. KUB X-Ray 10/12/17 19:45 IMPRESSION: Nasogastric tube in the stomach. Chest X-Ray 10/13/17 06:00 IMPRESSION: Tubes and lines in good positioning. Lingular scarring or atelectasis. Lungs otherwise grossly clear Assessment & Plan - Diagnosis (1) Acute respiratory failure with hypoxia and hypercapnia Is this a current diagnosis for this admission?: Yes Plan: improving (2) Chronic combined systolic and diastolic CHF (congestive heart failure) Is this a current diagnosis for this admission?: Yes Plan: diuresis as necessary (3) Acute tubular necrosis Is this a current diagnosis for this admission?: Yes Plan: improving (4) Altered mental status Qualifiers: Altered mental status type: somnolence Qualified Code(s): R40.0 - Somnolence Is this a current diagnosis for this admission?: Yes (5) Morbid obesity Is this a current diagnosis for this admission?: Yes - Time Total Critical Time (Minutes): 40
--- NOTE | 2017-10-14 19:20 | PDOC PROGRESS REPORT ---
Subjective Progress Note for:: 10/14/17 Subjective:: Patient was intubated at the time of examination. Patient was discussed with nurse in charge of his care. He is currently on 8mcg of levophed, blood pressure is around the 120s. When they have tried to decrease his pressures his bp has not stayed in above the 90s systolic. His creatinine went from 3.1 from 2.2. His urine production has increased to 2.5L yesterday. Reason For Visit: M17.11 UNILATERAL PRIMARY OSTEOARTHRITIS, RIGHT KN Physical Exam Vital Signs: Temp Pulse Resp BP Pulse Ox 99.7 F 78 16 119/52 L 100 10/14/17 16:00 10/14/17 14:38 10/14/17 18:24 10/14/17 18:24 10/14/17 18:24 Intake & Output 10/13/17 10/14/17 10/15/17 06:59 06:59 06:59 Intake Total 1333 4142 2108 Output Total 905 2520 1450 Balance 428 1622 658 Weight 114.8 kg 116.1 kg General appearance: PRESENT: no acute distress, well-developed, well-nourished Mouth exam: PRESENT: moist, tongue midline Neck exam: ABSENT: JVD, tracheal deviation Respiratory exam: PRESENT: clear to auscultation abigail. ABSENT: accessory muscle use, crackles, rales, rhonchi, wheezes Cardiovascular exam: PRESENT: +S1, +S2, systolic murmur GI/Abdominal exam: PRESENT: normal bowel sounds, soft. ABSENT: organomegaly, tenderness Extremities exam: ABSENT: pedal edema, tenderness Musculoskeletal exam: ABSENT: normal inspection, tenderness Neurological exam: PRESENT: other - intubated but follows commands Psychiatric exam: ABSENT: agitated Skin exam: PRESENT: dry, intact. ABSENT: rash Results Laboratory Results: 10/14/17 04:02 10/14/17 04:02 10/14/17 10/14/17 10/14/17 04:02 04:02 04:02 WBC 10.2 RBC 4.42 Hgb 12.1 L Hct 36.2 L MCV 82 MCH 27.3 MCHC 33.3 RDW 16.0 H Plt Count 100 L Carbonic Acid HCO3/H2CO3 Ratio ABG pH ABG pCO2 ABG pO2 ABG HCO3 ABG O2 Saturation ABG Base Excess FiO2 Sodium 138.8 Potassium 3.5 L Chloride 105 Carbon Dioxide 25 Anion Gap 9 BUN 35 H Creatinine 2.29 H Est GFR ( Amer) 34 L Est GFR (Non-Af Amer) 28 L Glucose 144 H Lactic Acid 1.8 Calcium 7.6 L Phosphorus 2.5 Magnesium 1.8 Total Bilirubin 0.9 AST 22 ALT 24 Alkaline Phosphatase 70 Total Protein 5.1 L Albumin 2.5 L 10/14/17 06:05 WBC RBC Hgb Hct MCV MCH MCHC RDW Plt Count Carbonic Acid 1.04 L HCO3/H2CO3 Ratio 21:1 ABG pH 7.42 ABG pCO2 34.6 L ABG pO2 93.4 ABG HCO3 21.9 ABG O2 Saturation 97.3 ABG Base Excess -2.0 FiO2 40% Sodium Potassium Chloride Carbon Dioxide Anion Gap BUN Creatinine Est GFR ( Amer) Est GFR (Non-Af Amer) Glucose Lactic Acid Calcium Phosphorus Magnesium Total Bilirubin AST ALT Alkaline Phosphatase Total Protein Albumin 10/12/17 10/12/17 10/14/17 18:55 18:55 04:02 Creatine Kinase 356 H 243 H CK-MB (CK-2) 8.56 H Troponin I 0.017 Impressions: Knee X-Ray 10/11/17 14:12 IMPRESSION: SATISFACTORY POSTOPERATIVE RIGHT KNEE. QUESTION LUCENT LESIONS WITHIN THE DISTAL FEMUR VERSUS OVERLYING SUBCUTANEOUS GAS FROM SURGERY. RECOMMEND FOLLOWUP RADIOGRAPHS IN 1 TO 2 WEEKS TO RE-EVALUATE GIVEN HISTORY OF MELANOMA. KUB X-Ray 10/12/17 19:45 IMPRESSION: Nasogastric tube in the stomach. Chest X-Ray 10/14/17 06:00 IMPRESSION: No significant change. 2010 [employer]- All Rights Reserved Assessment & Plan - Diagnosis (1) Acute kidney injury Is this a current diagnosis for this admission?: Yes Plan: looks to be improving with hydration and with his blood pressure not being hypotensive. Recommend rehydrating at current saline rate. Patient does not show signs of edema and lungs are clear. (2) Acute respiratory failure with hypoxia and hypercapnia Is this a current diagnosis for this admission?: Yes Plan: currently intubated and following commands (3) Hypokalemia Plan: currently on potassium replacement protocol, will reassess tomorrow to see if protocol is adequate enough. 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
--- NOTE | 2017-10-14 20:36 | PDOC PROGRESS REPORT ---
Subjective Progress Note for:: 10/14/17 Subjective:: Sedated and intubated Reason For Visit: M17.11 UNILATERAL PRIMARY OSTEOARTHRITIS, RIGHT KN Physical Exam Vital Signs: Temp Pulse Resp BP Pulse Ox 98.4 F 78 16 119/52 L 100 10/14/17 20:00 10/14/17 14:38 10/14/17 18:24 10/14/17 18:24 10/14/17 18:24 Intake & Output 10/13/17 10/14/17 10/15/17 06:59 06:59 06:59 Intake Total 1333 4142 2108 Output Total 905 2520 1675 Balance 428 1622 433 Weight 114.8 kg 116.1 kg Respiratory exam: PRESENT: clear to auscultation abigail Cardiovascular exam: PRESENT: +S1, +S2 GI/Abdominal exam: PRESENT: soft Results Laboratory Results: 10/14/17 04:02 10/14/17 04:02 10/14/17 10/14/17 10/14/17 04:02 04:02 04:02 WBC 10.2 RBC 4.42 Hgb 12.1 L Hct 36.2 L MCV 82 MCH 27.3 MCHC 33.3 RDW 16.0 H Plt Count 100 L Carbonic Acid HCO3/H2CO3 Ratio ABG pH ABG pCO2 ABG pO2 ABG HCO3 ABG O2 Saturation ABG Base Excess FiO2 Sodium 138.8 Potassium 3.5 L Chloride 105 Carbon Dioxide 25 Anion Gap 9 BUN 35 H Creatinine 2.29 H Est GFR ( Amer) 34 L Est GFR (Non-Af Amer) 28 L Glucose 144 H Lactic Acid 1.8 Calcium 7.6 L Phosphorus 2.5 Magnesium 1.8 Total Bilirubin 0.9 AST 22 ALT 24 Alkaline Phosphatase 70 Total Protein 5.1 L Albumin 2.5 L 10/14/17 06:05 WBC RBC Hgb Hct MCV MCH MCHC RDW Plt Count Carbonic Acid 1.04 L HCO3/H2CO3 Ratio 21:1 ABG pH 7.42 ABG pCO2 34.6 L ABG pO2 93.4 ABG HCO3 21.9 ABG O2 Saturation 97.3 ABG Base Excess -2.0 FiO2 40% Sodium Potassium Chloride Carbon Dioxide Anion Gap BUN Creatinine Est GFR ( Amer) Est GFR (Non-Af Amer) Glucose Lactic Acid Calcium Phosphorus Magnesium Total Bilirubin AST ALT Alkaline Phosphatase Total Protein Albumin 10/12/17 10/12/17 10/14/17 18:55 18:55 04:02 Creatine Kinase 356 H 243 H CK-MB (CK-2) 8.56 H Troponin I 0.017 Impressions: Knee X-Ray 10/11/17 14:12 IMPRESSION: SATISFACTORY POSTOPERATIVE RIGHT KNEE. QUESTION LUCENT LESIONS WITHIN THE DISTAL FEMUR VERSUS OVERLYING SUBCUTANEOUS GAS FROM SURGERY. RECOMMEND FOLLOWUP RADIOGRAPHS IN 1 TO 2 WEEKS TO RE-EVALUATE GIVEN HISTORY OF MELANOMA. KUB X-Ray 10/12/17 19:45 IMPRESSION: Nasogastric tube in the stomach. Chest X-Ray 10/14/17 06:00 IMPRESSION: No significant change. 2010 [employer]- All Rights Reserved Assessment & Plan - Diagnosis (1) Acute respiratory failure with hypoxia and hypercapnia Is this a current diagnosis for this admission?: Yes (2) Acute kidney injury Is this a current diagnosis for this admission?: Yes (3) Chronic combined systolic and diastolic CHF (congestive heart failure) Is this a current diagnosis for this admission?: Yes (4) Type 2 diabetes mellitus Qualifiers: Diabetes mellitus complication status: with neurologic complications Diabetes mellitus complication detail: with polyneuropathy Diabetes mellitus snf insulin use: without snf use Qualified Code(s): E11.42 - Type 2 diabetes mellitus with diabetic polyneuropathy Is this a current diagnosis for this admission?: Yes - Plan Summary Plan Summary: Patient still on mechanical ventilation, Continue treatment
[2017-10-14] MEDS: MINERAL OIL/PETROLATUM,WHITE OPH OINT 3.5 GM OU SCH (21:11)
[2017-10-14] MEDS: METOPROLOL SUCCINATE 25 MG TAB.SR.24H PO SCH (21:13)
[2017-10-14] MEDS: ERTAPENEM SODIUM 0.5 GM in NORMAL SALINE 50 ML IV SCH (21:13)
[2017-10-15] MEDS: PROPOFOL 100 ML IV PRN ×3 (02:07→19:37)
[2017-10-15] MEDS: LEVALBUTEROL HCL NEB 1.25 MG/3 ML AMPUL NEB SCH ×4 (02:29→20:18)
[2017-10-15] MEDS: DEXTROSE 5%-WATER 250 ML with NOREPINEPHRINE BITARTRATE 4 MG IV PRN ×2 (04:26)
[2017-10-15] MEDS: NORMAL SALINE 1000 ML 1,000 ML IV PRN ×2 (04:26→22:07)
[2017-10-15 04:47] LABS: ABSOLUTE EOSINOPHILS # (AUTO) 0.4 10^3/uL (0.0-0.6); ABSOLUTE LYMPHOCYTES (AUTO) 1.9 10^3/uL (0.5-4.7); ABSOLUTE MONOCYTES (AUTO) 1.5 10^3/uL (0.1-1.4); ABSOLUTE NEUT (AUTO) 5.7 10^3/uL (1.7-8.2); BASOPHILS % (AUTO) 0.5 % (0-2); EOSINOPHILS % (AUTO) 3.7 % (0-6); HEMOGLOBIN 11.7 g/dL (13.5-17.0); LYMPHOCYTES % (AUTO) 20.1 % (13-45); MEAN CORPUSCULAR HEMOGLOBIN 26.9 pg (27.0-33.4); MEAN CORPUSCULAR HGB CONC 32.5 g/dL (32.0-36.0); MEAN CORPUSCULAR VOLUME 83 fl (80-97); MONOCYTES % (AUTO) 15.6 % (3-13); PLATELET COUNT 103 10^3/uL (150-450); RED BLOOD COUNT 4.34 10^6/uL (4.35-5.55); RED CELL DISTRIBUTION WIDTH 16.4 % (11.5-14.0); SEGMENTED NEUTROPHILS % (AUTO) 60.1 % (42-78); TOTAL CELLS COUNTED % (AUTO) 100 %; WHITE BLOOD COUNT 9.5 10^3/uL (4.0-10.5)
[2017-10-15 04:55] LABS: ALANINE AMINOTRANSFERASE 27 U/L (21-72); ALBUMIN 2.4 g/dL (3.5-5.0); ALKALINE PHOSPHATASE 71 U/L (38-126); ANION GAP 7 (5-19); ASPARTATE AMINO TRANSFERASE 40 U/L (17-59); BILIRUBIN,DIRECT 0.4 mg/dL (0.0-0.4); BILIRUBIN,TOTAL 0.8 mg/dL (0.2-1.3); BLOOD UREA NITROGEN 20 mg/dL (7-20); CALCIUM 7.8 mg/dL (8.4-10.2); CARBON DIOXIDE 24 mmol/L (22-30); CHLORIDE 112 mmol/L (98-107); CREATINE KINASE 215 U/L (55-170); GLUCOSE 136 mg/dL (75-110); MAGNESIUM 1.8 mg/dL (1.6-2.3); POTASSIUM 3.5 mmol/L (3.6-5.0); SODIUM 142.6 mmol/L (137-145); TOTAL PROTEIN 4.9 g/dL (6.3-8.2)
[2017-10-15] MEDS: LANSOPRAZOLE 30 MG TAB.RAP.DR NG SCH (05:22)
[2017-10-15 05:28] LABS: ARTERIAL BLOOD BASE EXCESS -2.1 mmol/L; ARTERIAL BLOOD HCO3 21.6 mmol/L (20-26); ARTERIAL BLOOD O2 SATURATION 98.1 % (94-98); ARTERIAL BLOOD PCO2 33.3 mmHg (35-45); ARTERIAL BLOOD PH 7.43 (7.35-7.45); ARTERIAL BLOOD PO2 109.1 mmHg (80-100); ARTERIAL BLOOD TOTAL CO2 22.6 mmol/L (23-27)
[2017-10-15 05:45] LABS: ARTERIAL BLOOD FIO2 40
--- NOTE | 2017-10-15 06:43 | PDOC PROGRESS REPORT ---
Subjective Progress Note for:: 10/15/17 Subjective:: 77-year-old white male 4 days status post total right knee arthroplasty with pulmonary and renal compromise requiring intubation. Patient still intubated and sedated this morning. Reason For Visit: M17.11 UNILATERAL PRIMARY OSTEOARTHRITIS, RIGHT KN Physical Exam Vital Signs: Temp Pulse Resp BP Pulse Ox 37.0 C 70 16 114/44 L 99 10/15/17 04:00 10/15/17 02:30 10/15/17 03:25 10/15/17 03:25 10/15/17 04:00 Intake & Output 10/13/17 10/14/17 10/15/17 06:59 06:59 06:59 Intake Total 1333 4142 2108 Output Total 905 6740 2475 Balance 428 1622 -367 Weight 114.8 kg 116.1 kg 118.1 kg General appearance: PRESENT: no acute distress, well-developed, well-nourished Head exam: PRESENT: atraumatic, normocephalic Additional comments: Patient intubated. Respiratory exam: PRESENT: unlabored Pulses: PRESENT: normal dorsalis pedis pul, +2 pedal pulses bilateral Vascular exam: PRESENT: normal capillary refill Additional comments: Patient lying in hospital bed recumbent with bilateral lower extremities in full extension. His OpSite dressing on right knee is clean dry and intact. This is left in place. He has brisk capillary refill to bilateral lower extremities distal neurovascular exam is intact. Additional comments: Patient has not been ambulatory since postop day 1 as he is sedated and intubated in ICU. He is not in a state to ambulate or be seen by physical therapy. He will continue to work with physical therapy throughout his stay in the hospital once he has been extubated and returned to the surgical floor. Additional comments: Again patient sedated and intubated. Skin exam: PRESENT: dry, intact, warm. ABSENT: cyanosis, rash Results Laboratory Results: 10/15/17 04:01 10/15/17 04:01 10/15/17 10/15/17 10/15/17 04:01 04:01 04:01 WBC 9.5 RBC 4.34 L Hgb 11.7 L Hct 36.0 L MCV 83 MCH 26.9 L MCHC 32.5 RDW 16.4 H Plt Count 103 L Seg Neutrophils % 60.1 Lymphocytes % 20.1 Monocytes % 15.6 H Eosinophils % 3.7 Basophils % 0.5 Absolute Neutrophils 5.7 Absolute Lymphocytes 1.9 Absolute Monocytes 1.5 H Absolute Eosinophils 0.4 Absolute Basophils 0.0 Carbonic Acid HCO3/H2CO3 Ratio ABG pH ABG pCO2 ABG pO2 ABG HCO3 ABG O2 Saturation ABG Base Excess FiO2 Sodium 142.6 Potassium 3.5 L Chloride 112 H Carbon Dioxide 24 Anion Gap 7 BUN 20 Creatinine 1.39 H Est GFR ( Amer) > 60 Est GFR (Non-Af Amer) 49 L Glucose 136 H Lactic Acid 1.7 Calcium 7.8 L Magnesium 1.8 Total Bilirubin 0.8 AST 40 ALT 27 Alkaline Phosphatase 71 Total Protein 4.9 L Albumin 2.4 L 10/15/17 05:10 WBC RBC Hgb Hct MCV MCH MCHC RDW Plt Count Seg Neutrophils % Lymphocytes % Monocytes % Eosinophils % Basophils % Absolute Neutrophils Absolute Lymphocytes Absolute Monocytes Absolute Eosinophils Absolute Basophils Carbonic Acid 1.00 L HCO3/H2CO3 Ratio 21:1 ABG pH 7.43 ABG pCO2 33.3 L ABG pO2 109.1 H ABG HCO3 21.6 ABG O2 Saturation 98.1 H ABG Base Excess -2.1 FiO2 40 Sodium Potassium Chloride Carbon Dioxide Anion Gap BUN Creatinine Est GFR ( Amer) Est GFR (Non-Af Amer) Glucose Lactic Acid Calcium Magnesium Total Bilirubin AST ALT Alkaline Phosphatase Total Protein Albumin 10/12/17 10/12/17 10/14/17 18:55 18:55 04:02 Creatine Kinase 356 H 243 H CK-MB (CK-2) 8.56 H Troponin I 0.017 10/15/17 04:01 Creatine Kinase 215 H CK-MB (CK-2) Troponin I Impressions: Knee X-Ray 10/11/17 14:12 IMPRESSION: SATISFACTORY POSTOPERATIVE RIGHT KNEE. QUESTION LUCENT LESIONS WITHIN THE DISTAL FEMUR VERSUS OVERLYING SUBCUTANEOUS GAS FROM SURGERY. RECOMMEND FOLLOWUP RADIOGRAPHS IN 1 TO 2 WEEKS TO RE-EVALUATE GIVEN HISTORY OF MELANOMA. KUB X-Ray 10/12/17 19:45 IMPRESSION: Nasogastric tube in the stomach. Chest X-Ray 10/14/17 06:00 IMPRESSION: No significant change. 2010 [employer]- All Rights Reserved Assessment & Plan - Diagnosis (1) Acute kidney injury Is this a current diagnosis for this admission?: Yes Plan: Patient's creatinine continues to improve. (2) Acute respiratory failure with hypoxia and hypercapnia Is this a current diagnosis for this admission?: Yes Plan: Patient remains sedated and intubated and in his current state pulse oximetry and O2 saturations are 99% with respiration 16. His blood pressure is holding at 114/44 hopefully he will be extubated soon per opinion of hospitalist staff. (3) Arthritis of right knee Is this a current diagnosis for this admission?: Yes Plan: Patient's postop site dressing is clean dry and intact. Once extubated and returned to the surgical floor he will continue to work with physical therapy to improve strength and range of motion of right lower extremity.
--- NOTE | 2017-10-15 07:56 | RADIOLOGY REPORT (SQ) ---
EXAM DESCRIPTION: CHEST SINGLE VIEW COMPLETED DATE/TIME: 10/15/2017 6:59 am REASON FOR STUDY: resp failure COMPARISON: PET-CT [id number] Chest films 10/12/2017, 10/13/2017, 10/14/2017 EXAM PARAMETERS: NUMBER OF VIEWS: One view. TECHNIQUE: Single frontal radiographic view of the chest acquired. RADIATION DOSE: NA LIMITATIONS: None. FINDINGS: LUNGS AND PLEURA: Minimal lingular atelectasis. Lungs otherwise well inflated and clear. No pleural effusion. No pneumothorax. MEDIASTINUM AND HILAR STRUCTURES: No masses. Contour normal. HEART AND VASCULAR STRUCTURES: Moderate cardiomegaly, stable BONES: No acute findings. HARDWARE: Endotracheal tube tip 4 cm above the shannan. Nasogastric tube tip and side port in the sto mach. Left-sided dual lead pacemaker unchanged. Old right axillary surgical clips OTHER: No other significant finding. IMPRESSION: Minimal lingular atelectasis. Tubes and lines in good positioning. TECHNICAL DOCUMENTATION: JOB ID: [id number] [employer]?- All Rights Reserved
[2017-10-15] MEDS: OXYCODONE HCL IR 5 MG TABLET NG PRN ×2 (08:47→13:10)
[2017-10-15] MEDS: OXYCODONE-ACETAMINOPHEN 5-325 MG TABLET NG PRN ×2 (08:48→13:09)
[2017-10-15] MEDS: POTASSI CL 20 MEQ/50 ML RIDER 20 MEQ/50 ML RTUPB IV SCH ×2 (11:22→22:07)
[2017-10-15] MEDS: POLYVINYL ALCOHOL 1.4% OPH SOLN 15 ML OU SCH ×4 (11:27→22:07)
[2017-10-15] MEDS: CITALOPRAM HYDROBROMIDE 20 MG TABLET NG SCH (11:28)
[2017-10-15] MEDS: CLOPIDOGREL BISULFATE 75 MG TABLET NG SCH (11:28)
[2017-10-15] MEDS: ASPIRIN 81 MG TABLET, CHEWABLE NG SCH (11:29)
[2017-10-15] MEDS: CYANOCOBALAMIN (VITAMIN B-12) 1,000 MCG TABLET PO SCH (11:32)
[2017-10-15] MEDS: ISOSORBIDE MONONITRATE 30 MG TAB.ER.24H PO SCH (11:32)
[2017-10-15] MEDS: SITAGLIPTIN PHOSPHATE 25 MG TABLET NG SCH (11:32)
[2017-10-15] MEDS: TAMSULOSIN HCL 0.4 MG CAP.SR.24H PO SCH (11:32)
[2017-10-15] MEDS: PREGABALIN 75 MG CAPSULE NG SCH ×2 (11:32→22:06)
--- NOTE | 2017-10-15 12:54 | PDOC PROGRESS REPORT ---
Subjective Progress Note for:: 10/15/17 Reason For Visit: Seen in the ICU today. He still remains intubated/sedated but has a weaning trial started.BP is still tenous and he is on Levophed but is slowly being titrated down. Discussions done with treating UGO Peters. He has good Urine OP. Physical Exam Vital Signs: Temp Pulse Resp BP Pulse Ox 99.3 F 70 10 L 118/48 L 100 10/15/17 10:00 10/15/17 10:00 10/15/17 12:10 10/15/17 12:10 10/15/17 12:10 Intake & Output 10/14/17 10/15/17 10/16/17 06:59 06:59 06:59 Intake Total 4142 4543 Output Total 2520 2475 265 Balance 1622 2068 -265 Weight 116.1 kg 118.1 kg 118.1 kg Exam: Remains intubated / sedated. Respiratory exam: PRESENT: clear to auscultation abigail. ABSENT: crackles, rhonchi Cardiovascular exam: PRESENT: +S1, +S2, systolic murmur GI/Abdominal exam: PRESENT: normal bowel sounds, soft. ABSENT: organomegaly, tenderness Extremities exam: PRESENT: pedal edema - -trace + Neurological exam: PRESENT: altered - sedated Skin exam: ABSENT: cyanosis, erythema, mottled Results Laboratory Results: 10/15/17 04:01 10/15/17 04:01 10/15/17 10/15/17 10/15/17 04:01 04:01 04:01 WBC 9.5 RBC 4.34 L Hgb 11.7 L Hct 36.0 L MCV 83 MCH 26.9 L MCHC 32.5 RDW 16.4 H Plt Count 103 L Seg Neutrophils % 60.1 Lymphocytes % 20.1 Monocytes % 15.6 H Eosinophils % 3.7 Basophils % 0.5 Absolute Neutrophils 5.7 Absolute Lymphocytes 1.9 Absolute Monocytes 1.5 H Absolute Eosinophils 0.4 Absolute Basophils 0.0 Carbonic Acid HCO3/H2CO3 Ratio ABG pH ABG pCO2 ABG pO2 ABG HCO3 ABG O2 Saturation ABG Base Excess FiO2 Sodium 142.6 Potassium 3.5 L Chloride 112 H Carbon Dioxide 24 Anion Gap 7 BUN 20 Creatinine 1.39 H Est GFR ( Amer) > 60 Est GFR (Non-Af Amer) 49 L Glucose 136 H Lactic Acid 1.7 Calcium 7.8 L Magnesium 1.8 Total Bilirubin 0.8 AST 40 ALT 27 Alkaline Phosphatase 71 Total Protein 4.9 L Albumin 2.4 L 10/15/17 05:10 WBC RBC Hgb Hct MCV MCH MCHC RDW Plt Count Seg Neutrophils % Lymphocytes % Monocytes % Eosinophils % Basophils % Absolute Neutrophils Absolute Lymphocytes Absolute Monocytes Absolute Eosinophils Absolute Basophils Carbonic Acid 1.00 L HCO3/H2CO3 Ratio 21:1 ABG pH 7.43 ABG pCO2 33.3 L ABG pO2 109.1 H ABG HCO3 21.6 ABG O2 Saturation 98.1 H ABG Base Excess -2.1 FiO2 40 Sodium Potassium Chloride Carbon Dioxide Anion Gap BUN Creatinine Est GFR ( Amer) Est GFR (Non-Af Amer) Glucose Lactic Acid Calcium Magnesium Total Bilirubin AST ALT Alkaline Phosphatase Total Protein Albumin 10/13/17 09:30 Tracheal Aspirate Gram Stain - Final 10/13/17 09:30 Tracheal Aspirate Sputum Culture - Final NO GROWTH 2 DAYS 10/12/17 22:55 Catheterized Urine Urine Culture - Final NO GROWTH 2 DAYS 10/12/17 10/12/17 10/14/17 18:55 18:55 04:02 Creatine Kinase 356 H 243 H CK-MB (CK-2) 8.56 H Troponin I 0.017 10/15/17 04:01 Creatine Kinase 215 H CK-MB (CK-2) Troponin I Impressions: Knee X-Ray 10/11/17 14:12 IMPRESSION: SATISFACTORY POSTOPERATIVE RIGHT KNEE. QUESTION LUCENT LESIONS WITHIN THE DISTAL FEMUR VERSUS OVERLYING SUBCUTANEOUS GAS FROM SURGERY. RECOMMEND FOLLOWUP RADIOGRAPHS IN 1 TO 2 WEEKS TO RE-EVALUATE GIVEN HISTORY OF MELANOMA. KUB X-Ray 10/12/17 19:45 IMPRESSION: Nasogastric tube in the stomach. Chest X-Ray 10/15/17 06:00 IMPRESSION: Minimal lingular atelectasis. Tubes and lines in good positioning. Assessment & Plan - Diagnosis (1) Acute kidney injury Is this a current diagnosis for this admission?: Yes Plan: Has acute on chronic Kidney injury now non oliguric. His renal nos are improving .Continue on same but increase IVF to 200 cc x 1 L. (2) Acute respiratory failure with hypoxia and hypercapnia Is this a current diagnosis for this admission?: Yes Plan: Intubated and sedated. (3) Chronic combined systolic and diastolic CHF (congestive heart failure) Is this a current diagnosis for this admission?: Yes Plan: Currently compensated.Monitor. (4) Hypotension Qualifiers: Hypotension type: unspecified hypotension type Qualified Code(s): I95.9 - Hypotension, unspecified Plan: Currently on pressors and fluids and seems to be holding. Kay cultures negative and on Ertapenem . (5) Morbid obesity Is this a current diagnosis for this admission?: Yes (6) Type 2 diabetes mellitus Qualifiers: Diabetes mellitus complication status: with unspecified complications Diabetes mellitus fpc insulin use: without fpc use Qualified Code( s): E11.8 - Type 2 diabetes mellitus with unspecified complications (7) Hypokalemia Plan: Ordered replacement. Monitor.
[2017-10-15] MEDS: PSYLLIUM SEED-SF 5.85 GM PACKET PO SCH ×2 (13:11→17:10)
--- NOTE | 2017-10-15 21:36 | PDOC PROGRESS REPORT ---
Subjective Progress Note for:: 10/15/17 Subjective:: Patient still on mechanical ventilation, sedated Reason For Visit: M17.11 UNILATERAL PRIMARY OSTEOARTHRITIS, RIGHT KN Physical Exam Vital Signs: Temp Pulse Resp BP Pulse Ox 99.5 F 65 13 144/58 H 98 10/15/17 19:49 10/15/17 19:49 10/15/17 19:49 10/15/17 19:49 10/15/17 19:49 Intake & Output 10/14/17 10/15/17 10/16/17 06:59 06:59 06:59 Intake Total 4142 4543 2195 Output Total 2520 2475 1015 Balance 1622 2068 1180 Weight 116.1 kg 118.1 kg 118.1 kg Respiratory exam: PRESENT: clear to auscultation abigail Cardiovascular exam: PRESENT: +S1, +S2 GI/Abdominal exam: PRESENT: soft Results Laboratory Results: 10/15/17 04:01 10/15/17 04:01 10/15/17 10/15/17 10/15/17 04:01 04:01 04:01 WBC 9.5 RBC 4.34 L Hgb 11.7 L Hct 36.0 L MCV 83 MCH 26.9 L MCHC 32.5 RDW 16.4 H Plt Count 103 L Seg Neutrophils % 60.1 Lymphocytes % 20.1 Monocytes % 15.6 H Eosinophils % 3.7 Basophils % 0.5 Absolute Neutrophils 5.7 Absolute Lymphocytes 1.9 Absolute Monocytes 1.5 H Absolute Eosinophils 0.4 Absolute Basophils 0.0 Carbonic Acid HCO3/H2CO3 Ratio ABG pH ABG pCO2 ABG pO2 ABG HCO3 ABG O2 Saturation ABG Base Excess FiO2 Sodium 142.6 Potassium 3.5 L Chloride 112 H Carbon Dioxide 24 Anion Gap 7 BUN 20 Creatinine 1.39 H Est GFR ( Amer) > 60 Est GFR (Non-Af Amer) 49 L Glucose 136 H Lactic Acid 1.7 Calcium 7.8 L Magnesium 1.8 Total Bilirubin 0.8 AST 40 ALT 27 Alkaline Phosphatase 71 Total Protein 4.9 L Albumin 2.4 L 10/15/17 05:10 WBC RBC Hgb Hct MCV MCH MCHC RDW Plt Count Seg Neutrophils % Lymphocytes % Monocytes % Eosinophils % Basophils % Absolute Neutrophils Absolute Lymphocytes Absolute Monocytes Absolute Eosinophils Absolute Basophils Carbonic Acid 1.00 L HCO3/H2CO3 Ratio 21:1 ABG pH 7.43 ABG pCO2 33.3 L ABG pO2 109.1 H ABG HCO3 21.6 ABG O2 Saturation 98.1 H ABG Base Excess -2.1 FiO2 40 Sodium Potassium Chloride Carbon Dioxide Anion Gap BUN Creatinine Est GFR ( Amer) Est GFR (Non-Af Amer) Glucose Lactic Acid Calcium Magnesium Total Bilirubin AST ALT Alkaline Phosphatase Total Protein Albumin 10/13/17 09:30 Tracheal Aspirate Gram Stain - Final 10/13/17 09:30 Tracheal Aspirate Sputum Culture - Final NO GROWTH 2 DAYS 10/12/17 22:55 Catheterized Urine Urine Culture - Final NO GROWTH 2 DAYS 10/12/17 10/12/17 10/14/17 18:55 18:55 04:02 Creatine Kinase 356 H 243 H CK-MB (CK-2) 8.56 H Troponin I 0.017 10/15/17 04:01 Creatine Kinase 215 H CK-MB (CK-2) Troponin I Impressions: Knee X-Ray 10/11/17 14:12 IMPRESSION: SATISFACTORY POSTOPERATIVE RIGHT KNEE. QUESTION LUCENT LESIONS WITHIN THE DISTAL FEMUR VERSUS OVERLYING SUBCUTANEOUS GAS FROM SURGERY. RECOMMEND FOLLOWUP RADIOGRAPHS IN 1 TO 2 WEEKS TO RE-EVALUATE GIVEN HISTORY OF MELANOMA. KUB X-Ray 10/12/17 19:45 IMPRESSION: Nasogastric tube in the stomach. Chest X-Ray 10/15/17 06:00 IMPRESSION: Minimal lingular atelectasis. Tubes and lines in good positioning. 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
[2017-10-15] MEDS: METOPROLOL SUCCINATE 25 MG TAB.SR.24H PO SCH (22:06)
[2017-10-15] MEDS: MINERAL OIL/PETROLATUM,WHITE OPH OINT 3.5 GM OU SCH (22:07)
[2017-10-15] MEDS: ERTAPENEM SODIUM 0.5 GM in NORMAL SALINE 50 ML IV SCH (22:07)
[2017-10-16] MEDS: LEVALBUTEROL HCL NEB 1.25 MG/3 ML AMPUL NEB SCH ×4 (02:03→20:05)
[2017-10-16] MEDS: PROPOFOL 100 ML IV PRN (02:59)
[2017-10-16 04:42] LABS: ARTERIAL BLOOD BASE EXCESS -3.5 mmol/L; ARTERIAL BLOOD FIO2 30%; ARTERIAL BLOOD H2CO3 1.07 mmol/L (1.05-1.35); ARTERIAL BLOOD O2 SATURATION 95.5 % (94-98); ARTERIAL BLOOD PCO2 35.5 mmHg (35-45); ARTERIAL BLOOD PH 7.39 (7.35-7.45); ARTERIAL BLOOD PO2 77.8 mmHg (80-100)
[2017-10-16 05:55] LABS: ANION GAP 5 (5-19); BLOOD UREA NITROGEN 14 mg/dL (7-20); CALCIUM 7.7 mg/dL (8.4-10.2); CARBON DIOXIDE 23 mmol/L (22-30); CHLORIDE 116 mmol/L (98-107); GLUCOSE 88 mg/dL (75-110); MAGNESIUM 1.7 mg/dL (1.6-2.3); POTASSIUM 4.3 mmol/L (3.6-5.0); TRIGLYCERIDES 76 mg/dL (<150)
[2017-10-16] MEDS: NORMAL SALINE 1000 ML 1,000 ML IV PRN ×2 (06:22→15:11)
[2017-10-16] MEDS: LANSOPRAZOLE 30 MG TAB.RAP.DR NG SCH (06:22)
[2017-10-16] MEDS: SITAGLIPTIN PHOSPHATE 25 MG TABLET NG SCH (08:38)
[2017-10-16 09:01] LABS: ABSOLUTE EOSINOPHILS # (AUTO) 0.2 10^3/uL (0.0-0.6); ABSOLUTE LYMPHOCYTES (AUTO) 1.1 10^3/uL (0.5-4.7); ABSOLUTE MONOCYTES (AUTO) 0.8 10^3/uL (0.1-1.4); ABSOLUTE NEUT (AUTO) 3.5 10^3/uL (1.7-8.2); BASOPHILS % (AUTO) 0.5 % (0-2); EOSINOPHILS % (AUTO) 3.9 % (0-6); HEMOGLOBIN 11.4 g/dL (13.5-17.0); LYMPHOCYTES % (AUTO) 19.6 % (13-45); MEAN CORPUSCULAR HEMOGLOBIN 27.4 pg (27.0-33.4); MEAN CORPUSCULAR HGB CONC 32.7 g/dL (32.0-36.0); MEAN CORPUSCULAR VOLUME 84 fl (80-97); MONOCYTES % (AUTO) 14.2 % (3-13); RED BLOOD COUNT 4.18 10^6/uL (4.35-5.55); RED CELL DISTRIBUTION WIDTH 16.1 % (11.5-14.0); SEGMENTED NEUTROPHILS % (AUTO) 61.8 % (42-78); TOTAL CELLS COUNTED % (AUTO) 100 %; WHITE BLOOD COUNT 5.7 10^3/uL (4.0-10.5)
--- NOTE | 2017-10-16 09:07 | PDOC PROGRESS REPORT ---
Subjective Progress Note for:: 10/16/17 Subjective:: Patient currently intubated and sedated. No issues overnight according to nursing staff. Anticipate extubation today. Reason For Visit: M17.11 UNILATERAL PRIMARY OSTEOARTHRITIS, RIGHT KN Physical Exam Vital Signs: Temp Pulse Resp BP Pulse Ox 98.7 F 68 16 133/58 H 97 10/16/17 08:00 10/16/17 08:00 10/16/17 08:00 10/16/17 08:00 10/16/17 08:00 Intake & Output 10/15/17 10/16/17 10/17/17 06:59 06:59 06:59 Intake Total 4543 4215 Output Total 2475 1515 35 Balance 2068 2700 -35 Weight 118.1 kg 120 kg Musculoskeletal exam: PRESENT: other - Right knee: Dressing clean/dry/intact no erythema or drainage. No calf tenderness. No significant calf swelling. Results Laboratory Results: 10/16/17 10/16/17 10/16/17 04:30 05:18 05:18 WBC Cancelled RBC Cancelled Hgb Cancelled Hct Cancelled MCV Cancelled MCH Cancelled MCHC Cancelled RDW Cancelled Plt Count Cancelled Seg Neutrophils % Cancelled Lymphocytes % Cancelled Monocytes % Cancelled Eosinophils % Cancelled Basophils % Cancelled Absolute Neutrophils Cancelled Absolute Lymphocytes Cancelled Absolute Monocytes Cancelled Absolute Eosinophils Cancelled Absolute Basophils Cancelled Carbonic Acid 1.07 HCO3/H2CO3 Ratio 19:1 ABG pH 7.39 ABG pCO2 35.5 ABG pO2 77.8 L ABG HCO3 21.0 ABG O2 Saturation 95.5 ABG Base Excess -3.5 FiO2 30% Sodium 144.0 Potassium 4.3 Chloride 116 H Carbon Dioxide 23 Anion Gap 5 BUN 14 Creatinine 1.11 Est GFR ( Amer) > 60 Est GFR (Non-Af Amer) > 60 Glucose 88 Calcium 7.7 L Magnesium 1.7 Total Bilirubin AST ALT Alkaline Phosphatase Total Protein Albumin Triglycerides 76 10/16/17 05:18 WBC RBC Hgb Hct MCV MCH MCHC RDW Plt Count Seg Neutrophils % Lymphocytes % Monocytes % Eosinophils % Basophils % Absolute Neutrophils Absolute Lymphocytes Absolute Monocytes Absolute Eosinophils Absolute Basophils Carbonic Acid HCO3/H2CO3 Ratio ABG pH ABG pCO2 ABG pO2 ABG HCO3 ABG O2 Saturation ABG Base Excess FiO2 Sodium Cancelled Potassium Cancelled Chloride Cancelled Carbon Dioxide Cancelled Anion Gap Cancelled BUN Cancelled Creatinine Cancelled Est GFR ( Amer) Cancelled Est GFR (Non-Af Amer) Cancelled Glucose Cancelled Calcium Cancelled Magnesium Total Bilirubin Cancelled AST Cancelled ALT Cancelled Alkaline Phosphatase Cancelled Total Protein Cancelled Albumin Cancelled Triglycerides 10/13/17 09:30 Tracheal Aspirate Gram Stain - Final 10/13/17 09:30 Tracheal Aspirate Sputum Culture - Final NO GROWTH 2 DAYS 10/12/17 22:55 Catheterized Urine Urine Culture - Final NO GROWTH 2 DAYS 10/12/17 10/12/17 10/14/17 18:55 18:55 04:02 Creatine Kinase 356 H 243 H CK-MB (CK-2) 8.56 H Troponin I 0.017 10/15/17 10/16/17 04:01 05:18 Creatine Kinase 215 H Cancelled CK-MB (CK-2) Troponin I Impressions: Knee X-Ray 10/11/17 14:12 IMPRESSION: SATISFACTORY POSTOPERATIVE RIGHT KNEE. QUESTION LUCENT LESIONS WITHIN THE DISTAL FEMUR VERSUS OVERLYING SUBCUTANEOUS GAS FROM SURGERY. RECOMMEND FOLLOWUP RADIOGRAPHS IN 1 TO 2 WEEKS TO RE-EVALUATE GIVEN HISTORY OF MELANOMA. KUB X-Ray 10/12/17 19:45 IMPRESSION: Nasogastric tube in the stomach. Chest X-Ray 10/15/17 06:00 IMPRESSION: Minimal lingular atelectasis. Tubes and lines in good positioning. Assessment & Plan - Diagnosis (1) Arthritis of right knee Is this a current diagnosis for this admission?: Yes Plan: Anticipate extubation today. Once patient extubated and more awake and alert will resume physical therapy as per total knee protocol. Continue Plavix and aspirin for DVT prophylaxis.
[2017-10-16 09:12] LABS: ALANINE AMINOTRANSFERASE 29 U/L (21-72); ALBUMIN 2.2 g/dL (3.5-5.0); ALKALINE PHOSPHATASE 57 U/L (38-126); ANION GAP 5 (5-19); ASPARTATE AMINO TRANSFERASE 36 U/L (17-59); BILIRUBIN,DIRECT 0.3 mg/dL (0.0-0.4); BILIRUBIN,TOTAL 0.8 mg/dL (0.2-1.3); BLOOD UREA NITROGEN 14 mg/dL (7-20); CALCIUM 7.7 mg/dL (8.4-10.2); CARBON DIOXIDE 22 mmol/L (22-30); CHLORIDE 117 mmol/L (98-107); CREATINE KINASE 118 U/L (55-170); GLUCOSE 82 mg/dL (75-110); POTASSIUM 4.2 mmol/L (3.6-5.0); SODIUM 144.4 mmol/L (137-145); TOTAL PROTEIN 4.5 g/dL (6.3-8.2)
[2017-10-16 09:24] LABS: PLATELET COUNT 87 10^3/uL (150-450)
[2017-10-16] MEDS: ISOSORBIDE MONONITRATE 30 MG TAB.ER.24H PO SCH (09:39)
[2017-10-16] MEDS: ASPIRIN 81 MG TABLET, CHEWABLE NG SCH (09:39)
[2017-10-16] MEDS: PSYLLIUM SEED-SF 5.85 GM PACKET PO SCH ×2 (09:39→17:19)
[2017-10-16] MEDS: TAMSULOSIN HCL 0.4 MG CAP.SR.24H PO SCH (09:39)
[2017-10-16] MEDS: PREGABALIN 75 MG CAPSULE NG SCH ×2 (09:39→21:12)
[2017-10-16] MEDS: CITALOPRAM HYDROBROMIDE 20 MG TABLET NG SCH (09:39)
[2017-10-16] MEDS: CYANOCOBALAMIN (VITAMIN B-12) 1,000 MCG TABLET PO SCH (09:39)
[2017-10-16] MEDS: CLOPIDOGREL BISULFATE 75 MG TABLET NG SCH (09:39)
[2017-10-16] MEDS: POTASSI CL 20 MEQ/50 ML RIDER 20 MEQ/50 ML RTUPB IV SCH ×2 (10:14→21:44)
[2017-10-16] MEDS: POLYVINYL ALCOHOL 1.4% OPH SOLN 15 ML OU SCH ×4 (10:14→21:09)
--- NOTE | 2017-10-16 11:13 | PDOC PROGRESS REPORT ---
Subjective Progress Note for:: 10/16/17 Subjective:: Patient is intubated but off sedation and follow commands. Off pressure support. No reported fever. Reason For Visit: M17.11 UNILATERAL PRIMARY OSTEOARTHRITIS, RIGHT KN Physical Exam Vital Signs: Temp Pulse Resp BP Pulse Ox 99.0 F 62 9 L 140/54 H 97 10/16/17 10:00 10/16/17 10:00 10/16/17 10:00 10/16/17 10:00 10/16/17 10:00 Intake & Output 10/15/17 10/16/17 10/17/17 06:59 06:59 06:59 Intake Total 4543 4215 Output Total 2475 1515 110 Balance 2068 2700 -110 Weight 118.1 kg 120 kg Head exam: PRESENT: atraumatic, normocephalic Mouth exam: PRESENT: moist Respiratory exam: PRESENT: clear to auscultation abigail Cardiovascular exam: PRESENT: RRR. ABSENT: diastolic murmur, rubs, systolic murmur Vascular exam: PRESENT: normal capillary refill. ABSENT: pallor GI/Abdominal exam: PRESENT: normal bowel sounds, soft. ABSENT: distended, guarding, mass, organolmegaly, rebound, tenderness Extremities exam: PRESENT: pedal edema - 1+ Musculoskeletal exam: PRESENT: other - right knee op site dressing okay Neurological exam: PRESENT: alert, awake - follow simple commands Skin exam: PRESENT: dry, warm Results Laboratory Results: 10/16/17 08:35 10/16/17 08:35 10/16/17 10/16/17 10/16/17 04:30 05:18 05:18 WBC Cancelled RBC Cancelled Hgb Cancelled Hct Cancelled MCV Cancelled MCH Cancelled MCHC Cancelled RDW Cancelled Plt Count Cancelled Seg Neutrophils % Cancelled Lymphocytes % Cancelled Monocytes % Cancelled Eosinophils % Cancelled Basophils % Cancelled Absolute Neutrophils Cancelled Absolute Lymphocytes Cancelled Absolute Monocytes Cancelled Absolute Eosinophils Cancelled Absolute Basophils Cancelled Carbonic Acid 1.07 HCO3/H2CO3 Ratio 19:1 ABG pH 7.39 ABG pCO2 35.5 ABG pO2 77.8 L ABG HCO3 21.0 ABG O2 Saturation 95.5 ABG Base Excess -3.5 FiO2 30% Sodium 144.0 Potassium 4.3 Chloride 116 H Carbon Dioxide 23 Anion Gap 5 BUN 14 Creatinine 1.11 Est GFR ( Amer) > 60 Est GFR (Non-Af Amer) > 60 Glucose 88 Calcium 7.7 L Magnesium 1.7 Total Bilirubin AST ALT Alkaline Phosphatase Total Protein Albumin Triglycerides 76 10/16/17 10/16/17 10/16/17 05:18 08:35 08:35 WBC 5.7 RBC 4.18 L Hgb 11.4 L Hct 35.0 L MCV 84 MCH 27.4 MCHC 32.7 RDW 16.1 H Plt Count 87 L Seg Neutrophils % 61.8 Lymphocytes % 19.6 Monocytes % 14.2 H Eosinophils % 3.9 Basophils % 0.5 Absolute Neutrophils 3.5 Absolute Lymphocytes 1.1 Absolute Monocytes 0.8 Absolute Eosinophils 0.2 Absolute Basophils 0.0 Carbonic Acid HCO3/H2CO3 Ratio ABG pH ABG pCO2 ABG pO2 ABG HCO3 ABG O2 Saturation ABG Base Excess FiO2 Sodium Cancelled 144.4 Potassium Cancelled 4.2 Chloride Cancelled 117 H Carbon Dioxide Cancelled 22 Anion Gap Cancelled 5 BUN Cancelled 14 Creatinine Cancelled 1.05 Est GFR ( Amer) Cancelled > 60 Est GFR (Non-Af Amer) Cancelled > 60 Glucose Cancelled 82 Calcium Cancelled 7.7 L Magnesium Total Bilirubin Cancelled 0.8 AST Cancelled 36 ALT Cancelled 29 Alkaline Phosphatase Cancelled 57 Total Protein Cancelled 4.5 L Albumin Cancelled 2.2 L Triglycerides 10/13/17 09:30 Tracheal Aspirate Gram Stain - Final 10/13/17 09:30 Tracheal Aspirate Sputum Culture - Final NO GROWTH 2 DAYS 10/12/17 22:55 Catheterized Urine Urine Culture - Final NO GROWTH 2 DAYS 10/12/17 10/12/17 10/14/17 18:55 18:55 04:02 Creatine Kinase 356 H 243 H CK-MB (CK-2) 8.56 H Troponin I 0.017 10/15/17 10/16/17 10/16/17 04:01 05:18 08:35 Creatine Kinase 215 H Cancelled 118 CK-MB (CK-2) Troponin I Impressions: Knee X-Ray 10/11/17 14:12 IMPRESSION: SATISFACTORY POSTOPERATIVE RIGHT KNEE. QUESTION LUCENT LESIONS WITHIN THE DISTAL FEMUR VERSUS OVERLYING SUBCUTANEOUS GAS FROM SURGERY. RECOMMEND FOLLOWUP RADIOGRAPHS IN 1 TO 2 WEEKS TO RE-EVALUATE GIVEN HISTORY OF MELANOMA. KUB X-Ray 10/12/17 19:45 IMPRESSION: Nasogastric tube in the stomach. Chest X-Ray 10/15/17 06:00 IMPRESSION: Minimal lingular atelectasis. Tubes and lines in good positioning. Assessment & Plan - Diagnosis (1) Acute kidney injury Is this a current diagnosis for this admission?: Yes Plan: Resolved. Probable due to volume depletion and NSAID exposure. (2) Acute respiratory failure with hypoxia and hypercapnia Is this a current diagnosis for this admission?: Yes Plan: Improved. Patient has been doing well on weaning parameters. Agreeable with extubation efforts. (3) Arthritis of right knee Is this a current diagnosis for this admission?: Yes Plan: s/p Right TKA. Surgical site satisfactory condition. (4) Chronic combined systolic and diastolic CHF (congestive heart failure) Is this a current diagnosis for this admission?: Yes Plan: Decrease IV fluid to 75 ml/hour. Continue current medication management. (5) Type 2 diabetes mellitus Qualifiers: Diabetes mellitus complication status: with neurologic complications Diabetes mellitus complication detail: with polyneuropathy Diabetes mellitus mcfp insulin use: without termite helper use Qualified Code(s): E11.42 - Type 2 diabetes mellitus with diabetic polyneuropathy Is this a current diagnosis for this admission?: Yes Plan: Continue current management. - Time Time Spent with patient: 25-34 minutes Medications reviewed and adjusted accordingly: Yes Anticipated discharge: SNF - for short term rehabilitation - Inpatient Certification Based on my medical assessment, after consideration of the patient's comorbidities, presenting symptoms, or acuity I expect that the services needed warrant INPATIENT care.: Yes I certify that my determination is in accordance with my understanding of Medicare's requirements for reasonable and necessary INPATIENT services [42 CFR 412.3e].: Yes Medical Necessity: Need Close Monitoring Due to Risk of Patient Decompensation, Need For IV Fluids, Need For Continuous Telemetry Monitoring, Need for Nebulizer Therapy and Monitoring of Response, Risk of Complication if Not Cared For in Hospital Post Hospital Care: D/C or Transfer Summary - Plan Summary Plan Summary: See covering attending physician orders.
--- NOTE | 2017-10-16 12:19 | RADIOLOGY REPORT (SQ) ---
EXAM DESCRIPTION: CHEST SINGLE VIEW COMPLETED DATE/TIME: 10/16/2017 12:10 pm REASON FOR STUDY: resp failure COMPARISON: 10/15/2017 EXAM PARAMETERS: NUMBER OF VIEWS: One view. TECHNIQUE: Single frontal radiographic view of the chest acquired. RADIATION DOSE: NA LIMITATIONS: None. FINDINGS: LUNGS AND PLEURA: Stable small bilateral pleural effusions with associated airspace diseas e. No new opacities. MEDIASTINUM AND HILAR STRUCTURES: No masses. Contour normal. HEART AND VASCULAR STRUCTURES: Heart stable in size. Normal vasculature. BONES: No acute findings. HARDWARE: Stable lines/tubes. OTHER: No other significant finding. IMPRESSION: STABLE APPEARANCE OF THE CHEST WITH LINES/ TUBES AND BILATERAL PLEURAL EFFUSIONS/AIRSPAC E DISEASE. TECHNICAL DOCUMENTATION: JOB ID: [id number] [employer]- All Rights Reserved
[2017-10-16] MEDS ORDERED: FUROSEMIDE INJ/PF 20 MG/2 ML SDV ONE (12:46)
[2017-10-16 15:38] LABS: ARTERIAL BLOOD BASE EXCESS -3.6 mmol/L; ARTERIAL BLOOD FIO2 40%; ARTERIAL BLOOD H2CO3 1.32 mmol/L (1.05-1.35); ARTERIAL BLOOD HCO3 22.3 mmol/L (20-26); ARTERIAL BLOOD O2 SATURATION 97.9 % (94-98); ARTERIAL BLOOD PCO2 43.8 mmHg (35-45); ARTERIAL BLOOD PH 7.33 (7.35-7.45); ARTERIAL BLOOD PO2 115.3 mmHg (80-100); ARTERIAL BLOOD TOTAL CO2 23.7 mmol/L (23-27)
[2017-10-16] MEDS: ERTAPENEM SODIUM 0.5 GM in NORMAL SALINE 50 ML IV SCH (21:00)
[2017-10-16] MEDS: MINERAL OIL/PETROLATUM,WHITE OPH OINT 3.5 GM OU SCH (21:09)
[2017-10-16] MEDS: METOPROLOL SUCCINATE 25 MG TAB.SR.24H PO SCH (21:12)
[2017-10-17] MEDS: LEVALBUTEROL HCL NEB 1.25 MG/3 ML AMPUL NEB SCH ×4 (02:15→20:02)
[2017-10-17] MEDS: NORMAL SALINE 1000 ML 1,000 ML IV PRN (03:37)
[2017-10-17 04:37] LABS: ABSOLUTE EOSINOPHILS # (AUTO) 0.2 10^3/uL (0.0-0.6); ABSOLUTE LYMPHOCYTES (AUTO) 0.6 10^3/uL (0.5-4.7); ABSOLUTE MONOCYTES (AUTO) 0.4 10^3/uL (0.1-1.4); ABSOLUTE NEUT (AUTO) 2.5 10^3/uL (1.7-8.2); BASOPHILS % (AUTO) 0.7 % (0-2); EOSINOPHILS % (AUTO) 5.1 % (0-6); HEMATOCRIT 31.2 % (37.9-51.0); HEMOGLOBIN 10.1 g/dL (13.5-17.0); LYMPHOCYTES % (AUTO) 16.5 % (13-45); MEAN CORPUSCULAR HEMOGLOBIN 27.2 pg (27.0-33.4); MEAN CORPUSCULAR HGB CONC 32.5 g/dL (32.0-36.0); MEAN CORPUSCULAR VOLUME 84 fl (80-97); MONOCYTES % (AUTO) 11.2 % (3-13); RED BLOOD COUNT 3.73 10^6/uL (4.35-5.55); RED CELL DISTRIBUTION WIDTH 15.7 % (11.5-14.0); SEGMENTED NEUTROPHILS % (AUTO) 66.5 % (42-78); TOTAL CELLS COUNTED % (AUTO) 100 %; WHITE BLOOD COUNT 3.8 10^3/uL (4.0-10.5)
[2017-10-17 04:42] LABS: BLOOD UREA NITROGEN 14 mg/dL (7-20); CALCIUM 8.1 mg/dL (8.4-10.2); GLUCOSE 77 mg/dL (75-110); MAGNESIUM 1.5 mg/dL (1.6-2.3)
[2017-10-17 04:59] LABS: PLATELET COUNT 79 10^3/uL (150-450)
[2017-10-17 05:11] LABS: ANION GAP 6 (5-19); CARBON DIOXIDE 21 mmol/L (22-30); CHLORIDE 120 mmol/L (98-107); SODIUM 146.9 mmol/L (137-145)
[2017-10-17] MEDS: LANSOPRAZOLE 30 MG TAB.RAP.DR NG SCH (05:27)
[2017-10-17 06:36] LABS: ARTERIAL BLOOD BASE EXCESS -4.3 mmol/L; ARTERIAL BLOOD H2CO3 1.31 mmol/L (1.05-1.35); ARTERIAL BLOOD HCO3 21.7 mmol/L (20-26); ARTERIAL BLOOD O2 SATURATION 97.3 % (94-98); ARTERIAL BLOOD PCO2 43.6 mmHg (35-45); ARTERIAL BLOOD PH 7.31 (7.35-7.45); ARTERIAL BLOOD PO2 104.3 mmHg (80-100)
[2017-10-17 06:42] LABS: ARTERIAL BLOOD FIO2 2L
[2017-10-17] MEDS: CLOPIDOGREL BISULFATE 75 MG TABLET NG SCH (09:29)
[2017-10-17] MEDS: TAMSULOSIN HCL 0.4 MG CAP.SR.24H PO SCH (09:30)
[2017-10-17] MEDS: CITALOPRAM HYDROBROMIDE 20 MG TABLET NG SCH (09:30)
[2017-10-17] MEDS: ISOSORBIDE MONONITRATE 30 MG TAB.ER.24H PO SCH (09:31)
[2017-10-17] MEDS: PREGABALIN 75 MG CAPSULE NG SCH ×2 (09:31→21:25)
[2017-10-17] MEDS: ASPIRIN 81 MG TABLET, CHEWABLE NG SCH (09:31)
[2017-10-17] MEDS: SACUBITRIL/VALSARTAN 97 MG/103 MG TABLET PO SCH ×2 (09:32→21:22)
[2017-10-17] MEDS: CYANOCOBALAMIN (VITAMIN B-12) 1,000 MCG TABLET PO SCH (09:32)
[2017-10-17] MEDS: SITAGLIPTIN PHOSPHATE 25 MG TABLET NG SCH (09:32)
[2017-10-17] MEDS: POLYVINYL ALCOHOL 1.4% OPH SOLN 15 ML OU SCH ×4 (09:33→21:26)
[2017-10-17] MEDS: PSYLLIUM SEED-SF 5.85 GM PACKET PO SCH ×2 (09:33→17:23)
--- NOTE | 2017-10-17 09:58 | PDOC PROGRESS REPORT ---
Subjective Progress Note for:: 10/17/17 Subjective:: Patient is s/p extubation and remain clinically stable. Communicating satisfactorily and asking for food. No reported nausea, vomiting, abdominal pain. No fever or chills. Reason For Visit: M17.11 UNILATERAL PRIMARY OSTEOARTHRITIS, RIGHT KN Physical Exam Vital Signs: Temp Pulse Resp BP Pulse Ox 98.1 F 69 18 160/61 H 95 10/17/17 08:00 10/17/17 08:23 10/17/17 08:23 10/17/17 08:00 10/17/17 08:23 Intake & Output 10/16/17 10/17/17 10/18/17 06:59 06:59 06:59 Intake Total 4215 2009 Output Total 1515 5895 75 Balance 2700 -835 -75 Weight 120 kg 119 kg General appearance: PRESENT: no acute distress, morbidly obese Head exam: PRESENT: atraumatic, normocephalic Mouth exam: PRESENT: moist Respiratory exam: PRESENT: clear to auscultation abigail, decreased breath sounds - at lung bases Cardiovascular exam: PRESENT: RRR. ABSENT: diastolic murmur, rubs, systolic murmur Vascular exam: PRESENT: normal capillary refill. ABSENT: pallor GI/Abdominal exam: PRESENT: distended - protuberant, normal bowel sounds, soft. ABSENT: guarding, mass, organolmegaly, rebound, tenderness Extremities exam: PRESENT: pedal edema Neurological exam: PRESENT: alert, awake, oriented to person, oriented to place , oriented to time, oriented to situation, CN II-XII grossly intact. ABSENT: motor sensory deficit Psychiatric exam: PRESENT: appropriate affect, normal mood. ABSENT: homicidal ideation, suicidal ideation Skin exam: PRESENT: dry, warm, other - satisfactory right knee joint TKA surgical site dressing Results Laboratory Results: 10/17/17 04:07 10/17/17 04:07 10/16/17 10/17/17 10/17/17 15:15 04:07 04:07 WBC 3.8 L RBC 3.73 L Hgb 10.1 L Hct 31.2 L MCV 84 MCH 27.2 MCHC 32.5 RDW 15.7 H Plt Count 79 L Seg Neutrophils % 66.5 Lymphocytes % 16.5 Monocytes % 11.2 Eosinophils % 5.1 Basophils % 0.7 Absolute Neutrophils 2.5 Absolute Lymphocytes 0.6 Absolute Monocytes 0.4 Absolute Eosinophils 0.2 Absolute Basophils 0.0 Carbonic Acid 1.32 HCO3/H2CO3 Ratio 16:1 ABG pH 7.33 L ABG pCO2 43.8 ABG pO2 115.3 H ABG HCO3 22.3 ABG O2 Saturation 97.9 ABG Base Excess -3.6 FiO2 40% Sodium 146.9 H Potassium 4.0 Chloride 120 H Carbon Dioxide 21 L Anion Gap 6 BUN 14 Creatinine 1.01 Est GFR ( Amer) > 60 Est GFR (Non-Af Amer) > 60 Glucose 77 Calcium 8.1 L Magnesium 1.5 L 10/17/17 06:15 WBC RBC Hgb Hct MCV MCH MCHC RDW Plt Count Seg Neutrophils % Lymphocytes % Monocytes % Eosinophils % Basophils % Absolute Neutrophils Absolute Lymphocytes Absolute Monocytes Absolute Eosinophils Absolute Basophils Carbonic Acid 1.31 HCO3/H2CO3 Ratio 16:1 ABG pH 7.31 L ABG pCO2 43.6 ABG pO2 104.3 H ABG HCO3 21.7 ABG O2 Saturation 97.3 ABG Base Excess -4.3 FiO2 2L Sodium Potassium Chloride Carbon Dioxide Anion Gap BUN Creatinine Est GFR ( Amer) Est GFR (Non-Af Amer) Glucose Calcium Magnesium 10/12/17 10/12/17 10/14/17 18:55 18:55 04:02 Creatine Kinase 356 H 243 H CK-MB (CK-2) 8.56 H Troponin I 0.017 10/15/17 10/16/17 10/16/17 04:01 05:18 08:35 Creatine Kinase 215 H Cancelled 118 CK-MB (CK-2) Troponin I Impressions: Knee X-Ray 10/11/17 14:12 IMPRESSION: SATISFACTORY POSTOPERATIVE RIGHT KNEE. QUESTION LUCENT LESIONS WITHIN THE DISTAL FEMUR VERSUS OVERLYING SUBCUTANEOUS GAS FROM SURGERY. RECOMMEND FOLLOWUP RADIOGRAPHS IN 1 TO 2 WEEKS TO RE-EVALUATE GIVEN HISTORY OF MELANOMA. KUB X-Ray 10/12/17 19:45 IMPRESSION: Nasogastric tube in the stomach. Chest X-Ray 10/16/17 06:00 IMPRESSION: STABLE APPEARANCE OF THE CHEST WITH LINES/ TUBES AND BILATERAL PLEURAL EFFUSIONS/AIRSPACE DISEASE. Assessment & Plan - Diagnosis (1) Acute kidney injury Is this a current diagnosis for this admission?: Yes (2) Acute respiratory failure with hypoxia and hypercapnia Is this a current diagnosis for this admission?: Yes (3) Arthritis of right knee Is this a current diagnosis for this admission?: Yes (4) Chronic combined systolic and diastolic CHF (congestive heart failure) Is this a current diagnosis for this admission?: Yes (5) Type 2 diabetes mellitus Qualifiers: Diabetes mellitus complication status: with neurologic complications Diabetes mellitus complication detail: with polyneuropathy Diabetes mellitus exterminator termite insulin use: without exterminator termite use Qualified Code(s): E11.42 - Type 2 diabetes mellitus with diabetic polyneuropathy Is this a current diagnosis for this admission?: Yes - Time Time Spent with patient: 25-34 minutes Medications reviewed and adjusted accordingly: Yes Anticipated discharge: SNF Within: Other - Inpatient Certification Based on my medical assessment, after consideration of the patient's comorbidities, presenting symptoms, or acuity I expect that the services needed warrant INPATIENT care.: Yes I certify that my determination is in accordance with my understanding of Medicare's requirements for reasonable and necessary INPATIENT services [42 CFR 412.3e].: Yes Medical Necessity: Need Close Monitoring Due to Risk of Patient Decompensation, Need For IV Fluids, Need For Continuous Telemetry Monitoring, Need for Nebulizer Therapy and Monitoring of Response, Need for IV Antibiotics, Risk of Complication if Not Cared For in Hospital Post Hospital Care: D/C or Transfer Summary - Plan Summary Plan Summary: See covering attending physician orders.
[2017-10-17] MEDS ORDERED: NORMAL SALINE 1000 ML 1,000 ML IV PRN (09:59)
[2017-10-17] MEDS ORDERED: MAGNESIUM SULFATE/D5W 1 GM/100 ML RTUPB IV ONE (10:30)
[2017-10-17] MEDS: OXYCODONE HCL IR 5 MG TABLET NG PRN (11:14)
[2017-10-17] MEDS: OXYCODONE-ACETAMINOPHEN 5-325 MG TABLET NG PRN (11:15)
--- NOTE | 2017-10-17 17:10 | PDOC PROGRESS REPORT ---
Subjective Progress Note for:: 10/15/17 Subjective:: 24 hrs s/p extubation confused stable Reason For Visit: M17.11 UNILATERAL PRIMARY OSTEOARTHRITIS, RIGHT KN Physical Exam Vital Signs: Temp Pulse Resp BP Pulse Ox 98.9 F 73 14 142/58 H 100 10/15/17 08:00 10/15/17 08:36 10/15/17 08:36 10/15/17 08:00 10/15/17 08:36 Intake & Output 10/14/17 10/15/17 10/16/17 06:59 06:59 06:59 Intake Total 4142 4543 Output Total 2520 9995 185 Balance 1622 2068 -185 Weight 116.1 kg 118.1 kg General appearance: PRESENT: no acute distress, disheveled. ABSENT: hard of hearing, mild distress, morbidly obese, severe distress Head exam: PRESENT: atraumatic, normocephalic Eye exam: PRESENT: conjunctiva pale, EOMI. ABSENT: conjunctival injection, conjunctiva pink, nystagmus, periorbital swelling, scleral icterus Mouth exam: PRESENT: dry mucosa, neck supple, tongue midline, other - ET. ABSENT: laceration, moist Neck exam: ABSENT: carotid bruit, JVD, lymphadenopathy, thyromegaly, tracheal deviation, tracheostomy Respiratory exam: PRESENT: decreased breath sounds, prolonged expiratory phas, rales, rhonchi, symmetrical, unlabored. ABSENT: accessory muscle use, chest wall tenderness, clear to auscultation abigail, crackles, retraction, stridor, tachypnea Cardiovascular exam: PRESENT: RRR, +S1, +S2 Pulses: PRESENT: normal radial pulses GI/Abdominal exam: PRESENT: diminished bowel sounds, soft Gentrourinary exam: PRESENT: indwelling catheter Extremities exam: ABSENT: clubbing Musculoskeletal exam: ABSENT: ambulatory, deformity, dislocation Neurological exam: PRESENT: awake Skin exam: PRESENT: dry, warm Results Laboratory Results: 10/15/17 04:01 10/15/17 04:01 10/15/17 10/15/17 10/15/17 04:01 04:01 04:01 WBC 9.5 RBC 4.34 L Hgb 11.7 L Hct 36.0 L MCV 83 MCH 26.9 L MCHC 32.5 RDW 16.4 H Plt Count 103 L Seg Neutrophils % 60.1 Lymphocytes % 20.1 Monocytes % 15.6 H Eosinophils % 3.7 Basophils % 0.5 Absolute Neutrophils 5.7 Absolute Lymphocytes 1.9 Absolute Monocytes 1.5 H Absolute Eosinophils 0.4 Absolute Basophils 0.0 Carbonic Acid HCO3/H2CO3 Ratio ABG pH ABG pCO2 ABG pO2 ABG HCO3 ABG O2 Saturation ABG Base Excess FiO2 Sodium 142.6 Potassium 3.5 L Chloride 112 H Carbon Dioxide 24 Anion Gap 7 BUN 20 Creatinine 1.39 H Est GFR ( Amer) > 60 Est GFR (Non-Af Amer) 49 L Glucose 136 H Lactic Acid 1.7 Calcium 7.8 L Magnesium 1.8 Total Bilirubin 0.8 AST 40 ALT 27 Alkaline Phosphatase 71 Total Protein 4.9 L Albumin 2.4 L 10/15/17 05:10 WBC RBC Hgb Hct MCV MCH MCHC RDW Plt Count Seg Neutrophils % Lymphocytes % Monocytes % Eosinophils % Basophils % Absolute Neutrophils Absolute Lymphocytes Absolute Monocytes Absolute Eosinophils Absolute Basophils Carbonic Acid 1.00 L HCO3/H2CO3 Ratio 21:1 ABG pH 7.43 ABG pCO2 33.3 L ABG pO2 109.1 H ABG HCO3 21.6 ABG O2 Saturation 98.1 H ABG Base Excess -2.1 FiO2 40 Sodium Potassium Chloride Carbon Dioxide Anion Gap BUN Creatinine Est GFR ( Amer) Est GFR (Non-Af Amer) Glucose Lactic Acid Calcium Magnesium Total Bilirubin AST ALT Alkaline Phosphatase Total Protein Albumin 10/13/17 09:30 Tracheal Aspirate Gram Stain - Final 10/13/17 09:30 Tracheal Aspirate Sputum Culture - Final NO GROWTH 2 DAYS 10/12/17 10/12/17 10/14/17 18:55 18:55 04:02 Creatine Kinase 356 H 243 H CK-MB (CK-2) 8.56 H Troponin I 0.017 10/15/17 04:01 Creatine Kinase 215 H CK-MB (CK-2) Troponin I Impressions: Knee X-Ray 10/11/17 14:12 IMPRESSION: SATISFACTORY POSTOPERATIVE RIGHT KNEE. QUESTION LUCENT LESIONS WITHIN THE DISTAL FEMUR VERSUS OVERLYING SUBCUTANEOUS GAS FROM SURGERY. RECOMMEND FOLLOWUP RADIOGRAPHS IN 1 TO 2 WEEKS TO RE-EVALUATE GIVEN HISTORY OF MELANOMA. KUB X-Ray 10/12/17 19:45 IMPRESSION: Nasogastric tube in the stomach. Chest X-Ray 10/15/17 06:00 IMPRESSION: Minimal lingular atelectasis. Tubes and lines in good positioning. Assessment & Plan - Diagnosis (1) Acute respiratory failure with hypoxia and hypercapnia Is this a current diagnosis for this admission?: Yes Plan: improving (2) Chronic combined systolic and diastolic CHF (congestive heart failure) Is this a current diagnosis for this admission?: Yes (3) Acute tubular necrosis Is this a current diagnosis for this admission?: Yes Plan: improving (4) Altered mental status Qualifiers: Altered mental status type: somnolence Qualified Code(s): R40.0 - Somnolence Is this a current diagnosis for this admission?: Yes (5) Morbid obesity Is this a current diagnosis for this admission?: Yes - Time Total Critical Time (Minutes): 40
--- NOTE | 2017-10-17 17:16 | PDOC PROGRESS REPORT ---
Subjective Progress Note for:: 10/16/17 Subjective:: +9.6L fluid balance Reason For Visit: M17.11 UNILATERAL PRIMARY OSTEOARTHRITIS, RIGHT KN Physical Exam Vital Signs: Temp Pulse Resp BP Pulse Ox 98.7 F 69 15 140/54 H 96 10/16/17 08:00 10/16/17 08:02 10/16/17 10:00 10/16/17 09:25 10/16/17 10:00 Intake & Output 10/15/17 10/16/17 10/17/17 06:59 06:59 06:59 Intake Total 4543 4215 Output Total 2475 1515 35 Balance 2068 2700 -35 Weight 118.1 kg 120 kg General appearance: PRESENT: no acute distress, disheveled, well-developed. ABSENT: cooperative, mild distress, morbidly obese, severe distress Head exam: PRESENT: atraumatic. ABSENT: normocephalic Eye exam: PRESENT: conjunctiva pale. ABSENT: conjunctival injection, conjunctiva pink, EOMI, nystagmus, periorbital swelling, scleral icterus Mouth exam: PRESENT: dry mucosa, neck supple, tongue midline, other - ET tube. ABSENT: laceration, moist Neck exam: ABSENT: carotid bruit, JVD, lymphadenopathy, thyromegaly, tracheal deviation, tracheostomy Respiratory exam: PRESENT: decreased breath sounds, prolonged expiratory phas, rales, rhonchi, symmetrical, unlabored. ABSENT: accessory muscle use, chest wall tenderness, clear to auscultation abigail, crackles, retraction, stridor, tachypnea Cardiovascular exam: PRESENT: RRR, +S1, +S2 Pulses: PRESENT: normal radial pulses GI/Abdominal exam: PRESENT: diminished bowel sounds, soft Extremities exam: ABSENT: clubbing, joint swelling Musculoskeletal exam: ABSENT: ambulatory, deformity, dislocation Neurological exam: PRESENT: awake Skin exam: PRESENT: dry, warm Results Laboratory Results: 10/16/17 08:35 10/16/17 08:35 10/16/17 10/16/17 10/16/17 04:30 05:18 05:18 WBC Cancelled RBC Cancelled Hgb Cancelled Hct Cancelled MCV Cancelled MCH Cancelled MCHC Cancelled RDW Cancelled Plt Count Cancelled Seg Neutrophils % Cancelled Lymphocytes % Cancelled Monocytes % Cancelled Eosinophils % Cancelled Basophils % Cancelled Absolute Neutrophils Cancelled Absolute Lymphocytes Cancelled Absolute Monocytes Cancelled Absolute Eosinophils Cancelled Absolute Basophils Cancelled Carbonic Acid 1.07 HCO3/H2CO3 Ratio 19:1 ABG pH 7.39 ABG pCO2 35.5 ABG pO2 77.8 L ABG HCO3 21.0 ABG O2 Saturation 95.5 ABG Base Excess -3.5 FiO2 30% Sodium 144.0 Potassium 4.3 Chloride 116 H Carbon Dioxide 23 Anion Gap 5 BUN 14 Creatinine 1.11 Est GFR ( Amer) > 60 Est GFR (Non-Af Amer) > 60 Glucose 88 Calcium 7.7 L Magnesium 1.7 Total Bilirubin AST ALT Alkaline Phosphatase Total Protein Albumin Triglycerides 76 10/16/17 10/16/17 10/16/17 05:18 08:35 08:35 WBC 5.7 RBC 4.18 L Hgb 11.4 L Hct 35.0 L MCV 84 MCH 27.4 MCHC 32.7 RDW 16.1 H Plt Count 87 L Seg Neutrophils % 61.8 Lymphocytes % 19.6 Monocytes % 14.2 H Eosinophils % 3.9 Basophils % 0.5 Absolute Neutrophils 3.5 Absolute Lymphocytes 1.1 Absolute Monocytes 0.8 Absolute Eosinophils 0.2 Absolute Basophils 0.0 Carbonic Acid HCO3/H2CO3 Ratio ABG pH ABG pCO2 ABG pO2 ABG HCO3 ABG O2 Saturation ABG Base Excess FiO2 Sodium Cancelled 144.4 Potassium Cancelled 4.2 Chloride Cancelled 117 H Carbon Dioxide Cancelled 22 Anion Gap Cancelled 5 BUN Cancelled 14 Creatinine Cancelled 1.05 Est GFR ( Amer) Cancelled > 60 Est GFR (Non-Af Amer) Cancelled > 60 Glucose Cancelled 82 Calcium Cancelled 7.7 L Magnesium Total Bilirubin Cancelled 0.8 AST Cancelled 36 ALT Cancelled 29 Alkaline Phosphatase Cancelled 57 Total Protein Cancelled 4.5 L Albumin Cancelled 2.2 L Triglycerides 10/13/17 09:30 Tracheal Aspirate Gram Stain - Final 10/13/17 09:30 Tracheal Aspirate Sputum Culture - Final NO GROWTH 2 DAYS 10/12/17 22:55 Catheterized Urine Urine Culture - Final NO GROWTH 2 DAYS 10/12/17 10/12/17 10/14/17 18:55 18:55 04:02 Creatine Kinase 356 H 243 H CK-MB (CK-2) 8.56 H Troponin I 0.017 10/15/17 10/16/17 10/16/17 04:01 05:18 08:35 Creatine Kinase 215 H Cancelled 118 CK-MB (CK-2) Troponin I Impressions: Knee X-Ray 10/11/17 14:12 IMPRESSION: SATISFACTORY POSTOPERATIVE RIGHT KNEE. QUESTION LUCENT LESIONS WITHIN THE DISTAL FEMUR VERSUS OVERLYING SUBCUTANEOUS GAS FROM SURGERY. RECOMMEND FOLLOWUP RADIOGRAPHS IN 1 TO 2 WEEKS TO RE-EVALUATE GIVEN HISTORY OF MELANOMA. KUB X-Ray 10/12/17 19:45 IMPRESSION: Nasogastric tube in the stomach. Chest X-Ray 10/15/17 06:00 IMPRESSION: Minimal lingular atelectasis. Tubes and lines in good positioning. Assessment & Plan - Diagnosis (1) Acute respiratory failure with hypoxia and hypercapnia Is this a current diagnosis for this admission?: Yes Plan: min vol;rr;FIO2 airway pressure suggest extubation (2) Chronic combined systolic and diastolic CHF (congestive heart failure) Is this a current diagnosis for this admission?: Yes Plan: diuresis as necessary (3) Acute tubular necrosis Is this a current diagnosis for this admission?: Yes Plan: improving (4) Altered mental status Qualifiers: Altered mental status type: somnolence Qualified Code(s): R40.0 - Somnolence Is this a current diagnosis for this admission?: Yes (5) Morbid obesity Is this a current diagnosis for this admission?: Yes - Time Total Critical Time (Minutes): 55
--- NOTE | 2017-10-17 17:23 | PDOC PROGRESS REPORT ---
Subjective Progress Note for:: 10/17/17 Subjective:: 24 hrs s/p extubation confused stable Reason For Visit: M17.11 UNILATERAL PRIMARY OSTEOARTHRITIS, RIGHT KN Physical Exam Vital Signs: Temp Pulse Resp BP Pulse Ox 97.6 F 77 14 154/70 H 100 10/17/17 10:00 10/17/17 10:00 10/17/17 10:45 10/17/17 10:26 10/17/17 10:45 Intake & Output 10/16/17 10/17/17 10/18/17 06:59 06:59 06:59 Intake Total 4215 2009 Output Total 1518 2696 175 Balance 4980 -835 -175 Weight 120 kg 119 kg General appearance: PRESENT: no acute distress, disheveled, well-developed. ABSENT: cooperative, hard of hearing, mild distress, morbidly obese, severe distress Head exam: PRESENT: atraumatic, normocephalic Eye exam: PRESENT: conjunctiva pale, EOMI. ABSENT: conjunctival injection, conjunctiva pink, nystagmus, periorbital swelling, scleral icterus Mouth exam: PRESENT: dry mucosa, neck supple, tongue midline. ABSENT: laceration, moist Neck exam: ABSENT: carotid bruit, JVD, lymphadenopathy, thyromegaly, tracheal deviation, tracheostomy Respiratory exam: PRESENT: decreased breath sounds, prolonged expiratory phas, rales, rhonchi, symmetrical, unlabored. ABSENT: accessory muscle use, chest wall tenderness, clear to auscultation abigail, crackles, retraction, stridor, tachypnea Cardiovascular exam: PRESENT: RRR, +S1, +S2 Pulses: PRESENT: normal radial pulses GI/Abdominal exam: PRESENT: diminished bowel sounds, soft Gentrourinary exam: PRESENT: indwelling catheter Extremities exam: ABSENT: clubbing Musculoskeletal exam: ABSENT: ambulatory Neurological exam: PRESENT: awake Focused psych exam: PRESENT: flight of ideas Skin exam: PRESENT: dry, warm Results Laboratory Results: 10/17/17 04:07 10/17/17 04:07 10/16/17 10/17/17 10/17/17 15:15 04:07 04:07 WBC 3.8 L RBC 3.73 L Hgb 10.1 L Hct 31.2 L MCV 84 MCH 27.2 MCHC 32.5 RDW 15.7 H Plt Count 79 L Seg Neutrophils % 66.5 Lymphocytes % 16.5 Monocytes % 11.2 Eosinophils % 5.1 Basophils % 0.7 Absolute Neutrophils 2.5 Absolute Lymphocytes 0.6 Absolute Monocytes 0.4 Absolute Eosinophils 0.2 Absolute Basophils 0.0 Carbonic Acid 1.32 HCO3/H2CO3 Ratio 16:1 ABG pH 7.33 L ABG pCO2 43.8 ABG pO2 115.3 H ABG HCO3 22.3 ABG O2 Saturation 97.9 ABG Base Excess -3.6 FiO2 40% Sodium 146.9 H Potassium 4.0 Chloride 120 H Carbon Dioxide 21 L Anion Gap 6 BUN 14 Creatinine 1.01 Est GFR ( Amer) > 60 Est GFR (Non-Af Amer) > 60 Glucose 77 Calcium 8.1 L Magnesium 1.5 L 10/17/17 06:15 WBC RBC Hgb Hct MCV MCH MCHC RDW Plt Count Seg Neutrophils % Lymphocytes % Monocytes % Eosinophils % Basophils % Absolute Neutrophils Absolute Lymphocytes Absolute Monocytes Absolute Eosinophils Absolute Basophils Carbonic Acid 1.31 HCO3/H2CO3 Ratio 16:1 ABG pH 7.31 L ABG pCO2 43.6 ABG pO2 104.3 H ABG HCO3 21.7 ABG O2 Saturation 97.3 ABG Base Excess -4.3 FiO2 2L Sodium Potassium Chloride Carbon Dioxide Anion Gap BUN Creatinine Est GFR ( Amer) Est GFR (Non-Af Amer) Glucose Calcium Magnesium 10/12/17 10/12/17 10/14/17 18:55 18:55 04:02 Creatine Kinase 356 H 243 H CK-MB (CK-2) 8.56 H Troponin I 0.017 10/15/17 10/16/17 10/16/17 04:01 05:18 08:35 Creatine Kinase 215 H Cancelled 118 CK-MB (CK-2) Troponin I Impressions: Knee X-Ray 10/11/17 14:12 IMPRESSION: SATISFACTORY POSTOPERATIVE RIGHT KNEE. QUESTION LUCENT LESIONS WITHIN THE DISTAL FEMUR VERSUS OVERLYING SUBCUTANEOUS GAS FROM SURGERY. RECOMMEND FOLLOWUP RADIOGRAPHS IN 1 TO 2 WEEKS TO RE-EVALUATE GIVEN HISTORY OF MELANOMA. KUB X-Ray 10/12/17 19:45 IMPRESSION: Nasogastric tube in the stomach. Chest X-Ray 10/16/17 06:00 IMPRESSION: STABLE APPEARANCE OF THE CHEST WITH LINES/ TUBES AND BILATERAL PLEURAL EFFUSIONS/AIRSPACE DISEASE. Assessment & Plan - Diagnosis (1) Acute respiratory failure with hypoxia and hypercapnia Is this a current diagnosis for this admission?: Yes Plan: 24 hrs s/p extubation (2) Chronic combined systolic and diastolic CHF (congestive heart failure) Is this a current diagnosis for this admission?: Yes Plan: diuresis as necessary (3) Acute tubular necrosis Is this a current diagnosis for this admission?: Yes Plan: resolved (4) Altered mental status Qualifiers: Altered mental status type: disorientation Qualified Code(s): R41.0 - Disorientation, unspecified Is this a current diagnosis for this admission?: Yes (5) Morbid obesity Is this a current diagnosis for this admission?: Yes - Time Total Critical Time (Minutes): 40
[2017-10-17] MEDS: METOPROLOL SUCCINATE 25 MG TAB.SR.24H PO SCH (21:22)
[2017-10-17] MEDS: ERTAPENEM SODIUM 0.5 GM in NORMAL SALINE 50 ML IV SCH (21:25)
[2017-10-17] MEDS: MINERAL OIL/PETROLATUM,WHITE OPH OINT 3.5 GM OU SCH (21:27)
[2017-10-17] MEDS: PREGABALIN 75 MG CAPSULE PO SCH (21:30)
[2017-10-17] MEDS ORDERED: MAG HYDROX/AL HYDROX/SIMETH SUSP 30 ML UDCUP PO PRN (22:00)
[2017-10-17] MEDS ORDERED: LORAZEPAM 1 MG TABLET PO PRN (22:00)
[2017-10-17] MEDS ORDERED: ONDANSETRON 4 MG TAB.RAPDIS PO PRN (22:00)
[2017-10-17] MEDS ORDERED: OXYCODONE-ACETAMINOPHEN 5-325 MG TABLET PO PRN (22:00)
[2017-10-17] MEDS ORDERED: ACETAMINOPHEN 325 MG TABLET PO PRN (22:00)
[2017-10-17] MEDS ORDERED: ZOLPIDEM TARTRATE 5 MG TABLET PO PRN (22:00)
[2017-10-17] MEDS ORDERED: OXYCODONE HCL IR 5 MG TABLET PO PRN (22:00)
[2017-10-18] MEDS: LEVALBUTEROL HCL NEB 1.25 MG/3 ML AMPUL NEB SCH ×4 (02:25→20:49)
[2017-10-18] MEDS: LANSOPRAZOLE 30 MG TAB.RAP.DR PO SCH (05:32)
[2017-10-18 06:04] LABS: ARTERIAL BLOOD BASE EXCESS -4.3 mmol/L; ARTERIAL BLOOD H2CO3 1.54 mmol/L (1.05-1.35); ARTERIAL BLOOD HCO3 22.7 mmol/L (20-26); ARTERIAL BLOOD O2 SATURATION 95.8 % (94-98); ARTERIAL BLOOD PCO2 51.2 mmHg (35-45); ARTERIAL BLOOD PH 7.27 (7.35-7.45); ARTERIAL BLOOD TOTAL CO2 24.3 mmol/L (23-27)
[2017-10-18 06:13] LABS: ARTERIAL BLOOD FIO2 2L
[2017-10-18 06:19] LABS: ABSOLUTE EOSINOPHILS # (AUTO) 0.2 10^3/uL (0.0-0.6); ABSOLUTE LYMPHOCYTES (AUTO) 0.7 10^3/uL (0.5-4.7); ABSOLUTE MONOCYTES (AUTO) 0.4 10^3/uL (0.1-1.4); ABSOLUTE NEUT (AUTO) 2.2 10^3/uL (1.7-8.2); BASOPHILS % (AUTO) 0.9 % (0-2); EOSINOPHILS % (AUTO) 6.3 % (0-6); HEMATOCRIT 30.9 % (37.9-51.0); LYMPHOCYTES % (AUTO) 18.9 % (13-45); MEAN CORPUSCULAR HEMOGLOBIN 27.1 pg (27.0-33.4); MEAN CORPUSCULAR HGB CONC 32.3 g/dL (32.0-36.0); MEAN CORPUSCULAR VOLUME 84 fl (80-97); MONOCYTES % (AUTO) 12.5 % (3-13); RED BLOOD COUNT 3.69 10^6/uL (4.35-5.55); RED CELL DISTRIBUTION WIDTH 15.4 % (11.5-14.0); SEGMENTED NEUTROPHILS % (AUTO) 61.4 % (42-78); TOTAL CELLS COUNTED % (AUTO) 100 %; WHITE BLOOD COUNT 3.5 10^3/uL (4.0-10.5)
[2017-10-18 06:23] LABS: ANION GAP 6 (5-19); BLOOD UREA NITROGEN 16 mg/dL (7-20); CALCIUM 8.3 mg/dL (8.4-10.2); CARBON DIOXIDE 21 mmol/L (22-30); CHLORIDE 117 mmol/L (98-107); GLUCOSE 68 mg/dL (75-110); MAGNESIUM 1.8 mg/dL (1.6-2.3); POTASSIUM 4.1 mmol/L (3.6-5.0); SODIUM 144.4 mmol/L (137-145)
--- NOTE | 2017-10-18 07:11 | RADIOLOGY REPORT (SQ) ---
EXAM DESCRIPTION: CHEST SINGLE VIEW CLINICAL HISTORY: 77 years, Male, resp failure COMPARISON: 10/17/17. NUMBER OF VIEWS: 1 LIMITATIONS: None. FINDINGS: Small bibasilar opacity-effusion, moderate lung volume, normal cardiac silhouette, atherosclerosis, left cardiac stimulation device and leads, right axillary clips. Interval extubation. IMPRESSION: Interval extubation. Else, no significant change.
[2017-10-18 07:15] LABS: PLATELET COUNT 91 10^3/uL (150-450)
[2017-10-18] MEDS: ISOSORBIDE MONONITRATE 30 MG TAB.ER.24H PO SCH (10:16)
[2017-10-18] MEDS: CITALOPRAM HYDROBROMIDE 20 MG TABLET PO SCH (10:16)
[2017-10-18] MEDS: TAMSULOSIN HCL 0.4 MG CAP.SR.24H PO SCH (10:16)
[2017-10-18] MEDS: ASPIRIN 81 MG TABLET, CHEWABLE PO SCH (10:16)
[2017-10-18] MEDS: CLOPIDOGREL BISULFATE 75 MG TABLET PO SCH (10:16)
[2017-10-18] MEDS: CYANOCOBALAMIN (VITAMIN B-12) 1,000 MCG TABLET PO SCH (10:17)
[2017-10-18] MEDS: SACUBITRIL/VALSARTAN 97 MG/103 MG TABLET PO SCH ×2 (10:27→22:01)
[2017-10-18] MEDS: POLYVINYL ALCOHOL 1.4% OPH SOLN 15 ML OU SCH ×4 (10:27→22:01)
[2017-10-18] MEDS: PSYLLIUM SEED-SF 5.85 GM PACKET PO SCH ×2 (10:28→18:30)
[2017-10-18] MEDS: SITAGLIPTIN PHOSPHATE 25 MG TABLET PO SCH (12:14)
[2017-10-18] MEDS: PREGABALIN 75 MG CAPSULE PO SCH ×2 (12:14→22:01)
--- NOTE | 2017-10-18 19:58 | PDOC PROGRESS REPORT ---
Subjective Progress Note for:: 10/18/17 Subjective:: Patient extubated, seen by the bedside in ICU, to be downgraded to IMCU Reason For Visit: M17.11 UNILATERAL PRIMARY OSTEOARTHRITIS, RIGHT KN Physical Exam Vital Signs: Temp Pulse Resp BP Pulse Ox 97.9 F 66 17 150/61 H 96 10/18/17 15:45 10/18/17 14:22 10/18/17 18:45 10/18/17 18:26 10/18/17 18:45 Intake & Output 10/17/17 10/18/17 10/19/17 06:59 06:59 06:59 Intake Total 2009 853 614 Output Total 2845 805 560 Balance -835 48 54 Weight 119 kg 120.8 kg General appearance: PRESENT: no acute distress Eye exam: PRESENT: PERRLA Respiratory exam: PRESENT: clear to auscultation abigail Cardiovascular exam: PRESENT: +S1, +S2 GI/Abdominal exam: PRESENT: soft Neurological exam: PRESENT: alert Results Laboratory Results: 10/18/17 05:49 10/18/17 05:49 10/18/17 10/18/17 10/18/17 05:20 05:49 05:49 WBC 3.5 L RBC 3.69 L Hgb 10.0 L Hct 30.9 L MCV 84 MCH 27.1 MCHC 32.3 RDW 15.4 H Plt Count 91 L Seg Neutrophils % 61.4 Lymphocytes % 18.9 Monocytes % 12.5 Eosinophils % 6.3 H Basophils % 0.9 Absolute Neutrophils 2.2 Absolute Lymphocytes 0.7 Absolute Monocytes 0.4 Absolute Eosinophils 0.2 Absolute Basophils 0.0 Carbonic Acid 1.54 H HCO3/H2CO3 Ratio 14:1 ABG pH 7.27 L ABG pCO2 51.2 H ABG pO2 91.0 ABG HCO3 22.7 ABG O2 Saturation 95.8 ABG Base Excess -4.3 FiO2 2L Sodium 144.4 Potassium 4.1 Chloride 117 H Carbon Dioxide 21 L Anion Gap 6 BUN 16 Creatinine 0.94 Est GFR ( Amer) > 60 Est GFR (Non-Af Amer) > 60 Glucose 68 L Calcium 8.3 L Magnesium 1.8 10/12/17 20:00 Blood Blood Culture - Final NO GROWTH IN 5 DAYS 10/12/17 20:25 Blood Blood Culture - Final NO GROWTH IN 5 DAYS 10/12/17 10/12/17 10/14/17 18:55 18:55 04:02 Creatine Kinase 356 H 243 H CK-MB (CK-2) 8.56 H Troponin I 0.017 10/15/17 10/16/17 10/16/17 04:01 05:18 08:35 Creatine Kinase 215 H Cancelled 118 CK-MB (CK-2) Troponin I Impressions: Knee X-Ray 10/11/17 14:12 IMPRESSION: SATISFACTORY POSTOPERATIVE RIGHT KNEE. QUESTION LUCENT LESIONS WITHIN THE DISTAL FEMUR VERSUS OVERLYING SUBCUTANEOUS GAS FROM SURGERY. RECOMMEND FOLLOWUP RADIOGRAPHS IN 1 TO 2 WEEKS TO RE-EVALUATE GIVEN HISTORY OF MELANOMA. KUB X-Ray 10/12/17 19:45 IMPRESSION: Nasogastric tube in the stomach. Chest X-Ray 10/18/17 06:00 IMPRESSION: Interval extubation. Else, no significant change. Assessment & Plan - Diagnosis (1) Acute respiratory failure with hypoxia and hypercapnia Is this a current diagnosis for this admission?: Yes (2) Acute kidney injury Is this a current diagnosis for this admission?: Yes (3) Chronic combined systolic and diastolic CHF (congestive heart failure) Is this a current diagnosis for this admission?: Yes (4) Type 2 diabetes mellitus Qualifiers: Diabetes mellitus complication status: with neurologic complications Diabetes mellitus complication detail: with polyneuropathy Diabetes mellitus local intermodal truck driver insulin use: without local intermodal truck driver use Qualified Code(s): E11.42 - Type 2 diabetes mellitus with diabetic polyneuropathy Is this a current diagnosis for this admission?: Yes - Plan Summary Plan Summary: Patient is downgraded to IMCU floor
[2017-10-18] MEDS: METOPROLOL SUCCINATE 25 MG TAB.SR.24H PO SCH (21:59)
[2017-10-18] MEDS: MINERAL OIL/PETROLATUM,WHITE OPH OINT 3.5 GM OU SCH (22:00)
[2017-10-18] MEDS: ERTAPENEM SODIUM 0.5 GM in NORMAL SALINE 50 ML IV SCH (22:00)
[2017-10-19] MEDS: LEVALBUTEROL HCL NEB 1.25 MG/3 ML AMPUL NEB SCH ×4 (02:13→21:14)
[2017-10-19 04:31] LABS: ANION GAP 5 (5-19); BLOOD UREA NITROGEN 16 mg/dL (7-20); CALCIUM 8.3 mg/dL (8.4-10.2); CARBON DIOXIDE 22 mmol/L (22-30); CHLORIDE 118 mmol/L (98-107); GLUCOSE 89 mg/dL (75-110); POTASSIUM 4.6 mmol/L (3.6-5.0); SODIUM 144.6 mmol/L (137-145)
[2017-10-19] MEDS: LANSOPRAZOLE 30 MG TAB.RAP.DR PO SCH (05:56)
--- NOTE | 2017-10-19 06:35 | PDOC PROGRESS REPORT ---
Subjective Progress Note for:: 10/19/17 Reason For Visit: M17.11 UNILATERAL PRIMARY OSTEOARTHRITIS, RIGHT KN 77-year-old white male postop day 4 right knee arthroplasty with postoperative complication of urinary and respiratory compromise Physical Exam Vital Signs: Temp Pulse Resp BP Pulse Ox 36.8 C 67 13 131/57 H 100 10/19/17 00:00 10/19/17 04:00 10/19/17 06:00 10/19/17 05:27 10/19/17 04:00 Intake & Output 10/17/17 10/18/17 10/19/17 06:59 06:59 06:59 Intake Total 2009 853 1021 Output Total 2845 805 1235 Balance -835 48 -214 Weight 119 kg 120.8 kg 119.7 kg General appearance: PRESENT: obese Head exam: PRESENT: normocephalic Respiratory exam: PRESENT: unlabored Cardiovascular exam: PRESENT: RRR Pulses: PRESENT: +1 pedal pulses bilateral Vascular exam: PRESENT: normal capillary refill GI/Abdominal exam: PRESENT: soft Rectal exam: PRESENT: deferred Extremities exam: PRESENT: other - Right knee dressing clean dry and intact Neurological exam: PRESENT: alert, awake, oriented to person, oriented to place , oriented to time, oriented to situation. ABSENT: motor sensory deficit Psychiatric exam: PRESENT: appropriate affect, normal mood. ABSENT: homicidal ideation, suicidal ideation Skin exam: PRESENT: dry, intact, warm. ABSENT: cyanosis, rash Results Laboratory Results: 10/18/17 05:49 10/19/17 03:55 10/18/17 10/19/17 05:49 03:55 WBC 3.5 L RBC 3.69 L Hgb 10.0 L Hct 30.9 L MCV 84 MCH 27.1 MCHC 32.3 RDW 15.4 H Plt Count 91 L Seg Neutrophils % 61.4 Lymphocytes % 18.9 Monocytes % 12.5 Eosinophils % 6.3 H Basophils % 0.9 Absolute Neutrophils 2.2 Absolute Lymphocytes 0.7 Absolute Monocytes 0.4 Absolute Eosinophils 0.2 Absolute Basophils 0.0 Sodium 144.6 Potassium 4.6 Chloride 118 H Carbon Dioxide 22 Anion Gap 5 BUN 16 Creatinine 0.85 Est GFR ( Amer) > 60 Est GFR (Non-Af Amer) > 60 Glucose 89 Calcium 8.3 L 10/12/17 10/12/17 10/14/17 18:55 18:55 04:02 Creatine Kinase 356 H 243 H CK-MB (CK-2) 8.56 H Troponin I 0.017 10/15/17 10/16/17 10/16/17 04:01 05:18 08:35 Creatine Kinase 215 H Cancelled 118 CK-MB (CK-2) Troponin I Impressions: Knee X-Ray 10/11/17 14:12 IMPRESSION: SATISFACTORY POSTOPERATIVE RIGHT KNEE. QUESTION LUCENT LESIONS WITHIN THE DISTAL FEMUR VERSUS OVERLYING SUBCUTANEOUS GAS FROM SURGERY. RECOMMEND FOLLOWUP RADIOGRAPHS IN 1 TO 2 WEEKS TO RE-EVALUATE GIVEN HISTORY OF MELANOMA. KUB X-Ray 10/12/17 19:45 IMPRESSION: Nasogastric tube in the stomach. Chest X-Ray 10/18/17 06:00 IMPRESSION: Interval extubation. Else, no significant change. Status: Imported from PACS Assessment & Plan - Diagnosis (1) Arthritis of right knee Is this a current diagnosis for this admission?: Yes Plan: Patient with limited progress with physical therapy. Anticipate the need for longterm facility placement (2) Acute kidney injury Is this a current diagnosis for this admission?: Yes (3) Acute respiratory failure with hypoxia and hypercapnia Is this a current diagnosis for this admission?: Yes - Time Time Spent with patient: 15-24 minutes Anticipated discharge: SNF Within: when bed available
[2017-10-19 09:15] LABS: ARTERIAL BLOOD BASE EXCESS -2.6 mmol/L; ARTERIAL BLOOD H2CO3 1.48 mmol/L (1.05-1.35); ARTERIAL BLOOD HCO3 23.9 mmol/L (20-26); ARTERIAL BLOOD O2 SATURATION 99.6 % (94-98); ARTERIAL BLOOD PCO2 49.2 mmHg (35-45); ARTERIAL BLOOD PO2 285.8 mmHg (80-100); ARTERIAL BLOOD TOTAL CO2 25.4 mmol/L (23-27)
[2017-10-19 09:16] LABS: ARTERIAL BLOOD FIO2 2L
[2017-10-19] MEDS: SITAGLIPTIN PHOSPHATE 25 MG TABLET PO SCH (09:22)
[2017-10-19] MEDS: SACUBITRIL/VALSARTAN 97 MG/103 MG TABLET PO SCH ×2 (09:29→23:12)
[2017-10-19] MEDS: CLOPIDOGREL BISULFATE 75 MG TABLET PO SCH (09:30)
[2017-10-19] MEDS: CYANOCOBALAMIN (VITAMIN B-12) 1,000 MCG TABLET PO SCH (09:30)
[2017-10-19] MEDS: TAMSULOSIN HCL 0.4 MG CAP.SR.24H PO SCH (09:31)
[2017-10-19] MEDS: CITALOPRAM HYDROBROMIDE 20 MG TABLET PO SCH (09:31)
[2017-10-19] MEDS: ISOSORBIDE MONONITRATE 30 MG TAB.ER.24H PO SCH (09:31)
[2017-10-19] MEDS: PREGABALIN 75 MG CAPSULE PO SCH ×2 (09:31→23:12)
[2017-10-19] MEDS: ASPIRIN 81 MG TABLET, CHEWABLE PO SCH (09:32)
[2017-10-19] MEDS: PSYLLIUM SEED-SF 5.85 GM PACKET PO SCH ×2 (09:32→18:06)
[2017-10-19] MEDS: POLYVINYL ALCOHOL 1.4% OPH SOLN 15 ML OU SCH ×4 (09:32→23:13)
--- NOTE | 2017-10-19 20:37 | PDOC PROGRESS REPORT ---
Subjective Progress Note for:: 10/19/17 Subjective:: Patient was seen by the bedside, the plan is to transfer to [facility] Reason For Visit: M17.11 UNILATERAL PRIMARY OSTEOARTHRITIS, RIGHT KN Physical Exam Vital Signs: Temp Pulse Resp BP Pulse Ox 98.1 F 60 12 116/56 L 97 10/19/17 12:00 10/19/17 19:00 10/19/17 16:25 10/19/17 15:26 10/19/17 16:25 Intake & Output 10/18/17 10/19/17 10/20/17 06:59 06:59 06:59 Intake Total 853 1021 0 Output Total 805 1235 525 Balance 48 -214 -525 Weight 120.8 kg 119.7 kg General appearance: PRESENT: no acute distress Head exam: PRESENT: atraumatic, normocephalic Eye exam: PRESENT: PERRLA Respiratory exam: PRESENT: clear to auscultation abigail Cardiovascular exam: PRESENT: +S1, +S2 GI/Abdominal exam: PRESENT: soft Neurological exam: PRESENT: alert Results Laboratory Results: 10/18/17 05:49 10/19/17 03:55 10/19/17 10/19/17 03:55 09:00 Carbonic Acid 1.48 H HCO3/H2CO3 Ratio 16:1 ABG pH 7.30 L ABG pCO2 49.2 H ABG pO2 285.8 H ABG HCO3 23.9 ABG O2 Saturation 99.6 H ABG Base Excess -2.6 FiO2 2L Sodium 144.6 Potassium 4.6 Chloride 118 H Carbon Dioxide 22 Anion Gap 5 BUN 16 Creatinine 0.85 Est GFR ( Amer) > 60 Est GFR (Non-Af Amer) > 60 Glucose 89 Calcium 8.3 L 10/12/17 10/12/17 10/14/17 18:55 18:55 04:02 Creatine Kinase 356 H 243 H CK-MB (CK-2) 8.56 H Troponin I 0.017 10/15/17 10/16/17 10/16/17 04:01 05:18 08:35 Creatine Kinase 215 H Cancelled 118 CK-MB (CK-2) Troponin I Impressions: Knee X-Ray 10/11/17 14:12 IMPRESSION: SATISFACTORY POSTOPERATIVE RIGHT KNEE. QUESTION LUCENT LESIONS WITHIN THE DISTAL FEMUR VERSUS OVERLYING SUBCUTANEOUS GAS FROM SURGERY. RECOMMEND FOLLOWUP RADIOGRAPHS IN 1 TO 2 WEEKS TO RE-EVALUATE GIVEN HISTORY OF MELANOMA. KUB X-Ray 10/12/17 19:45 IMPRESSION: Nasogastric tube in the stomach. Chest X-Ray 10/18/17 06:00 IMPRESSION: Interval extubation. Else, no significant change. Assessment & Plan - Diagnosis (1) Acute respiratory failure with hypoxia and hypercapnia Is this a current diagnosis for this admission?: Yes (2) Acute kidney injury Is this a current diagnosis for this admission?: Yes (3) Chronic combined systolic and diastolic CHF (congestive heart failure) Is this a current diagnosis for this admission?: Yes (4) Type 2 diabetes mellitus Qualifiers: Diabetes mellitus complication status: with neurologic complications Diabetes mellitus complication detail: with polyneuropathy Diabetes mellitus termite technician insulin use: without termite technician use Qualified Code(s): E11.42 - Type 2 diabetes mellitus with diabetic polyneuropathy Is this a current diagnosis for this admission?: Yes
[2017-10-19] MEDS: MINERAL OIL/PETROLATUM,WHITE OPH OINT 3.5 GM OU SCH (23:13)
[2017-10-19] MEDS: METOPROLOL SUCCINATE 25 MG TAB.SR.24H PO SCH (23:13)
[2017-10-20] MEDS: LEVALBUTEROL HCL NEB 1.25 MG/3 ML AMPUL NEB SCH ×4 (02:26→21:07)
[2017-10-20] MEDS: LANSOPRAZOLE 30 MG TAB.RAP.DR PO SCH (06:21)
[2017-10-20 07:24] LABS: ANION GAP 5 (5-19); BLOOD UREA NITROGEN 17 mg/dL (7-20); CALCIUM 8.4 mg/dL (8.4-10.2); CARBON DIOXIDE 25 mmol/L (22-30); CHLORIDE 114 mmol/L (98-107); GLUCOSE 83 mg/dL (75-110); POTASSIUM 3.7 mmol/L (3.6-5.0); SODIUM 144.3 mmol/L (137-145)
--- NOTE | 2017-10-20 07:24 | PDOC PROGRESS REPORT ---
Subjective Progress Note for:: 10/20/17 Subjective:: Patient complaining of right knee pain Reason For Visit: M17.11 UNILATERAL PRIMARY OSTEOARTHRITIS, RIGHT KN Physical Exam Vital Signs: Temp Pulse Resp BP Pulse Ox 37.1 C 63 16 147/60 H 100 10/20/17 03:32 10/20/17 03:32 10/20/17 03:32 10/20/17 03:32 10/20/17 03:32 Intake & Output 10/19/17 10/20/17 10/21/17 06:59 06:59 06:59 Intake Total 1021 228 Output Total 1235 675 Balance -214 -447 Weight 119.7 kg 129 kg General appearance: PRESENT: mild distress Head exam: PRESENT: normocephalic Respiratory exam: PRESENT: unlabored, other - CPAP Cardiovascular exam: PRESENT: RRR Pulses: PRESENT: +1 pedal pulses bilateral Vascular exam: PRESENT: normal capillary refill GI/Abdominal exam: PRESENT: soft Rectal exam: PRESENT: deferred Extremities exam: PRESENT: other - Right knee dressing clean dry and intact Results Laboratory Results: 10/18/17 05:49 10/19/17 09:00 Carbonic Acid 1.48 H HCO3/H2CO3 Ratio 16:1 ABG pH 7.30 L ABG pCO2 49.2 H ABG pO2 285.8 H ABG HCO3 23.9 ABG O2 Saturation 99.6 H ABG Base Excess -2.6 FiO2 2L 10/12/17 10/12/17 10/14/17 18:55 18:55 04:02 Creatine Kinase 356 H 243 H CK-MB (CK-2) 8.56 H Troponin I 0.017 10/15/17 10/16/17 10/16/17 04:01 05:18 08:35 Creatine Kinase 215 H Cancelled 118 CK-MB (CK-2) Troponin I Impressions: Knee X-Ray 10/11/17 14:12 IMPRESSION: SATISFACTORY POSTOPERATIVE RIGHT KNEE. QUESTION LUCENT LESIONS WITHIN THE DISTAL FEMUR VERSUS OVERLYING SUBCUTANEOUS GAS FROM SURGERY. RECOMMEND FOLLOWUP RADIOGRAPHS IN 1 TO 2 WEEKS TO RE-EVALUATE GIVEN HISTORY OF MELANOMA. KUB X-Ray 10/12/17 19:45 IMPRESSION: Nasogastric tube in the stomach. Chest X-Ray 10/18/17 06:00 IMPRESSION: Interval extubation. Else, no significant change. Status: Imported from PACS Assessment & Plan - Diagnosis (1) Arthritis of right knee Is this a current diagnosis for this admission?: Yes Plan: 77-year-old white male postop day 7 right knee arthroplasty with a postoperative course complicated by pulmonary and renal issues. These seem to be resolving. Patient is made limited progress with physical therapy. Plan will be to return to a senior living facility when bed is available. (2) Acute kidney injury Is this a current diagnosis for this admission?: Yes (3) Acute respiratory failure with hypoxia and hypercapnia Is this a current diagnosis for this admission?: Yes - Time Time Spent with patient: 15-24 minutes Anticipated discharge: SNF Within: when bed available
[2017-10-20] MEDS ORDERED: TRAMADOL HCL 50 MG TABLET PO PRN (07:56)
[2017-10-20] MEDS: SACUBITRIL/VALSARTAN 97 MG/103 MG TABLET PO SCH (09:09)
[2017-10-20] MEDS: CYANOCOBALAMIN (VITAMIN B-12) 1,000 MCG TABLET PO SCH (09:09)
[2017-10-20] MEDS: ASPIRIN 81 MG TABLET, CHEWABLE PO SCH (09:10)
[2017-10-20] MEDS: ISOSORBIDE MONONITRATE 30 MG TAB.ER.24H PO SCH (09:10)
[2017-10-20] MEDS: CITALOPRAM HYDROBROMIDE 20 MG TABLET PO SCH (09:10)
[2017-10-20] MEDS: CLOPIDOGREL BISULFATE 75 MG TABLET PO SCH (09:10)
[2017-10-20] MEDS: PREGABALIN 75 MG CAPSULE PO SCH (09:11)
[2017-10-20] MEDS: POLYVINYL ALCOHOL 1.4% OPH SOLN 15 ML OU SCH ×3 (09:12→17:31)
[2017-10-20] MEDS: SITAGLIPTIN PHOSPHATE 25 MG TABLET PO SCH (09:12)
[2017-10-20] MEDS: TAMSULOSIN HCL 0.4 MG CAP.SR.24H PO SCH (09:12)
[2017-10-20] MEDS: PSYLLIUM SEED-SF 5.85 GM PACKET PO SCH ×2 (09:13→17:31)
--- NOTE | 2017-10-20 12:56 | PDOC TRANSFER SUMMARY ---
General - Admit/Disc Date/PCP Admission Date/Primary Care Provider: 10/12/17 19:21 CRISTINE AGUAYO MD Discharge Date: 10/20/17 - Discharge Diagnosis (1) Arthritis of right knee Is this a current diagnosis for this admission?: Yes (2) Acute kidney injury Is this a current diagnosis for this admission?: Yes (3) Acute respiratory failure with hypoxia and hypercapnia Is this a current diagnosis for this admission?: Yes - Additional Information Resuscitation Status: Full Code Home Medications: Acetaminophen [Tylenol 325 mg Tablet] 650 mg PO Q6HP PRN 10/11/17 Aspirin [Aspirin 81 mg Chewable Tablet] 81 mg PO DAILY 10/11/17 Atorvastatin Calcium [Lipitor 40 mg Tablet] 40 mg PO QHS 10/11/17 Cetirizine HCl [Zyrtec 10 mg Tablet] 10 mg PO DAILY 10/11/17 Citalopram Hydrobromide [Celexa 20 mg Tablet] 20 mg PO DAILY 10/11/17 Clopidogrel Bisulfate [Plavix 75 mg Tablet] 75 mg PO DAILY 10/11/17 Cyanocobalamin (Vitamin B-12) [Vitamin B-12 500 mcg Tablet] 500 mcg PO DAILY Dexlansoprazole [Kapidex 60 mg Capsule] 60 mg PO DAILY 10/11/17 Febuxostat [Uloric 40 mg Tablet] 40 mg PO DAILY 10/11/17 Furosemide [Lasix 20 mg Tablet] 20 mg PO QAM 10/11/17 Isosorbide Mononitrate [Imdur 30 mg Tablet.er] 15 mg PO DAILY 10/11/17 Lanolin/Min Oil/Petrolat,Wht [Akwa Tears Ointment] 1 applic OU QHS 10/11/17 Linagliptin [Tradjenta] 5 mg PO DAILY 10/11/17 Lorazepam [Ativan 1 mg Tablet] 1 mg PO Q12HP PRN 10/11/17 Metoprolol Succinate [Toprol Xl 25 mg Tab.sr] 12.5 mg PO QHS 10/11/17 Oxycodone HCl/Acetaminophen [Percocet 10-325 Mg Tablet] 1 each PO Q6HP PRN 10/11 Polyvinyl Alcohol [Liquitears 1.4% Ophth Soln 15 ml] 1 drop OU QID 10/11/17 Pregabalin [Lyrica] 150 mg PO Q12 10/11/17 Psyllium Husk (with Sugar) [Metamucil Packet] 1 packet PO QHS 10/11/17 Sacubitril/Valsartan [Entresto 97 mg-103 mg Tablet] 1 each PO Q12 10/11/17 Tamsulosin HCl [Flomax 0.4 mg Cap.sr] 0.4 mg PO DAILY 10/11/17 History of Present Illness Admission Date/PCP: 10/12/17 19:21 CRISTINE AGUAYO MD History of Present Illness: 77 yo wM with progressive R knee pain secondary to OA. Patient admitted for elective R TKA Hospital Course Hospital Course: Patient admitted thru OR for elective R TKA. Post operatively patient developed pulmonary and renal failure leading to ICU transfer and intibuation. Gradually improved, renal function returned to baseline and was subsequently extubated. Transferred to floor remains stable but with little progrress in physical therapy Physical Exam Vital Signs: Temp Pulse Resp BP Pulse Ox 36.9 C 60 11 L 141/56 H 95 10/20/17 08:09 10/20/17 08:41 10/20/17 12:28 10/20/17 08:09 10/20/17 12:28 Intake & Output 10/19/17 10/20/17 10/21/17 06:59 06:59 06:59 Intake Total 1021 228 Output Total 1235 675 Balance -214 -447 Weight 119.7 kg 129 kg General appearance: PRESENT: mild distress Head exam: PRESENT: normocephalic Respiratory exam: PRESENT: unlabored, other - CPAP Cardiovascular exam: PRESENT: RRR Pulses: PRESENT: +1 pedal pulses bilateral GI/Abdominal exam: PRESENT: soft Rectal exam: PRESENT: deferred Extremities exam: PRESENT: other - R knee dressing clean and dry Neurological exam: PRESENT: alert, awake, oriented to person, oriented to place , oriented to time, oriented to situation, CN II-XII grossly intact. ABSENT: motor sensory deficit Psychiatric exam: PRESENT: appropriate affect, normal mood. ABSENT: homicidal ideation, suicidal ideation Skin exam: PRESENT: dry, intact, warm. ABSENT: cyanosis, rash Results Laboratory Results: 10/18/17 05:49 10/20/17 05:54 10/20/17 05:54 Sodium 144.3 Potassium 3.7 Chloride 114 H Carbon Dioxide 25 Anion Gap 5 BUN 17 Creatinine 0.87 Est GFR ( Amer) > 60 Est GFR (Non-Af Amer) > 60 Glucose 83 Calcium 8.4 10/12/17 10/12/17 10/14/17 18:55 18:55 04:02 Creatine Kinase 356 H 243 H CK-MB (CK-2) 8.56 H Troponin I 0.017 10/15/17 10/16/17 10/16/17 04:01 05:18 08:35 Creatine Kinase 215 H Cancelled 118 CK-MB (CK-2) Troponin I Impressions: Knee X-Ray 10/11/17 14:12 IMPRESSION: SATISFACTORY POSTOPERATIVE RIGHT KNEE. QUESTION LUCENT LESIONS WITHIN THE DISTAL FEMUR VERSUS OVERLYING SUBCUTANEOUS GAS FROM SURGERY. RECOMMEND FOLLOWUP RADIOGRAPHS IN 1 TO 2 WEEKS TO RE-EVALUATE GIVEN HISTORY OF MELANOMA. KUB X-Ray 10/12/17 19:45 IMPRESSION: Nasogastric tube in the stomach. Chest X-Ray 10/18/17 06:00 IMPRESSION: Interval extubation. Else, no significant change. Transfer Plan - Disposition Transfer Plan: [facility] to [facility]. PT for WBAT. RTC Dr Anton 2 weeks - Time Spent with Patient Time spent with patient: Less than 30 Minutes
[2017-10-20 20:59] VITALS: BP 146/61
== END 2017-10-20 21:20 | DRG 469 ==
LOC: UNDOADMIN 10:11 → INOR 10:11 → EDSTATUS 12:30 → 4S 16:07 → INOR 16:07 → 4S 10-12 19:21 → ICU 10-12 19:21 → 3S 10-19 16:20
PROVIDERS: ADMIT Orthopaedic Surgery; ATTEND Orthopaedic Surgery
PROC: 0SRC0J9 Replacement of Right Knee Joint with Synthetic Substitute, Cemented, Open Approach (ICD-10-PCS; principal; 2017-10-11 12:45)
PROC: 5A1945Z Respiratory Ventilation, 24-96 Consecutive Hours (ICD-10-PCS; 2017-10-12)
PROC: 3E0F73Z Introduction of Anti-inflammatory into Respiratory Tract, Via Natural or Artificial Opening (ICD-10-PCS; 2017-10-13)
PROC: 5A09357 Assistance with Respiratory Ventilation, Less than 24 Consecutive Hours, Continuous Positive Airway Pressure (ICD-10-PCS; 2017-10-20)
DX: M17.11 Unilateral primary osteoarthritis, right knee (principal); J95.821 Acute postprocedural respiratory failure; N17.0 Acute kidney failure with tubular necrosis; Z68.42 Body mass index [BMI] 45.0-49.9, adult; I50.42 Chronic combined systolic (congestive) and diastolic (congestive) heart failure; Y83.8 Other surgical procedures as the cause of abnormal reaction of the patient, or of later complication, without mention of misadventure at the time of the procedure; N99.0 Postprocedural (acute) (chronic) kidney failure; E11.9 Type 2 diabetes mellitus without complications; J44.9 Chronic obstructive pulmonary disease, unspecified; I25.10 Atherosclerotic heart disease of native coronary artery without angina pectoris; I48.91 Unspecified atrial fibrillation; I11.0 Hypertensive heart disease with heart failure; E78.5 Hyperlipidemia, unspecified; E03.9 Hypothyroidism, unspecified; N40.0 Benign prostatic hyperplasia without lower urinary tract symptoms; K21.9 Gastro-esophageal reflux disease without esophagitis; M10.9 Gout, unspecified; F32.9 Major depressive disorder, single episode, unspecified; F17.210 Nicotine dependence, cigarettes, uncomplicated; E66.01 Morbid (severe) obesity due to excess calories; G47.30 Sleep apnea, unspecified; I95.9 Hypotension, unspecified; I25.2 Old myocardial infarction; Z79.899 Other long term (current) drug therapy; Z86.718 Personal history of other venous thrombosis and embolism; Z85.820 Personal history of malignant melanoma of skin; Z95.5 Presence of coronary angioplasty implant and graft; Z90.49 Acquired absence of other specified parts of digestive tract; Z88.6 Allergy status to analgesic agent; Z88.7 Allergy status to serum and vaccine; Z78.1 Physical restraint status
CPT/HCPCS: 01402; 31500; 36415; 36600; 71045; 71046; 74018; 80048; 80053; 81001; 82550; 82553; 82803; 82947; 82962; 83605; 83735; 84100; 84132; 84478; 84484; 85025; 85027; 85610; 85730; 87040; 87070; 87086; 87205; 87493; 88304; 88311; 93005; 93010; 94002; 94003; 94640; 94660; 94799; C1877; C2625; C9290; G8978-GP; G8979-GP; J0131; J0330; J0690; J1335; J1741; J1940; J2250; J2310; J2370; J2405; J2704; J3010; J3370; J3475; J3480; J3490; J7030; J7050; J7060; S0119

== ENCOUNTER 2017-11-10 10:12 | Emergency (ER) | payer MEDICARE, MEDICAID ==
--- NOTE | 2017-11-10 10:41 | ER Document Report ---
ED General - General Stated Complaint: ALTERED MENTAL STATUS Time Seen by Provider: 11/10/17 10:18 Mode of Arrival: Medic Information source: Patient, Transfer Record, Emergency Med Personnel Notes: This is a 77-year-old man with a complicated medical history including COPD oxygen dependent (2 L nasal cannula, CPAP), coronary artery disease (IA), diabetes, hypertension, CHF, CVA, atrial fibrillation (Plavix), diabetes, Sirs and a recent right knee total hip replacement. [facility] because of decreased mental status. EMS reports that the patient was alert and oriented 3 when they arrived at the scene but the health care providers at the [facility] and says that the patient is not acting like his baseline. In the emergency room, the patient does appear lethargic but he is arousable, he knows his age and the year and where he is at this time. He denies any pain or discomfort. He has been getting Percocet for the right knee pain associated with the recent surgery and states that it will make him feel drowsy. TRAVEL OUTSIDE OF THE [place] IN LAST 30 DAYS: No - HPI Onset: Just prior to arrival Onset/Duration: Gradual Quality of pain: No pain Severity: None Pain Level: Denies Associated symptoms: denies: Chest pain, Fever, Shortness of breath Exacerbated by: Denies Relieved by: Denies Similar symptoms previously: Yes Recently seen / treated by doctor: Yes - Related Data Allergies/Adverse Reactions: codeine [Codeine] Allergy (Verified 02/23/17 11:29) Hives tuberculin,PPD,multi-puncture Adverse Reaction (Verified 02/23/17 11:29) Past Medical History - General Information source: Patient, Transfer Record, Outside Facility Records - Social History Smoking Status: Former Smoker Cigarette use (# per day): No Chew tobacco use (# tins/day): No Smoking Education Provided: No Frequency of alcohol use: None Drug Abuse: None Lives with: Alf Family History: Reviewed & Not Pertinent Patient has suicidal ideation: No Patient has homicidal ideation: No - Past Medical History Cardiac Medical History: Reports: Hx Atrial Fibrillation, Hx Congestive Heart Failure, Hx Coronary Artery Disease, Hx DVT, 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 Denies: Hx Graves' Disease, Hx Hyperthyroidism Renal/ Medical History: Reports: Hx Benign Prostatic Hyperplasia. Denies: Hx End Stage Renal Disease, Hx Kidney Stones, Hx Peritoneal Dialysis Malignancy Medical History: Denies Hx Leukemia, Denies Hx Lung Cancer, Reports Hx Skin Cancer - Malignant melanoma GI Medical History: Reports: Hx Gastroesophageal Reflux Disease, Hx Hepatitis, Hx Ulcer. Denies: Hx Crohn's Disease, Hx Hiatal Hernia, Hx Irritable Bowel, Hx Liver Failure, Hx Pancreatitis Musculoskeltal Medical History: Reports Hx Arthritis, Denies Hx Fibromyalgia, Reports Hx Gout, Denies Hx Multiple Sclerosis, Denies Hx Muscular Dystrophy Psychiatric Medical History: Reports: Hx Anxiety, Hx Depression Denies: Hx Bipolar Disorder, Hx Dementia, Hx Post Traumatic Stress Disorder, Hx Schizophrenia Traumatic Medical History: Denies: Hx Fractures, Hx Traumatic Brain Injury Infectious Medical History: Reports: Hx Hepatitis. Denies: Hx HIV Past Surgical History: Reports: Hx Cholecystectomy, Hx Coronary Stent, Hx Open Heart Surgery - angioplasy. Denies: Hx Appendectomy, Hx Bowel Surgery, Hx Colostomy, Hx Coronary Artery Bypass Graft, Hx Gastric Bypass Surgery, Hx Herniorrhaphy, Hx Pacemaker, Hx Tonsillectomy - Immunizations Immunizations up to date: Yes Hx Diphtheria, Pertussis, Tetanus Vaccination: No Hx Pneumococcal Vaccination: 09/27/10 Review of Systems - Review of Systems Notes: Review of systems: Constitutional: Denies fever, chills. EENT: Denies ear pain, sinus tenderness, throat pain, throat swelling. Cardiovascular: Denies chest pain, palpitations, dyspnea or edema. Respiratory: Denies wheezing, cough, hemoptysis. Abdomen: Denies abdominal pain, nausea, vomiting, diarrhea. Denies BRBPR or melena. Genitourinary: Denies dysuria, pyuria, hematuria, flank pain. Musculoskeletal: See H&P Neurologic: See H&P Skin: Denies rash, lesions. Physical Exam - Vital signs Vitals: Resp BP Pulse Ox 17 157/76 H 96 02/14/18 10:35 11/10/17 10:35 11/10/17 10:35 Notes: Physical exam: GENERAL: Morbidly obese 77-year-old man, he does appear drowsy, he is arousable and is oriented 3. HEAD: Atraumatic, normocephalic. EYES: Pupils equal round and reactive to light, extraocular movements intact, sclera anicteric, conjunctiva are normal. ENT: TMs normal, nares patent, oropharynx clear without exudates. Moist mucous membranes. NECK: Normal range of motion, supple without obvious mass or JVD. LUNGS: Breath sounds clear to auscultation bilaterally and equal. No wheezes rales or rhonchi. HEART: Regular rate and rhythm without murmurs, rubs or gallops. ABDOMEN: Soft, normoactive bowel sounds. No tenderness to palpation. No guarding, no rebound. No masses appreciated. EXTREMITIES: Right knee wound site dry and intact, no pus drainage, no overlying cellulitis NEUROLOGICAL: Cranial nerves II through XII grossly intact. Normal speech, moving all extremities. PSYCH: Drowsy but oriented 3 SKIN: Warm, Dry, normal turgor, no rashes or lesions noted. Course - Re-evaluation Re-evalutation: 11/10/17 18:46 Patient's mental status is much improved. His labs are acceptable. I believe the ABG is probably mixed venous. There is some elevation of the PaCO2, but his pH is fairly good. The [facility]. I think he is good enough to go back and I discussed case with Dr. Aguayo who is agreed. He will follow the patient at the [facility]. - Vital Signs Vital signs: Temp Pulse Resp BP Pulse Ox 82 16 118/67 97 11/10/17 10:41 11/10/17 19:18 11/10/17 11:29 11/10/17 19:18 - Laboratory Result Diagrams: 11/10/17 11:24 11/10/17 11:24 Laboratory results interpreted by me: 11/10/17 11/10/17 11/10/17 11:24 11:24 11:35 WBC 3.7 L Hgb 12.1 L Hct 37.5 L RDW 17.2 H Plt Count 117 L Carbonic Acid 1.72 H ABG pCO2 57.2 H ABG pO2 54.9 L ABG HCO3 34.4 H ABG Total CO2 36.2 H ABG O2 Saturation 87.8 L Carbon Dioxide 35 H Creatinine 1.27 H Est GFR (Non-Af Amer) 55 L Total Bilirubin 1.7 H ALT 17 L Creatine Kinase 22 L Albumin 3.4 L - Diagnostic Test Radiology reviewed: Image reviewed, Reports reviewed - Chest x-ray shows cardiomegaly without obvious infiltrate, pacemaker. - EKG Interpretation by Me Rate: Normal Rhythm: NSR - EKG shows normal sinus rhythm with PVCs, old inferior wall IA, intraventricular conduction delay, no acute ST-T wave changes. Old EKG shows an atrial paced rhythm (best seen in lead aVL). Discharge - Discharge Clinical Impression: Confusion Condition: Stable Disposition: HOME, SELF-CARE Additional Instructions: Chest x-ray and labs look fairly good today. I did discuss the case with Dr. Aguayo who will follow him. Continue BiPAP at [facility]. Continue medicines. Return to the emergency room for any worsening mental status. Referrals: CRISTINE AGUAYO MD [Primary Care Provider] - Follow up as needed
--- NOTE | 2017-11-10 11:18 | RADIOLOGY REPORT (SQ) ---
EXAM DESCRIPTION: CT HEAD WITHOUT COMPLETED DATE/TIME: 11/10/2017 11:03 am REASON FOR STUDY: delta ms COMPARISON: 09/20/2017 TECHNIQUE: Axial images acquired through the brain without intravenous contrast. Images reviewed wi th bone, brain and subdural windows. Images stored on PACS. All CT scanners at this facility use dose modulation, iterative reconstruction, and/or weight based d osing when appropriate to reduce radiation dose to as low as reasonably achievable (ALARA). [facility]: Dose Right [facility]: CareDose [facility]: Dose Right [facility]: Teradose 4D [facility]: Smart Remedi [facility] RADIATION DOSE: CT Rad equipment meets quality standard of care and radiation dose reduction techniq ues were employed. CTDIvol: 63.2 mGy. DLP: 1163 mGy-cm. mGy. LIMITATIONS: Study is limited somewhat due to motion artifact FINDINGS: VENTRICLES: Prominent. CEREBRUM: No masses. No hemorrhage. No midline shift. Areas of low density in the white matter mos t likely due to chronic micro-vascular ischemic change. No evidence for acute infarction. CEREBELLUM: No masses. No hemorrhage. No alteration of density. No evidence for acute infarction. EXTRAAXIAL SPACES: Mild age-related involutional change. No fluid collections. No masses. ORBITS AND GLOBE: No intra- or extraconal masses. Normal contour of globe without masses. CALVARIUM: No fracture. PARANASAL SINUSES: The fairly extensive sinus disease is identified with tiny air-fluid levels in bot h maxillary antra. Mucosal thickening is identified in the sphenoid sinuses, multiple ethmoid air ce lls, in the left frontal sinus. SOFT TISSUES: No mass or hematoma. OTHER: No other significant finding. IMPRESSION: MILD CHRONIC CHANGES OF ATROPHY AND MICROVASCULAR ISCHEMIA. Sinus disease as noted abov e. Other findings as noted above. EVIDENCE OF ACUTE STROKE: NO. TECHNICAL DOCUMENTATION: JOB ID: [id number] Quality ID # [id number]: Final reports with documentation of one or more dose reduction techniques (e.g., Au tomated exposure control, adjustment of the mA and/or kV according to patient size, use of iterative reconstruction technique) 2010 [employer]- All Rights Reserved
--- NOTE | 2017-11-10 11:32 | RADIOLOGY REPORT (SQ) ---
EXAM DESCRIPTION: CHEST SINGLE VIEW COMPLETED DATE/TIME: 11/10/2017 11:14 am REASON FOR STUDY: delta ms COMPARISON: 10/18/2017 EXAM PARAMETERS: NUMBER OF VIEWS: One view. TECHNIQUE: Single frontal radiographic view of the chest acquired. RADIATION DOSE: NA LIMITATIONS: None. FINDINGS: LUNGS AND PLEURA: No opacities, masses or pneumothorax. No pleural effusion. MEDIASTINUM AND HILAR STRUCTURES: No masses. Contour normal. HEART AND VASCULAR STRUCTURES: Stable heart size. BONES: No acute findings. HARDWARE: Right axillary clips. Stable position of left-sided pacemaker. OTHER: No other significant finding. IMPRESSION: NO ACUTE RADIOGRAPHIC FINDING IN THE CHEST. TECHNICAL DOCUMENTATION: JOB ID: [id number] [employer]- All Rights Reserved
[2017-11-10 11:38] LABS: ABSOLUTE EOSINOPHILS # (AUTO) 0.1 10^3/uL (0.0-0.6); ABSOLUTE LYMPHOCYTES (AUTO) 0.8 10^3/uL (0.5-4.7); ABSOLUTE MONOCYTES (AUTO) 0.5 10^3/uL (0.1-1.4); ABSOLUTE NEUT (AUTO) 2.3 10^3/uL (1.7-8.2); BASOPHILS % (AUTO) 0.7 % (0-2); EOSINOPHILS % (AUTO) 3.2 % (0-6); HEMATOCRIT 37.5 % (37.9-51.0); HEMOGLOBIN 12.1 g/dL (13.5-17.0); LYMPHOCYTES % (AUTO) 20.9 % (13-45); MEAN CORPUSCULAR HEMOGLOBIN 27.3 pg (27.0-33.4); MEAN CORPUSCULAR HGB CONC 32.2 g/dL (32.0-36.0); MEAN CORPUSCULAR VOLUME 85 fl (80-97); MONOCYTES % (AUTO) 12.4 % (3-13); PLATELET COUNT 117 10^3/uL (150-450); RED BLOOD COUNT 4.43 10^6/uL (4.35-5.55); RED CELL DISTRIBUTION WIDTH 17.2 % (11.5-14.0); SEGMENTED NEUTROPHILS % (AUTO) 62.8 % (42-78); TOTAL CELLS COUNTED % (AUTO) 100 %; WHITE BLOOD COUNT 3.7 10^3/uL (4.0-10.5)
[2017-11-10 11:43] LABS: INTERNATIONAL RATION (INR) 0.94; PROTHROMBIN TIME 13.3 SEC (11.4-15.4)
[2017-11-10 11:56] LABS: ALANINE AMINOTRANSFERASE 17 U/L (21-72); ALBUMIN 3.4 g/dL (3.5-5.0); ALKALINE PHOSPHATASE 77 U/L (38-126); ANION GAP 7 (5-19); ASPARTATE AMINO TRANSFERASE 18 U/L (17-59); BILIRUBIN,DIRECT 0.3 mg/dL (0.0-0.4); BILIRUBIN,TOTAL 1.7 mg/dL (0.2-1.3); BLOOD UREA NITROGEN 18 mg/dL (7-20); CALCIUM 8.8 mg/dL (8.4-10.2); CARBON DIOXIDE 35 mmol/L (22-30); CHLORIDE 102 mmol/L (98-107); CREATINE KINASE 22 U/L (55-170); GLUCOSE 93 mg/dL (75-110); POTASSIUM 4.4 mmol/L (3.6-5.0); SODIUM 143.7 mmol/L (137-145); TOTAL PROTEIN 6.3 g/dL (6.3-8.2)
[2017-11-10 12:03] LABS: ARTERIAL BLOOD H2CO3 1.72 mmol/L (1.05-1.35); ARTERIAL BLOOD HCO3 34.4 mmol/L (20-26); ARTERIAL BLOOD O2 SATURATION 87.8 % (94-98); ARTERIAL BLOOD PCO2 57.2 mmHg (35-45); ARTERIAL BLOOD PO2 54.9 mmHg (80-100); ARTERIAL BLOOD TOTAL CO2 36.2 mmol/L (23-27)
[2017-11-10 12:04] LABS: ARTERIAL BLOOD FIO2 4L
[2017-11-10 12:13] LABS: CREATINE KINASE MB 0.54 ng/mL (<4.55); TROPONIN I 0.025 ng/mL
[2017-11-10 20:16] VITALS: BP 174/66
--- NOTE | 2017-11-11 08:57 | EKG REPORT ---
SEVERITY:- ABNORMAL ECG - SINUS RHYTHM MULTIPLE VENTRICULAR PREMATURE COMPLEXES NONSPECIFIC IVCD WITH LAD LVH WITH SECONDARY REPOLARIZATION ABNORMALITY INFERIOR INFARCT, OLD : Confirmed by: Ellis Chong 11-Nov-2017 08:55:45
== END 2017-11-10 20:17 | disposition home or self-care (01) ==
LOC: ER 10:12
DX: R41.0 Disorientation, unspecified (principal); R53.83 Other fatigue; E66.01 Morbid (severe) obesity due to excess calories; J44.9 Chronic obstructive pulmonary disease, unspecified; E11.9 Type 2 diabetes mellitus without complications; I10 Essential (primary) hypertension; Z99.81 Dependence on supplemental oxygen; Z88.6 Allergy status to analgesic agent; I25.2 Old myocardial infarction; Z86.73 Personal history of transient ischemic attack (TIA), and cerebral infarction without residual deficits; Z79.01 Long term (current) use of anticoagulants; Z90.49 Acquired absence of other specified parts of digestive tract
CPT/HCPCS: 36415; 36600; 70450; 71045; 80053; 82550; 82553; 82803; 84484; 85025; 85610; 93005; 93010; 99285

== ENCOUNTER → 2018-01-04 | Outpatient (CLI) | payer MEDICARE, MEDICAID ==
--- NOTE | 2018-01-04 13:31 | RADIOLOGY REPORT (SQ) ---
EXAM DESCRIPTION: CT CHEST WITHOUT COMPLETED DATE/TIME: 01/04/2018 9:24 am REASON FOR STUDY: SHORTNESS OF BREATH R06.02 SHORTNESS OF BREATH COMPARISON: None. TECHNIQUE: CT scan performed of the chest without intravenous contrast. Images reviewed with lung, soft tissue and bone windows. Reconstructed coronal and sagittal MPR images reviewed. All images st ored on PACS. All CT scanners at this facility use dose modulation, iterative reconstruction, and/or weight based d osing when appropriate to reduce radiation dose to as low as reasonably achievable (ALARA). [facility]: Dose Right [facility]: CareDose [facility]: Dose Right [facility]: Teradose 4D [facility]: [employer] RADIATION DOSE: CT Rad equipment meets quality standard of care and radiation dose reduction techniq ues were employed. CTDIvol: 18.4 mGy. DLP: 763 mGy-cm. mGy. LIMITATIONS: No technical limitations. FINDINGS: LUNGS AND PLEURA: Chronic areas of lingula and right lower lobe scarring. Chronic mild el evation right hemidiaphragm. HILAR AND MEDIASTINAL STRUCTURES: Small lymph nodes in the mediastinum, many of which are calcified s uggesting previous granulomatous disease. HEART AND VASCULAR STRUCTURES: No pericardial effusion. Moderate to marked coronary calcification wi th several tiny subcentimeter epicardial lymph nodes, stable. Dilated ascending aorta, 4.6 cm. UPPER ABDOMEN: No significant findings. Limited exam. THYROID AND OTHER SOFT TISSUES: 4.6 x 3.1 cm ovoid mass appears to project off the right thyroid infe rior pole and extend into the upper mediastinum, substernal. No suggestion of mass effect on the air way, however. Grossly stable appearance compared to 2015. BONES: Osteopenia without fracture or bone lesion. HARDWARE: Left pacer. OTHER: No other significant findings. IMPRESSION: 1. No acute or suspicious thoracic abnormality, stable chest. 2. Unchanged findings in clude coronary calcification, partially substernal nodular thyroid without mass effect on the airway, previous granulomatous disease and areas of scar. TECHNICAL DOCUMENTATION: JOB ID: [id number] Quality ID # [id number]: Final reports with documentation of one or more dose reduction techniques (e.g., Au tomated exposure control, adjustment of the mA and/or kV according to patient size, use of iterative reconstruction technique) 2010 [employer]- All Rights Reserved Reading location - IP/workstation name: [email or web address]
== END ==
LOC: RAD 08:58
PROVIDERS: ATTEND Physician Assistant
DX: R06.02 Shortness of breath (principal)
CPT/HCPCS: 71250

== ENCOUNTER → 2018-12-27 | Outpatient (CLI) | payer MEDICARE, MEDICAID ==
--- NOTE | 2018-12-27 13:51 | RADIOLOGY REPORT (SQ) ---
EXAM DESCRIPTION: SHOULDER RIGHT 2 OR MORE VIEWS COMPLETED DATE/TIME: 12/27/2018 12:14 pm REASON FOR STUDY: M25.519 PAIN IN UNSPECIFIED SHOULDER M25.519 PAIN IN UNSPECIFIED SHOULDER COMPARISON: None. NUMBER OF VIEWS: Three views. TECHNIQUE: Internal rotation, external rotation, and Y view images acquired of the right shoulder. LIMITATIONS: None. FINDINGS: MINERALIZATION: Normal. BONES: No acute fracture or dislocation. No worrisome bone lesions. No significant osteophytes. GLENOHUMERAL JOINT: No significant findings. ACROMIOCLAVICULAR JOINT: Mild degenerative changes with small osteophytes. SOFT TISSUES: No calcifications. VISUALIZED RIBS, SPINE, AND LUNG: No other significant finding. OTHER: No other significant finding. IMPRESSION: Mild degenerative changes. No acute findings. TECHNICAL DOCUMENTATION: JOB ID: [id number] [employer]- All Rights Reserved Reading location - IP/workstation name: [email or web address]
== END ==
LOC: RAD 11:30
PROVIDERS: ATTEND Physician Assistant Surgical
DX: M25.511 Pain in right shoulder (principal)

== ENCOUNTER 2019-07-06 14:28 | Inpatient (IN) | payer MEDICARE, MEDICAID ==
[2019-07-06 15:56] LABS: APPEARANCE,URINE CLEAR; BILIRUBIN,URINE NEGATIVE (NEGATIVE); COLOR,URINE YELLOW; GLUCOSE, URINE NEGATIVE (NEGATIVE); KETONES,URINE NEGATIVE (NEGATIVE); LEUKOCYTE ESTERASE,URINE SMALL (NEGATIVE); NITRITE,URINE POSITIVE (NEGATIVE); PROTEIN,URINE NEGATIVE (NEGATIVE); URINE SPECIFIC GRAVITY 1.014; UROBILINOGEN,URINE NEGATIVE mg/dL (<2.0)
[2019-07-06] MEDS ORDERED: NORMAL SALINE 1000 ML 1,000 ML IV ONE (16:29)
--- NOTE | 2019-07-06 16:29 | ER Document Report ---
ED General - General Chief Complaint: Altered Mental Status Stated Complaint: ALTERED MENTAL STATUS Time Seen by Provider: 07/06/19 16:13 Primary Care Provider: CRISTINE AGUAYO MD [Primary Care Provider] - Follow up as needed TRAVEL OUTSIDE OF THE [place] IN LAST 30 DAYS: No - HPI Patient complains to provider of: alter mental status Notes: Morbidly obese man presents from his residential with increasing confusion per staff. Patient is not acting his self after being he was found crawling around his hands and knees. Patient has no complaints at this time unreliable review of systems. - Related Data Allergies/Adverse Reactions: codeine [Codeine] Allergy (Verified 02/23/17 11:29) Hives tuberculin,PPD,multi-puncture Adverse Reaction (Verified 02/23/17 11:29) Past Medical History - Social History Smoking Status: Unknown if Ever Smoked Family History: Reviewed & Not Pertinent Patient has suicidal ideation: No Patient has homicidal ideation: No - Past Medical History Cardiac Medical History: Reports: Hx Atrial Fibrillation, Hx Congestive Heart Failure, Hx Coronary Artery Disease, Hx DVT, Hx Heart Attack - x4 last 1993, Hx Hypercholesterolemia, Hx Hypertension Denies: Hx Peripheral Vascular Disease, Hx Pulmonary Embolism, Hx Heart Murmur Pulmonary Medical History: Reports: Hx Asthma, Hx Bronchitis, Hx COPD, Hx Pneumonia, Hx Intubation, Hx Respiratory Failure - Acute, Hx Sleep Apnea Denies: Hx Tuberculosis Neurological Medical History: Reports: Hx Cerebrovascular Accident - x2 may 2013 , Hx Seizures - sept hit head and had seizure. Denies: Hx Parkinson's Disease Endocrine Medical History: Reports: Hx Diabetes Mellitus Type 2, Hx Hypothyroidism. Denies: Hx Graves' Disease, Hx Hyperthyroidism Renal/ Medical History: Reports: Hx Benign Prostatic Hyperplasia. Denies: Hx End Stage Renal Disease, Hx Kidney Stones, Hx Peritoneal Dialysis Malignancy Medical History: Denies Hx Leukemia, Denies Hx Lung Cancer, Reports Hx Skin Cancer - Malignant melanoma GI Medical History: Reports: Hx Gastroesophageal Reflux Disease, Hx Hepatitis, Hx Ulcer. Denies: Hx Crohn's Disease, Hx Hiatal Hernia, Hx Irritable Bowel, Hx Liver Failure, Hx Pancreatitis Musculoskeletal Medical History: Reports Hx Arthritis, Denies Hx Fibromyalgia, Reports Hx Gout, Denies Hx Multiple Sclerosis, Denies Hx Muscular Dystrophy, Denies Hx Systemic Lupus Erythematosus Psychiatric Medical History: Reports: Hx Anxiety, Hx Depression Denies: Hx Bipolar Disorder, Hx Dementia, Hx Post Traumatic Stress Disorder, Hx Schizophrenia Traumatic Medical History: Denies: Hx Fractures, Hx Traumatic Brain Injury Infectious Medical History: Reports: Hx Hepatitis. Denies: Hx HIV Past Surgical History: Reports: Hx Cholecystectomy, Hx Coronary Stent, Hx Open Heart Surgery - angioplasy. Denies: Hx Appendectomy, Hx Bowel Surgery, Hx Colostomy, Hx Coronary Artery Bypass Graft, Hx Gastric Bypass Surgery, Hx Herniorrhaphy, Hx Pacemaker, Hx Tonsillectomy - Immunizations Immunizations up to date: Yes Hx Diphtheria, Pertussis, Tetanus Vaccination: No Hx Pneumococcal Vaccination: 09/27/10 Review of Systems - Review of Systems -: Yes ROS unobtainable due to patient's medical condition Physical Exam - Vital signs Vitals: Resp 16 07/06/19 14:37 - Notes Notes: PHYSICAL EXAMINATION: GENERAL: Well-appearing, well-nourished and in no acute distress. HEAD: Atraumatic, normocephalic. EYES: Pupils equal round and reactive to light, extraocular movements intact, sclera anicteric, conjunctiva are normal. ENT: nares patent, oropharynx clear without exudates. Moist mucous membranes. NECK: Normal range of motion, supple without lymphadenopathy LUNGS: Breath sounds clear to auscultation bilaterally and equal. No wheezes rales or rhonchi. HEART: Regular rate and rhythm without murmurs ABDOMEN: Soft, nontender, normoactive bowel sounds. No guarding, no rebound. No masses appreciated. EXTREMITIES: Normal range of motion, no pitting or edema. No cyanosis. Neuro: Shoulder shrug, face and tongue movement intact Course - Re-evaluation Re-evalutation: 07/06/19 17:40 Morbidly obese 79-year-old male with altered mental status She has a lengthy medical history of COPD, diabetes, myocardial infarctions. Patient presents altered mental status. Found to have a urinary tract infection. Patient also had found to have profound elevation in his PCO2 at near 70. Patient placed on BiPAP for his elevated hypercapnia decreased respirations. Patient will also be started on IV antibiotics for his urinary tract infection. Patient require admission to our stepdown unit for close monitoring and increased oxygen demand. - Vital Signs Vital signs: Temp Pulse Resp BP Pulse Ox 98.6 F 17 150/67 H 91 L 07/06/19 15:01 07/06/19 15:01 07/06/19 15:01 07/06/19 15:01 - Laboratory Result Diagrams: 07/06/19 17:41 07/06/19 14:42 Laboratory results interpreted by me: 07/06/19 07/06/19 07/06/19 14:42 15:40 17:05 WBC Hgb MCHC RDW Plt Count Carbonic Acid 2.05 H ABG pH 7.32 L ABG pCO2 68.1 H ABG pO2 60.2 L ABG HCO3 34.1 H ABG Total CO2 36.2 H ABG O2 Saturation 88.1 L Carbon Dioxide 37 H Anion Gap 3 L BUN 33 H Creatinine 1.72 H Est GFR ( Amer) 46 L Est GFR (MDRD) Non-Af 38 L Calcium 8.0 L Total Protein 5.8 L Albumin 3.1 L Urine Blood SMALL H Urine Nitrite POSITIVE H Ur Leukocyte Esterase SMALL H 07/06/19 17:41 WBC 3.2 L Hgb 12.1 L MCHC 31.7 L RDW 17.7 H Plt Count 89 L Carbonic Acid ABG pH ABG pCO2 ABG pO2 ABG HCO3 ABG Total CO2 ABG O2 Saturation Carbon Dioxide Anion Gap BUN Creatinine Est GFR ( Amer) Est GFR (MDRD) Non-Af Calcium Total Protein Albumin Urine Blood Urine Nitrite Ur Leukocyte Esterase Critical Care Note - Critical Care Note Total time excluding time spent on procedures (mins): 36 Discharge - Discharge Clinical Impression: Respiratory distress, Acute respiratory failure with hypoxia and hypercapnia UTI (urinary tract infection) Qualifiers: Urinary tract infection type: acute cystitis Hematuria presence: without hematuria Qualified Code(s): N30.00 - Acute cystitis without hematuria Condition: Serious Disposition: ADMITTED INPATIENT Admitting Provider: [facility] Unit Admitted: I[facility]U Referrals: CRISTINE AGUAYO MD [Primary Care Provider] - Follow up as needed
[2019-07-06 16:57] LABS: ALBUMIN 3.1 g/dL (3.5-5.0); ALKALINE PHOSPHATASE 70 U/L (38-126); ASPARTATE AMINO TRANSFERASE 18 U/L (17-59); BILIRUBIN,DIRECT 0.2 mg/dL (0.0-0.4); BILIRUBIN,TOTAL 0.6 mg/dL (0.2-1.3); BLOOD UREA NITROGEN 33 mg/dL (7-20); CARBON DIOXIDE 37 mmol/L (22-30); CHLORIDE 102 mmol/L (98-107); GLUCOSE 93 mg/dL (75-110); POTASSIUM 4.8 mmol/L (3.6-5.0); TOTAL PROTEIN 5.8 g/dL (6.3-8.2)
[2019-07-06 17:07] LABS: ANION GAP 3 (5-19)
[2019-07-06 17:24] LABS: ARTERIAL BLOOD BASE EXCESS 5.9 mmol/L; ARTERIAL BLOOD H2CO3 2.05 mmol/L (1.05-1.35); ARTERIAL BLOOD HCO3 34.1 mmol/L (20-24); ARTERIAL BLOOD O2 SATURATION 88.1 % (94-98); ARTERIAL BLOOD PCO2 68.1 mmHg (35-45); ARTERIAL BLOOD PH 7.32 (7.35-7.45); ARTERIAL BLOOD PO2 60.2 mmHg (80-100); ARTERIAL BLOOD TOTAL CO2 36.2 mmol/L (23-27)
[2019-07-06 17:25] LABS: ARTERIAL BLOOD FIO2 ROOM AIR
[2019-07-06] MEDS ORDERED: CEFTRIAXONE 1 GM/D5W RTU 1 GM/50 ML RTUPB IV ONE (17:38)
[2019-07-06 17:51] LABS: ABSOLUTE EOSINOPHILS # (AUTO) 0.1 10^3/uL (0.0-0.6); ABSOLUTE MONOCYTES (AUTO) 0.4 10^3/uL (0.1-1.4); ABSOLUTE NEUT (AUTO) 1.7 10^3/uL (1.7-8.2); BASOPHILS % (AUTO) 0.6 % (0-2); EOSINOPHILS % (AUTO) 3.2 % (0-6); HEMATOCRIT 38.1 % (37.9-51.0); HEMOGLOBIN 12.1 g/dL (13.5-17.0); LYMPHOCYTES % (AUTO) 32.4 % (13-45); MEAN CORPUSCULAR HEMOGLOBIN 27.7 pg (27.0-33.4); MEAN CORPUSCULAR HGB CONC 31.7 g/dL (32.0-36.0); MEAN CORPUSCULAR VOLUME 87 fl (80-97); MONOCYTES % (AUTO) 12.3 % (3-13); RED BLOOD COUNT 4.36 10^6/uL (4.35-5.55); RED CELL DISTRIBUTION WIDTH 17.7 % (11.5-14.0); SEGMENTED NEUTROPHILS % (AUTO) 51.5 % (42-78); TOTAL CELLS COUNTED % (AUTO) 100 %; WHITE BLOOD COUNT 3.2 10^3/uL (4.0-10.5)
[2019-07-06 18:15] LABS: PLATELET COUNT 89 10^3/uL (150-450)
[2019-07-06] MEDS ORDERED: IPRATROPIUM/ALBUTEROL 0.5-2.5 MG/3 ML AMPUL NEB PRN (19:40)
[2019-07-06] MEDS: HEPARIN SOD (PORCINE) 5,000 UNIT/ML 1 ML VIAL SUBCUT SCH ×2 (20:21→22:00)
--- NOTE | 2019-07-06 20:28 | RADIOLOGY REPORT (SQ) ---
EXAM DESCRIPTION: XR CHEST 1 VIEW COMPLETED DATE/TME: 07/06/2019 00:00 CLINICAL HISTORY: 79 years, Male, acute respiratory failure COMPARISON: X-ray chest 11/10/2017 NUMBER OF VIEWS: TECHNIQUE: LIMITATIONS: None. FINDINGS: There is chronic elevation of the right hemidiaphragm. No evidence of pulmonary infiltrate or pleural effusion. The heart and mediastinum are unremarkable. Pulmonary vascularity appears normal. There are atherosclerotic changes and tortuosity of the thoracic aorta. There is a left-sided dual-chamber pacemaker. There is no significant change, as compared with the prior x-ray(s). IMPRESSION: No acute finding. copyright 2010 [employer]- All Rights Reserved
--- NOTE | 2019-07-06 20:54 | PDOC H&P ---
History of Present Illness Admission Date/PCP: 07/06/19 18:26 CRISTINE AGUAYO MD History of Present Illness: ERIKA GERMAIN is a 79 year old male, Patient is a resident of the fdc at [facility], he has multiple comorbid conditions, he was transferred from the fdc to the hospital for evaluation of altered mental status. He was confused, history taking was a challenge, he was found to have severe acute hypercapnic respiratory failure, he required noninvasive positive pressure ventilation with BiPAP. He was also found to have grossly abnormal urinalysis. I received a call from the fdc staff That patient was very confused and also the oxygen saturation was in the low 80s they ask for guidance I suggested that patient should be transferred to the emergency room for evaluation. In the emergency room when he arrived he was evaluated the arterial blood gas in ambient air, pH 7.32 PCO2 68.1, PO2 60.2, bicarbonate 34.1. Past Medical History Cardiac Medical History: Reports: Atrial Fibrillation, Congestive Heart Failure, Coronary Artery Disease, DVT, Myocardial Infarction - x4 last 1993, Hyperlipidem a, Hypertension, Other - Ascending aortic aneurysm Pulmonary Medical History: Reports: Asthma, Bronchitis, Chronic Obstructive Pulmonary Disease (COPD), Intubation, Pneumonia, Respiratory Failure - Acute, Sleep Apnea Neurological Medical History: Reports: Seizures - sept hit head and had seizure Endocrine Medical History: Reports: Diabetes Mellitus Type 2, Hypothyroidism Malignancy Medical History: Reports: Skin Cancer - Malignant melanoma, Other - Melanoma GI Medical History: Reports: Gastroesophageal Reflux Disease Musculoskeltal Medical History: Reports: Arthritis, Gout Denies: Fibromyalgia Psychiatric Medical History: Reports: Depression Traumatic Medical History: Denies: Traumatic Brain Injury Hematology: Reports: Anemia - Thrombocytopenia Infectious Medical History: Denies: HIV Past Surgical History Past Surgical History: Reports: Cholecystectomy, Coronary Stent Social History Smoking Status: Smoker,Current Status Unk - He chews tobacco Frequency of Alcohol Use: None Hx Recreational Drug Use: No Hx Prescription Drug Abuse: No Family History Family History: Reviewed & Not Pertinent Parental Family History Reviewed: Yes Children Family History Reviewed: Yes Sibling(s) Family History Reviewed.: Yes Medication/Allergy Home Medications: Acetaminophen [Tylenol 325 mg Tablet] 650 mg PO Q6HP PRN 10/11/17 Atorvastatin Calcium [Lipitor 40 mg Tablet] 40 mg PO QHS 10/11/17 Cetirizine HCl [Zyrtec 10 mg Tablet] 10 mg PO DAILY 10/11/17 Clopidogrel Bisulfate [Plavix 75 mg Tablet] 75 mg PO DAILY 10/11/17 Cyanocobalamin (Vitamin B-12) [Vitamin B-12 500 mcg Tablet] 500 mcg PO DAILY 10/11/17 Furosemide [Lasix 20 mg Tablet] 20 mg PO QAM 10/11/17 Isosorbide Mononitrate [Imdur 30 mg Tablet.er] 30 mg PO DAILY 10/11/17 Linagliptin [Tradjenta] 5 mg PO DAILY 10/11/17 Metoprolol Succinate [Toprol Xl 25 mg Tab.sr] 25 mg PO QHS 10/11/17 Oxycodone HCl/Acetaminophen [Percocet 10-325 mg Tablet] 1 each PO Q6HP PRN Polyvinyl Alcohol [Liquitears 1.4% Ophth Soln 15 ml] 1 drop OU QID 10/11/17 Pregabalin [Lyrica] 150 mg PO Q12 10/11/17 Sacubitril/Valsartan [Entresto 97 mg-103 mg Tablet] 1 each PO Q12 10/11/17 Tamsulosin HCl [Flomax 0.4 mg Cap.sr] 0.4 mg PO QHS 10/11/17 Aspirin [Aspirin 81 mg Chewable Tablet] 81 mg PO DAILY tab.chew 10/20/17 Allopurinol [Zyloprim 100 mg Tablet] 200 mg PO DAILY 07/07/19 Dexlansoprazole [Dexilant 60 mg Capsule] 60 mg PO DAILY 07/07/19 Eyelid Cleanser Combination 5 [Ocusoft Lid Scrub] 1 pad TOP BID 07/07/19 Mineral Oil/Petrolatum,White [Refresh P.m. Ointment] 1 applic OU QHS 07/07/19 Sertraline HCl [Zoloft 50 mg Tablet] 50 mg PO DAILY 07/07/19 Allergies/Adverse Reactions: codeine [Codeine] Allergy (Verified 02/23/17 11:29) Hives tuberculin,PPD,multi-puncture Adverse Reaction (Verified 02/23/17 11:29) Review of Systems ROS unobtainable: Due to mental status Physical Exam Vital Signs: Temp Pulse Resp BP Pulse Ox 98.6 F 16 179/71 H 93 07/06/19 15:01 07/06/19 20:30 07/06/19 20:30 07/06/19 20:30 Intake & Output 07/05/19 07/06/19 07/07/19 06:59 06:59 06:59 Intake Total 1050 Balance 1050 Weight 117 kg General appearance: PRESENT: mild distress, obese Eye exam: PRESENT: PERRLA Respiratory exam: PRESENT: decreased breath sounds Cardiovascular exam: PRESENT: +S1, +S2 GI/Abdominal exam: PRESENT: soft Neurological exam: PRESENT: alert, CN II-XII grossly intact Results Laboratory Results: 07/06/19 17:41 07/06/19 14:42 07/06/19 07/06/19 07/06/19 14:42 14:42 15:40 WBC Cancelled RBC Cancelled Hgb Cancelled Hct Cancelled MCV Cancelled MCH Cancelled MCHC Cancelled RDW Cancelled Plt Count Cancelled Seg Neutrophils % Cancelled Carbonic Acid HCO3/H2CO3 Ratio ABG pH ABG pCO2 ABG pO2 ABG HCO3 ABG O2 Saturation ABG Base Excess FiO2 Sodium 141.7 Potassium 4.8 Chloride 102 Carbon Dioxide 37 H Anion Gap 3 L BUN 33 H Creatinine 1.72 H Est GFR ( Amer) 46 L Glucose 93 Calcium 8.0 L Magnesium 2.0 Total Bilirubin 0.6 AST 18 Alkaline Phosphatase 70 Total Protein 5.8 L Albumin 3.1 L Urine Color YELLOW Urine Appearance CLEAR Urine pH 8.0 Ur Specific [place] 1.014 Urine Protein NEGATIVE Urine Glucose (UA) NEGATIVE Urine Ketones NEGATIVE Urine Blood SMALL H Urine Nitrite POSITIVE H Ur Leukocyte Esterase SMALL H Urine WBC (Auto) 7 Urine RBC (Auto) 0 07/06/19 07/06/19 17:05 17:41 WBC 3.2 L RBC 4.36 Hgb 12.1 L Hct 38.1 MCV 87 MCH 27.7 MCHC 31.7 L RDW 17.7 H Plt Count 89 L Seg Neutrophils % 51.5 Carbonic Acid 2.05 H HCO3/H2CO3 Ratio 16:1 ABG pH 7.32 L ABG pCO2 68.1 H ABG pO2 60.2 L ABG HCO3 34.1 H ABG O2 Saturation 88.1 L ABG Base Excess 5.9 FiO2 ROOM AIR Sodium Potassium Chloride Carbon Dioxide Anion Gap BUN Creatinine Est GFR ( Amer) Glucose Calcium Magnesium Total Bilirubin AST Alkaline Phosphatase Total Protein Albumin Urine Color Urine Appearance Urine pH Ur Specific [place] Urine Protein Urine Glucose (UA) Urine Ketones Urine Blood Urine Nitrite Ur Leukocyte Esterase Urine WBC (Auto) Urine RBC (Auto) Impressions: Chest X-Ray 07/06/19 00:00 IMPRESSION: No acute finding. 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
[2019-07-06 21:29] LABS: INTERNATIONAL RATION (INR) 1.04; PROTHROMBIN TIME 13.6 SEC (11.4-15.4)
[2019-07-06 21:30] LABS: PARTIAL THROMBOPLASTIN TIME 27.4 SEC (23.5-35.8)
[2019-07-06 21:43] LABS: PHOSPHORUS 3.2 mg/dL (2.5-4.5)
[2019-07-06 22:00] LABS: FREE T4 (FREE THYROXINE) 0.96 ng/dL (0.78-2.19)
[2019-07-06 22:14] LABS: THYROID STIMULATING HORMONE 1.45 uIU/mL (0.47-4.68)
[2019-07-06 22:43] LABS: CREATINE KINASE MB 0.71 ng/mL (<4.55); TROPONIN I 0.013 ng/mL
[2019-07-07] MEDS: CEFTRIAXONE 1 GM/D5W RTU 1 GM/50 ML RTUPB IV SCH ×2 (03:10→22:27)
[2019-07-07] MEDS: NORMAL SALINE 1000 ML 1,000 ML IV PRN ×2 (03:11→20:22)
[2019-07-07] MEDS: HEPARIN SOD (PORCINE) 5,000 UNIT/ML 1 ML VIAL SUBCUT SCH ×3 (05:18→22:30)
[2019-07-07 05:36] LABS: ABSOLUTE LYMPHOCYTES (AUTO) 0.3 10^3/uL (0.5-4.7); ABSOLUTE MONOCYTES (AUTO) 0.3 10^3/uL (0.1-1.4); ABSOLUTE NEUT (AUTO) 3.6 10^3/uL (1.7-8.2); BASOPHILS % (AUTO) 0.5 % (0-2); EOSINOPHILS % (AUTO) 0.1 % (0-6); HEMATOCRIT 37.9 % (37.9-51.0); HEMOGLOBIN 12.2 g/dL (13.5-17.0); LYMPHOCYTES % (AUTO) 6.1 % (13-45); MEAN CORPUSCULAR HEMOGLOBIN 27.8 pg (27.0-33.4); MEAN CORPUSCULAR HGB CONC 32.2 g/dL (32.0-36.0); MEAN CORPUSCULAR VOLUME 86 fl (80-97); RED BLOOD COUNT 4.39 10^6/uL (4.35-5.55); RED CELL DISTRIBUTION WIDTH 17.5 % (11.5-14.0); SEGMENTED NEUTROPHILS % (AUTO) 86.3 % (42-78); TOTAL CELLS COUNTED % (AUTO) 100 %; WHITE BLOOD COUNT 4.1 10^3/uL (4.0-10.5)
[2019-07-07 05:54] LABS: ALBUMIN 3.2 g/dL (3.5-5.0); ALKALINE PHOSPHATASE 71 U/L (38-126); ANION GAP 9 (5-19); ASPARTATE AMINO TRANSFERASE 19 U/L (17-59); BILIRUBIN,DIRECT 0.2 mg/dL (0.0-0.4); BLOOD UREA NITROGEN 31 mg/dL (7-20); CARBON DIOXIDE 31 mmol/L (22-30); CHLORIDE 105 mmol/L (98-107); CHOLESTEROL 86.33 mg/dL (0-200); GLUCOSE 107 mg/dL (75-110); POTASSIUM 4.5 mmol/L (3.6-5.0); TOTAL PROTEIN 5.8 g/dL (6.3-8.2); TRIGLYCERIDES 44 mg/dL (<150)
[2019-07-07 06:03] LABS: TROPONIN I 0.029 ng/mL
[2019-07-07 06:04] LABS: DIRECT LDL 48 mg/dL (<100)
[2019-07-07 06:05] LABS: CREATINE KINASE MB 0.36 ng/mL (<4.55)
[2019-07-07 06:15] LABS: PLATELET COUNT 76 10^3/uL (150-450)
[2019-07-07 06:39] LABS: ARTERIAL BLOOD BASE EXCESS 5.1 mmol/L; ARTERIAL BLOOD FIO2 40%; ARTERIAL BLOOD H2CO3 1.84 mmol/L (1.05-1.35); ARTERIAL BLOOD HCO3 32.4 mmol/L (20-24); ARTERIAL BLOOD O2 SATURATION 97.2 % (94-98); ARTERIAL BLOOD PCO2 61.2 mmHg (35-45); ARTERIAL BLOOD PH 7.34 (7.35-7.45); ARTERIAL BLOOD PO2 102.1 mmHg (80-100); ARTERIAL BLOOD TOTAL CO2 34.3 mmol/L (23-27)
[2019-07-07 12:07] LABS: CREATINE KINASE MB 0.32 ng/mL (<4.55); TROPONIN I 0.032 ng/mL
[2019-07-07] MEDS ORDERED: ACETAMINOPHEN 325 MG TABLET PO PRN (16:15)
[2019-07-07] MEDS ORDERED: (PENDING PHARMACY ID) (Oxycodone Hcl/Acetaminophen [Percocet 10-325 Mg Tablet] 1 EACH) PO PRN (16:15)
[2019-07-07] MEDS ORDERED: (PENDING PHARMACY ID) (Linagliptin [Tradjenta] 5 MG) PO SCH (16:30)
[2019-07-07] MEDS ORDERED: (PENDING PHARMACY ID) (Cyanocobalamin (Vitamin B-12) [Vitamin B-12 500 Mcg Tablet] 500 MCG PO SCH (16:30)
[2019-07-07] MEDS ORDERED: OXYCODONE-ACETAMINOPHEN 5-325 MG TABLET PO PRN (16:36)
[2019-07-07] MEDS ORDERED: OXYCODONE HCL IR 5 MG TABLET PO PRN (16:37)
[2019-07-07] MEDS: CETIRIZINE 10 MG TABLET PO SCH (17:26)
[2019-07-07] MEDS: ASPIRIN 81 MG TABLET, CHEWABLE PO SCH (17:26)
[2019-07-07] MEDS: ISOSORBIDE MONONITRATE 30 MG TAB.ER.24H PO SCH (17:26)
[2019-07-07] MEDS: SERTRALINE HCL 50 MG TABLET PO SCH (17:26)
[2019-07-07] MEDS: POLYVINYL ALCOHOL 1.4% OPH SOLN 15 ML OU SCH ×2 (17:26→22:29)
[2019-07-07] MEDS ORDERED: EYELID CLEANSER COMBINATION TOP SCH (18:00)
--- NOTE | 2019-07-07 20:34 | PDOC PROGRESS REPORT ---
Subjective Progress Note for:: 07/07/19 Subjective:: Patient is alert looks better still requires BiPAP Reason For Visit: ACUTE HYPERCAPNIC RESPIRATORY FAILURE, UTI, Physical Exam Vital Signs: Temp Pulse Resp BP Pulse Ox 97.6 F 65 13 157/72 H 99 07/07/19 18:41 07/07/19 18:41 07/07/19 18:41 07/07/19 18:41 07/07/19 18:41 Intake & Output 07/06/19 07/07/19 07/08/19 06:59 06:59 06:59 Intake Total 1100 1000 Output Total 400 Balance 700 1000 Weight 118.7 kg General appearance: PRESENT: no acute distress Eye exam: PRESENT: PERRLA Respiratory exam: PRESENT: clear to auscultation abigail Cardiovascular exam: PRESENT: +S1, +S2 GI/Abdominal exam: PRESENT: soft Neurological exam: PRESENT: alert Results Laboratory Results: 07/07/19 04:49 07/07/19 04:49 07/06/19 07/06/19 07/06/19 21:16 21:16 21:58 WBC RBC Hgb Hct MCV MCH MCHC RDW Plt Count Seg Neutrophils % Carbonic Acid HCO3/H2CO3 Ratio ABG pH ABG pCO2 ABG pO2 ABG HCO3 ABG O2 Saturation ABG Base Excess FiO2 Sodium Potassium Chloride Carbon Dioxide Anion Gap BUN Creatinine Est GFR ( Amer) Glucose Calcium Phosphorus 3.2 Magnesium 2.0 Total Bilirubin AST Alkaline Phosphatase Ammonia < 8.7 L Total Protein Albumin Triglycerides Cholesterol LDL Cholesterol Direct VLDL Cholesterol HDL Cholesterol Amylase 39 Lipase 78.6 TSH 1.45 Free T4 0.96 07/07/19 07/07/19 07/07/19 04:49 04:49 06:25 WBC 4.1 RBC 4.39 Hgb 12.2 L Hct 37.9 MCV 86 MCH 27.8 MCHC 32.2 RDW 17.5 H Plt Count 76 L Seg Neutrophils % 86.3 H Carbonic Acid 1.84 H HCO3/H2CO3 Ratio 17:1 ABG pH 7.34 L ABG pCO2 61.2 H ABG pO2 102.1 H ABG HCO3 32.4 H ABG O2 Saturation 97.2 ABG Base Excess 5.1 FiO2 40% Sodium 145.2 H Potassium 4.5 Chloride 105 Carbon Dioxide 31 H Anion Gap 9 BUN 31 H Creatinine 1.38 H Est GFR ( Amer) > 60 Glucose 107 Calcium 8.0 L Phosphorus Magnesium Total Bilirubin 1.0 AST 19 Alkaline Phosphatase 71 Ammonia Total Protein 5.8 L Albumin 3.2 L Triglycerides 44 Cholesterol 86.33 LDL Cholesterol Direct 48 VLDL Cholesterol 9.0 L HDL Cholesterol 33 L Amylase Lipase TSH Free T4 07/06/19 07/06/19 07/06/19 21:58 21:58 21:58 Creatine Kinase 38 L CK-MB (CK-2) 0.71 Troponin I 0.013 NT-Pro-B Natriuret Pep 1360 H 07/07/19 07/07/19 07/07/19 04:49 04:49 10:49 Creatine Kinase 31 L 31 L CK-MB (CK-2) 0.36 Troponin I 0.029 NT-Pro-B Natriuret Pep 07/07/19 10:49 Creatine Kinase CK-MB (CK-2) 0.32 Troponin I 0.032 NT-Pro-B Natriuret Pep Impressions: Chest X-Ray 07/06/19 00:00 IMPRESSION: No acute finding. 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
--- NOTE | 2019-07-07 21:25 | EKG REPORT ---
SEVERITY:- ABNORMAL ECG - DUAL-PACEMAKER W/ A-NONCAPT DUE TO AFIB/FLUT : Confirmed by: Cornelius Montano MD 07-Jul-2019 21:24:38
[2019-07-07] MEDS ORDERED: PETROLATUM WHITE OU SCH (22:00)
[2019-07-07] MEDS ORDERED: MINERAL OIL OU SCH (22:00)
[2019-07-07] MEDS: SACUBITRIL/VALSARTAN 97 MG/103 MG TABLET PO SCH (22:27)
[2019-07-07] MEDS: ATORVASTATIN CALCIUM 40 MG TABLET PO SCH (22:27)
[2019-07-07] MEDS: METOPROLOL SUCCINATE 25 MG TAB.SR.24H PO SCH (22:28)
[2019-07-07] MEDS: PREGABALIN 75 MG CAPSULE PO SCH (22:28)
[2019-07-07] MEDS: MINERAL OIL/PETROLATUM,WHITE OPH OINT 3.5 GM OU SCH (22:29)
[2019-07-07] MEDS: TAMSULOSIN HCL 0.4 MG CAP.SR.24H PO SCH (22:29)
[2019-07-08 05:20] LABS: ABSOLUTE LYMPHOCYTES (AUTO) 0.6 10^3/uL (0.5-4.7); ABSOLUTE MONOCYTES (AUTO) 0.4 10^3/uL (0.1-1.4); ABSOLUTE NEUT (AUTO) 1.7 10^3/uL (1.7-8.2); BASOPHILS % (AUTO) 0.7 % (0-2); EOSINOPHILS % (AUTO) 0.6 % (0-6); HEMATOCRIT 38.8 % (37.9-51.0); HEMOGLOBIN 12.5 g/dL (13.5-17.0); LYMPHOCYTES % (AUTO) 22.4 % (13-45); MEAN CORPUSCULAR HEMOGLOBIN 28.1 pg (27.0-33.4); MEAN CORPUSCULAR HGB CONC 32.3 g/dL (32.0-36.0); MEAN CORPUSCULAR VOLUME 87 fl (80-97); MONOCYTES % (AUTO) 14.7 % (3-13); RED BLOOD COUNT 4.45 10^6/uL (4.35-5.55); RED CELL DISTRIBUTION WIDTH 17.6 % (11.5-14.0); SEGMENTED NEUTROPHILS % (AUTO) 61.6 % (42-78); TOTAL CELLS COUNTED % (AUTO) 100 %
[2019-07-08 05:57] LABS: PLATELET COUNT 71 10^3/uL (150-450)
[2019-07-08 06:11] LABS: WHITE BLOOD COUNT 2.7 10^3/uL (4.0-10.5)
[2019-07-08] MEDS: HEPARIN SOD (PORCINE) 5,000 UNIT/ML 1 ML VIAL SUBCUT SCH (06:47)
[2019-07-08] MEDS: PANTOPRAZOLE SODIUM 40 MG TABLET.DR PO SCH (06:48)
[2019-07-08] MEDS ORDERED: INFLUENZA QUAD (6MOS+) 2019-20 VAC 0.5 ML SYR IM ONE (08:00)
[2019-07-08] MEDS: SERTRALINE HCL 50 MG TABLET PO SCH (10:29)
[2019-07-08] MEDS: ASPIRIN 81 MG TABLET, CHEWABLE PO SCH (10:29)
[2019-07-08] MEDS: ISOSORBIDE MONONITRATE 30 MG TAB.ER.24H PO SCH (10:29)
[2019-07-08] MEDS: PREGABALIN 75 MG CAPSULE PO SCH ×2 (10:29→21:32)
[2019-07-08] MEDS: CETIRIZINE 10 MG TABLET PO SCH (10:29)
[2019-07-08] MEDS: SITAGLIPTIN PHOSPHATE 50 MG TABLET PO SCH (10:29)
[2019-07-08] MEDS: SACUBITRIL/VALSARTAN 97 MG/103 MG TABLET PO SCH ×2 (10:29→21:32)
[2019-07-08] MEDS: CYANOCOBALAMIN (VITAMIN B-12) 1,000 MCG TABLET PO SCH (10:29)
[2019-07-08] MEDS: ALLOPURINOL 100 MG TABLET PO SCH (10:29)
[2019-07-08] MEDS: POLYVINYL ALCOHOL 1.4% OPH SOLN 15 ML OU SCH ×4 (10:30→21:33)
--- NOTE | 2019-07-08 13:39 | PDOC PROGRESS REPORT ---
Subjective Progress Note for:: 07/08/19 Subjective:: Patient seen by the bedside, there was thrombocytopenia on admission, the platelet count was 89,000, it has progressively decreased since admission, will discontinue heparin though this is unlikely that the low platelet count is heparin induced thrombocytopenia because of the timing of the low platelet count, he has a low platelet count on admission, he takes an average of 7 days for heparin-induced, thrombocytopenia to manifest. Patient no longer requiring noninvasive positive pressure ventilation, BiPAP, the urine culture so far negative, chest x-ray negative Reason For Visit: ACUTE HYPERCAPNIC RESPIRATORY FAILURE, UTI, Physical Exam Vital Signs: Temp Pulse Resp BP Pulse Ox 98.4 F 60 14 156/78 H 96 07/08/19 08:07 07/08/19 08:21 07/08/19 08:21 07/08/19 08:07 07/08/19 08:21 Intake & Output 07/07/19 07/08/19 07/09/19 06:59 06:59 06:59 Intake Total 1100 1000 Output Total 400 Balance 700 1000 Weight 118.7 kg 116.1 kg General appearance: PRESENT: no acute distress Eye exam: PRESENT: PERRLA Respiratory exam: PRESENT: clear to auscultation abigail Cardiovascular exam: PRESENT: +S1, +S2 GI/Abdominal exam: PRESENT: soft Neurological exam: PRESENT: alert Results Laboratory Results: 07/08/19 04:30 07/07/19 04:49 07/08/19 04:30 WBC 2.7 L D RBC 4.45 Hgb 12.5 L Hct 38.8 MCV 87 MCH 28.1 MCHC 32.3 RDW 17.6 H Plt Count 71 L Seg Neutrophils % 61.6 07/06/19 07/06/19 07/06/19 21:58 21:58 21:58 Creatine Kinase 38 L CK-MB (CK-2) 0.71 Troponin I 0.013 NT-Pro-B Natriuret Pep 1360 H 07/07/19 07/07/19 07/07/19 04:49 04:49 10:49 Creatine Kinase 31 L 31 L CK-MB (CK-2) 0.36 Troponin I 0.029 NT-Pro-B Natriuret Pep 07/07/19 10:49 Creatine Kinase CK-MB (CK-2) 0.32 Troponin I 0.032 NT-Pro-B Natriuret Pep Impressions: Chest X-Ray 07/06/19 00:00 IMPRESSION: No acute finding. copyright 2010 [employer]- All Rights Reserved Assessment & Plan - Diagnosis (1) Acute respiratory failure with hypercapnia Is this a current diagnosis for this admission?: Yes Plan: Patient no longer requires noninvasive positive pressure ventilation, BiPAP (2) UTI (urinary tract infection) Qualifiers: Urinary tract infection type: acute cystitis Hematuria presence: with hematuria Qualified Code(s): N30.01 - Acute cystitis with hematuria Is this a current diagnosis for this admission?: Yes Plan: Continue IV antibiotic empirically (3) Chronic combined systolic and diastolic CHF (congestive heart failure) Is this a current diagnosis for this admission?: Yes (4) Thrombocytopenia Is this a current diagnosis for this admission?: Yes Plan: This was present on admission? Immune thrombocytopenia, discontinue heparin - Time Time Spent with patient: 35 or more minutes
[2019-07-08] MEDS: NORMAL SALINE 1000 ML 1,000 ML IV PRN (18:05)
[2019-07-08] MEDS: MINERAL OIL/PETROLATUM,WHITE OPH OINT 3.5 GM OU SCH (21:32)
[2019-07-08] MEDS: ATORVASTATIN CALCIUM 40 MG TABLET PO SCH (21:32)
[2019-07-08] MEDS: METOPROLOL SUCCINATE 25 MG TAB.SR.24H PO SCH (21:32)
[2019-07-08] MEDS: TAMSULOSIN HCL 0.4 MG CAP.SR.24H PO SCH (21:32)
[2019-07-08] MEDS: CEFTRIAXONE 1 GM/D5W RTU 1 GM/50 ML RTUPB IV SCH (21:33)
[2019-07-09 05:02] LABS: ABSOLUTE LYMPHOCYTES (AUTO) 0.5 10^3/uL (0.5-4.7); ABSOLUTE MONOCYTES (AUTO) 0.5 10^3/uL (0.1-1.4); ABSOLUTE NEUT (AUTO) 1.8 10^3/uL (1.7-8.2); BASOPHILS % (AUTO) 0.4 % (0-2); EOSINOPHILS % (AUTO) 1.4 % (0-6); HEMATOCRIT 37.5 % (37.9-51.0); LYMPHOCYTES % (AUTO) 18.7 % (13-45); MEAN CORPUSCULAR HEMOGLOBIN 27.8 pg (27.0-33.4); MEAN CORPUSCULAR HGB CONC 32.1 g/dL (32.0-36.0); MEAN CORPUSCULAR VOLUME 87 fl (80-97); MONOCYTES % (AUTO) 16.4 % (3-13); RED BLOOD COUNT 4.33 10^6/uL (4.35-5.55); RED CELL DISTRIBUTION WIDTH 17.2 % (11.5-14.0); SEGMENTED NEUTROPHILS % (AUTO) 63.1 % (42-78); TOTAL CELLS COUNTED % (AUTO) 100 %; WHITE BLOOD COUNT 2.9 10^3/uL (4.0-10.5)
[2019-07-09] MEDS: PANTOPRAZOLE SODIUM 40 MG TABLET.DR PO SCH (05:26)
[2019-07-09 06:05] LABS: APPEARANCE,URINE CLEAR; BILIRUBIN,URINE NEGATIVE (NEGATIVE); COLOR,URINE YELLOW; GLUCOSE, URINE NEGATIVE (NEGATIVE); KETONES,URINE TRACE mg/dL (NEGATIVE); LEUKOCYTE ESTERASE,URINE NEGATIVE (NEGATIVE); NITRITE,URINE NEGATIVE (NEGATIVE); PROTEIN,URINE 30 mg/dL (NEGATIVE); URINE SPECIFIC GRAVITY 1.017; UROBILINOGEN,URINE NEGATIVE mg/dL (<2.0)
[2019-07-09 06:18] LABS: URINE AMPHETAMINES SCREEN NEGATIVE; URINE BARBITURATES SCREEN NEGATIVE; URINE BENZODIAZEPINES SCREEN NEGATIVE; URINE COCAINE SCREEN NEGATIVE; URINE MARIJUANA (THC) SCREEN NEGATIVE; URINE METHADONE SCREEN NEGATIVE; URINE PHENCYCLIDINE SCREEN NEGATIVE
[2019-07-09 06:24] LABS: PLATELET COUNT 72 10^3/uL (150-450)
[2019-07-09] MEDS: PREGABALIN 75 MG CAPSULE PO SCH ×2 (10:51→21:33)
[2019-07-09] MEDS: CYANOCOBALAMIN (VITAMIN B-12) 1,000 MCG TABLET PO SCH (10:51)
[2019-07-09] MEDS: SITAGLIPTIN PHOSPHATE 50 MG TABLET PO SCH (10:52)
[2019-07-09] MEDS: SACUBITRIL/VALSARTAN 97 MG/103 MG TABLET PO SCH ×2 (10:52→21:34)
[2019-07-09] MEDS: ASPIRIN 81 MG TABLET, CHEWABLE PO SCH (10:52)
[2019-07-09] MEDS: SERTRALINE HCL 50 MG TABLET PO SCH (10:52)
[2019-07-09] MEDS: CETIRIZINE 10 MG TABLET PO SCH (10:52)
[2019-07-09] MEDS: ALLOPURINOL 100 MG TABLET PO SCH (10:52)
[2019-07-09] MEDS: POLYVINYL ALCOHOL 1.4% OPH SOLN 15 ML OU SCH ×4 (10:52→21:35)
[2019-07-09] MEDS: ISOSORBIDE MONONITRATE 30 MG TAB.ER.24H PO SCH (10:52)
--- NOTE | 2019-07-09 13:48 | PDOC PROGRESS REPORT ---
Subjective Progress Note for:: 07/09/19 Subjective:: Patient seen by the bedside, no longer requiring noninvasive positive pressure ventilation, presently on nasal cannula Reason For Visit: ACUTE HYPERCAPNIC RESPIRATORY FAILURE, UTI, Physical Exam Vital Signs: Temp Pulse Resp BP Pulse Ox 98.0 F 60 20 149/58 H 96 07/09/19 11:51 07/09/19 11:51 07/09/19 11:51 07/09/19 11:51 07/09/19 11:51 Intake & Output 07/08/19 07/09/19 07/10/19 06:59 06:59 06:59 Intake Total 1050 1505 0 Output Total 125 Balance 1050 1380 0 Weight 116.1 kg 115.7 kg General appearance: PRESENT: no acute distress Eye exam: PRESENT: PERRLA Respiratory exam: PRESENT: clear to auscultation abigail Cardiovascular exam: PRESENT: +S1, +S2 GI/Abdominal exam: PRESENT: soft Neurological exam: PRESENT: alert Results Laboratory Results: 07/09/19 04:03 07/07/19 04:49 07/09/19 07/09/19 04:03 04:46 WBC 2.9 L RBC 4.33 L Hgb 12.0 L Hct 37.5 L MCV 87 MCH 27.8 MCHC 32.1 RDW 17.2 H Plt Count 72 L Seg Neutrophils % 63.1 Urine Color YELLOW Urine Appearance CLEAR Urine pH 6.0 Ur Specific [place] 1.017 Urine Protein 30 H Urine Glucose (UA) NEGATIVE Urine Ketones TRACE H Urine Blood MODERATE H Urine Nitrite NEGATIVE Ur Leukocyte Esterase NEGATIVE Urine WBC (Auto) 3 Urine RBC (Auto) 45 07/06/19 07/06/19 07/06/19 21:58 21:58 21:58 Creatine Kinase 38 L CK-MB (CK-2) 0.71 Troponin I 0.013 NT-Pro-B Natriuret Pep 1360 H 07/07/19 07/07/19 07/07/19 04:49 04:49 10:49 Creatine Kinase 31 L 31 L CK-MB (CK-2) 0.36 Troponin I 0.029 NT-Pro-B Natriuret Pep 07/07/19 10:49 Creatine Kinase CK-MB (CK-2) 0.32 Troponin I 0.032 NT-Pro-B Natriuret Pep Impressions: Chest X-Ray 07/06/19 00:00 IMPRESSION: No acute finding. copyright 2010 [employer]- All Rights Reserved Assessment & Plan - Diagnosis (1) Acute respiratory failure with hypercapnia Is this a current diagnosis for this admission?: Yes (2) UTI (urinary tract infection) Qualifiers: Urinary tract infection type: acute cystitis Hematuria presence: with hematuria Qualified Code(s): N30.01 - Acute cystitis with hematuria Is this a current diagnosis for this admission?: Yes (3) Chronic combined systolic and diastolic CHF (congestive heart failure) Is this a current diagnosis for this admission?: Yes (4) Thrombocytopenia Is this a current diagnosis for this admission?: Yes - Time Time Spent with patient: 25-34 minutes - Plan Summary Plan Summary: Continue treatment, encourage ambulation
[2019-07-09 14:21] LABS: ALBUMIN 2.7 g/dL (3.5-5.0); ALKALINE PHOSPHATASE 63 U/L (38-126); ANION GAP 6 (5-19); ASPARTATE AMINO TRANSFERASE 22 U/L (17-59); BILIRUBIN,DIRECT 0.2 mg/dL (0.0-0.4); BILIRUBIN,TOTAL 0.5 mg/dL (0.2-1.3); BLOOD UREA NITROGEN 23 mg/dL (7-20); CARBON DIOXIDE 30 mmol/L (22-30); CHLORIDE 106 mmol/L (98-107); GLUCOSE 106 mg/dL (75-110); POTASSIUM 4.4 mmol/L (3.6-5.0); TOTAL PROTEIN 5.3 g/dL (6.3-8.2)
[2019-07-09] MEDS: NORMAL SALINE 1000 ML 1,000 ML IV PRN (16:34)
[2019-07-09] MEDS: TAMSULOSIN HCL 0.4 MG CAP.SR.24H PO SCH (21:34)
[2019-07-09] MEDS: MINERAL OIL/PETROLATUM,WHITE OPH OINT 3.5 GM OU SCH (21:34)
[2019-07-09] MEDS: ATORVASTATIN CALCIUM 40 MG TABLET PO SCH (21:34)
[2019-07-09] MEDS: CEFTRIAXONE 1 GM/D5W RTU 1 GM/50 ML RTUPB IV SCH (21:34)
[2019-07-09] MEDS: METOPROLOL SUCCINATE 25 MG TAB.SR.24H PO SCH (21:34)
[2019-07-10] MEDS: PANTOPRAZOLE SODIUM 40 MG TABLET.DR PO SCH (05:33)
[2019-07-10] MEDS: CYANOCOBALAMIN (VITAMIN B-12) 1,000 MCG TABLET PO SCH (09:28)
[2019-07-10] MEDS: CETIRIZINE 10 MG TABLET PO SCH (09:28)
[2019-07-10] MEDS: SITAGLIPTIN PHOSPHATE 50 MG TABLET PO SCH (09:28)
[2019-07-10] MEDS: SERTRALINE HCL 50 MG TABLET PO SCH (09:29)
[2019-07-10] MEDS: ASPIRIN 81 MG TABLET, CHEWABLE PO SCH (09:29)
[2019-07-10] MEDS: ISOSORBIDE MONONITRATE 30 MG TAB.ER.24H PO SCH (09:29)
[2019-07-10] MEDS: ALLOPURINOL 100 MG TABLET PO SCH (09:30)
[2019-07-10] MEDS: PREGABALIN 75 MG CAPSULE PO SCH ×2 (09:30→21:08)
[2019-07-10] MEDS: SACUBITRIL/VALSARTAN 97 MG/103 MG TABLET PO SCH ×2 (09:30→21:08)
[2019-07-10] MEDS: POLYVINYL ALCOHOL 1.4% OPH SOLN 15 ML OU SCH ×4 (09:32→21:09)
--- NOTE | 2019-07-10 18:35 | PDOC TRANSFER SUMMARY ---
Impression - Admit/DC Date/PCP Admission Date/Primary Care Provider: 07/06/19 18:26 CRISTINE AGUAYO MD Discharge Date: 07/11/19 - Discharge Diagnosis (1) Acute respiratory failure with hypercapnia Is this a current diagnosis for this admission?: Yes (2) UTI (urinary tract infection) Is this a current diagnosis for this admission?: Yes (3) Chronic combined systolic and diastolic CHF (congestive heart failure) Is this a current diagnosis for this admission?: Yes (4) Thrombocytopenia Is this a current diagnosis for this admission?: Yes - Additional Information Referrals: CRISTINE AGUAYO MD [Primary Care Provider] - Follow up as needed Home Medications: Atorvastatin Calcium [Lipitor 40 mg Tablet] 40 mg PO QHS 10/11/17 Cetirizine HCl [Zyrtec 10 mg Tablet] 10 mg PO DAILY 10/11/17 Cyanocobalamin (Vitamin B-12) [Vitamin B-12 500 mcg Tablet] 500 mcg PO DAILY 10/11/17 Furosemide [Lasix 20 mg Tablet] 20 mg PO QAM 10/11/17 Isosorbide Mononitrate [Imdur 30 mg Tablet.er] 30 mg PO DAILY 10/11/17 Linagliptin [Tradjenta] 5 mg PO DAILY 10/11/17 Metoprolol Succinate [Toprol Xl 25 mg Tab.sr] 25 mg PO QHS 10/11/17 Polyvinyl Alcohol [Liquitears 1.4% Ophth Soln 15 ml] 1 drop OU QID 10/11/17 Pregabalin [Lyrica] 150 mg PO Q12 10/11/17 Sacubitril/Valsartan [Entresto 97 mg-103 mg Tablet] 1 each PO Q12 10/11/17 Tamsulosin HCl [Flomax 0.4 mg Cap.sr] 0.4 mg PO QHS 10/11/17 Aspirin [Aspirin 81 mg Chewable Tablet] 81 mg PO DAILY tab.chew 10/20/17 Allopurinol [Zyloprim 100 mg Tablet] 200 mg PO DAILY 07/07/19 Dexlansoprazole [Dexilant 60 mg Capsule] 60 mg PO DAILY 07/07/19 Eyelid Cleanser Combination 5 [Ocusoft Lid Scrub] 1 pad TOP BID 07/07/19 Mineral Oil/Petrolatum,White [Refresh P.m. Ointment] 1 applic OU QHS 07/07/19 Sertraline HCl [Zoloft 50 mg Tablet] 50 mg PO DAILY 07/07/19 Acetaminophen [Tylenol 325 mg Tablet] 325 mg PO Q6HP PRN #0 07/10/19 Oxycodone HCl/Acetaminophen [Percocet 10-325 mg Tablet] 1 each PO Q8H PRN #0 07/10/19 History of Present Illiness History of Present Illness: ERIKA GERMAIN is a 79 year old male, Patient is a resident of the residential at [facility], he has multiple comorbid conditions, he was transferred from the residential to the hospital for evaluation of altered mental status. He was confused, history taking was a challenge, he was found to have severe acute hypercapnic respiratory failure, he required noninvasive positive pressure ventilation with BiPAP. He was also found to have grossly abnormal urinalysis. I received a call from the residential staff That patient was very confused and also the oxygen saturation was in the low 80s they ask for guidance I suggested that patient should be transferred to the emergency room for evaluation. In the emergency room when he arrived he was evaluated the arterial blood gas in ambient air, pH 7.32 PCO2 68.1, PO2 60.2, bicarbonate 34.1. Hospital Course Hospital Course: Patient was admitted for the management of acute hypercapnic respiratory failure, he required noninvasive positive pressure ventilation with BiPAP, he was empirically treated for UTI with IV antibiotic. No specific pathogen was cultured from the urine. The acute respiratory failure is felt to be due to completion of factors including morbid obesity, obstructive sleep apnea, medication. He also have immune thrombocytopenia, on admission he had a low platelet count there was evidence of blood loss Physical Exam Vital Signs: Temp Pulse Resp BP Pulse Ox 98.1 F 55 L 16 166/59 H 95 07/10/19 17:03 07/10/19 17:03 07/10/19 17:03 07/10/19 17:03 07/10/19 17:03 Intake & Output 07/09/19 07/10/19 07/11/19 06:59 06:59 06:59 Intake Total 1505 1358 Output Total 125 575 Balance 1380 783 Weight 115.7 kg 116 kg General appearance: PRESENT: no acute distress Eye exam: PRESENT: PERRLA Respiratory exam: PRESENT: clear to auscultation abigail Cardiovascular exam: PRESENT: +S1, +S2 GI/Abdominal exam: PRESENT: soft Neurological exam: PRESENT: alert, CN II-XII grossly intact Results Laboratory Results: WBC 2.9 10^3/uL (4.0-10.5) L 07/09/19 04:03 RBC 4.33 10^6/uL (4.35-5.55) L 07/09/19 04:03 Hgb 12.0 g/dL (13.5-17.0) L 07/09/19 04:03 Hct 37.5 % (37.9-51.0) L 07/09/19 04:03 MCV 87 fl (80-97) 07/09/19 04:03 MCH 27.8 pg (27.0-33.4) 07/09/19 04:03 MCHC 32.1 g/dL (32.0-36.0) 07/09/19 04:03 RDW 17.2 % (11.5-14.0) H 07/09/19 04:03 Plt Count 72 10^3/uL (150-450) L 07/09/19 04:03 Lymph % (Auto) 18.7 % (13-45) 07/09/19 04:03 [place] % (Auto) 16.4 % (3-13) H 07/09/19 04:03 Eos % (Auto) 1.4 % (0-6) 07/09/19 04:03 Baso % (Auto) 0.4 % (0-2) 07/09/19 04:03 Absolute Neuts (auto) 1.8 10^3/uL (1.7-8.2) 07/09/19 04:03 Absolute Lymphs (auto) 0.5 10^3/uL (0.5-4.7) 07/09/19 04:03 Absolute Monos (auto) 0.5 10^3/uL (0.1-1.4) 07/09/19 04:03 Absolute Eos (auto) 0.0 10^3/uL (0.0-0.6) 07/09/19 04:03 Absolute Basos (auto) 0.0 10^3/uL (0.0-0.2) 07/09/19 04:03 Seg Neutrophils % 63.1 % (42-78) 07/09/19 04:03 Platelet Estimate Cancelled 07/06/19 14:42 PT 13.6 SEC (11.4-15.4) 07/06/19 21:16 INR 1.04 07/06/19 21:16 APTT 27.4 SEC (23.5-35.8) 07/06/19 21:16 Carbonic Acid 1.84 mmol/L (1.05-1.35) H 07/07/19 06:25 HCO3/H2CO3 Ratio 17:1 07/07/19 06:25 ABG pH 7.34 (7.35-7.45) L 07/07/19 06:25 ABG pCO2 61.2 mmHg (35-45) H 07/07/19 06:25 ABG pO2 102.1 mmHg (80-100) H 07/07/19 06:25 ABG HCO3 32.4 mmol/L (20-24) H 07/07/19 06:25 ABG Total CO2 34.3 mmol/L (23-27) H 07/07/19 06:25 ABG O2 Saturation 97.2 % (94-98) 07/07/19 06:25 ABG Base Excess 5.1 mmol/L 07/07/19 06:25 FiO2 40% 07/07/19 06:25 Sodium 141.6 mmol/L (137-145) 07/09/19 04:03 Potassium 4.4 mmol/L (3.6-5.0) 07/09/19 04:03 Chloride 106 mmol/L (98-107) 07/09/19 04:03 Carbon Dioxide 30 mmol/L (22-30) 07/09/19 04:03 Anion Gap 6 (5-19) 07/09/19 04:03 BUN 23 mg/dL (7-20) H 07/09/19 04:03 Creatinine 1.12 mg/dL (0.52-1.25) 07/09/19 04:03 Est GFR ( Amer) > 60 (>60) 07/09/19 04:03 Est GFR (MDRD) Non-Af > 60 (>60) 07/09/19 04:03 Glucose 106 mg/dL (75-110) 07/09/19 04:03 Hemoglobin A1c % 5.4 % (4.7-6.0) 07/07/19 04:49 Calcium 8.0 mg/dL (8.4-10.2) L 07/09/19 04:03 Phosphorus 3.2 mg/dL (2.5-4.5) 07/06/19 21:16 Magnesium 2.0 mg/dL (1.6-2.3) 07/06/19 21:16 Total Bilirubin 0.5 mg/dL (0.2-1.3) 07/09/19 04:03 Direct Bilirubin 0.2 mg/dL (0.0-0.4) 07/09/19 04:03 Neonat Total Bilirubin Not Reportable 07/09/19 04:03 Neonat Direct Bilirubin Not Reportable 07/09/19 04:03 Neonat Indirect Bili Not Reportable 07/09/19 04:03 AST 22 U/L (17-59) 07/09/19 04:03 ALT 10 U/L (<50) 07/09/19 04:03 Alkaline Phosphatase 63 U/L (38-126) 07/09/19 04:03 Ammonia < 8.7 umol/L (9-33) L 07/06/19 21:58 Creatine Kinase 31 U/L (55-170) L 07/07/19 10:49 CK-MB (CK-2) 0.32 ng/mL (<4.55) 07/07/19 10:49 Troponin I 0.032 ng/mL 07/07/19 10:49 NT-Pro-B Natriuret Pep 1360 pg/mL (<450) H 07/06/19 21:58 Total Protein 5.3 g/dL (6.3-8.2) L 07/09/19 04:03 Albumin 2.7 g/dL (3.5-5.0) L 07/09/19 04:03 Triglycerides 44 mg/dL (<150) 07/07/19 04:49 Cholesterol 86.33 mg/dL (0-200) 07/07/19 04:49 LDL Cholesterol Direct 48 mg/dL (<100) 07/07/19 04:49 VLDL Cholesterol 9.0 mg/dL (10-31) L 07/07/19 04:49 HDL Cholesterol 33 mg/dL (>40) L 07/07/19 04:49 Amylase 39 U/L (30-110) 07/06/19 21:16 Lipase 78.6 U/L (23-300) 07/06/19 21:16 TSH 1.45 uIU/mL (0.47-4.68) 07/06/19 21:16 Free T4 0.96 ng/dL (0.78-2.19) 07/06/19 21:16 Urine Color YELLOW 07/09/19 04:46 Urine Appearance CLEAR 07/09/19 04:46 Urine pH 6.0 (5.0-9.0) 07/09/19 04:46 Ur Specific [place] 1.017 07/09/19 04:46 Urine Protein 30 mg/dL (NEGATIVE) H 07/09/19 04:46 Urine Glucose (UA) NEGATIVE mg/dL (NEGATIVE) 07/09/19 04:46 Urine Ketones TRACE mg/dL (NEGATIVE) H 07/09/19 04:46 Urine Blood MODERATE (NEGATIVE) H 07/09/19 04:46 Urine Nitrite NEGATIVE (NEGATIVE) 07/09/19 04:46 Urine Bilirubin NEGATIVE (NEGATIVE) 07/09/19 04:46 Urine Urobilinogen NEGATIVE mg/dL (<2.0) 07/09/19 04:46 Ur Leukocyte Esterase NEGATIVE (NEGATIVE) 07/09/19 04:46 Urine WBC (Auto) 3 /HPF 07/09/19 04:46 Urine RBC (Auto) 45 /HPF 07/09/19 04:46 Urine Bacteria (Auto) TRACE /HPF 07/06/19 15:40 Squamous Epi Cells Auto <1 /HPF 07/09/19 04:46 Urine Mucus (Auto) RARE /LPF 07/09/19 04:46 Urine Ascorbic Acid NEGATIVE (NEGATIVE) 07/09/19 04:46 Urine Opiates Screen NEGATIVE 07/09/19 04:46 Urine Methadone Screen NEGATIVE 07/09/19 04:46 Ur Barbiturates Screen NEGATIVE 07/09/19 04:46 Ur Phencyclidine Scrn NEGATIVE 07/09/19 04:46 Ur Amphetamines Screen NEGATIVE 07/09/19 04:46 U Benzodiazepines Scrn NEGATIVE 07/09/19 04:46 Urine Cocaine Screen NEGATIVE 07/09/19 04:46 U Marijuana (THC) Screen NEGATIVE 07/09/19 04:46 Slides for Path Review Cancelled 07/06/19 14:42 07/06/19 07/06/19 07/07/19 21:58 21:58 04:49 CK-MB (CK-2) 0.71 0.36 Troponin I 0.013 0.029 NT-Pro-B Natriuret Pep 1360 H 07/07/19 10:49 CK-MB (CK-2) 0.32 Troponin I 0.032 NT-Pro-B Natriuret Pep Impressions: Chest X-Ray 07/06/19 00:00 IMPRESSION: No acute finding. copyright 2010 [employer]- All Rights Reserved Stroke Is this a Stroke Patient?: No Acute Heart Failure - Is this a Heart Failure Patient?: No
[2019-07-10] MEDS: METOPROLOL SUCCINATE 25 MG TAB.SR.24H PO SCH (21:08)
[2019-07-10] MEDS: TAMSULOSIN HCL 0.4 MG CAP.SR.24H PO SCH (21:08)
[2019-07-10] MEDS: ATORVASTATIN CALCIUM 40 MG TABLET PO SCH (21:08)
[2019-07-10] MEDS: CEFTRIAXONE 1 GM/D5W RTU 1 GM/50 ML RTUPB IV SCH (21:09)
[2019-07-10] MEDS: MINERAL OIL/PETROLATUM,WHITE OPH OINT 3.5 GM OU SCH (21:09)
[2019-07-11] MEDS: PANTOPRAZOLE SODIUM 40 MG TABLET.DR PO SCH (05:39)
[2019-07-11] MEDS: CETIRIZINE 10 MG TABLET PO SCH (09:28)
[2019-07-11] MEDS: ALLOPURINOL 100 MG TABLET PO SCH (09:28)
[2019-07-11] MEDS: ISOSORBIDE MONONITRATE 30 MG TAB.ER.24H PO SCH (09:28)
[2019-07-11] MEDS: PREGABALIN 75 MG CAPSULE PO SCH (09:28)
[2019-07-11] MEDS: ASPIRIN 81 MG TABLET, CHEWABLE PO SCH (09:28)
[2019-07-11] MEDS: SACUBITRIL/VALSARTAN 97 MG/103 MG TABLET PO SCH (09:28)
[2019-07-11] MEDS: CYANOCOBALAMIN (VITAMIN B-12) 1,000 MCG TABLET PO SCH (09:28)
[2019-07-11] MEDS: SITAGLIPTIN PHOSPHATE 50 MG TABLET PO SCH (09:29)
[2019-07-11] MEDS: SERTRALINE HCL 50 MG TABLET PO SCH (09:29)
[2019-07-11] MEDS: POLYVINYL ALCOHOL 1.4% OPH SOLN 15 ML OU SCH ×2 (09:29→13:03)
[2019-07-11 12:08] VITALS: BP 135/71
== END 2019-07-11 15:14 | DRG 189 ==
LOC: ER 14:28 → EH 18:26 → 3W 21:47
PROVIDERS: ADMIT Internal Medicine; ATTEND Internal Medicine
PROC: 5A09457 Assistance with Respiratory Ventilation, 24-96 Consecutive Hours, Continuous Positive Airway Pressure (ICD-10-PCS; principal; 2019-07-06)
DX: J96.02 Acute respiratory failure with hypercapnia (principal); N30.01 Acute cystitis with hematuria; I50.42 Chronic combined systolic (congestive) and diastolic (congestive) heart failure; Z68.41 Body mass index [BMI] 40.0-44.9, adult; E66.01 Morbid (severe) obesity due to excess calories; Z79.899 Other long term (current) drug therapy; G47.33 Obstructive sleep apnea (adult) (pediatric); D69.59 Other secondary thrombocytopenia; I25.10 Atherosclerotic heart disease of native coronary artery without angina pectoris; E78.5 Hyperlipidemia, unspecified; I11.0 Hypertensive heart disease with heart failure; F17.220 Nicotine dependence, chewing tobacco, uncomplicated; E11.9 Type 2 diabetes mellitus without complications; K21.9 Gastro-esophageal reflux disease without esophagitis; F32.9 Major depressive disorder, single episode, unspecified; I25.2 Old myocardial infarction; Z85.820 Personal history of malignant melanoma of skin; Z95.5 Presence of coronary angioplasty implant and graft; Z90.49 Acquired absence of other specified parts of digestive tract; Z88.8 Allergy status to other drugs, medicaments and biological substances; Z88.5 Allergy status to narcotic agent
CPT/HCPCS: 36415; 36600; 71045; 80053; 80061; 80307; 81001; 82140; 82150; 82550; 82553; 82803; 83036; 83690; 83735; 83880; 84100; 84439; 84443; 84484; 85025; 85610; 85730; 87040; 87086; 93005; 93010; 94660; 96360; 99291; J0696; J1644; J3490; J7030

== ENCOUNTER 2019-09-29 07:18 | Emergency (ER) | payer MEDICARE, MEDICAID ==
--- NOTE | 2019-09-29 07:41 | ER Document Report ---
ED NIH Stroke Scale - NIH Stroke Scale *: 1. NIH scale should be completed with appropriate accompanying assessment tools. *: 2. The NIH should reflect what the patient is capable of doing and should not be coached by the clinician. 1a. Level of Consciousness: 0=Alert;keenly responsive -: 1=Drowsy -: 2=Obtunded -: 3=Coma/unresponsive or reflex to noxious stimuli. 1a. Responses: 0 1b. Orientation Questions: a. What month is it? -: b. How old are you? -: 0=Answers both questions correctly. -: 1=Answers one question correctly or patient is intubated or has orotracheal trauma. -: 2=Answers neither question correctly. 1c. Response to commands: a. Open and close eyes? -: b. Graphic Editor and release hand? -: Credit is given despite weakness. Demonstration of task is permitted. Substitute command if hands cannot be used. -: 0=Performs both tasks correctly -: 1=Performs one task correctly -: 2=Performs neither task correctly 1c. Responses: 0 2. Gaze: Establish eye contact and instruct patient to "Follow my finger" -: 0=Normal -: 1=Partial gaze palsy. Gaze is abnormal in one or both eyes, but where forced deviation or total gaze paresis is not present. -: 2=Forced deviation or total gaze paresis. 2. Responses: 0 3. Visual Sanders: Sees fingers in all four quadrants. -: 0=No visual loss. -: 1=Partial hemianopsia. -: 2=Complete hemianopsia. -: 3=Bilateral hemianopsia (including Cortical blindness) 3. Responses: 0 4. Facial Movement: Instruct patient to: -: a. Show me your teeth -: b. Raise your eyebrows -: c. Close your eyes -: d. Smile -: 0=Normal symmetrical movement -: 1=Minor paralysis (flattened nasolabial fold, asymmetry on smiling). -: 2=Partial paralysis (total or near total paralysis of lower face). -: 3=Complete paralysis of upper and lower face 4. Responses: 1 5. Motor functions (left arm): Alternate sides and extend each arm with palms down (90 degrees if sitting or 45 degrees for supine). -: 0=No drift;limb holds for full 10 seconds. -: 1=Drift; limb holds but drifts down before full 10 seconds, but does not hit bed. -: 2=Some effort against gravity; limb cannot get to or maintain position. -: 3=No effort against gravity; limb falls. -: 4=No movement. -: UN=Amputation, joint fusion, explain in comments. 5. Responses (left arm): 0 5. Motor Functions (right arm): Alternate sides and extend each arm with palms down (90 degrees if sitting or 45 degrees for supine). -: 0=No drift;limb holds for full 10 seconds. -: 1=Drift; limb holds but drifts down before full 10 seconds, but does not hit bed. -: 2=Some effort against gravity; limb cannot get to or maintain position. -: 3=No effort against gravity; limb falls. -: 4=No movement. -: UN=Amputation, joint fusion, explain in comments. 5. Responses (right arm): 0 6. Motor Functions (left leg): With patient lying supine, alternate sides and extend each leg (30 degrees always while supine). -: 0=No drift, leg holds position for full 5 seconds -: 1=Drift; leg falls before full 5 seconds but does not hit bed. -: 2=Some effort against gravity, leg falls to bed but some effort against gravity. -: 3=No effort against gravity, leg falls to bed immediately. -: 4=No movement. -: UN=Amputation, joint fusion; explain in comments. 6. Responses (left leg): 0 6. Motor Functions (right leg): With patient lying supine, alternate sides and extend each leg (30 degrees always while supine). -: 0=No drift, leg holds position for full 5 seconds -: 1=Drift; leg falls before full 5 seconds but does not hit bed. -: 2=Some effort against gravity, leg falls to bed but some effort against gravity. -: 3=No effort against gravity, leg falls to bed immediately. -: 4=No movement. -: UN=Amputation, joint fusion; explain in comments. 6. Responses (right leg): 0 7. Limb Ataxia: With eyes open instruct patient to: -: a. "Touch your finger to your nose". -: b. "Touch your heel to your matthews" -: 0=Absent -: 1=Present in one limb. -: 2=Present in two limbs. -: UN=Amputation or joint fusion; explain in comments. 7. Responses: 0 8. Sensory: Test sensation using pinprick or noxious stimuli. Test as many body parts as possible. -: 0=Normal;no sensory loss -: 1=Mile to moderate sensory loss (patient feels pin prick but is less sharp on affected side). -: 2=Severe or total sensory loss. 8. Responses: 0 9. Best Language: Instruct patient to: -: a. "Describe what you see in this picture." -: b. "Name the items in this picture." -: c. "Read these sentences." -: 0=No aphasia, normal -: 1=Mild to moderate aphasia. -: 2=Severe aphasia -: 3=Mute, global aphasia, no usable speech or auditory comprehension. 10. Articulation, Dysarthia: Instruct patient to: -: "Read these words" or "Repeat these words" -: 0=Normal -: 1=Mild to moderate; patient may slur some words but can be understood without difficulty. -: 2=Severe; patients speech so slurred as to be unintelligible in the absence of dysphasia. -: UN=Intubated or other physical barrier, explain in comments. 10. Responses: 0 11. Extinction or inattention: 0=No abnormality -: 1= Visual, tactile, auditory, spatial, or personal inattention or extinction to bilateral simulation in one or the sensory modalities. -: 2=Profound ainsley-inattention or ainsley-inattention to more than one modality; does not recognize own hand. 11. Responses: 0 - Patient has a low NIH score of 1 Total Score: 1
--- NOTE | 2019-09-29 07:42 | ER Document Report ---
ED Neuro Symptoms/Deficit - General Chief Complaint: Numbness of Face Stated Complaint: FACIAL NUMBNESS Time Seen by Provider: 09/29/19 07:41 Primary Care Provider: CRISTINE AGUAYO MD [Primary Care Provider] - Follow up as needed Mode of Arrival: Medic Information source: Patient TRAVEL OUTSIDE OF THE [place] IN LAST 30 DAYS: No - HPI Patient complains to provider of: Facial Droop Onset: Other - Patient has a chronic condition of left-sided facial palsy which patient ascribes to post eyelid surgery he states his left face is always been asymmetrical and weak. Patient reports that in the past 3 days it did appear that his left-sided facial weakness increased particularly yesterday. Patient has no trouble swallowing eating or talking. Symptoms are: Constant Quality of pain: No pain Severity: Mild Pain Level: 0 Context: Other - Left facial asymmetry was noted by staff members worsening over the past 3 days. Baseline Cognitive: Alert, oriented X 3 Pre-existing weakness: Face Alert To: Name/Voice Vision problem/glaucoma: No Associated symptoms: None Similar symptoms previously: Yes - Chronic condition of left facial asymmetry with left sided droop, circumora Recently seen / treated by doctor: No - Related Data Allergies/Adverse Reactions: codeine [Codeine] Allergy (Verified 02/23/17 11:29) Hives tuberculin,PPD,multi-puncture Adverse Reaction (Verified 02/23/17 11:29) Past Medical History - Social History Smoking Status: Never Smoker Frequency of alcohol use: None Drug Abuse: None Lives with: [facility] Family History: Reviewed & Not Pertinent - Past Medical History Cardiac Medical History: Reports: Hx Atrial Fibrillation, Hx Congestive Heart Failure, Hx Coronary Artery Disease, Hx DVT, Hx Heart Attack - x4 last 1993, Hx Hypercholesterolemia, Hx Hypertension Denies: Hx Peripheral Vascular Disease, Hx Pulmonary Embolism, Hx Heart Murmur Pulmonary Medical History: Reports: Hx Asthma, Hx Bronchitis, Hx COPD, Hx Pneumonia, Hx Intubation, Hx Respiratory Failure - Acute, Hx Sleep Apnea Denies: Hx Tuberculosis Neurological Medical History: Reports: Hx Cerebrovascular Accident - x2 may 2013 , Hx Seizures - sept hit head and had seizure. Denies: Hx Parkinson's Disease Endocrine Medical History: Reports: Hx Diabetes Mellitus Type 2, Hx Hypothyro idism. Denies: Hx Graves' Disease, Hx Hyperthyroidism Renal/ Medical History: Reports: Hx Benign Prostatic Hyperplasia. Denies: Hx End Stage Renal Disease, Hx Kidney Stones, Hx Peritoneal Dialysis Malignancy Medical History: Denies Hx Leukemia, Denies Hx Lung Cancer, Reports Hx Skin Cancer - Malignant melanoma GI Medical History: Reports: Hx Gastroesophageal Reflux Disease, Hx Hepatitis, Hx Ulcer. Denies: Hx Crohn's Disease, Hx Hiatal Hernia, Hx Irritable Bowel, Hx Liver Failure, Hx Pancreatitis Musculoskeletal Medical History: Reports Hx Arthritis, Denies Hx Fibromyalgia, Reports Hx Gout, Denies Hx Multiple Sclerosis, Denies Hx Muscular Dystrophy, Denies Hx Systemic Lupus Erythematosus Psychiatric Medical History: Reports: Hx Anxiety, Hx Depression Denies: Hx Bipolar Disorder, Hx Dementia, Hx Post Traumatic Stress Disorder, Hx Schizophrenia Traumatic Medical History: Denies: Hx Fractures, Hx Traumatic Brain Injury Infectious Medical History: Reports: Hx Hepatitis. Denies: Hx HIV Past Surgical History: Reports: Hx Cholecystectomy, Hx Coronary Stent, Hx Open Heart Surgery - angioplasy. Denies: Hx Appendectomy, Hx Bowel Surgery, Hx Colostomy, Hx Coronary Artery Bypass Graft, Hx Gastric Bypass Surgery, Hx Herniorrhaphy, Hx Pacemaker, Hx Tonsillectomy - Immunizations Immunizations up to date: Yes Hx Diphtheria, Pertussis, Tetanus Vaccination: No Hx Pneumococcal Vaccination: 09/27/10 Review of Systems - Review of Systems Constitutional: See HPI Neurological/Psychological: See HPI Physical Exam - Vital signs Vitals: Pulse Resp BP Pulse Ox 62 16 155/66 H 98 09/29/19 07:21 09/29/19 07:21 09/29/19 07:21 09/29/19 07:21 Interpretation: Normal - General General appearance: Appears well, Alert - HEENT Head: Normocephalic, Atraumatic Eyes: Normal Pupils: PERRL - Respiratory Respiratory status: No respiratory distress Chest status: Nontender Breath sounds: Normal Chest palpation: Normal - Cardiovascular Rhythm: Regular Heart sounds: Normal auscultation Murmur: No - Abdominal Inspection: Normal Distension: No distension Bowel sounds: Normal Tenderness: Nontender Organomegaly: No organomegaly - Back Back: Normal, Nontender - Extremities General upper extremity: Normal inspection, Nontender, Normal color, Normal ROM, Normal temperature General lower extremity: Normal inspection, Nontender, Normal color, Normal ROM, Normal temperature, Normal weight bearing. No: Naga's sign - Neurological Neuro grossly intact: Yes Cognition: Normal Orientation: AAOx4 [place] Coma Scale Eye Opening: Spontaneous [place] Coma Scale Verbal: Oriented [place] Coma Scale Motor: Obeys Commands [place] Coma Scale Total: 15 Speech: Normal Motor strength normal: LUE, RUE, LLE, RLE Sensory: Normal - Psychological Associated symptoms: Normal affect, Normal mood - Skin Skin Temperature: Warm Skin Moisture: Dry Skin Color: Normal Course - Re-evaluation Re-evalutation: 09/29/19 07:57 CT scan of head disclose no acute stroke no acute findings. 09/29/19 10:37 Patient has not shown any signs of deterioration in mental or neurological status. There are no new findings other than the chronic left-sided facial droop which patient says has been present for years. Review of CT scan disclose no acute process. Labs are within normal limits except for some mild dehydration with a creatinine up to 1.37. Patient has been given IV fluid bolus. 09/29/19 10:42 Review of laboratory comparison shows creatinine of 1.3 is baseline for patient. - Vital Signs Vital signs: Temp Pulse Resp BP Pulse Ox 97.4 F 60 17 148/67 H 98 09/29/19 07:45 09/29/19 09:00 09/29/19 09:00 09/29/19 09:00 09/29/19 09:00 - Laboratory Result Diagrams: 09/29/19 07:37 09/29/19 07:37 Laboratory results interpreted by me: 09/29/19 09/29/19 07:37 07:37 WBC 3.5 L Hgb 13.1 L RDW 17.4 H Plt Count 97 L Eos % (Auto) 6.2 H Absolute Neuts (auto) 1.6 L Carbon Dioxide 35 H BUN 28 H Creatinine 1.37 H Est GFR (MDRD) Non-Af 50 L Creatine Kinase 25 L Albumin 3.3 L - Diagnostic Test Radiology reviewed: Pending - Chest x-ray shows no acute process no infiltrate noted. This is a preliminary report as radiology report is still pending., Image reviewed, Reports reviewed - EKG Interpretation by Me Additional EKG results interpreted by me: 09/29/19 10:39 EKG 12-lead done at 741 shows atrial ventricular dual paced complexes otherwise no acute process. Discharge - Discharge Clinical Impression: Acquired facial asymmetry Condition: Stable Disposition: HOME, SELF-CARE Additional Instructions: Continue same medications. No new medical problems learned today. Patient reports his facial asymmetry has been present for a long time ever since his surgery on his left eyelids has he noted facial asymmetry on his left sided facial droop. There is no evidence this patient has had a new stroke based on our evaluation today. Referrals: CRISTINE AGUAYO MD [Primary Care Provider] - Follow up as needed
--- NOTE | 2019-09-29 07:51 | RADIOLOGY REPORT (SQ) ---
EXAM DESCRIPTION: CT HEAD WITHOUT IV CONTRAST COMPLETED DATE/TME: 09/29/2019 07:21 CLINICAL HISTORY: 79 years Male, bed 18 r/o stroke COMPARISON:11/10/17. Sep 20 2017 TECHNIQUE: No contrast. Coronal and sagittal reformat. This exam was performed according to our departmental dose-optimization program, which includes automated exposure control, adjustment of the mA and/or kV according to patient size and/or use of iterative reconstruction technique. FINDINGS: No hemorrhage or infarct. No mass, mass effect, or midline shift. Atherosclerosis. Mild white matter microangiopathy. 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 Metallic foreign body at the superior aspect of the left ocular globe and associated beam hardening artifact. Brain and extra-axial structures appear otherwise intact. IMPRESSION: No acute findings. 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
[2019-09-29 07:59] LABS: INTERNATIONAL RATION (INR) 0.99
[2019-09-29 08:00] LABS: PARTIAL THROMBOPLASTIN TIME 29.2 SEC (23.5-35.8)
[2019-09-29 08:03] LABS: PROTHROMBIN TIME 13.1 SEC (11.4-15.4)
[2019-09-29 08:07] LABS: ABSOLUTE EOSINOPHILS # (AUTO) 0.2 10^3/uL (0.0-0.6); ABSOLUTE LYMPHOCYTES (AUTO) 1.2 10^3/uL (0.5-4.7); ABSOLUTE MONOCYTES (AUTO) 0.4 10^3/uL (0.1-1.4); ABSOLUTE NEUT (AUTO) 1.6 10^3/uL (1.7-8.2); BASOPHILS % (AUTO) 0.8 % (0-2); EOSINOPHILS % (AUTO) 6.2 % (0-6); HEMATOCRIT 39.6 % (37.9-51.0); HEMOGLOBIN 13.1 g/dL (13.5-17.0); LYMPHOCYTES % (AUTO) 34.6 % (13-45); MEAN CORPUSCULAR HEMOGLOBIN 28.1 pg (27.0-33.4); MEAN CORPUSCULAR VOLUME 85 fl (80-97); MONOCYTES % (AUTO) 11.9 % (3-13); RED BLOOD COUNT 4.65 10^6/uL (4.35-5.55); RED CELL DISTRIBUTION WIDTH 17.4 % (11.5-14.0); SEGMENTED NEUTROPHILS % (AUTO) 46.5 % (42-78); TOTAL CELLS COUNTED % (AUTO) 100 %; WHITE BLOOD COUNT 3.5 10^3/uL (4.0-10.5)
[2019-09-29 08:12] LABS: ALBUMIN 3.3 g/dL (3.5-5.0); ALKALINE PHOSPHATASE 75 U/L (38-126); ANION GAP 5 (5-19); ASPARTATE AMINO TRANSFERASE 21 U/L (17-59); BILIRUBIN,DIRECT 0.1 mg/dL (0.0-0.4); BLOOD UREA NITROGEN 28 mg/dL (7-20); CALCIUM 8.4 mg/dL (8.4-10.2); CARBON DIOXIDE 35 mmol/L (22-30); CHLORIDE 102 mmol/L (98-107); CREATINE KINASE 25 U/L (55-170); GLUCOSE 87 mg/dL (75-110); POTASSIUM 4.1 mmol/L (3.6-5.0); TOTAL PROTEIN 6.4 g/dL (6.3-8.2)
[2019-09-29 08:21] LABS: CREATINE KINASE MB 0.74 ng/mL (<4.55)
[2019-09-29 08:24] LABS: TROPONIN I 0.013 ng/mL
[2019-09-29 08:30] LABS: PLATELET COUNT 97 10^3/uL (150-450)
--- NOTE | 2019-09-29 08:37 | EKG REPORT ---
SEVERITY:- ABNORMAL ECG - ATRIAL-VENTRICULAR DUAL-PACED COMPLEXES : Confirmed by: Cornelius Montano MD 29-Sep-2019 08:36:53
[2019-09-29] MEDS ORDERED: NORMAL SALINE 500 ML IV ONE (09:49)
[2019-09-29 12:56] VITALS: BP 161/81
--- NOTE | 2019-09-29 20:36 | RADIOLOGY REPORT (SQ) ---
EXAM DESCRIPTION: X-RAY CHEST- One View CLINICAL HISTORY: Clinical concern for acute stroke COMPARISON: July 06, 2019 TECHNIQUE: Single view of the chest. FINDINGS: There are no discrete air space infiltrates, pneumothoraces or pleural effusions. There is stable nonspecific elevation of the right hemidiaphragm. The pulmonary vascularity is normal. The cardiomediastinal silhouette is stable in size, with evidence of atherosclerotic vascular disease. Left chest wall cardiac pacer device is in stable position. Surgical clips are present in the right axillary region. The osseous structures are stable in appearance. IMPRESSION: There are no acute lung parenchymal findings. Stable examination compared with July 06, 2019
== END 2019-09-29 12:55 | disposition home or self-care (01) ==
LOC: ER 07:18
DX: R29.810 Facial weakness (principal); R20.0 Anesthesia of skin; I48.91 Unspecified atrial fibrillation; I50.9 Heart failure, unspecified; E78.00 Pure hypercholesterolemia, unspecified; I11.0 Hypertensive heart disease with heart failure; E11.9 Type 2 diabetes mellitus without complications; Z86.73 Personal history of transient ischemic attack (TIA), and cerebral infarction without residual deficits; I25.2 Old myocardial infarction; Z90.49 Acquired absence of other specified parts of digestive tract; Z88.6 Allergy status to analgesic agent
CPT/HCPCS: 93005; 99285; 96360; 36415; 82553; 82550; 85025; 85610; 85730; 80053; 84484; 71045; 70450; 93010; J7040

== ENCOUNTER 2020-09-12 01:09 | Inpatient (IN) | payer MEDICARE, MEDICAID ==
[2020-09-12 01:52] LABS: ABSOLUTE EOSINOPHILS # (AUTO) 0.1 10^3/uL (0.0-0.6); ABSOLUTE LYMPHOCYTES (AUTO) 1.3 10^3/uL (0.5-4.7); ABSOLUTE MONOCYTES (AUTO) 0.6 10^3/uL (0.1-1.4); ABSOLUTE NEUT (AUTO) 1.9 10^3/uL (1.7-8.2); BASOPHILS % (AUTO) 1.2 % (0-2); EOSINOPHILS % (AUTO) 2.5 % (0-6); HEMATOCRIT 42.9 % (37.9-51.0); HEMOGLOBIN 13.7 g/dL (13.5-17.0); LYMPHOCYTES % (AUTO) 33.3 % (13-45); MEAN CORPUSCULAR HEMOGLOBIN 27.5 pg (27.0-33.4); MEAN CORPUSCULAR HGB CONC 32.1 g/dL (32.0-36.0); MEAN CORPUSCULAR VOLUME 86 fl (80-97); MONOCYTES % (AUTO) 14.5 % (3-13); PLATELET COUNT 124 10^3/uL (150-450); RED CELL DISTRIBUTION WIDTH 18.3 % (11.5-14.0); SEGMENTED NEUTROPHILS % (AUTO) 48.5 % (42-78); TOTAL CELLS COUNTED % (AUTO) 100 %; WHITE BLOOD COUNT 3.9 10^3/uL (4.0-10.5)
[2020-09-12 02:06] LABS: ALBUMIN 3.4 g/dL (3.5-5.0); ALKALINE PHOSPHATASE 85 U/L (38-126); ANION GAP 6 (5-19); ASPARTATE AMINO TRANSFERASE 30 U/L (17-59); BILIRUBIN,DIRECT 0.1 mg/dL (0.0-0.4); BILIRUBIN,TOTAL 1.4 mg/dL (0.2-1.3); BLOOD UREA NITROGEN 30 mg/dL (7-20); CALCIUM 8.4 mg/dL (8.4-10.2); CARBON DIOXIDE 34 mmol/L (22-30); CHLORIDE 102 mmol/L (98-107); GLUCOSE 102 mg/dL (75-110); POTASSIUM 3.8 mmol/L (3.6-5.0); TOTAL PROTEIN 6.5 g/dL (6.3-8.2)
[2020-09-12 02:08] LABS: ALCOHOL < 10 mg/dL (NONE DETECTED)
--- NOTE | 2020-09-12 03:52 | ER Document Report ---
ED General - General Chief Complaint: Altered Mental Status Stated Complaint: ALTERED MENTAL STATUS Time Seen by Provider: 09/12/20 02:16 Primary Care Provider: CRISTINE AGUAYO MD [Primary Care Provider] - Follow up as needed Notes: Patient is an 80-year-old male who presents emergency department with altered mental status, per the snf. Patient is a resident at [facility].Patient returned back to [facility] and his oxygen saturation was in the 70s. Patient normally is oxygen dependent at night. Patient has a history of a stroke, chronic kidney disease, diabetes, congestive heart failure, aneurysm, atrial fibrillation, GERD, and BPH. Patient also is being treated for conjunctivitis with antibiotic eyedrops in the left eye. Patient denies any symptoms. Denies any chest pain or shortness of breath. He is alert and oriented. Patient also was positive for COVID-19 on August 23. TRAVEL OUTSIDE OF THE [place] IN LAST 30 DAYS: No - Related Data Allergies/Adverse Reactions: codeine [Codeine] Allergy (Verified 02/23/17 11:29) Hives tuberculin,PPD,multi-puncture Adverse Reaction (Verified 02/23/17 11:29) Past Medical History - Social History Smoking Status: Unknown if Ever Smoked Family History: Reviewed & Not Pertinent - Past Medical History Cardiac Medical History: Reports: Hx Atrial Fibrillation, Hx Congestive Heart Failure, Hx Coronary Artery Disease, Hx DVT, Hx Heart Attack - x4 last 1993, Hx Hypercholesterolemia, Hx Hypertension Denies: Hx Peripheral Vascular Disease, Hx Pulmonary Embolism, Hx Heart Murmur Pulmonary Medical History: Reports: Hx Asthma, Hx Bronchitis, Hx COPD, Hx Pneumonia, Hx Intubation, Hx Respiratory Failure - Acute, Hx Sleep Apnea Denies: Hx Tuberculosis Neurological Medical History: Reports: Hx Cerebrovascular Accident - x2 may 2013 , Hx Seizures - may hit head and had seizure. Denies: Hx Parkinson's Disease Endocrine Medical History: Reports: Hx Diabetes Mellitus Type 2, Hx Hypothyroidism. Denies: Hx Graves' Disease, Hx Hyperthyroidism Renal/ Medical History: Reports: Hx Benign Prostatic Hyperplasia. Denies: Hx End Stage Renal Disease, Hx Kidney Stones, Hx Peritoneal Dialysis Malignancy Medical History: Denies Hx Leukemia, Denies Hx Lung Cancer, Reports Hx Skin Cancer - Malignant melanoma GI Medical History: Reports: Hx Gastroesophageal Reflux Disease, Hx Hepatitis, Hx Ulcer. Denies: Hx Crohn's Disease, Hx Hiatal Hernia, Hx Irritable Bowel, Hx Liver Failure, Hx Pancreatitis Musculoskeletal Medical History: Reports Hx Arthritis, Denies Hx Fibromyalgia, Reports Hx Gout, Denies Hx Multiple Sclerosis, Denies Hx Muscular Dystrophy, Denies Hx Systemic Lupus Erythematosus Psychiatric Medical History: Reports: Hx Anxiety, Hx Depression Denies: Hx Bipolar Disorder, Hx Dementia, Hx Post Traumatic Stress Disorder, Hx Schizophrenia Traumatic Medical History: Denies: Hx Fractures, Hx Traumatic Brain Injury Infectious Medical History: Reports: Hx Hepatitis. Denies: Hx HIV Past Surgical History: Reports: Hx Cholecystectomy, Hx Coronary Stent, Hx Open Heart Surgery - angioplasy. Denies: Hx Appendectomy, Hx Bowel Surgery, Hx Colostomy, Hx Coronary Artery Bypass Graft, Hx Gastric Bypass Surgery, Hx Herniorrhaphy, Hx Pacemaker, Hx Tonsillectomy - Immunizations Immunizations up to date: Yes Hx Diphtheria, Pertussis, Tetanus Vaccination: No Hx Pneumococcal Vaccination: 09/27/10 Review of Systems - Review of Systems Notes: REVIEW OF SYSTEMS: CONSTITUTIONAL : See HPI. EENT: See HPI. CARDIOVASCULAR: Denies chest pain. RESPIRATORY: Denies shortness of breath, cough, congestion, difficulty breathing, or wheezing. GASTROINTESTINAL: Denies nausea, vomiting, and diarrhea. Denies abdominal pain. Denies constipation. GENITOURINARY: Denies difficulty urinating, burning, blood in urine, urgency or frequency. MUSCULOSKELETAL: Denies neck and back pain. Denies joint pain or swelling. SKIN: Denies rash, itchiness, or lesions HEMATOLOGIC : Denies easy bruising or bleeding. LYMPHATIC: Denies swollen, painful, enlarged glands. NEUROLOGICAL: See HPI. PSYCHIATRIC: Denies stress, anxiety, alteration in sleep patterns, or depression. All other systems reviewed and negative. Physical Exam - Vital signs Vitals: Temp 98.3 F 09/12/20 01:09 - Notes Notes: PHYSICAL EXAMINATION: GENERAL: Appears well, healthy, well-nourished, no acute distress. HEAD: Normocephalic, atraumatic. EYES: Purulent drainage noted to left eye. ENT: Moist mucous membranes. NECK: Supple, no noticeable swelling, redness, rash. Normal range of motion. LUNGS: Coarse breath sounds noted throughout all lung beebe. CARDIOVASCULAR: S1-S2, regular rate, regular rhythm. Radial pulses 2+, normal. ABDOMEN: Normoactive bowel sounds. Soft, nontender, no guarding, no rebound tenderness, and no masses palpated. EXTREMITIES: Normal strength and range of motion, no pitting or edema. No cyanosis. NEUROLOGICAL: Moves all extremities upon command. Strength 5/5 in all extremities. PSYCH: Normal mood, normal affect. SKIN: Warm, dry. No rash, lesions, ulcerations noted. Normal skin turgor. Course - Re-evaluation Re-evalutation: 09/12/20 07:10 Hematology shows a leukopenia with a white blood cell count of 3900. Blood gas shows a pH of 7.32, P CO2 of 57, and bicarb of 28.7. PO2 was 126.5. Patient was on 2 L nasal cannula. Creatinine is 2.54, which is an increase from the patient's normal creatinine which is normally in the low 1.00. BNP is 1590. Spoke with Dr. Aguayo, the patient's primary care provider. Patient will be admitted to the telemetry unit. - Vital Signs Vital signs: Temp Pulse Resp BP Pulse Ox 98.0 F 13 108/53 L 98 09/12/20 04:50 09/12/20 07:01 09/12/20 07:01 09/12/20 07:01 - Laboratory Results Result Diagrams: 09/12/20 01:40 09/12/20 01:40 Laboratory Results Interpreted: 09/12/20 09/12/20 09/12/20 01:40 01:40 01:40 WBC 3.9 L RDW 18.3 H Plt Count 124 L [place] % (Auto) 14.5 H Carbonic Acid ABG pH ABG pCO2 ABG pO2 ABG HCO3 ABG Total CO2 ABG O2 Saturation Carbon Dioxide 34 H BUN 30 H Creatinine 2.54 H Est GFR ( Amer) 30 L Est GFR (MDRD) Non-Af 24 L Total Bilirubin 1.4 H NT-Pro-B Natriuret Pep 1590 H Albumin 3.4 L Urine Protein Urine Ketones Urine Ascorbic Acid 09/12/20 09/12/20 04:14 04:40 WBC RDW Plt Count [place] % (Auto) Carbonic Acid 1.72 H ABG pH 7.32 L ABG pCO2 57.0 H ABG pO2 126.5 H ABG HCO3 28.7 H ABG Total CO2 30.5 H ABG O2 Saturation 98.2 H Carbon Dioxide BUN Creatinine Est GFR ( Amer) Est GFR (MDRD) Non-Af Total Bilirubin NT-Pro-B Natriuret Pep Albumin Urine Protein 100 H Urine Ketones TRACE H Urine Ascorbic Acid 40 H Critical Laboratory Results Reviewed: No Critical Results - Radiology Results Critical Radiology Results Reviewed: No Critical Results - EKG Interpretation by Me Additional EKG results interpreted by me: 09/12/20 01:07 This EKG is a very poor EKG, as there is a a lot of artifact. It appears as though there are no changes from previous EKG. We will obtain another EKG. Discharge - Discharge Clinical Impression: Acute kidney injury Altered mental status Qualifiers: Altered mental status type: unspecified Qualified Code(s): R41.82 - Altered mental status, unspecified Pneumonia Qualifiers: Pneumonia type: due to unspecified organism Laterality: bilateral Lung location: unspecified part of lung Qualified Code(s): J18.9 - Pneumonia, unspecified organism Condition: Stable Disposition: ADMITTED INPATIENT Admitting Provider: [facility] Unit Admitted: Telemetry Referrals: CRISTINE AGUAYO MD [Primary Care Provider] - Follow up as needed
--- NOTE | 2020-09-12 04:16 | RADIOLOGY REPORT (SQ) ---
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 Comparison: Chest radiograph performed 09/29/2019. Findings: The cardiomediastinal silhouette is enlarged. No pneumothorax is seen. There are bibasilar airspace opacities with some trace effusions. There is elevation of the right hemidiaphragm. A dual-lead left-sided pacemaker is seen. Atherosclerotic calcifications are seen at the aortic arch. There are surgical clips seen at the right axilla. Impression: There are bibasilar airspace opacities with trace effusions. These may reflect atelectasis or infection.
[2020-09-12 04:40] LABS: ARTERIAL BLOOD BASE EXCESS 1.4 mmol/L; ARTERIAL BLOOD FIO2 28%; ARTERIAL BLOOD H2CO3 1.72 mmol/L (1.05-1.35); ARTERIAL BLOOD HCO3 28.7 mmol/L (20-24); ARTERIAL BLOOD O2 SATURATION 98.2 % (94-98); ARTERIAL BLOOD PH 7.32 (7.35-7.45); ARTERIAL BLOOD PO2 126.5 mmHg (80-100); ARTERIAL BLOOD TOTAL CO2 30.5 mmol/L (23-27)
[2020-09-12 05:06] LABS: APPEARANCE,URINE SLIGHTLY-CLOUDY; BILIRUBIN,URINE NEGATIVE (NEGATIVE); COLOR,URINE AMBER; GLUCOSE, URINE NEGATIVE (NEGATIVE); KETONES,URINE TRACE mg/dL (NEGATIVE); LEUKOCYTE ESTERASE,URINE NEGATIVE (NEGATIVE); NITRITE,URINE NEGATIVE (NEGATIVE); PROTEIN,URINE 100 mg/dL (NEGATIVE); UROBILINOGEN,URINE NEGATIVE mg/dL (<2.0)
--- NOTE | 2020-09-12 06:10 | RADIOLOGY REPORT (SQ) ---
CT head without contrast on 09/12/2020 at 3:10 AM CLINICAL INDICATION: Altered mental status TECHNIQUE: Multiple axial images are obtained throughout the head without the administration of contrast. This exam was performed according to our departmental dose-optimization program, which includes automated exposure control, adjustment of the mA and/or kV according to patient size and/or use of iterative reconstruction technique. Total DLP is 1070.38 mGy*cm. COMPARISON: 09/29/2019 FINDINGS: There is a stable radiopaque object along the left globe, please correlate with surgical history. There is mild generalized cerebral atrophy. There is no hydrocephalus. There is no CT evidence of acute infarct. There is no hemorrhage. There are no abnormal extra-axial fluid collections. There is no mass, mass effect or midline shift. No bony abnormality is noted. IMPRESSION: No acute intracranial abnormality.
[2020-09-12] MEDS ORDERED: IPRATROPIUM/ALBUTEROL 0.5-2.5 MG/3 ML AMPUL NEB PRN (08:22)
[2020-09-12] MEDS ORDERED: DEXTROSE 50%-WATER 25 GM/50 ML DISP.SYRIN IV PRN ×2 (08:31)
[2020-09-12] MEDS ORDERED: GLUCAGON,HUMAN RECOMB 1 MG INJ IM PRN (08:31)
[2020-09-12] MEDS ORDERED: DEXTROSE 40% GEL 15 GM TUBE PO PRN ×2 (08:31)
[2020-09-12] MEDS: CEFEPIME 1 GM/D5W RTU 1 GM/50 ML RTUPB IV SCH ×2 (09:09→21:17)
[2020-09-12] MEDS ORDERED: CEFEPIME 2 GM/D5W RTU 50 ML IV SCH (10:00)
[2020-09-12] MEDS: AZITHROMYCIN 500 MG in DEXTROSE 5%-WATER 250 ML IV SCH (10:11)
[2020-09-12] MEDS: RINGERS SOLUTION,LACTATED 1,000 ML IV PRN ×2 (11:27→21:17)
[2020-09-12] MEDS: INSULIN LISPRO 100 UNIT/ML 3 ML VIAL SUBCUT SCH ×3 (12:05→21:18)
--- NOTE | 2020-09-12 12:55 | RADIOLOGY REPORT (SQ) ---
EXAM DESCRIPTION: U/S RETROPERITON (RENAL/AORTA) IMAGES COMPLETED DATE/TIME: 09/12/2020 12:17 pm REASON FOR STUDY: nir COMPARISON: None. TECHNIQUE: Dynamic and static grayscale images acquired of the kidneys and bladder and recorded on P ACS. Additional selected color Doppler and spectral images recorded. LIMITATIONS: None. FINDINGS: RIGHT KIDNEY: Normal size, 10.6 cm. Increased echogenicity. Cortical thinning. No solid or suspicious masses. No hydronephrosis. There are multiple echogenic foci in the right kidney poss ibly suggesting intrarenal calculi. LEFT KIDNEY: Left kidney is not seen. BLADDER: No masses. Ureteral jet is not seen. OTHER FINDINGS: No other significant finding. IMPRESSION: Right renal atrophy. Likely small intrarenal calculi. Normal bladder. Left kidney is not seen. TECHNICAL DOCUMENTATION: JOB ID: [id number] 2010 [employer]- All Rights Reserved Reading location - IP/workstation name: [email or web address]
[2020-09-12 13:16] LABS: CREATINE KINASE MB 1.85 ng/mL (<4.55); TROPONIN I 0.038 ng/mL
[2020-09-12] MEDS: HEPARIN SOD (PORCINE) 5,000 UNIT/ML 1 ML VIAL SUBCUT SCH ×2 (14:18→21:17)
[2020-09-12] MEDS ORDERED: NORMAL SALINE 1000 ML 1,000 ML IV PRN (16:00)
--- NOTE | 2020-09-12 17:51 | PDOC CONSULTATION ---
Consultation Consult Date: 09/12/20 Provider Consulted: Misti FERNANDEZ Consult reason:: RENE History of Present Illness Admission Date/PCP: 09/12/20 07:25 CRISTINE AGUAYO MD History of Present Illness: ERIKA GERMAIN is a 80 year old male admitted with altered mental status, from the alf. Patient is a resident at [facility]. He has a history of a stroke, chronic kidney disease, diabetes, congestive heart failure, aneurysm, atrial fibrillation, GERD, and BPH. Patient also is being treated for conjunctivitis with antibiotic eyedrops in the left eye. Patient denies any symptoms. Apparently poor intake. Denies any chest pain or shortness of breath. Patient also was positive for COVID-19 on August 23.His baseline creatinine is around 1.3-1.5. Past Medical History Cardiac Medical History: Reports: Atrial Fibrillation, CHF-Systolic, Coronary Artery Disease, DVT, Hyperlipidemia, Hypertension-primary, Myocardial Infarction - x4 last 1993 Denies: Heart Murmur, Peripheral Vascular Disease, Pulmonary Embolism Pulmonary Medical History: Reports: Asthma, Bronchitis, Chronic Obstructive P ulmonary Disease (COPD), Intubation, Pneumonia, Respiratory Failure - Acute, Sleep Apnea Denies: Tuberculosis Neurological Medical History: Reports: Seizures - sept hit head and had seizure Endocrine Medical History: Reports: Diabetes Mellitus Type 2, Hypothyroidism Denies: Hyperthyroidism Renal/ Medical History: Reports: Benign Prostatic Hyperplasia, Chronic Kidney Disease Stage III Denies: End Stage Renal Disease Malignancy Medical History: Reports: Skin Cancer - Malignant melanoma Denies: Leukemia, Lung Cancer GI Medical History: Reports: Gastroesophageal Reflux Disease, Hepatitis Denies: Crohn's Disease, Hiatal Hernia Musculoskeltal Medical History: Reports: Arthritis, Gout Denies: Fibromyalgia, Rheumatoid Arthritis, Systemic Lupus Erythematosus Psychiatric Medical History: Reports: Depression Denies: Bipolar Disorder, Dementia, Post Traumatic Stress Disorder Traumatic Medical History: Denies: Traumatic Brain Injury Infectious Medical History: Denies: HIV Past Surgical History Past Surgical History: Reports: Cholecystectomy, Coronary Stent Denies: Appendectomy, Colostomy, Coronary Artery Bypass Graft, Gastric Bypass Surgery, Herniorrhaphy, Pacemaker, Tonsillectomy Social History Smoking Status: Unknown if Ever Smoked Frequency of Alcohol Use: None Hx Recreational Drug Use: No Hx Prescription Drug Abuse: No Family History Parental Family History Reviewed: Yes - Negative for ESRD Children Family History Reviewed: No Sibling(s) Family History Reviewed.: No Medication/Allergy Home Medications: Atorvastatin Calcium [Lipitor 40 mg Tablet] 40 mg PO QHS 10/11/17 Cetirizine HCl [Zyrtec 10 mg Tablet] 5 mg PO DAILY 10/11/17 Cyanocobalamin (Vitamin B-12) [Vitamin B-12 500 mcg Tablet] 500 mcg PO DAILY 10/11/17 Furosemide [Lasix 20 mg Tablet] 20 mg PO QAM 10/11/17 Linagliptin [Tradjenta] 5 mg PO DAILY 10/11/17 Metoprolol Succinate [Toprol Xl 25 mg Tab.sr] 25 mg PO QHS 10/11/17 Polyvinyl Alcohol [Liquitears 1.4% Ophth Soln 15 ml] 1 drop OU QID 10/11/17 Pregabalin [Lyrica] 150 mg PO Q12 10/11/17 Sacubitril/Valsartan [Entresto 97 mg-103 mg Tablet] 1 tab PO Q12 10/11/17 Tamsulosin HCl [Flomax 0.4 mg Cap.sr] 0.4 mg PO QHS 10/11/17 Aspirin [Aspirin 81 mg Chewable Tablet] 81 mg PO DAILY tab.chew 10/20/17 Allopurinol [Zyloprim 100 mg Tablet] 200 mg PO DAILY 07/07/19 Eyelid Cleanser Combination 5 [Ocusoft Lid Scrub] 1 pad OU BID 07/07/19 Mineral Oil/Petrolatum,White [Refresh P.m. Ointment] 1 applic OU QHS 07/07/19 Sertraline HCl [Zoloft 50 mg Tablet] 50 mg PO DAILY 07/07/19 Acetaminophen [Tylenol 325 mg Tablet] 325 mg PO Q6HP PRN #0 07/10/19 Oxycodone HCl/Acetaminophen [Percocet 10-325 mg Tablet] 1 each PO Q8H PRN #0 07/10/19 Apixaban [Eliquis 5 mg Tablet] 5 mg PO BID 09/12/20 Ascorbic Acid [Vitamin C 500 mg Tablet] 1,000 mg PO BID 09/12/20 Cholecalciferol (Vitamin D3) [Vitamin D3 1000 Unit Tablet] 2,000 unit PO DAILY 09/12/20 Famotidine [Pepcid 20 mg Tablet] 20 mg PO BID 09/12/20 Guaifenesin [Mucinex Sr 600 mg Tablet.sa] 600 mg PO Q12 09/12/20 Isosorbide Dinitrate [Isosorbide Dinitrate ER] 30 mg PO DAILY 09/12/20 Lorazepam [Ativan 0.5 mg Tablet] 0.5 mg PO Q12HP PRN 09/12/20 Melatonin/Pyridoxine HCl (B6) [Melatonin 3 mg Tablet] 1 tab PO QHS 09/12/20 Zinc Sulfate [Zinc-220 Capsule] 220 mg PO DAILY 09/12/20 Allergies/Adverse Reactions: codeine [Codeine] Allergy (Verified 02/23/17 11:29) Hives tuberculin,PPD,multi-puncture Adverse Reaction (Verified 02/23/17 11:29) Review of Systems Constitutional: PRESENT: anorexia, fatigue, weakness. ABSENT: fever(s), headache(s), night sweats Nose, Mouth, and Throat: ABSENT: mouth pain Cardiovascular: ABSENT: edema, orthropnea, palpitations Respiratory: PRESENT: cough. ABSENT: dyspnea Gastrointestinal: ABSENT: coffee ground emesis, diarrhea, dysphagia Genitourinary: ABSENT: dysuria, hematuria Musculoskeletal: ABSENT: deformity, joint swelling Integumentary: ABSENT: lesions, pruritus, rash Neurological: ABSENT: abnormal movements, confusion, convulsions, focal weakness, frequent falls Hematologic/Lymphatic: ABSENT: easy bleeding, lymphadenopathy Physical Exam Vital Signs: Temp Pulse Resp BP Pulse Ox 98.1 F 92 20 124/94 H 98 09/12/20 15:28 09/12/20 15:28 09/12/20 15:28 09/12/20 15:28 09/12/20 15:28 Intake & Output 09/11/20 09/12/20 09/13/20 06:59 06:59 06:59 Intake Total 550 Balance 550 Weight 117.4 kg General appearance: PRESENT: no acute distress Eye exam: PRESENT: EOMI, PERRLA. ABSENT: scleral icterus Ear exam: PRESENT: normal external ear exam Mouth exam: ABSENT: moist Neck exam: ABSENT: meningismus, tenderness, tracheal deviation Respiratory exam: PRESENT: clear to auscultation abigail, crackles. ABSENT: decreased breath sounds Cardiovascular exam: PRESENT: +S1, +S2, systolic murmur GI/Abdominal exam: PRESENT: normal bowel sounds, soft. ABSENT: organomegaly, tenderness Extremities exam: ABSENT: pedal edema Neurological exam: PRESENT: alert, awake, oriented to person Psychiatric exam: PRESENT: appropriate affect Skin exam: ABSENT: cyanosis, erythema, rash Results Laboratory Results: 09/12/20 01:40 09/12/20 01:40 09/12/20 09/12/20 09/12/20 01:40 01:40 04:14 WBC 3.9 L RBC 5.00 Hgb 13.7 Hct 42.9 MCV 86 MCH 27.5 MCHC 32.1 RDW 18.3 H Plt Count 124 L Seg Neutrophils % 48.5 Carbonic Acid 1.72 H HCO3/H2CO3 Ratio 16:1 ABG pH 7.32 L ABG pCO2 57.0 H ABG pO2 126.5 H ABG HCO3 28.7 H ABG O2 Saturation 98.2 H ABG Base Excess 1.4 FiO2 28% Sodium 142.4 Potassium 3.8 Chloride 102 Carbon Dioxide 34 H Anion Gap 6 BUN 30 H Creatinine 2.54 H Est GFR ( Amer) 30 L Glucose 102 Calcium 8.4 Magnesium 1.7 Total Bilirubin 1.4 H AST 30 Alkaline Phosphatase 85 Total Protein 6.5 Albumin 3.4 L Urine Color Urine Appearance Urine pH Ur Specific Protection Urine Protein Urine Glucose (UA) Urine Ketones Urine Blood Urine Nitrite Ur Leukocyte Esterase Urine WBC (Auto) Urine RBC (Auto) 09/12/20 04:40 WBC RBC Hgb Hct MCV MCH MCHC RDW Plt Count Seg Neutrophils % Carbonic Acid HCO3/H2CO3 Ratio ABG pH ABG pCO2 ABG pO2 ABG HCO3 ABG O2 Saturation ABG Base Excess FiO2 Sodium Potassium Chloride Carbon Dioxide Anion Gap BUN Creatinine Est GFR ( Amer) Glucose Calcium Magnesium Total Bilirubin AST Alkaline Phosphatase Total Protein Albumin Urine Color GIUSEPPE Urine Appearance SLIGHTLY-CLOUDY Urine pH 5.0 Ur Specific Protection 1.020 Urine Protein 100 H Urine Glucose (UA) NEGATIVE Urine Ketones TRACE H Urine Blood NEGATIVE Urine Nitrite NEGATIVE Ur Leukocyte Esterase NEGATIVE Urine WBC (Auto) 3 Urine RBC (Auto) 2 09/12/20 09/12/20 09/12/20 01:40 12:32 12:32 Creatine Kinase 58 CK-MB (CK-2) 1.85 Troponin I 0.038 NT-Pro-B Natriuret Pep 1590 H Impressions: Renal Ultrasound 09/12/20 00:00 IMPRESSION: Right renal atrophy. Likely small intrarenal calculi. Normal bladder. Left kidney is not seen. Head CT 09/12/20 02:25 IMPRESSION: No acute intracranial abnormality. Assessment & Plan - Diagnosis (1) Acute kidney injury Plan: Acute on chronic. Nonoliguric. Clinically dry. Start normal saline at 100 cc an hour. Get renal ultrasound. No indications for renal replacements. (2) Pneumonia Qualifiers: Pneumonia type: due to unspecified organism Laterality: bilateral Lung location: unspecified part of lung Qualified Code(s): J18.9 - Pneumonia, unspecified organism Plan: ? Covid pneumonia versus super addded bacteria; infection. Currently being treated as bacterial pneumonia. (3) Acute respiratory failure with hypercapnia Plan: On respiratory support. As per PCP. (4) Chronic systolic heart failure Plan: Presently compensated. No evidence to indicate otherwise. Monitor. (5) Diabetes mellitus type 2 in obese Plan: As per PCP.
--- NOTE | 2020-09-12 21:32 | EKG REPORT ---
SEVERITY:- DEFECTIVE ECG - AV PACED WITH SEVERE BASELNE ARTIFACT : Confirmed by: Breanna Landrum MD 12-Sep-2020 21:31:37
--- NOTE | 2020-09-12 21:33 | EKG REPORT ---
SEVERITY:- ABNORMAL ECG - ATRIA AND VENTRICULAR L-PACED COMPLEXES : Confirmed by: Breanna Landrum MD 12-Sep-2020 21:32:32
[2020-09-12] MEDS ORDERED: ACETAMINOPHEN 325 MG TABLET PO PRN (21:49)
[2020-09-12] MEDS ORDERED: LORAZEPAM 0.5 MG TABLET PO PRN (21:49)
[2020-09-12] MEDS ORDERED: (PENDING PHARMACY ID) (Oxycodone Hcl/Acetaminophen [Percocet 10-325 Mg Tablet] 1 EACH Tabl PO PRN (21:49)
--- NOTE | 2020-09-12 21:49 | PDOC H&P ---
History of Present Illness Admission Date/PCP: 09/12/20 07:25 CRISTINE AGUAYO MD History of Present Illness: ERIKA GERMAIN is a 80 year old male,He has multiple comorbid conditions, resident of the jail at [facility] He was recently diagnosed with SARS-CoV-2 infection on August 23, 2020 he was transferred to a different facility in [place], he just returned back to [facility] in [facility]. The jail staff said patient had altered mental status and also the oxygen saturation was low, in the 70s, there was concern for pneumonia. The chest x-ray that was done demonstrated bibasilar airspace opacities that suggest pneumonia.The arterial blood gas on FiO2 28%, pH is 7.32, PCO2 57, PO2 126.5, bicarbonate 28.7. History taking is a challenge in this patient is somewhat stuporous, he has multiple comorbid condition including chronic systolic and diastolic heart failure morbid obesity ascending aortic aneurysm multiple strokes, history of multiple myeloma CKD stage III, chronic Conjunctivitis.I believe patient was a DNR status from prior encounter but there is no DNR documentation from the facility. Past Medical History Cardiac Medical History: Reports: Atrial Fibrillation, Congestive Heart Failure, Coronary Artery Disease, DVT, Myocardial Infarction - x4 last 1993, Hype rlipidema, Hypertension Pulmonary Medical History: Reports: Asthma, Bronchitis, Chronic Obstructive Pulmonary Disease (COPD), Intubation, Pneumonia, Respiratory Failure - Acute, Sleep Apnea Neurological Medical History: Reports: Seizures - sept hit head and had seizure Endocrine Medical History: Reports: Diabetes Mellitus Type 2, Hypothyroidism Malignancy Medical History: Reports: Skin Cancer - Malignant melanoma GI Medical History: Reports: Gastroesophageal Reflux Disease, Hepatitis Musculoskeltal Medical History: Reports: Arthritis, Gout Psychiatric Medical History: Reports: Depression Traumatic Medical History: Denies: Traumatic Brain Injury Hematology: Reports: Anemia - Thrombocytopenia Infectious Medical History: Denies: HIV Past Surgical History Past Surgical History: Reports: Cholecystectomy, Coronary Stent Social History Smoking Status: Former Smoker Frequency of Alcohol Use: None Hx Recreational Drug Use: No Hx Prescription Drug Abuse: No Family History Family History: Reviewed & Not Pertinent Parental Family History Reviewed: Yes Children Family History Reviewed: Yes Sibling(s) Family History Reviewed.: Yes Medication/Allergy Home Medications: Atorvastatin Calcium [Lipitor 40 mg Tablet] 40 mg PO QHS 10/11/17 Cetirizine HCl [Zyrtec 10 mg Tablet] 5 mg PO DAILY 10/11/17 Cyanocobalamin (Vitamin B-12) [Vitamin B-12 500 mcg Tablet] 500 mcg PO DAILY 10/11/17 Furosemide [Lasix 20 mg Tablet] 20 mg PO QAM 10/11/17 Linagliptin [Tradjenta] 5 mg PO DAILY 10/11/17 Metoprolol Succinate [Toprol Xl 25 mg Tab.sr] 25 mg PO QHS 10/11/17 Polyvinyl Alcohol [Liquitears 1.4% Ophth Soln 15 ml] 1 drop OU QID 10/11/17 Pregabalin [Lyrica] 150 mg PO Q12 10/11/17 Sacubitril/Valsartan [Entresto 97 mg-103 mg Tablet] 1 tab PO Q12 10/11/17 Tamsulosin HCl [Flomax 0.4 mg Cap.sr] 0.4 mg PO QHS 10/11/17 Aspirin [Aspirin 81 mg Chewable Tablet] 81 mg PO DAILY tab.chew 10/20/17 Allopurinol [Zyloprim 100 mg Tablet] 200 mg PO DAILY 07/07/19 Eyelid Cleanser Combination 5 [Ocusoft Lid Scrub] 1 pad OU BID 07/07/19 Mineral Oil/Petrolatum,White [Refresh P.m. Ointment] 1 applic OU QHS 07/07/19 Sertraline HCl [Zoloft 50 mg Tablet] 50 mg PO DAILY 07/07/19 Acetaminophen [Tylenol 325 mg Tablet] 325 mg PO Q6HP PRN #0 07/10/19 Oxycodone HCl/Acetaminophen [Percocet 10-325 mg Tablet] 1 each PO Q8H PRN #0 07/10/19 Apixaban [Eliquis 5 mg Tablet] 5 mg PO BID 09/12/20 Ascorbic Acid [Vitamin C 500 mg Tablet] 1,000 mg PO BID 09/12/20 Cholecalciferol (Vitamin D3) [Vitamin D3 1000 Unit Tablet] 2,000 unit PO DAILY 09/12/20 Famotidine [Pepcid 20 mg Tablet] 20 mg PO BID 09/12/20 Guaifenesin [Mucinex Sr 600 mg Tablet.sa] 600 mg PO Q12 09/12/20 Isosorbide Dinitrate [Isosorbide Dinitrate ER] 30 mg PO DAILY 09/12/20 Lorazepam [Ativan 0.5 mg Tablet] 0.5 mg PO Q12HP PRN 09/12/20 Melatonin/Pyridoxine HCl (B6) [Melatonin 3 mg Tablet] 1 tab PO QHS 09/12/20 Zinc Sulfate [Zinc-220 Capsule] 220 mg PO DAILY 09/12/20 Allergies/Adverse Reactions: codeine [Codeine] Allergy (Verified 02/23/17 11:29) Hives tuberculin,PPD,multi-puncture Adverse Reaction (Verified 02/23/17 11:29) Review of Systems ROS unobtainable: Due to mental status Physical Exam Vital Signs: Temp Pulse Resp BP Pulse Ox 97.8 F 45 L 14 120/75 97 09/12/20 20:06 09/12/20 20:06 09/12/20 20:06 09/12/20 20:06 09/12/20 20:06 Intake & Output 09/11/20 09/12/20 09/13/20 06:59 06:59 06:59 Intake Total 1533 Balance 1533 Weight 117.4 kg General appearance: PRESENT: no acute distress, obese Head exam: PRESENT: atraumatic, normocephalic Eye exam: PRESENT: PERRLA. ABSENT: scleral icterus Ear exam: PRESENT: normal external ear exam Mouth exam: PRESENT: moist, tongue midline Neck exam: PRESENT: full ROM Respiratory exam: PRESENT: clear to auscultation abigail Cardiovascular exam: PRESENT: RRR, +S1, +S2 Vascular exam: PRESENT: normal capillary refill GI/Abdominal exam: PRESENT: normal bowel sounds, soft Rectal exam: PRESENT: deferred Neurological exam: PRESENT: altered Psychiatric exam: PRESENT: appropriate affect, normal mood Skin exam: PRESENT: dry, intact, warm. ABSENT: cyanosis, rash Results Laboratory Results: 09/12/20 01:40 09/12/20 01:40 09/12/20 09/12/20 09/12/20 01:40 01:40 04:14 WBC 3.9 L RBC 5.00 Hgb 13.7 Hct 42.9 MCV 86 MCH 27.5 MCHC 32.1 RDW 18.3 H Plt Count 124 L Seg Neutrophils % 48.5 Carbonic Acid 1.72 H HCO3/H2CO3 Ratio 16:1 ABG pH 7.32 L ABG pCO2 57.0 H ABG pO2 126.5 H ABG HCO3 28.7 H ABG O2 Saturation 98.2 H ABG Base Excess 1.4 FiO2 28% Sodium 142.4 Potassium 3.8 Chloride 102 Carbon Dioxide 34 H Anion Gap 6 BUN 30 H Creatinine 2.54 H Est GFR ( Amer) 30 L Glucose 102 Calcium 8.4 Magnesium 1.7 Total Bilirubin 1.4 H AST 30 Alkaline Phosphatase 85 Total Protein 6.5 Albumin 3.4 L Urine Color Urine Appearance Urine pH Ur Specific [place] Urine Protein Urine Glucose (UA) Urine Ketones Urine Blood Urine Nitrite Ur Leukocyte Esterase Urine WBC (Auto) Urine RBC (Auto) 09/12/20 04:40 WBC RBC Hgb Hct MCV MCH MCHC RDW Plt Count Seg Neutrophils % Carbonic Acid HCO3/H2CO3 Ratio ABG pH ABG pCO2 ABG pO2 ABG HCO3 ABG O2 Saturation ABG Base Excess FiO2 Sodium Potassium Chloride Carbon Dioxide Anion Gap BUN Creatinine Est GFR ( Amer) Glucose Calcium Magnesium Total Bilirubin AST Alkaline Phosphatase Total Protein Albumin Urine Color GIUSEPPE Urine Appearance SLIGHTLY-CLOUDY Urine pH 5.0 Ur Specific [place] 1.020 Urine Protein 100 H Urine Glucose (UA) NEGATIVE Urine Ketones TRACE H Urine Blood NEGATIVE Urine Nitrite NEGATIVE Ur Leukocyte Esterase NEGATIVE Urine WBC (Auto) 3 Urine RBC (Auto) 2 09/12/20 09/12/20 09/12/20 01:40 12:32 12:32 Creatine Kinase 58 CK-MB (CK-2) 1.85 Troponin I 0.038 NT-Pro-B Natriuret Pep 1590 H Impressions: Renal Ultrasound 09/12/20 00:00 IMPRESSION: Right renal atrophy. Likely small intrarenal calculi. Normal bladder. Left kidney is not seen. Head CT 09/12/20 02:25 IMPRESSION: No acute intracranial abnormality. Assessment & Plan - Diagnosis (1) Pneumonia Qualifiers: Pneumonia type: due to unspecified organism Laterality: bilateral Lung location: unspecified part of lung Qualified Code(s): J18.9 - Pneumonia, unspecified organism Is this a current diagnosis for this admission?: Yes Plan: He has pneumonia, this could be from Covid or bacterial pneumonia, there is no indication at this time for remdesivir, he will be treated with IV antibiotic for presumptive bacterial pneumonia (2) COVID-19 Is this a current diagnosis for this admission?: Yes (3) Acute kidney injury Is this a current diagnosis for this admission?: Yes Plan: He has underlining CKD stage III, hydrate with fluid could be a component of prerenal azotemia (4) Acute respiratory failure with hypercapnia Is this a current diagnosis for this admission?: Yes Plan: This most likely from obstructive sleep apnea, pneumonia, Not presently requiring NIPPV, continue oxygen supplementation via nasal cannula - Time Time Spent: Greater than 70 Minutes Medications reviewed and adjusted accordingly: Yes Anticipated Discharge Disposition: Retirement Facility Anticipated Discharge Timeframe: when bed available
[2020-09-12] MEDS ORDERED: PYRIDOXINE HCL PO SCH (22:00)
[2020-09-12] MEDS ORDERED: LINAGLIPTIN 5 MG PO SCH (22:00)
[2020-09-12] MEDS ORDERED: MELATONIN PO SCH (22:00)
[2020-09-12] MEDS ORDERED: ISOSORBIDE DINITRATE 40 MG PO SCH (22:00)
[2020-09-12] MEDS ORDERED: MINERAL OIL OU SCH (22:00)
[2020-09-12] MEDS ORDERED: [UNRECOGNIZED DRUG - OTHER] PO SCH (22:00)
[2020-09-12] MEDS ORDERED: [UNRECOGNIZED DRUG - OTHER] OU SCH (22:00)
[2020-09-12] MEDS ORDERED: EYELID CLEANSER COMBINATION OU SCH (22:00)
[2020-09-12] MEDS ORDERED: PETROLATUM WHITE OU SCH (22:00)
[2020-09-12] MEDS ORDERED: APIXABAN 5 MG TABLET PO ONE (22:45)
[2020-09-12] MEDS ORDERED: ALLOPURINOL 100 MG TABLET PO ONE (22:45)
[2020-09-12] MEDS ORDERED: OXYCODONE HCL IR 5 MG TABLET PO PRN (22:54)
[2020-09-12] MEDS ORDERED: OXYCODONE-ACETAMINOPHEN 5-325 MG TABLET PO PRN (22:54)
[2020-09-12] MEDS ORDERED: CETIRIZINE 10 MG TABLET PO ONE (23:00)
[2020-09-12] MEDS ORDERED: CHOLECALCIFEROL (D3) 1,000 UNIT (25 MCG) TABLET PO ONE (23:00)
[2020-09-12] MEDS ORDERED: CYANOCOBALAMIN (VITAMIN B-12) 1,000 MCG TABLET PO ONE (23:00)
[2020-09-12] MEDS ORDERED: FAMOTIDINE 20 MG TABLET PO ONE (23:00)
[2020-09-12] MEDS ORDERED: ASPIRIN 81 MG TABLET, CHEWABLE PO ONE (23:00)
[2020-09-12] MEDS ORDERED: ASCORBIC ACID 500 MG TABLET PO ONE (23:00)
[2020-09-12] MEDS ORDERED: SERTRALINE HCL 50 MG TABLET PO ONE (23:00)
[2020-09-12] MEDS ORDERED: ISOSORBIDE DINITRATE 10 MG TABLET PO SCH (23:00)
[2020-09-12] MEDS ORDERED: ZINC SULFATE 220 MG CAPSULE PO ONE (23:00)
[2020-09-12] MEDS: ATORVASTATIN CALCIUM 40 MG TABLET PO SCH (23:32)
[2020-09-12] MEDS: TAMSULOSIN HCL 0.4 MG CAP.SR.24H PO SCH (23:33)
[2020-09-12] MEDS: PREGABALIN 75 MG CAPSULE PO SCH (23:33)
[2020-09-12] MEDS: SITAGLIPTIN PHOSPHATE 25 MG TABLET PO SCH (23:35)
[2020-09-12] MEDS: GUAIFENESIN 600 MG TABLET.SA PO SCH (23:35)
[2020-09-12] MEDS: METOPROLOL SUCCINATE 25 MG TAB.SR.24H PO SCH (23:35)
[2020-09-12] MEDS: SACUBITRIL/VALSARTAN 97 MG/103 MG TABLET PO SCH (23:36)
[2020-09-12] MEDS: POLYVINYL ALCOHOL 1.4% OPH SOLN 15 ML OU SCH (23:37)
[2020-09-13 05:39] LABS: ABSOLUTE EOSINOPHILS # (AUTO) 0.1 10^3/uL (0.0-0.6); ABSOLUTE LYMPHOCYTES (AUTO) 0.9 10^3/uL (0.5-4.7); ABSOLUTE MONOCYTES (AUTO) 0.5 10^3/uL (0.1-1.4); ABSOLUTE NEUT (AUTO) 1.8 10^3/uL (1.7-8.2); BASOPHILS % (AUTO) 0.3 % (0-2); EOSINOPHILS % (AUTO) 2.5 % (0-6); HEMATOCRIT 39.3 % (37.9-51.0); HEMOGLOBIN 12.8 g/dL (13.5-17.0); LYMPHOCYTES % (AUTO) 28.8 % (13-45); MEAN CORPUSCULAR HEMOGLOBIN 27.7 pg (27.0-33.4); MEAN CORPUSCULAR HGB CONC 32.5 g/dL (32.0-36.0); MEAN CORPUSCULAR VOLUME 85 fl (80-97); MONOCYTES % (AUTO) 14.3 % (3-13); RED CELL DISTRIBUTION WIDTH 17.3 % (11.5-14.0); SEGMENTED NEUTROPHILS % (AUTO) 54.1 % (42-78); TOTAL CELLS COUNTED % (AUTO) 100 %; WHITE BLOOD COUNT 3.3 10^3/uL (4.0-10.5)
[2020-09-13 05:56] LABS: ALBUMIN 2.6 g/dL (3.5-5.0); ALKALINE PHOSPHATASE 76 U/L (38-126); ANION GAP 6 (5-19); ASPARTATE AMINO TRANSFERASE 23 U/L (17-59); BILIRUBIN,DIRECT 0.1 mg/dL (0.0-0.4); BILIRUBIN,TOTAL 1.5 mg/dL (0.2-1.3); BLOOD UREA NITROGEN 26 mg/dL (7-20); CALCIUM 8.2 mg/dL (8.4-10.2); CARBON DIOXIDE 31 mmol/L (22-30); CHLORIDE 105 mmol/L (98-107); GLUCOSE 79 mg/dL (75-110); POTASSIUM 4.2 mmol/L (3.6-5.0); TOTAL PROTEIN 5.1 g/dL (6.3-8.2)
[2020-09-13 06:24] LABS: PLATELET COUNT 92 10^3/uL (150-450)
[2020-09-13] MEDS: INSULIN LISPRO 100 UNIT/ML 3 ML VIAL SUBCUT SCH ×4 (09:37→22:50)
[2020-09-13] MEDS: SACUBITRIL/VALSARTAN 97 MG/103 MG TABLET PO SCH ×2 (09:42→23:00)
[2020-09-13] MEDS: ASPIRIN 81 MG TABLET, CHEWABLE PO SCH (09:42)
[2020-09-13] MEDS: SITAGLIPTIN PHOSPHATE 25 MG TABLET PO SCH (09:42)
[2020-09-13] MEDS: CETIRIZINE 10 MG TABLET PO SCH (09:42)
[2020-09-13] MEDS: PREGABALIN 75 MG CAPSULE PO SCH ×2 (09:42→23:01)
[2020-09-13] MEDS: SERTRALINE HCL 50 MG TABLET PO SCH (09:43)
[2020-09-13] MEDS: ASCORBIC ACID 500 MG TABLET PO SCH ×2 (09:43→17:01)
[2020-09-13] MEDS: APIXABAN 5 MG TABLET PO SCH ×2 (09:43→23:00)
[2020-09-13] MEDS: FAMOTIDINE 20 MG TABLET PO SCH ×2 (09:43→17:01)
[2020-09-13] MEDS: CYANOCOBALAMIN (VITAMIN B-12) 1,000 MCG TABLET PO SCH (09:43)
[2020-09-13] MEDS: CHOLECALCIFEROL (D3) 1,000 UNIT (25 MCG) TABLET PO SCH (09:44)
[2020-09-13] MEDS: GUAIFENESIN 600 MG TABLET.SA PO SCH ×2 (09:44→23:01)
[2020-09-13] MEDS: ZINC SULFATE 220 MG CAPSULE PO SCH (09:44)
[2020-09-13] MEDS: ALLOPURINOL 100 MG TABLET PO SCH (09:44)
[2020-09-13] MEDS: POLYVINYL ALCOHOL 1.4% OPH SOLN 15 ML OU SCH ×4 (09:45→23:00)
[2020-09-13] MEDS: CEFEPIME 1 GM/D5W RTU 1 GM/50 ML RTUPB IV SCH ×2 (09:45→22:59)
[2020-09-13] MEDS: RINGERS SOLUTION,LACTATED 1,000 ML IV PRN (09:45)
[2020-09-13] MEDS: AZITHROMYCIN 500 MG in DEXTROSE 5%-WATER 250 ML IV SCH (10:46)
--- NOTE | 2020-09-13 22:40 | PDOC PROGRESS REPORT ---
Subjective Date:: 09/13/20 Subjective:: Patient seen by the bedside, more alert today he recognizes me Reason For Visit: ALTERED MENTAL STATUS/PNEUMONIA/ACTE KIDNEY INJURY Physical Exam Vital Signs: Temp Pulse Resp BP Pulse Ox 98.3 F 63 19 120/50 L 99 09/13/20 11:46 09/13/20 14:00 09/13/20 11:46 09/13/20 11:46 09/13/20 11:46 Intake & Output 09/12/20 09/13/20 09/14/20 06:59 06:59 06:59 Intake Total 1583 1820 Balance 1583 1820 Weight 117.4 kg 117.4 kg General appearance: PRESENT: no acute distress Respiratory exam: PRESENT: clear to auscultation abigail Cardiovascular exam: PRESENT: +S1, +S2 GI/Abdominal exam: PRESENT: soft Neurological exam: PRESENT: alert Results Laboratory Results: 09/13/20 04:53 09/13/20 04:53 09/13/20 09/13/20 04:53 04:53 WBC 3.3 L RBC 4.60 Hgb 12.8 L Hct 39.3 MCV 85 MCH 27.7 MCHC 32.5 RDW 17.3 H Plt Count 92 L Seg Neutrophils % 54.1 Sodium 141.5 Potassium 4.2 Chloride 105 Carbon Dioxide 31 H Anion Gap 6 BUN 26 H Creatinine 1.50 H Est GFR ( Amer) 54 L Glucose 79 Calcium 8.2 L Total Bilirubin 1.5 H AST 23 Alkaline Phosphatase 76 Total Protein 5.1 L Albumin 2.6 L 09/12/20 09/12/20 09/12/20 01:40 12:32 12:32 Creatine Kinase 58 CK-MB (CK-2) 1.85 Troponin I 0.038 NT-Pro-B Natriuret Pep 1590 H Impressions: Renal Ultrasound 09/12/20 00:00 IMPRESSION: Right renal atrophy. Likely small intrarenal calculi. Normal bladder. Left kidney is not seen. Head CT 09/12/20 02:25 IMPRESSION: No acute intracranial abnormality. Assessment & Plan - Diagnosis (1) Pneumonia Qualifiers: Pneumonia type: due to unspecified organism Laterality: bilateral Lung location: unspecified part of lung Qualified Code(s): J18.9 - Pneumonia, unspecified organism Is this a current diagnosis for this admission?: Yes Plan: He has pneumonia but this could be from Covid, presently stable not in any distress requiring supplemental oxygen via nasal cannula at 2 L (2) COVID-19 Is this a current diagnosis for this admission?: Yes (3) Acute kidney injury Is this a current diagnosis for this admission?: Yes (4) Acute respiratory failure with hypercapnia Is this a current diagnosis for this admission?: Yes - Time Time Spent with patient: 25-34 minutes Level of Care: IMCU Medications reviewed and adjusted accordingly: Yes Anticipated discharge: Home - Inpatient Certification Based on my medical assessment, after consideration of the patient's comorbidities, presenting symptoms, or acuity I expect that the services needed warrant INPATIENT care.: Yes I certify that my determination is in accordance with my understanding of Medicare's requirements for reasonable and necessary INPATIENT services [42 CFR 412.3e].: Yes
[2020-09-13] MEDS: TAMSULOSIN HCL 0.4 MG CAP.SR.24H PO SCH (23:00)
[2020-09-13] MEDS: METOPROLOL SUCCINATE 25 MG TAB.SR.24H PO SCH (23:01)
[2020-09-13] MEDS: ATORVASTATIN CALCIUM 40 MG TABLET PO SCH (23:01)
[2020-09-14 05:30] LABS: ABSOLUTE EOSINOPHILS # (AUTO) 0.1 10^3/uL (0.0-0.6); ABSOLUTE LYMPHOCYTES (AUTO) 0.9 10^3/uL (0.5-4.7); ABSOLUTE MONOCYTES (AUTO) 0.5 10^3/uL (0.1-1.4); ABSOLUTE NEUT (AUTO) 1.7 10^3/uL (1.7-8.2); BASOPHILS % (AUTO) 0.4 % (0-2); EOSINOPHILS % (AUTO) 2.3 % (0-6); HEMATOCRIT 39.4 % (37.9-51.0); HEMOGLOBIN 12.9 g/dL (13.5-17.0); LYMPHOCYTES % (AUTO) 28.8 % (13-45); MEAN CORPUSCULAR HEMOGLOBIN 27.9 pg (27.0-33.4); MEAN CORPUSCULAR HGB CONC 32.7 g/dL (32.0-36.0); MEAN CORPUSCULAR VOLUME 85 fl (80-97); MONOCYTES % (AUTO) 15.5 % (3-13); RED BLOOD COUNT 4.61 10^6/uL (4.35-5.55); RED CELL DISTRIBUTION WIDTH 17.6 % (11.5-14.0); TOTAL CELLS COUNTED % (AUTO) 100 %; WHITE BLOOD COUNT 3.1 10^3/uL (4.0-10.5)
[2020-09-14 05:36] LABS: ALBUMIN 2.5 g/dL (3.5-5.0); ALKALINE PHOSPHATASE 78 U/L (38-126); ASPARTATE AMINO TRANSFERASE 22 U/L (17-59); BILIRUBIN,DIRECT 0.2 mg/dL (0.0-0.4); BILIRUBIN,TOTAL 1.8 mg/dL (0.2-1.3); BLOOD UREA NITROGEN 21 mg/dL (7-20); CALCIUM 8.2 mg/dL (8.4-10.2); GLUCOSE 87 mg/dL (75-110); POTASSIUM 3.8 mmol/L (3.6-5.0); TOTAL PROTEIN 5.1 g/dL (6.3-8.2)
[2020-09-14 05:41] LABS: ANION GAP 5 (5-19); CARBON DIOXIDE 33 mmol/L (22-30); CHLORIDE 103 mmol/L (98-107)
[2020-09-14 06:12] LABS: PLATELET COUNT 75 10^3/uL (150-450)
[2020-09-14] MEDS: INSULIN LISPRO 100 UNIT/ML 3 ML VIAL SUBCUT SCH ×4 (08:57→21:34)
[2020-09-14] MEDS: FAMOTIDINE 20 MG TABLET PO SCH ×2 (09:29→18:36)
[2020-09-14] MEDS: ASCORBIC ACID 500 MG TABLET PO SCH ×2 (09:29→18:36)
[2020-09-14] MEDS: PREGABALIN 75 MG CAPSULE PO SCH ×2 (09:29→21:32)
[2020-09-14] MEDS: CETIRIZINE 10 MG TABLET PO SCH (09:29)
[2020-09-14] MEDS: CHOLECALCIFEROL (D3) 1,000 UNIT (25 MCG) TABLET PO SCH (09:29)
[2020-09-14] MEDS: GUAIFENESIN 600 MG TABLET.SA PO SCH ×2 (09:29→21:29)
[2020-09-14] MEDS: ASPIRIN 81 MG TABLET, CHEWABLE PO SCH (09:29)
[2020-09-14] MEDS: CEFEPIME 1 GM/D5W RTU 1 GM/50 ML RTUPB IV SCH ×2 (09:30→21:35)
[2020-09-14] MEDS: CYANOCOBALAMIN (VITAMIN B-12) 1,000 MCG TABLET PO SCH (09:30)
[2020-09-14] MEDS: APIXABAN 5 MG TABLET PO SCH ×2 (09:30→21:32)
[2020-09-14] MEDS: SERTRALINE HCL 50 MG TABLET PO SCH (09:30)
[2020-09-14] MEDS: POLYVINYL ALCOHOL 1.4% OPH SOLN 15 ML OU SCH ×4 (09:30→21:34)
[2020-09-14] MEDS: ALLOPURINOL 100 MG TABLET PO SCH (09:30)
[2020-09-14] MEDS: ZINC SULFATE 220 MG CAPSULE PO SCH (09:31)
[2020-09-14] MEDS: SITAGLIPTIN PHOSPHATE 25 MG TABLET PO SCH (10:13)
[2020-09-14] MEDS: AZITHROMYCIN 500 MG in DEXTROSE 5%-WATER 250 ML IV SCH (10:13)
[2020-09-14] MEDS: SACUBITRIL/VALSARTAN 97 MG/103 MG TABLET PO SCH ×2 (10:13→21:34)
[2020-09-14] MEDS: RINGERS SOLUTION,LACTATED 1,000 ML IV PRN (10:15)
--- NOTE | 2020-09-14 18:24 | PDOC PROGRESS REPORT ---
Subjective Date:: 09/14/20 Subjective:: Patient is seen by the bedside, he is alert, he has a unique way, is sleeps in b ed, he tends to sleep transversely in bed Reason For Visit: ALTERED MENTAL STATUS/PNEUMONIA/ACTE KIDNEY INJURY Physical Exam Vital Signs: Temp Pulse Resp BP Pulse Ox 98.3 F 60 20 138/63 H 94 09/14/20 11:28 09/14/20 14:00 09/14/20 11:28 09/14/20 11:28 09/14/20 11:28 Intake & Output 09/13/20 09/14/20 09/15/20 06:59 06:59 06:59 Intake Total 1583 2820 350 Balance 1583 2820 350 Weight 117.4 kg 118.2 kg General appearance: PRESENT: no acute distress Eye exam: PRESENT: PERRLA Respiratory exam: PRESENT: clear to auscultation abigail Cardiovascular exam: PRESENT: +S1, +S2 GI/Abdominal exam: PRESENT: soft Neurological exam: PRESENT: alert Results Laboratory Results: 09/14/20 04:13 09/14/20 04:13 09/14/20 09/14/20 04:13 04:13 WBC 3.1 L RBC 4.61 Hgb 12.9 L Hct 39.4 MCV 85 MCH 27.9 MCHC 32.7 RDW 17.6 H Plt Count 75 L Seg Neutrophils % 53.0 Sodium 140.8 Potassium 3.8 Chloride 103 Carbon Dioxide 33 H Anion Gap 5 BUN 21 H Creatinine 1.12 Est GFR ( Amer) > 60 Glucose 87 Calcium 8.2 L Total Bilirubin 1.8 H AST 22 Alkaline Phosphatase 78 Total Protein 5.1 L Albumin 2.5 L 09/12/20 04:40 Catheterized Urine Urine Culture - Final NO GROWTH 2 DAYS 09/12/20 09/12/20 09/12/20 01:40 12:32 12:32 Creatine Kinase 58 CK-MB (CK-2) 1.85 Troponin I 0.038 NT-Pro-B Natriuret Pep 1590 H Impressions: Renal Ultrasound 09/12/20 00:00 IMPRESSION: Right renal atrophy. Likely small intrarenal calculi. Normal bladder. Left kidney is not seen. Head CT 09/12/20 02:25 IMPRESSION: No acute intracranial abnormality. Assessment & Plan - Diagnosis (1) Pneumonia Qualifiers: Pneumonia type: due to unspecified organism Laterality: bilateral Lung location: unspecified part of lung Qualified Code(s): J18.9 - Pneumonia, unspecified organism Is this a current diagnosis for this admission?: Yes Plan: He has pneumonia but this could be from Covid, presently stable not in any distress requiring supplemental oxygen via nasal cannula at 2 L (2) COVID-19 Is this a current diagnosis for this admission?: Yes (3) Acute kidney injury Is this a current diagnosis for this admission?: Yes Plan: The acute kidney injury is resolved, continue maintenance fluid therapy with Ringer's lactate (4) Acute respiratory failure with hypercapnia Is this a current diagnosis for this admission?: Yes - Time Time Spent with patient: 15-24 minutes Level of Care: IMCU Medications reviewed and adjusted accordingly: Yes Anticipated discharge: Home Anticipated DC Timeframe: within 72 hours
[2020-09-14] MEDS: ATORVASTATIN CALCIUM 40 MG TABLET PO SCH (21:30)
[2020-09-14] MEDS: METOPROLOL SUCCINATE 25 MG TAB.SR.24H PO SCH (21:32)
[2020-09-14] MEDS: TAMSULOSIN HCL 0.4 MG CAP.SR.24H PO SCH (21:33)
[2020-09-15] MEDS: RINGERS SOLUTION,LACTATED 1,000 ML IV PRN (00:30)
[2020-09-15 06:17] LABS: ABSOLUTE EOSINOPHILS # (AUTO) 0.1 10^3/uL (0.0-0.6); ABSOLUTE MONOCYTES (AUTO) 0.6 10^3/uL (0.1-1.4); ABSOLUTE NEUT (AUTO) 1.7 10^3/uL (1.7-8.2); BASOPHILS % (AUTO) 0.4 % (0-2); EOSINOPHILS % (AUTO) 1.9 % (0-6); HEMATOCRIT 40.5 % (37.9-51.0); LYMPHOCYTES % (AUTO) 29.8 % (13-45); MEAN CORPUSCULAR HEMOGLOBIN 27.5 pg (27.0-33.4); MEAN CORPUSCULAR HGB CONC 32.1 g/dL (32.0-36.0); MEAN CORPUSCULAR VOLUME 86 fl (80-97); MONOCYTES % (AUTO) 17.2 % (3-13); RED BLOOD COUNT 4.73 10^6/uL (4.35-5.55); RED CELL DISTRIBUTION WIDTH 17.5 % (11.5-14.0); SEGMENTED NEUTROPHILS % (AUTO) 50.7 % (42-78); TOTAL CELLS COUNTED % (AUTO) 100 %; WHITE BLOOD COUNT 3.4 10^3/uL (4.0-10.5)
[2020-09-15 06:30] LABS: ALBUMIN 2.6 g/dL (3.5-5.0); ALKALINE PHOSPHATASE 71 U/L (38-126); ANION GAP 5 (5-19); ASPARTATE AMINO TRANSFERASE 25 U/L (17-59); BILIRUBIN,DIRECT 0.2 mg/dL (0.0-0.4); BILIRUBIN,TOTAL 1.4 mg/dL (0.2-1.3); BLOOD UREA NITROGEN 19 mg/dL (7-20); CALCIUM 8.3 mg/dL (8.4-10.2); CARBON DIOXIDE 33 mmol/L (22-30); CHLORIDE 103 mmol/L (98-107); GLUCOSE 99 mg/dL (75-110); POTASSIUM 4.3 mmol/L (3.6-5.0); TOTAL PROTEIN 5.2 g/dL (6.3-8.2)
[2020-09-15 07:25] LABS: PLATELET COUNT 77 10^3/uL (150-450)
[2020-09-15] MEDS: INSULIN LISPRO 100 UNIT/ML 3 ML VIAL SUBCUT SCH ×4 (08:30→21:43)
[2020-09-15] MEDS: CYANOCOBALAMIN (VITAMIN B-12) 1,000 MCG TABLET PO SCH (10:12)
[2020-09-15] MEDS: PREGABALIN 75 MG CAPSULE PO SCH ×2 (10:13→21:42)
[2020-09-15] MEDS: ALLOPURINOL 100 MG TABLET PO SCH (10:13)
[2020-09-15] MEDS: ZINC SULFATE 220 MG CAPSULE PO SCH (10:13)
[2020-09-15] MEDS: ASPIRIN 81 MG TABLET, CHEWABLE PO SCH (10:13)
[2020-09-15] MEDS: APIXABAN 5 MG TABLET PO SCH ×2 (10:13→21:42)
[2020-09-15] MEDS: GUAIFENESIN 600 MG TABLET.SA PO SCH ×2 (10:13→21:42)
[2020-09-15] MEDS: SERTRALINE HCL 50 MG TABLET PO SCH (10:13)
[2020-09-15] MEDS: FAMOTIDINE 20 MG TABLET PO SCH ×2 (10:13→18:54)
[2020-09-15] MEDS: ASCORBIC ACID 500 MG TABLET PO SCH ×2 (10:13→18:54)
[2020-09-15] MEDS: CHOLECALCIFEROL (D3) 1,000 UNIT (25 MCG) TABLET PO SCH (10:13)
[2020-09-15] MEDS: SITAGLIPTIN PHOSPHATE 25 MG TABLET PO SCH (10:14)
[2020-09-15] MEDS: SACUBITRIL/VALSARTAN 97 MG/103 MG TABLET PO SCH ×2 (10:14→21:45)
[2020-09-15] MEDS: POLYVINYL ALCOHOL 1.4% OPH SOLN 15 ML OU SCH ×4 (10:21→21:45)
[2020-09-15] MEDS: CETIRIZINE 10 MG TABLET PO SCH (10:21)
[2020-09-15] MEDS: CEFEPIME 1 GM/D5W RTU 1 GM/50 ML RTUPB IV SCH ×2 (12:08→21:42)
[2020-09-15] MEDS: AZITHROMYCIN 500 MG in DEXTROSE 5%-WATER 250 ML IV SCH (13:12)
--- NOTE | 2020-09-15 18:49 | PDOC PROGRESS REPORT ---
Subjective Date:: 09/15/20 Subjective:: Patient is seen by the bedside, no new complaints Reason For Visit: ALTERED MENTAL STATUS/PNEUMONIA/ACTE KIDNEY INJURY Physical Exam Vital Signs: Temp Pulse Resp BP Pulse Ox 98.5 F 65 18 115/76 98 09/15/20 11:30 09/15/20 14:00 09/15/20 11:30 09/15/20 11:30 09/15/20 11:30 Intake & Output 09/14/20 09/15/20 09/16/20 06:59 06:59 06:59 Intake Total 2820 1590 350 Output Total 0 Balance 2820 1590 350 Weight 118.2 kg 116.1 kg General appearance: PRESENT: no acute distress Eye exam: PRESENT: PERRLA Respiratory exam: PRESENT: clear to auscultation abigail Cardiovascular exam: PRESENT: +S1, +S2 GI/Abdominal exam: PRESENT: soft Neurological exam: PRESENT: alert Results Laboratory Results: 09/15/20 05:15 09/15/20 05:15 09/15/20 09/15/20 05:15 05:15 WBC 3.4 L RBC 4.73 Hgb 13.0 L Hct 40.5 MCV 86 MCH 27.5 MCHC 32.1 RDW 17.5 H Plt Count 77 L Seg Neutrophils % 50.7 Sodium 141.4 Potassium 4.3 Chloride 103 Carbon Dioxide 33 H Anion Gap 5 BUN 19 Creatinine 0.98 Est GFR ( Amer) > 60 Glucose 99 Calcium 8.3 L Total Bilirubin 1.4 H AST 25 Alkaline Phosphatase 71 Total Protein 5.2 L Albumin 2.6 L 09/12/20 09/12/20 09/12/20 01:40 12:32 12:32 Creatine Kinase 58 CK-MB (CK-2) 1.85 Troponin I 0.038 NT-Pro-B Natriuret Pep 1590 H Impressions: Renal Ultrasound 09/12/20 00:00 IMPRESSION: Right renal atrophy. Likely small intrarenal calculi. Normal bladder. Left kidney is not seen. Head CT 09/12/20 02:25 IMPRESSION: No acute intracranial abnormality. Assessment & Plan - Diagnosis (1) Pneumonia Qualifiers: Pneumonia type: due to unspecified organism Laterality: bilateral Lung location: unspecified part of lung Qualified Code(s): J18.9 - Pneumonia, unspecified organism Is this a current diagnosis for this admission?: Yes Plan: He has pneumonia but this could be from Covid, presently stable not in any d istress requiring supplemental oxygen via nasal cannula at 2 L (2) COVID-19 Is this a current diagnosis for this admission?: Yes (3) Acute kidney injury Is this a current diagnosis for this admission?: Yes Plan: Discontinue IV fluid (4) Acute respiratory failure with hypercapnia Is this a current diagnosis for this admission?: Yes - Time Time Spent with patient: 25-34 minutes Level of Care: IMCU Medications reviewed and adjusted accordingly: Yes Anticipated discharge: Home - Inpatient Certification Based on my medical assessment, after consideration of the patient's comorbidities, presenting symptoms, or acuity I expect that the services needed warrant INPATIENT care.: Yes I certify that my determination is in accordance with my understanding of Medicare's requirements for reasonable and necessary INPATIENT services [42 CFR 412.3e].: Yes
[2020-09-15] MEDS: METOPROLOL SUCCINATE 25 MG TAB.SR.24H PO SCH (21:42)
[2020-09-15] MEDS: TAMSULOSIN HCL 0.4 MG CAP.SR.24H PO SCH (21:42)
[2020-09-15] MEDS: ATORVASTATIN CALCIUM 40 MG TABLET PO SCH (21:42)
[2020-09-16] MEDS: INSULIN LISPRO 100 UNIT/ML 3 ML VIAL SUBCUT SCH ×4 (08:19→21:53)
[2020-09-16] MEDS: ALLOPURINOL 100 MG TABLET PO SCH (10:15)
[2020-09-16] MEDS: FAMOTIDINE 20 MG TABLET PO SCH ×3 (10:15→18:20)
[2020-09-16] MEDS: APIXABAN 5 MG TABLET PO SCH ×2 (10:15→22:02)
[2020-09-16] MEDS: CETIRIZINE 10 MG TABLET PO SCH (10:15)
[2020-09-16] MEDS: CYANOCOBALAMIN (VITAMIN B-12) 1,000 MCG TABLET PO SCH (10:16)
[2020-09-16] MEDS: GUAIFENESIN 600 MG TABLET.SA PO SCH ×2 (10:16→22:02)
[2020-09-16] MEDS: ZINC SULFATE 220 MG CAPSULE PO SCH (10:16)
[2020-09-16] MEDS: SERTRALINE HCL 50 MG TABLET PO SCH (10:16)
[2020-09-16] MEDS: PREGABALIN 75 MG CAPSULE PO SCH ×2 (10:17→22:02)
[2020-09-16] MEDS: ASPIRIN 81 MG TABLET, CHEWABLE PO SCH (10:17)
[2020-09-16] MEDS: SITAGLIPTIN PHOSPHATE 25 MG TABLET PO SCH (10:17)
[2020-09-16] MEDS: ASCORBIC ACID 500 MG TABLET PO SCH ×3 (10:17→18:20)
[2020-09-16] MEDS: CHOLECALCIFEROL (D3) 1,000 UNIT (25 MCG) TABLET PO SCH (10:17)
[2020-09-16] MEDS: SACUBITRIL/VALSARTAN 97 MG/103 MG TABLET PO SCH ×2 (10:18→22:03)
[2020-09-16] MEDS: POLYVINYL ALCOHOL 1.4% OPH SOLN 15 ML OU SCH ×5 (10:18→22:04)
[2020-09-16] MEDS: CEFEPIME 1 GM/D5W RTU 1 GM/50 ML RTUPB IV SCH ×2 (10:18→22:01)
[2020-09-16] MEDS: AZITHROMYCIN 500 MG in DEXTROSE 5%-WATER 250 ML IV SCH (11:42)
[2020-09-16 18:35] LABS: ARTERIAL BLOOD BASE EXCESS 6.6 mmol/L; ARTERIAL BLOOD FIO2 2L; ARTERIAL BLOOD H2CO3 1.92 mmol/L (1.05-1.35); ARTERIAL BLOOD HCO3 34.3 mmol/L (20-24); ARTERIAL BLOOD PCO2 63.7 mmHg (35-45); ARTERIAL BLOOD PH 7.35 (7.35-7.45); ARTERIAL BLOOD PO2 87.7 mmHg (80-100); ARTERIAL BLOOD TOTAL CO2 36.3 mmol/L (23-27)
--- NOTE | 2020-09-16 19:10 | RADIOLOGY REPORT (SQ) ---
EXAM DESCRIPTION: CT HEAD WITHOUT IMAGES COMPLETED DATE/TIME: 09/16/2020 6:34 pm REASON FOR STUDY: unresponsiveness COMPARISON: 09/12/2020 and 09/29/2019 TECHNIQUE: Axial images acquired through the brain without intravenous contrast. Images reviewed wi th bone, brain and subdural windows. Additional sagittal and coronal reconstructions were generated. Images stored on PACS. All CT scanners at this facility use dose modulation, iterative reconstruction, and/or weight based d osing when appropriate to reduce radiation dose to as low as reasonably achievable (ALARA). [facility]: Dose Right [facility]: CareDose [facility]: Dose Right [facility]: Teradose 4D [facility]: Smart [place] RADIATION DOSE: CT Rad equipment meets quality standard of care and radiation dose reduction techniq ues were employed. CTDIvol: 53.2 mGy. DLP: 1097 mGy-cm. LIMITATIONS: None. FINDINGS: VENTRICLES: Normal size and contour. The cisterns are patent. CEREBRUM: No masses. No hemorrhage. No midline shift. No evidence for acute infarction. Normal gra y/white matter differentiation. No areas of low density in the white matter. CEREBELLUM: No masses. No hemorrhage. No alteration of density. No evidence for acute infarction. EXTRAAXIAL SPACES: Age related involutional change No fluid collections. No masses. ORBITS AND GLOBE: As on the prior examinations, metallic foreign body superior aspect of the left oc ular globe and associated beam hardening artifact. No intra- or extraconal masses. CALVARIUM: No fracture. PARANASAL SINUSES: Deviation of the nasal septum. No fluid or mucosal thickening. SOFT TISSUES: No mass or hematoma. OTHER: Atherosclerotic changes involving the cavernous portion of the internal carotid arteries. IMPRESSION: 1. Examination is limited due to beam hardening artifact from a metallic foreign body s uperior aspect of the left ocular globe. This findings unchanged since the previous examinations. N o acute intracranial abnormality. EVIDENCE OF ACUTE STROKE: NO. COMMENT: Quality ID # [id number]: Final reports with documentation of one or more dose reduction techniques (e.g., Automated exposure control, adjustment of the mA and/or kV according to patient size, use of iterative reconstruction technique) TECHNICAL DOCUMENTATION: JOB ID: [id number] 2010 [email or web address] Rights Reserved Reading location - IP/workstation name: [facility] [facility]
[2020-09-16 19:43] LABS: ABSOLUTE EOSINOPHILS # (AUTO) 0.1 10^3/uL (0.0-0.6); ABSOLUTE LYMPHOCYTES (AUTO) 0.9 10^3/uL (0.5-4.7); ABSOLUTE MONOCYTES (AUTO) 0.5 10^3/uL (0.1-1.4); ABSOLUTE NEUT (AUTO) 1.9 10^3/uL (1.7-8.2); BASOPHILS % (AUTO) 0.5 % (0-2); EOSINOPHILS % (AUTO) 2.1 % (0-6); HEMATOCRIT 38.3 % (37.9-51.0); HEMOGLOBIN 12.4 g/dL (13.5-17.0); LYMPHOCYTES % (AUTO) 27.6 % (13-45); MEAN CORPUSCULAR HEMOGLOBIN 27.9 pg (27.0-33.4); MEAN CORPUSCULAR HGB CONC 32.4 g/dL (32.0-36.0); MEAN CORPUSCULAR VOLUME 86 fl (80-97); MONOCYTES % (AUTO) 13.5 % (3-13); RED BLOOD COUNT 4.45 10^6/uL (4.35-5.55); SEGMENTED NEUTROPHILS % (AUTO) 56.3 % (42-78); TOTAL CELLS COUNTED % (AUTO) 100 %; WHITE BLOOD COUNT 3.4 10^3/uL (4.0-10.5)
[2020-09-16 20:15] LABS: PLATELET COUNT 72 10^3/uL (150-450)
[2020-09-16 20:19] LABS: ALBUMIN 2.4 g/dL (3.5-5.0); ALKALINE PHOSPHATASE 83 U/L (38-126); ASPARTATE AMINO TRANSFERASE 22 U/L (17-59); BILIRUBIN,DIRECT 0.1 mg/dL (0.0-0.4); BILIRUBIN,TOTAL 1.5 mg/dL (0.2-1.3); BLOOD UREA NITROGEN 16 mg/dL (7-20); CALCIUM 8.3 mg/dL (8.4-10.2); CARBON DIOXIDE 36 mmol/L (22-30); CHLORIDE 101 mmol/L (98-107); GLUCOSE 93 mg/dL (75-110); POTASSIUM 4.3 mmol/L (3.6-5.0); TOTAL PROTEIN 5.1 g/dL (6.3-8.2)
[2020-09-16 20:33] LABS: ANION GAP 1 (5-19)
--- NOTE | 2020-09-16 20:57 | PDOC PROGRESS REPORT ---
Subjective Date:: 09/16/20 Subjective:: Patient was excessively somnolent no response to verbal commands initially no response to noxious stimulus, CT head was done negative blood work was done including comprehensive metabolic panel normal, the hemogram was also normal Patient subsequently patient came around, was lucid, respond to verbal commands ,, Reason For Visit: ALTERED MENTAL STATUS/PNEUMONIA/ACTE KIDNEY INJURY Physical Exam Vital Signs: Temp Pulse Resp BP Pulse Ox 97.5 F 59 L 18 145/57 H 100 09/16/20 19:24 09/16/20 19:24 09/16/20 19:24 09/16/20 19:24 09/16/20 19:24 Intake & Output 09/15/20 09/16/20 09/17/20 06:59 06:59 06:59 Intake Total 1590 1400 400 Output Total 0 Balance 1590 1400 400 Weight 116.1 kg 116.8 kg General appearance: PRESENT: no acute distress Eye exam: PRESENT: PERRLA Respiratory exam: PRESENT: clear to auscultation abigail Cardiovascular exam: PRESENT: +S1, +S2 GI/Abdominal exam: PRESENT: soft Neurological exam: PRESENT: alert Results Laboratory Results: 09/16/20 19:30 09/16/20 19:30 09/16/20 09/16/20 09/16/20 17:57 19:30 19:30 WBC 3.4 L RBC 4.45 Hgb 12.4 L Hct 38.3 MCV 86 MCH 27.9 MCHC 32.4 RDW 17.0 H Plt Count 72 L Seg Neutrophils % 56.3 Carbonic Acid 1.92 H HCO3/H2CO3 Ratio 17:1 ABG pH 7.35 ABG pCO2 63.7 H ABG pO2 87.7 ABG HCO3 34.3 H ABG O2 Saturation 96.0 ABG Base Excess 6.6 FiO2 2L Sodium 138.4 Potassium 4.3 Chloride 101 Carbon Dioxide 36 H Anion Gap 1 L BUN 16 Creatinine 0.99 Est GFR ( Amer) > 60 Glucose 93 Calcium 8.3 L Total Bilirubin 1.5 H AST 22 Alkaline Phosphatase 83 Total Protein 5.1 L Albumin 2.4 L 09/12/20 09/12/20 09/12/20 01:40 12:32 12:32 Creatine Kinase 58 CK-MB (CK-2) 1.85 Troponin I 0.038 NT-Pro-B Natriuret Pep 1590 H Impressions: Renal Ultrasound 09/12/20 00:00 IMPRESSION: Right renal atrophy. Likely small intrarenal calculi. Normal bladder. Left kidney is not seen. Head CT 09/16/20 00:00 IMPRESSION: 1. Examination is limited due to beam hardening artifact from a metallic foreign body superior aspect of the left ocular globe. This findings unchanged since the previous examinations. No acute intracranial abnormality. EVIDENCE OF ACUTE STROKE: NO. Assessment & Plan - Diagnosis (1) Pneumonia Qualifiers: Pneumonia type: due to unspecified organism Laterality: bilateral Lung location: unspecified part of lung Qualified Code(s): J18.9 - Pneumonia, unspecified organism Is this a current diagnosis for this admission?: Yes Plan: He has pneumonia but this could be from Covid, presently stable not in any distress requiring supplemental oxygen via nasal cannula at 2 L (2) COVID-19 Is this a current diagnosis for this admission?: Yes (3) Acute kidney injury Is this a current diagnosis for this admission?: Yes Plan: Resolved (4) Acute respiratory failure with hypercapnia Is this a current diagnosis for this admission?: Yes (5) Acute encephalopathy Is this a current diagnosis for this admission?: Yes Plan: Patient developed acute encephalopathy with unresponsiveness the initial work-up was negative for any metabolic etiology, CT head negative, patient ultimately regained full consciousness - Time Time Spent with patient: 35 or more minutes Level of Care: IMCU Medications reviewed and adjusted accordingly: Yes Anticipated discharge: SNF Anticipated DC Timeframe: when bed available
[2020-09-16] MEDS: ATORVASTATIN CALCIUM 40 MG TABLET PO SCH (22:02)
[2020-09-16] MEDS: METOPROLOL SUCCINATE 25 MG TAB.SR.24H PO SCH (22:02)
[2020-09-16] MEDS: TAMSULOSIN HCL 0.4 MG CAP.SR.24H PO SCH (22:02)
[2020-09-17] MEDS: ASPIRIN 81 MG TABLET, CHEWABLE PO SCH (09:43)
[2020-09-17] MEDS: PREGABALIN 75 MG CAPSULE PO SCH (09:43)
[2020-09-17] MEDS: CETIRIZINE 10 MG TABLET PO SCH (09:43)
[2020-09-17] MEDS: GUAIFENESIN 600 MG TABLET.SA PO SCH (09:43)
[2020-09-17] MEDS: FAMOTIDINE 20 MG TABLET PO SCH ×2 (09:43→17:14)
[2020-09-17] MEDS: ZINC SULFATE 220 MG CAPSULE PO SCH (09:44)
[2020-09-17] MEDS: CHOLECALCIFEROL (D3) 1,000 UNIT (25 MCG) TABLET PO SCH (09:44)
[2020-09-17] MEDS: SACUBITRIL/VALSARTAN 97 MG/103 MG TABLET PO SCH (09:44)
[2020-09-17] MEDS: ALLOPURINOL 100 MG TABLET PO SCH (09:44)
[2020-09-17] MEDS: CYANOCOBALAMIN (VITAMIN B-12) 1,000 MCG TABLET PO SCH (09:44)
[2020-09-17] MEDS: SITAGLIPTIN PHOSPHATE 25 MG TABLET PO SCH (09:44)
[2020-09-17] MEDS: APIXABAN 5 MG TABLET PO SCH (09:44)
[2020-09-17] MEDS: SERTRALINE HCL 50 MG TABLET PO SCH (09:44)
[2020-09-17] MEDS: INSULIN LISPRO 100 UNIT/ML 3 ML VIAL SUBCUT SCH ×4 (09:45→22:09)
[2020-09-17] MEDS: CEFEPIME 1 GM/D5W RTU 1 GM/50 ML RTUPB IV SCH ×2 (09:45→22:35)
[2020-09-17] MEDS: ASCORBIC ACID 500 MG TABLET PO SCH ×2 (09:50→17:15)
[2020-09-17] MEDS: AZITHROMYCIN 500 MG in DEXTROSE 5%-WATER 250 ML IV SCH (10:55)
[2020-09-17] MEDS: POLYVINYL ALCOHOL 1.4% OPH SOLN 15 ML OU SCH ×4 (10:55→22:35)
--- NOTE | 2020-09-17 19:44 | PDOC DISCHARGE SUMMARY ---
Impression - Admit/DC Date/PCP Admission Date/Primary Care Provider: 09/12/20 07:25 CRISTINE AGUAYO MD Discharge Date: 09/17/20 - Discharge Diagnosis (1) Pneumonia Is this a current diagnosis for this admission?: Yes (2) COVID-19 Is this a current diagnosis for this admission?: Yes (3) Acute kidney injury Is this a current diagnosis for this admission?: Yes (4) Acute respiratory failure with hypercapnia Is this a current diagnosis for this admission?: Yes (5) Acute encephalopathy Is this a current diagnosis for this admission?: Yes - Additional Information Referrals: CRISTINE AGUAYO MD [Primary Care Provider] - Follow up as needed Home Medications: Atorvastatin Calcium [Lipitor 40 mg Tablet] 40 mg PO QHS 10/11/17 Cetirizine HCl [Zyrtec 10 mg Tablet] 5 mg PO DAILY 10/11/17 Cyanocobalamin (Vitamin B-12) [Vitamin B-12 500 mcg Tablet] 500 mcg PO DAILY 10/11/17 Furosemide [Lasix 20 mg Tablet] 20 mg PO QAM 10/11/17 Linagliptin [Tradjenta] 5 mg PO DAILY 10/11/17 Metoprolol Succinate [Toprol Xl 25 mg Tab.sr] 25 mg PO QHS 10/11/17 Polyvinyl Alcohol [Liquitears 1.4% Ophth Soln 15 ml] 1 drop OU QID 10/11/17 Pregabalin [Lyrica] 150 mg PO Q12 10/11/17 Sacubitril/Valsartan [Entresto 97 mg-103 mg Tablet] 1 tab PO Q12 10/11/17 Tamsulosin HCl [Flomax 0.4 mg Cap.sr] 0.4 mg PO QHS 10/11/17 Aspirin [Aspirin 81 mg Chewable Tablet] 81 mg PO DAILY tab.chew 10/20/17 Allopurinol [Zyloprim 100 mg Tablet] 200 mg PO DAILY 07/07/19 Eyelid Cleanser Combination 5 [Ocusoft Lid Scrub] 1 pad OU BID 07/07/19 Mineral Oil/Petrolatum,White [Refresh P.m. Ointment] 1 applic OU QHS 07/07/19 Sertraline HCl [Zoloft 50 mg Tablet] 50 mg PO DAILY 07/07/19 Acetaminophen [Tylenol 325 mg Tablet] 325 mg PO Q6HP PRN #0 07/10/19 Oxycodone HCl/Acetaminophen [Percocet 10-325 mg Tablet] 1 each PO Q8H PRN #0 07/10/19 Apixaban [Eliquis 5 mg Tablet] 5 mg PO BID 09/12/20 Ascorbic Acid [Vitamin C 500 mg Tablet] 1,000 mg PO BID 09/12/20 Cholecalciferol (Vitamin D3) [Vitamin D3 1000 Unit Tablet] 2,000 unit PO DAILY 09/12/20 Famotidine [Pepcid 20 mg Tablet] 20 mg PO BID 09/12/20 Guaifenesin [Mucinex Sr 600 mg Tablet.sa] 600 mg PO Q12 09/12/20 Isosorbide Dinitrate [Isosorbide Dinitrate ER] 30 mg PO DAILY 09/12/20 Lorazepam [Ativan 0.5 mg Tablet] 0.5 mg PO Q12HP PRN 09/12/20 Melatonin/Pyridoxine HCl (B6) [Melatonin 3 mg Tablet] 1 tab PO QHS 09/12/20 Zinc Sulfate [Zinc-220 Capsule] 220 mg PO DAILY 09/12/20 History of Present Illiness History of Present Illness: ERIKA GERMAIN is a 80 year old male,He has multiple comorbid conditions, resident of the penitentiary at [facility] He was recently diagnosed with SARS-CoV-2 infection on August 23, 2020 he was transferred to a different facility in [place], he just returned back to [facility] in [facility]. The penitentiary staff said patient had altered mental status and also the oxygen saturation was low, in the 70s, there was concern for pneumonia. The chest x-ray that was done demonstrated bibasilar airspace opacities that suggest pneumonia.The arterial blood gas on FiO2 28%, pH is 7.32, PCO2 57, PO2 126.5, bicarbonate 28.7. History taking is a challenge in this patient is somewhat stuporous, he has multiple comorbid condition including chronic systolic and diastolic heart failure morbid obesity ascending aortic aneurysm multiple strokes, history of multiple myeloma CKD stage III, chronic Conjunctivitis.I believe patient was a DNR status from prior encounter but there is no DNR documentation from the facility. Hospital Course Hospital Course: Patient was admitted for the management of pneumonia, he was treated with IV antibiotic, he has underlining COVID-19 positive test (U07.1, COVID-19) with Acute Pneumonia (J12.89, Other viral pneumonia) (If respiratory failure or sepsis present, add as separate assessment). He was empirically treated with IV antibiotic no specific organism was found. He had episode of prolonged somnolence in the hospital, this was evaluated with CT of the head, this was negative for an acute pathology the metabolic profile was normal as well. Patient has optimized inpatient care at this time he will be discharged to be transferred back to penitentiary Physical Exam Vital Signs: Temp Pulse Resp BP Pulse Ox 97.8 F 62 18 137/57 H 97 09/17/20 16:35 09/17/20 16:35 09/17/20 16:35 09/17/20 16:35 09/17/20 16:35 Intake & Output 09/16/20 09/17/20 09/18/20 06:59 06:59 06:59 Intake Total 1400 600 300 Balance 1400 600 300 Weight 116.8 kg 117.8 kg 117.8 kg General appearance: PRESENT: no acute distress Eye exam: PRESENT: PERRLA Respiratory exam: PRESENT: clear to auscultation abigail Cardiovascular exam: PRESENT: +S1, +S2 GI/Abdominal exam: PRESENT: soft Neurological exam: PRESENT: alert Results Laboratory Results: WBC 3.4 10^3/uL (4.0-10.5) L 09/16/20 19:30 RBC 4.45 10^6/uL (4.35-5.55) 09/16/20 19:30 Hgb 12.4 g/dL (13.5-17.0) L 09/16/20 19:30 Hct 38.3 % (37.9-51.0) 09/16/20 19:30 MCV 86 fl (80-97) 09/16/20 19:30 MCH 27.9 pg (27.0-33.4) 09/16/20 19:30 MCHC 32.4 g/dL (32.0-36.0) 09/16/20 19:30 RDW 17.0 % (11.5-14.0) H 09/16/20 19:30 Plt Count 72 10^3/uL (150-450) L 09/16/20 19:30 Lymph % (Auto) 27.6 % (13-45) 09/16/20 19:30 Stokes % (Auto) 13.5 % (3-13) H 09/16/20 19:30 Eos % (Auto) 2.1 % (0-6) 09/16/20 19:30 Baso % (Auto) 0.5 % (0-2) 09/16/20 19:30 Absolute Neuts (auto) 1.9 10^3/uL (1.7-8.2) 09/16/20 19:30 Absolute Lymphs (auto) 0.9 10^3/uL (0.5-4.7) 09/16/20 19:30 Absolute Monos (auto) 0.5 10^3/uL (0.1-1.4) 09/16/20 19:30 Absolute Eos (auto) 0.1 10^3/uL (0.0-0.6) 09/16/20 19:30 Absolute Basos (auto) 0.0 10^3/uL (0.0-0.2) 09/16/20 19:30 Seg Neutrophils % 56.3 % (42-78) 09/16/20 19:30 Carbonic Acid 1.92 mmol/L (1.05-1.35) H 09/16/20 17:57 HCO3/H2CO3 Ratio 17:1 09/16/20 17:57 ABG pH 7.35 (7.35-7.45) 09/16/20 17:57 ABG pCO2 63.7 mmHg (35-45) H 09/16/20 17:57 ABG pO2 87.7 mmHg (80-100) 09/16/20 17:57 ABG HCO3 34.3 mmol/L (20-24) H 09/16/20 17:57 ABG Total CO2 36.3 mmol/L (23-27) H 09/16/20 17:57 ABG O2 Saturation 96.0 % (94-98) 09/16/20 17:57 ABG Base Excess 6.6 mmol/L 09/16/20 17:57 FiO2 2L 09/16/20 17:57 Sodium 138.4 mmol/L (137-145) 09/16/20 19:30 Potassium 4.3 mmol/L (3.6-5.0) 09/16/20 19:30 Chloride 101 mmol/L (98-107) 09/16/20 19:30 Carbon Dioxide 36 mmol/L (22-30) H 09/16/20 19:30 Anion Gap 1 (5-19) L 09/16/20 19:30 BUN 16 mg/dL (7-20) 09/16/20 19:30 Creatinine 0.99 mg/dL (0.52-1.25) 09/16/20 19:30 Est GFR ( Amer) > 60 (>60) 09/16/20 19:30 Est GFR (MDRD) Non-Af > 60 (>60) 09/16/20 19:30 Glucose 93 mg/dL (75-110) 09/16/20 19:30 POC Glucose 105 mg/dL (70-110) 09/17/20 16:37 Hemoglobin A1c % 5.5 % (4.7-6.0) 09/13/20 04:53 Calcium 8.3 mg/dL (8.4-10.2) L 09/16/20 19:30 Magnesium 1.7 mg/dL (1.6-2.3) 09/12/20 01:40 Total Bilirubin 1.5 mg/dL (0.2-1.3) H 09/16/20 19:30 Direct Bilirubin 0.1 mg/dL (0.0-0.4) 09/16/20 19:30 Neonat Total Bilirubin Not Reportable 09/16/20 19:30 Neonat Direct Bilirubin Not Reportable 09/16/20 19:30 Neonat Indirect Bili Not Reportable 09/16/20 19:30 AST 22 U/L (17-59) 09/16/20 19:30 ALT 7 U/L (<50) 09/16/20 19:30 Alkaline Phosphatase 83 U/L (38-126) 09/16/20 19:30 Creatine Kinase 58 U/L (55-170) 09/12/20 12:32 CK-MB (CK-2) 1.85 ng/mL (<4.55) 09/12/20 12:32 Troponin I 0.038 ng/mL 09/12/20 12:32 NT-Pro-B Natriuret Pep 1590 pg/mL (<450) H 09/12/20 01:40 Total Protein 5.1 g/dL (6.3-8.2) L 09/16/20 19:30 Albumin 2.4 g/dL (3.5-5.0) L 09/16/20 19:30 Urine Color GIUSEPPE 09/12/20 04:40 Urine Appearance SLIGHTLY-CLOUDY 09/12/20 04:40 Urine pH 5.0 (5.0-9.0) 09/12/20 04:40 Ur Specific Sullivan 1.020 09/12/20 04:40 Urine Protein 100 mg/dL (NEGATIVE) H 09/12/20 04:40 Urine Glucose (UA) NEGATIVE mg/dL (NEGATIVE) 09/12/20 04:40 Urine Ketones TRACE mg/dL (NEGATIVE) H 09/12/20 04:40 Urine Blood NEGATIVE (NEGATIVE) 09/12/20 04:40 Urine Nitrite NEGATIVE (NEGATIVE) 09/12/20 04:40 Urine Bilirubin NEGATIVE (NEGATIVE) 09/12/20 04:40 Urine Urobilinogen NEGATIVE mg/dL (<2.0) 09/12/20 04:40 Ur Leukocyte Esterase NEGATIVE (NEGATIVE) 09/12/20 04:40 Urine WBC (Auto) 3 /HPF 09/12/20 04:40 Urine RBC (Auto) 2 /HPF 09/12/20 04:40 U Hyaline Cast (Auto) 1 /LPF 09/12/20 04:40 Urine Mucus (Auto) OCC /LPF 09/12/20 04:40 Urine Ascorbic Acid 40 (NEGATIVE) H 09/12/20 04:40 Serum Alcohol < 10 mg/dL (NONE DETECTED) 09/12/20 01:40 Influenza A (RT-PCR) NEGATIVE (NEGATIVE) 09/12/20 08:30 Influenza B (RT-PCR) NEGATIVE (NEGATIVE) 09/12/20 08:30 RSV (RT-PCR) NEGATIVE (NEGATIVE) 09/12/20 08:30 SARS-CoV-2 Rap RNA(RT-PCR) POSITIVE (NEGATIVE) 09/12/20 08:30 09/12/20 12 01:40 12:32 CK-MB (CK-2) 1.85 Troponin I 0.038 NT-Pro-B Natriuret Pep 1590 H Impressions: Renal Ultrasound 09/12/20 00:00 IMPRESSION: Right renal atrophy. Likely small intrarenal calculi. Normal bladder. Left kidney is not seen. Head CT 09/12/20 02:25 IMPRESSION: No acute intracranial abnormality. Head CT 09/16/20 00:00 IMPRESSION: 1. Examination is limited due to beam hardening artifact from a metallic foreign body superior aspect of the left ocular globe. This findings unchanged since the previous examinations. No acute intracranial abnormality. EVIDENCE OF ACUTE STROKE: NO. Stroke Is this a Stroke Patient?: No Acute Heart Failure Is this a Heart Failure Patient?: No
[2020-09-17 22:22] VITALS: BP 135/63
== END 2020-09-17 22:45 | DRG 177 ==
LOC: ER 01:09 → EH 07:25 → 3W 11:13
PROVIDERS: ADMIT Internal Medicine; ATTEND Internal Medicine
DX: U07.1 COVID-19 (principal); J12.89 Other viral pneumonia; J96.02 Acute respiratory failure with hypercapnia; N17.9 Acute kidney failure, unspecified; G93.40 Encephalopathy, unspecified; I50.42 Chronic combined systolic (congestive) and diastolic (congestive) heart failure; I13.0 Hypertensive heart and chronic kidney disease with heart failure and stage 1 through stage 4 chronic kidney disease, or unspecified chronic kidney disease; E66.01 Morbid (severe) obesity due to excess calories; N18.30 Chronic kidney disease, stage 3 unspecified; E11.22 Type 2 diabetes mellitus with diabetic chronic kidney disease; K21.9 Gastro-esophageal reflux disease without esophagitis; N40.0 Benign prostatic hyperplasia without lower urinary tract symptoms; H10.402 Unspecified chronic conjunctivitis, left eye; I25.10 Atherosclerotic heart disease of native coronary artery without angina pectoris; E78.5 Hyperlipidemia, unspecified; E03.9 Hypothyroidism, unspecified; G47.30 Sleep apnea, unspecified; M10.9 Gout, unspecified; D63.1 Anemia in chronic kidney disease; F32.9 Major depressive disorder, single episode, unspecified; I25.2 Old myocardial infarction; Z79.899 Other long term (current) drug therapy; Z79.82 Long term (current) use of aspirin; Z88.6 Allergy status to analgesic agent; Z88.7 Allergy status to serum and vaccine; Z86.73 Personal history of transient ischemic attack (TIA), and cerebral infarction without residual deficits; Z86.718 Personal history of other venous thrombosis and embolism; Z85.820 Personal history of malignant melanoma of skin; Z95.5 Presence of coronary angioplasty implant and graft; Z79.01 Long term (current) use of anticoagulants; Z87.891 Personal history of nicotine dependence
CPT/HCPCS: 36415; 36600; 70450; 71045; 76770; 80053; 80307; 81001; 82550; 82553; 82803; 82962; 83036; 83735; 83880; 84484; 85025; 87040; 87070; 87086; 93005; 93010; 99285; 0241U; C9803; J0456; J0692; J3490; J7060; J7120